=== PATIENT | male | born 1960 | race Caucasian/White ===

== ENCOUNTER 2020-06-30 07:48 | Outpatient (REF) | payer MEDICAID, SELFPAY | END 2020-06-30 07:49 | disposition home or self-care (01) | LOC: HO.HAP 07:48 | PROVIDERS: PCP Student in an Organized Health Care Education/Training Program; Referring Provider Student in an Organized Health Care Education/Training Program; Visit Provider Student in an Organized Health Care Education/Training Program | DX: Z13.89 Encounter for screening for other disorder (principal) | CPT/HCPCS: V5266 ==

== ENCOUNTER 2020-06-30 11:09 | Outpatient (REF) | payer MEDICAID, SELFPAY | END 2020-06-30 11:10 | disposition home or self-care (01) | LOC: HO.HAP 11:09 | PROVIDERS: Visit Provider Student in an Organized Health Care Education/Training Program | DX: Z46.1 Encounter for fitting and adjustment of hearing aid (principal) | CPT/HCPCS: V5266 ==

== ENCOUNTER 2020-10-07 10:01 | Outpatient (REF) | payer MEDICAID, SELFPAY | END 2020-10-07 10:02 | disposition home or self-care (01) | LOC: HO.HAP 10:01 | PROVIDERS: Visit Provider Student in an Organized Health Care Education/Training Program | DX: Z46.1 Encounter for fitting and adjustment of hearing aid (principal) | CPT/HCPCS: V5266 ==

== ENCOUNTER 2020-11-11 10:06 | Outpatient (REF) | payer MEDICAID, SELFPAY ==
--- NOTE | ~2020-11-11 | US_ITS ---
EXAMINATION: US RETROPERITONEAL LIMITED (RENAL ONLY) CLINICAL INFORMATION: Abnormal renal function. COMPARISON: None. TECHNIQUE: Real-time imaging of the kidneys. FINDINGS: RIGHT KIDNEY: 11.2 x 4.7 x 6.1 cm (SAG x AP x TRV). The kidney is normal in size, contour, and echogenicity. Renal cortical thickness is normal. No calculi or focal parenchymal lesions. No hydronephrosis. Tiny echogenic foci, likely representing vascular artifact. LEFT KIDNEY: 10.6 x 5.0 x 4.3 cm (SAG x AP x TRV). The kidney is normal in size, contour, and echogenicity. Renal cortical thickness is normal. No calculi or focal parenchymal lesions. No hydronephrosis. Tiny echogenic foci, likely representing vascular artifact. US/US renal BI IMPRESSION: No hydronephrosis or nephrolithiasis. No renal parenchymal lesion.
== END 2020-11-11 10:07 | disposition home or self-care (01) ==
LOC: HO.HMGCX 10:06
PROVIDERS: PCP Internal Medicine; Visit Provider Internal Medicine
DX: R94.4 Abnormal results of kidney function studies (principal)
CPT/HCPCS: 76775

== ENCOUNTER 2020-12-30 12:05 | Outpatient (REF) | payer MEDICAID, SELFPAY | END 2020-12-30 12:06 | disposition home or self-care (01) | LOC: HO.HAP 12:05 | PROVIDERS: Visit Provider Internal Medicine | DX: Z13.89 Encounter for screening for other disorder (principal) ==

== ENCOUNTER 2021-03-27 08:44 | Outpatient (REF) | payer MEDICAID, SELFPAY ==
--- NOTE | ~2021-03-27 | US_ITS ---
EXAMINATION: NONINVASIVE ASSESSMENT OF THE ARTERIES OF BOTH LOWER EXTREMITIES CLINICAL INFORMATION: Bilateral lower leg pain. COMPARISON: None. TECHNIQUE: Segmental ankle pulse volume recording, pressure measurement at the ankle and ankle brachial indices were obtained of the lower extremity arterial system bilaterally. This study was performed at rest only. FINDINGS: a) AT REST: 1. The ankle-brachial indices are: Right 0.43 and left 0.25. >0.97-1.25 = normal - no significant arterial disease. 0.75-0.96 = mild peripheral arterial disease. 0.5-0.74 = moderate peripheral arterial disease. <0.50 = severe peripheral arterial disease. 2. Segmental pressure at ankle: 69 mmHg on the right and 41 mmHg on the left. 3. PVR waveform at ankle: Significantly dampened and of low amplitude. US/US ROZINA complete IMPRESSION: By ROZINA the patient would have severe peripheral vascular disease bilaterally. I do not have any plain film studies or CT scans of the abdomen or lower extremities to assess for plaque. I recommend clinical correlation as with ABIs this low would expect possible ischemic changes.
== END 2021-03-27 08:45 | disposition home or self-care (01) ==
LOC: HO.US 08:44
PROVIDERS: Visit Provider Internal Medicine
DX: M79.661 Pain in right lower leg (principal); M79.662 Pain in left lower leg
CPT/HCPCS: 93923

== ENCOUNTER 2021-03-27 09:54 | Outpatient (REF) | payer MEDICAID, SELFPAY | END 2021-03-27 09:55 | disposition home or self-care (01) | LOC: HO.HAP 09:54 | PROVIDERS: Visit Provider Internal Medicine | DX: Z46.1 Encounter for fitting and adjustment of hearing aid (principal); H90.3 Sensorineural hearing loss, bilateral | CPT/HCPCS: V5266 ==

== ENCOUNTER → 2021-04-14 13:01 | Outpatient (BNVA) | payer MEDICAID, SELFPAY | PROVIDERS: PCP Internal Medicine; Referring Provider Internal Medicine; Visit Provider Surgery Vascular Surgery | DX: I73.9 Peripheral vascular disease, unspecified (principal) | CPT/HCPCS: 99202 ==

== ENCOUNTER 2021-04-15 07:25 | Day surgery (SDC) | payer MEDICAID, SELFPAY ==
[2021-04-15] VITALS (8 sets, daily range): BP systolic 102–140; BP diastolic 52–72; PULSE 52–62; RESP 16–18; TEMP 36.1–36.6; O2SAT 95–97; BMI 23.5
[2021-04-15 07:58] LABS: MANUAL DIFF FLAG NO
[2021-04-15 08:01] LABS: Basophils Absolute Auto 0.1 X10*3/uL (0.0-0.2); Basophils Percent Auto 0.8 % (0-2); Eosinophils Absolute Auto 0.3 X10*3/uL (0.0-0.4); Eosinophils Percent Auto 3.1 % (0-4); Hematocrit 43.3 % (42-52); Hemoglobin 14.1 g/dl (14.0-18.0); Imm Gran Abs Auto 0.02 X10*3/uL (0.00-0.03); Imm Gran Pct Auto 0.2 % (0.0-0.4); Lymphocytes Percent Auto 22.5 % (20-40); Mean Corpuscular HGB Conc 32.6 g/dl (31.0-36.0); Mean Corpuscular Hemoglobin 30.5 pg (27.0-33.0); Mean Corpuscular Volume 93.5 fL (80-98); Monocytes Absolute Auto 0.9 X10*3/uL (0.1-1.2); Monocytes Percent Auto 9.6 % (2-11); Neutrophils Absolute Auto 5.8 X10*3/uL (2.0-8.3); Neutrophils Percent Auto 63.8 % (45-73); Platelet Count 369 X10*3/uL (160-400); Red Blood Count 4.63 X10*6/uL (4.60-5.80); Red Cell Distribution Width 14.5 % (11.0-16.0); White Blood Count 9.1 X10*3/uL (4.8-10.8)
[2021-04-15 08:11] LABS: INTERNATIONAL NORM RATIO 1.2 (0.9-1.1); Prothrombin Time 13.1 SEC (9.9-13.0)
[2021-04-15 08:14] LABS: Partial Thromboplastin Time 43.3 SEC (24.1-38.0)
[2021-04-15 08:18] LABS: Anion Gap 18 (12-20); Blood Urea Nitrogen 14 mg/dL (9-16); Calcium 10.1 mg/dL (8.4-10.2); Carbon Dioxide 21 mmol/L (22-29); Chloride 105 mmol/L (96-108); Creatinine Clr Calc Pharmacy 85.4; Estimated Glomerular Filt Rate > 60; Glucose Random 80 mg/dL (60-115); Potassium 4.7 mmol/L (3.3-5.1); Sodium 139 mmol/L (135-145)
[2021-04-15] MEDS: 0.9 % Sodium Chloride 1,000 ML 100 ML IVCONT (08:33)
--- NOTE | 2021-04-15 11:11 | W.PM.OPN ---
Operative Note Operative Note Date of Service: 04/15/21 Narrative: Angiogram report from [facility] Preoperative diagnosis: Atherosclerosis of bilateral lower extremity with rest pain Postoperative diagnosis: Same Procedure: 1. Ultrasound-guided right common femoral access 2. Aortogram with bilateral lower extremity runoff Surgeon:Edmar Calderon M.D., FACS, RPVI [employer] Sales Representative:None Anesthesia: Local with moderate conscious sedation. Total intraservice moderate sedation time was 37 minutes. I monitored the patient's level of consciousness and physiologic status continuously throughout the procedure. Specimens:none Drains:none Estimated blood loss: Less than 10 ml Implant: None Indications: Pleasant 60-year-old gentleman with severe rest pain. He now presents for endovascular intervention. The patient has signed the informed consent after reviewing risks, complications, benefits, and alternatives previously discussed with the patient. The patient was given the opportunity to ask any additional questions or voice any concerns. All questions were answered to the patient's satisfaction. Procedure in detail: Patient was brought to the angiography suite prior to which a time-out was called for patient identification and site verification. Bilateral groins were prepped and draped in the standard surgical fashion. Under ultrasound guidance rightcommon femoral was punctured with micro puncture needle and wire. Subsequently a precision 4 Cambodian sheath was then placed. [employer] wire was advanced to the level of the aorta. 4 Cambodian Flush catheter was brought up and parked at the level of the renal arteries. Aortogram was then undertaken. Catheter was brought down to the level of the iliac bifurcation. Iliacs were subsequently imaged. We could not bring the catheter up and over due to the significant calcific disease. Runoff was undertaken from the aortic bifurcation position. No intervention was possible. Catheter wire sheath was removed. Direct pressure was held for 10 minutes. Interpretation of films: 1. Ultrasound demonstrates appropriate femoral puncture. Image of which was saved. 2. Aortogram demonstrates appropriate caliber aorta. Moderate aortic calcification. Appropriate take-off of the renals. 3. Iliac images demonstrate significant disease bilateral with minimal flow. Extremely calcified. 4. Left Leg Common femoral artery: Significant disease Profundus Femoris: Disease at the origin Superficial femoral artery: Occluded Popliteal artery (p1,p2,p3): Could not reflux contrast down Anterior tibial artery: Could not reflux contrast down Peroneal artery: Could not reflux contrast down Posterior tibial artery: Could not reflux contrast down Dorsalis pedis/plantar arch: Could not reflux contrast down 5. Right Leg Common femoral artery: Significant disease Profundus Femoris: Disease at the origin Superficial femoral artery: Occluded Popliteal artery (p1,p2,p3): Could not reflux contrast down Anterior tibial artery: Could not reflux contrast down Peroneal artery: Could not reflux contrast down Posterior tibial artery: Could not reflux contrast down Dorsalis pedis/plantar arch: Could not reflux contrast down Conclusion: 1. Successful diagnostic angiogram; patient will require open aortobifem This note is constructed using voice recognition software. While every effort has been made to ensure accuracy, therapy tech errors may have been included. Thank you for allowing me to participate in the care of your patient. Yours sincerely, Edmar Calderon MD, FACS, R.P.V.I.
== END 2021-04-15 15:18 | disposition home or self-care (01) ==
PROVIDERS: PCP Internal Medicine; Visit Provider Surgery Vascular Surgery
DX: I70.223 Atherosclerosis of native arteries of extremities with rest pain, bilateral legs (principal); I77.1 Stricture of artery; I10 Essential (primary) hypertension; F17.210 Nicotine dependence, cigarettes, uncomplicated
CPT/HCPCS: 36200; 36415; 75630; 76937; 80048; 85025; 85610; 85730; 99152; 99153; C1769; C1887; J2250; J3010; Q9967

== ENCOUNTER 2021-04-20 10:33 | Outpatient (REF) | payer MEDICAID, SELFPAY ==
--- NOTE | ~2021-04-20 | CT_ITS ---
EXAMINATION: CTA ABDOMEN, PELVIS AND LOWER EXTREMITY RUNOFF WITH CONTRAST CLINICAL INFORMATION: Claudication COMPARISON: Ultrasound 03/27/2021 TECHNIQUE: Routine abdominal aorta and lower extremity runoff CTA protocol with contrast was performed. 100 mL of Omnipaque 350 was administered. Images were evaluated on independent dedicated 3-D workstation and 3-D images were reconstructed with concurrent radiologist supervision and subsequently interpreted. This CT examination was performed using dose optimization techniques as appropriate, variously including the following: *Automated exposure control *Adjustment of mA and/or kV according to patient size (this includes techniques or standardized protocols for targeted exams where dose is matched to indication/reason for exam; i.e. extremities or head) *Use of iterative reconstruction technique TOTAL DLP: 629 mGy-cm FINDINGS: Vascular: 1. Distal Thoracic aorta:Normal in caliber. Mild eccentric calcified and noncalcified plaque. 2. Mesenteric Arteries:There is mild/moderate stenosis at the origin of the celiac trunk with normal opacification of its branches. The origin of the superior mesenteric artery is widely patent, though there is mild narrowing of the vessel approximately 1 cm from its origin over a length of 1 to 1.5 cm. Distal branches of the superior mesenteric artery are patent. The inferior mesenteric artery is somewhat diminutive, though patent. There is atherosclerotic disease along its course. 3. Renal Arteries:Single renal artery to each kidney. There is calcified and noncalcified plaque resulting in mild/moderate narrowing at the origin of the right kidney and dvtcytcb-nv-szstkn narrowing at the origin of the left. Distally the vessels are well opacified. 4. Infrarenal Abdominal Aorta:Patent without aneurysm or dissection. There is moderate eccentric wall calcification. The iliac bifurcation is patent. 5. Right Lower Extremity Arterial Perfusion: There is calcified and noncalcified, possible ulcerated plaque at the origin of the common iliac artery resulting in fzmwwqcv-xm-wlvvjr narrowing. There is either severe stenosis or focal occlusion at the origin of the internal iliac artery. The proximal internal iliac is opacified and there is severe disease further distally. There is multifocal lymlxozh-jm-oobmuk disease of the external iliac. There is irregular plaque of the common femoral artery resulting in moderate stenosis. The superficial femoral artery is occluded from its origin and there is baocgcwj-ta-pnqbgh irregular stenosis at the origin of the profunda femoris. There is reconstitution of the popliteal artery mdqkp-ufo-adiu in the very distal aspect of the superficial femoral artery at the adductor canal. There is focal severe stenosis secondary to irregular plaque at the level of the condyles. There is multifocal calcific disease of the runoff vessels and probable proximal segmental occlusion of the anterior tibial and posterior tibial arteries, though there remains a three-vessel runoff to the foot. 6. Left Lower Extremity Arterial Perfusion: Calcified and noncalcified plaque results in moderate narrowing of the common iliac and there is severe disease of the internal iliac. There is moderate narrowing of the external iliac at its proximal to midportion. There is irregular calcified and noncalcified plaque of the common femoral artery extending from the level of the femoral canal results in nfubxyra-ms-nxyqqk narrowing just proximal to the bifurcation. The superficial femoral artery is occluded from its origin. There is severe stenosis at the origin of the profunda femoris with post stenotic dilation. There is reconstitution of the very distal aspect of the superficial femoral artery at the level of the abductor canal and the ouejs-jfk-syoj popliteal artery with severe irregular disease of the hcnza-lqz-xusq popliteal as well as at the level of the condyles. There is mild disease below the level of the joint. There is multifocal calcification of the anterior tibial artery which is occluded proximally. There is reconstitution of the dorsalis pedis. There is segmental occlusion of the posterior tibial artery which is patent at the foot and the peroneal artery is patent. NONVASCULAR: Lung Bases: The visualized lung bases are unremarkable. Liver, Gallbladder and Biliary Tree: The liver is normal in size, shape, and attenuation. No focal hepatic lesion or biliary ductal dilatation is present. The gallbladder is unremarkable with no evidence of radiopaque gallstones, gallbladder wall thickening, or obvious pericholecystic inflammatory changes. Pancreas: Unremarkable. Spleen: Unremarkable. Adrenal Glands: Unremarkable. Kidneys and Ureters: The kidneys are normal in size, shape, and attenuation. At the upper pole of the left kidney there is a 1 cm cystic structure containing a thin linear internal septation. Septation is best appreciated on sagittal images. There are tiny foci of cortical thinning bilaterally which may represent areas of scarring. No hydronephrosis, hydroureter, or calculi seen. No perinephric stranding. Bladder: Unremarkable. Gastrointestinal Tract: The small and large bowel are normal in course and caliber. There is minimal colonic diverticulosis without diverticulitis. The appendix is unremarkable. Abdominal Wall: No significant hernia is appreciated. Lymph Nodes: Normal. Pelvic Viscera: Unremarkable. Osseous Structures: There are endplate degenerative changes of the imaged lumbar spine. There is prominent linear calcification of the posterior longitudinal ligament at T12-L1 which may result in some degree of canal narrowing. CT/CT angio abd aorta runoff IMPRESSION: Vascular: 1. There is multifocal atherosclerotic disease of the lower extremity vasculature as further detailed above. There is severe iliofemoral disease bilaterally with occlusion of the superficial femoral arteries, stenoses of the profunda femoral and multifocal disease of the runoff vessels. 2. Mild narrowing of the celiac and superior mesenteric arteries with patent vasculature beyond. 3. Bilateral renal arterial ostial disease with severe narrowing on the left and moderate narrowing on the right. Nonvascular: There is an indeterminate septated 1 cm cystic structure at the upper pole of the left kidney. Further characterization multiphasic CT or MR is recommended.
[2021-04-20] MEDS: iohexoL 350 MG/ML 100 ML INFUS..BTL IV (11:49)
== END 2021-04-20 10:34 | disposition home or self-care (01) ==
LOC: HO.CT 10:33
PROVIDERS: PCP Internal Medicine; Visit Provider Surgery Vascular Surgery
DX: I70.213 Atherosclerosis of native arteries of extremities with intermittent claudication, bilateral legs (principal)
CPT/HCPCS: 75635; Q9967

== ENCOUNTER → 2021-04-21 13:10 | Outpatient (BNVA) | payer MEDICAID, SELFPAY | PROVIDERS: PCP Internal Medicine; Visit Provider Surgery Vascular Surgery | DX: I74.09 Other arterial embolism and thrombosis of abdominal aorta (principal) | CPT/HCPCS: 99212 ==

== ENCOUNTER 2021-05-06 | Outpatient (REF) | payer MEDICAID, SELFPAY ==
[2021-05-06 12:55] VITALS: BP 123/56; PULSE 65; RESP 20; O2SAT 99; BMI 23.1
--- NOTE | 2021-05-06 13:09 | P.CONAN_ITS ---
HPI - Anesthesia Eval Consult details Narrative: Needs cardiac cath before optimized. To be rescheduled. 60yo M for Abdominal Aortobifemoral Repair, Open Cardiac clearance pending - Lexiscan stress done 05/14, Nuc imagings pending Bilateral hearing aides Educated RE: cessation/decreasing smoking, marijuana, ETOH preop PMFSH Active Problems Active Problems: All Active Problems (Updated 05/06/21 @ 12:52 by Bianka Cantu RN) PAD (peripheral artery disease) (Acute) Aortoiliac occlusive disease (Acute) Past Medical History Medical History COVID-19 vaccine series completed Decreased glomerular filtration rate (GFR) Hard of hearing HTN (hypertension) Hypercalcemia Hypercholesteremia Hypothyroidism IFG (impaired fasting glucose) PVD (peripheral vascular disease) S/P arteriogram of extremity Smoker Family History Family History (Updated 05/11/21 @ 10:16 by NADEGE Boland) Father No problems noted. Mother No problems noted. Surgical History Surgical History History of thumb surgery Social History Social History Are you a primary direct care specialist to a significant other at home: No Do you presently have visiting nurse or other home services: No Alcohol intake: current Alcohol intake frequency: a few times a week Alcohol type: beer Patient Tobacco Use Status: Current everyday Tobacco user Tobacco use type: Cigarette Cigarette Packs Per Day: 0.5 Cigarettes Per Day: 10.0 Years Smoked: > 20 Second Hand Smoke Exposure: No Narrative Narrative: No recent illness No CP/SOB with stairs. Limited only to leg pain associated with PAD Meds Allergies Allergy/AdvReac Type Severity Reaction Status Date / Time No Known Allergies Allergy Verified 05/11/21 10:15 [No Known Allergies*] Home Medications Medication Instructions Recorded Confirmed Last Taken Type acetaminophen 500 mg tablet 500 mg PO Q8H PRN 04/14/21 05/11/21 Unknown History amlodipine 10 mg tablet 10 mg PO DAILY 04/14/21 05/11/21 Unknown History aspirin 81 mg tablet,delayed 81 mg PO DAILY 04/14/21 05/11/21 Unknown History release atenolol 25 mg tablet 25 mg PO DAILY 04/14/21 05/11/21 Unknown History atorvastatin 40 mg tablet 40 mg PO BEDTIME 04/14/21 05/11/21 Unknown History cyclobenzaprine 5 mg tablet 5 mg PO TID 04/14/21 05/11/21 Unknown History hydralazine 25 mg tablet 25 mg PO TID 04/14/21 05/11/21 Unknown History ibuprofen 800 mg tablet 800 mg PO BID PRN 04/14/21 05/11/21 Unknown History levothyroxine 88 mcg tablet 88 mcg PO DAILY 04/14/21 05/11/21 Unknown History terbinafine HCl 250 mg tablet 250 mg PO DAILY 04/14/21 05/11/21 Unknown History Exam Exam Date and Time: May 06, 2021 1309 Height,Weight and Vital Signs: Height 5 ft 7 in Weight 67.132 kg Last Vital Signs Pulse 65 05/06/21 12:55 Resp 20 05/06/21 12:55 BP 123/56 L 05/06/21 12:55 Pulse Ox 99 05/06/21 12:55 Airway TM Dist: >3cm Neck ROM: Full Denture: Upper Loose/Missing/Broken Teeth: Yes Heart: RRR Lungs: CTAB Assessment and Plan Assessment Anesthesia Assessment: Anesthesia Plan Discussed (GA, Arterial Line, pain management postop discussed), Smoking Cess. Discussed and PAT Visit
== END 2021-05-06 00:01 | disposition home or self-care (01) ==
LOC: HO.LAB
PROVIDERS: PCP Internal Medicine; Visit Provider Surgery Vascular Surgery
DX: Z01.818 Encounter for other preprocedural examination (principal); I71.4 Abdominal aortic aneurysm, without rupture
CPT/HCPCS: 86850; 86900; 86901

== ENCOUNTER → 2021-05-11 10:13 | Outpatient (BNVA) | payer MEDICAID, SELFPAY | PROVIDERS: PCP Internal Medicine; Referring Provider Internal Medicine; Visit Provider Internal Medicine Cardiovascular Disease | DX: Z01.810 Encounter for preprocedural cardiovascular examination (principal); I74.09 Other arterial embolism and thrombosis of abdominal aorta; I73.9 Peripheral vascular disease, unspecified | CPT/HCPCS: 99202 ==

== ENCOUNTER → 2021-05-14 09:41 | Outpatient (REF) | payer MEDICAID, SELFPAY ==
--- NOTE | ~2021-05-14 | NM_ITS ---
Lexiscan Myocardial perfusion study Indication: Preoperative cardiovascular evaluation Technique: The patient was brought in for a Lexiscan perfusion study on 05/14/2021 and was injected 0.4 mg of Lexiscan intravenously. Within a minute of this injection 25 mCi of sestamibi was given intravenously. Images were obtained using the SPECT gamma camera interlaced with the gating device. Images were obtained in supine position. Resting perfusion study was performed on 05/15/2021. Patient was administered 25 mCi of sestamibi intravenously at rest. Images were then obtained in supine position. Total DLP 78mGy-cm. Images were processed with the software and compared side to side in short axis, horizontal long axis and vertical long axis views. Findings: Raw acquisition was reviewed. The stress perfusion study showed mildly diminished tracer uptake in the basal part of inferior septum. No significant change with CT attenuation correction. The gated study shows diminished LV systolic function with calculated LVEF of 43%. LV cavity is normal in size. The gated study shows reduced wall thickening and contractility in the basal inferior septum/inferior wall. Resting study shows mildly diminished tracer uptake in the basal inferior septum but slightly improved compared to stress acquisition. With CT attenuation correction, there is improvement in this area and hence could indicate some components of diaphragmatic attenuation. Gating at rest reveals ejection fraction at 57%. The findings are consistent with reversible basal inferior septal defect. NM/NM daija perf SPECT rest & str Impression: 1. Myocardial perfusion imaging study shows mild to moderate ischemia in the basal inferior septum. 2. Gated LVEF is 43% during stress and 57% during rest. 3. Transient ischemic dilatation ratio 1.1. EKG component of the test reported separately.
--- NOTE | 2021-05-14 09:50 | CA_ITS ---
Acquisition Time: 2021-05-14 10:01:31 Total Exercise Time: 00:02:00 Test Indications: preop Medications: Protocol: LEXISCAN Max HR: 098 BPM 60% of Pred: 161 BPM Max BP: 130/078 mmHG Max Work Load: 1.0 METS Pharmacological stress test with Lexiscan injection, while sitting and kicking his legs, with report of mild chest tightness and sob post injection, with isolated PACs, with normotensive response to injection, with nondiagnostic EKG for ischemia. In recovery his symptoms resolved after 3 min. Nuclear images pending. Test reviewed with Dr Arita. Referred By: Nathaniel Carter Overread By: HORACE BLUM
== END ==
LOC: HO.CARD 09:41
PROVIDERS: PCP Internal Medicine; Visit Provider Internal Medicine Cardiovascular Disease
DX: Z01.810 Encounter for preprocedural cardiovascular examination (principal)
CPT/HCPCS: 78452; 93017; A9500; J0280; J2785

== ENCOUNTER 2021-05-18 08:10 | Outpatient (REF) | payer MEDICAID, SELFPAY ==
[2021-05-18 08:24] LABS: MANUAL DIFF FLAG NO
[2021-05-18 08:38] LABS: Basophils Absolute Auto 0.1 X10*3/uL (0.0-0.2); Basophils Percent Auto 0.7 % (0-2); Eosinophils Absolute Auto 0.3 X10*3/uL (0.0-0.4); Eosinophils Percent Auto 2.8 % (0-4); Hemoglobin 13.2 g/dl (14.0-18.0); Imm Gran Abs Auto 0.04 X10*3/uL (0.00-0.03); Imm Gran Pct Auto 0.4 % (0.0-0.4); Lymphocytes Absolute Auto 2.4 X10*3/uL (1.2-4.9); Lymphocytes Percent Auto 23.7 % (20-40); Mean Corpuscular Hemoglobin 30.5 pg (27.0-33.0); Mean Corpuscular Volume 92.4 fL (80-98); Mean Platelet Volume 9.1 fL (9.4-12.4); Monocytes Percent Auto 9.8 % (2-11); Neutrophils Absolute Auto 6.3 X10*3/uL (2.0-8.3); Neutrophils Percent Auto 62.6 % (45-73); Platelet Count 345 X10*3/uL (160-400); Red Blood Count 4.33 X10*6/uL (4.60-5.80); Red Cell Distribution Width 14.4 % (11.0-16.0)
[2021-05-18 08:54] LABS: INTERNATIONAL NORM RATIO 1.1 (0.9-1.1); Prothrombin Time 12.4 SEC (9.9-13.0)
[2021-05-18 09:04] LABS: Anion Gap 15 (12-20); Blood Urea Nitrogen 17 mg/dL (9-16); Calcium 10.2 mg/dL (8.4-10.2); Carbon Dioxide 24 mmol/L (22-29); Chloride 103 mmol/L (96-108); Estimated Glomerular Filt Rate > 60; Glucose Random 84 mg/dL (60-115); Potassium 5.3 mmol/L (3.3-5.1); Sodium 137 mmol/L (135-145)
== END 2021-05-18 08:11 | disposition home or self-care (01) ==
LOC: HO.LAB 08:10
PROVIDERS: PCP Internal Medicine; Visit Provider Nurse Practitioner Family
DX: Z01.810 Encounter for preprocedural cardiovascular examination (principal); R94.39 Abnormal result of other cardiovascular function study
CPT/HCPCS: 36415; 80048; 85025; 85610

== ENCOUNTER 2021-05-18 10:57 | Outpatient (REF) | payer MEDICAID, SELFPAY ==
[2021-05-18 11:38] LABS: COVID-19 Test Negative (Negative)
== END 2021-05-18 10:58 | disposition home or self-care (01) ==
LOC: HO.LAB 10:57
PROVIDERS: Internal Medicine Cardiovascular Disease; PCP Internal Medicine; Visit Provider Internal Medicine
DX: Z20.822 Contact with and (suspected) exposure to COVID-19 (principal)
CPT/HCPCS: 36415; 87635

== ENCOUNTER 2021-07-06 14:18 | Outpatient (REF) | payer MEDICAID, SELFPAY ==
--- NOTE | 2021-07-06 14:34 | MHC.AU.P13 ---
Hearing Instrument Problem Date of Visit: 07/06/21 Right Ear: Electronic Design Engineer: Phonak Model: Audeo M 70-13T Serial Number: [id number] Repair Warranty: 06/14/2023 Battery Size: 13 Color: Beige Health Nurse: #1 Medium Type of Dome: Small Power Type of Wax Guard: CeruShield Dispensed By: [facility] Date of Fittin03/27/2020 Left Ear: Electronic Design Engineer: Phonak Model: Audeo M 70-13T Serial Number: [id number] Repair Warranty: 06/14/2023 Battery Size: 13 Color: Beige Health Nurse: #1 Medium Type of Dome: Small Power Type of Wax Guard: CeruShield Dispensed By: [facility] Date of Fittin03/27/2020 Follow-Up Summary: Hearing aids cleaned, wax guards, retention tails, and small power domes replaced - both amplifying clearly. Patient dispensed 42 batteries. Recommendations: Recommendations: Hearing instrument follow-up or maintenance as needed. Diagnosis Code(s): Primary Diagnosis: H90.3 Bilateral Sensorineural Hearing Loss Signature: Provider: URBAN Payne-HIS
== END 2021-07-06 14:19 | disposition home or self-care (01) ==
LOC: HO.HAP 14:18
PROVIDERS: Visit Provider Internal Medicine
DX: Z46.1 Encounter for fitting and adjustment of hearing aid (principal); H90.3 Sensorineural hearing loss, bilateral
CPT/HCPCS: V5266

== ENCOUNTER → 2021-08-06 13:03 | Outpatient (BNVA) | payer MEDICAID, SELFPAY | PROVIDERS: PCP Internal Medicine; Visit Provider Surgery Vascular Surgery | DX: I65.23 Occlusion and stenosis of bilateral carotid arteries (principal); I74.09 Other arterial embolism and thrombosis of abdominal aorta | CPT/HCPCS: 99212 ==

== ENCOUNTER → 2021-08-19 08:24 | Outpatient (BNVA) | payer MEDICAID, SELFPAY | PROVIDERS: PCP Internal Medicine; Referring Provider Internal Medicine; Visit Provider Internal Medicine Cardiovascular Disease | DX: Z01.810 Encounter for preprocedural cardiovascular examination (principal); I65.23 Occlusion and stenosis of bilateral carotid arteries; I74.09 Other arterial embolism and thrombosis of abdominal aorta; I25.10 Atherosclerotic heart disease of native coronary artery without angina pectoris | CPT/HCPCS: 93005; 99212 ==

== ENCOUNTER 2021-08-21 09:56 | Outpatient (REF) | payer MEDICAID, SELFPAY ==
[2021-08-21 11:39] LABS: Cholesterol 159 mg/dL; HDL Cholesterol 33 mg/dL; LDL Cholesterol Calculated 102 mg/dl; Triglycerides 121 mg/dL
== END 2021-08-21 09:57 | disposition home or self-care (01) ==
LOC: HO.HMGCLDS 09:56
PROVIDERS: Visit Provider Internal Medicine Cardiovascular Disease
DX: I65.23 Occlusion and stenosis of bilateral carotid arteries (principal)
CPT/HCPCS: 36415; 80061

== ENCOUNTER 2021-08-25 14:20 | Outpatient (REF) | payer MEDICAID, SELFPAY ==
--- NOTE | ~2021-08-25 | US_ITS ---
EXAMINATION: US EXTRACRANIAL CAROTID DUPLEX, BILATERAL CLINICAL INFORMATION: This is a 61-year-old male with carotid stenosis and hypertension. COMPARISON: None TECHNIQUE: Real-time ultrasound and Doppler techniques (integrating B-mode 2-D vascular images, Doppler spectral analysis and color-flow Doppler imaging) were utilized to interrogate the extracranial carotid arteries, the vertebral arteries and proximal subclavian arteries bilaterally. The degree of stenosis is determined by criteria similar to NASCET. FINDINGS: Right Side: 1. There is minimal atherosclerotic plaque seen in the bifurcation/proximal ICA region. 2. The common carotid artery PSV proximally is 54 cm/s and distally 43 cm/s. 3. The proximal internal carotid artery velocities are 30 cm/s systolic and 10 cm/s diastolic. 4. The proximal external carotid artery PSV is 105 cm/s. 5. The vertebral artery shows antegrade flow. 6. The subclavian artery waveforms are stenotic with elevated velocities of 232 cm/s. Left Side: 1. There is minimal atherosclerotic plaque seen in the bifurcation/proximal ICA region. 2. The common carotid artery PSV proximally is 68 cm/s and distally 40 cm/s. 3. The proximal internal carotid artery velocities are 62 cm/s systolic and 16 cm/s diastolic. 4. The proximal external carotid artery PSV is 560 cm/s. There is a hemodynamically significant stenosis in the external carotid artery. 5. The vertebral artery shows antegrade flow. 6. The subclavian artery waveforms are normal. US/US carotid duplex BI IMPRESSION: 1. RIGHT: Minimal, non-hemodynamically significant stenosis of the proximal right internal carotid artery corresponding to a 0-49% stenosis by velocity criteria. 2. LEFT: Minimal, non-hemodynamically significant stenosis of the proximal left internal carotid artery corresponding to a 0-49% stenosis by velocity criteria. 3. There is a hemodynamically significant stenosis in the right subclavian artery. However, the vertebral arteries remain antegrade. 4. There is a hemodynamically significant stenosis in the left external carotid artery.
== END 2021-08-25 14:21 | disposition home or self-care (01) ==
LOC: HO.US 14:20
PROVIDERS: PCP Internal Medicine; Visit Provider Surgery Vascular Surgery
DX: I65.23 Occlusion and stenosis of bilateral carotid arteries (principal)
CPT/HCPCS: 93880

== ENCOUNTER 2021-08-27 09:34 | Outpatient (REF) | payer MEDICAID, SELFPAY ==
[2021-08-27 11:43] LABS: Blood Urea Nitrogen 24 mg/dL (9-16); Estimated Glomerular Filt Rate > 60
== END 2021-08-27 09:35 | disposition home or self-care (01) ==
LOC: HO.LAB 09:34
PROVIDERS: PCP Internal Medicine; Visit Provider Surgery Vascular Surgery
DX: I65.23 Occlusion and stenosis of bilateral carotid arteries (principal); I74.09 Other arterial embolism and thrombosis of abdominal aorta; I25.10 Atherosclerotic heart disease of native coronary artery without angina pectoris
CPT/HCPCS: 36415; 82565; 84520; 99212

== ENCOUNTER 2021-08-28 09:00 | Outpatient (REF) | payer MEDICAID, SELFPAY ==
--- NOTE | ~2021-08-28 | CT_ITS ---
EXAMINATION: CT ANGIOGRAM NECK CLINICAL INFORMATION: Occlusion/stenosis of the bilateral carotid arteries. COMPARISON: Carotid ultrasound from 08/25/2021. TECHNIQUE: Initial noncontrast airframe technician imaging of the neck was performed. Test bolus sequences followed by intravenous administration 70 mL of Omnipaque 350. Helical imaging was performed in the axial plane from the aortic arch to the skull base. The data was processed at the tissue technologist's workstation for generation of MIP sequences. Angled MIPs and volume rendered reformatted images were also generated at an offline 3D workstation. Stenoses are assessed in accordance with NASCET criteria unless otherwise indicated. This CT examination was performed using dose optimization techniques as appropriate, variously including the following: *Automated exposure control. *Adjustment of mA and/or kV according to patient size (this includes techniques or standardized protocols for targeted exams where dose is matched to indication/reason for exam; i.e. extremities or head). *Use of iterative reconstruction technique. DLP: 543 mGy-cm FINDINGS: CT Neck: The thyroid gland is atrophic. The remaining cervical soft tissues are within normal limits. Reversal the normal cervical lordosis centered on C4-C5. Moderate degenerative anterolisthesis of C3 on C4. Mild degenerative anterolisthesis of C4 on C5. Associated moderate spinal canal stenoses from C3-C6. Facet and uncovertebral joint arthropathy leads to osseous encroachment on the neural foramina at C3-C4 and C4-C5. CT Upper Chest: Status post median sternotomy for CABG. Coronary artery calcifications are noted. Mild bilateral dependent and platelike atelectasis. Neck CTA: Aortic Arch: Normal contour and caliber with moderate calcific atherosclerotic disease. Classic 3 vessel branching pattern of the aortic arch. Great Vessel Origins: No significant stenosis of the branch origins. Subclavian Arteries: Mixed lipid rich and calcific atherosclerotic disease causes 45% stenosis of the origin of the right subclavian artery. Heavy irregular calcific atherosclerotic disease causes multifocal subtotal occlusions of the right greater than left subclavian arteries. Right Common Carotid Artery: Moderate mixed lipid rich and calcific atherosclerotic disease without flow-limiting stenosis or occlusion. Cervical Right Internal Carotid Artery: Calcific atherosclerotic disease of the carotid bulb and proximal internal carotid artery causes 75% stenosis of the proximal ICA 1 cm from its origin. Left Common Carotid Artery: Moderate mixed lipid rich and calcific atherosclerotic disease without flow-limiting stenosis or occlusion. Cervical Left Internal Carotid Artery: Mixed lipid rich and calcific atherosclerotic disease of the carotid bulb and proximal internal carotid artery without flow-limiting stenosis. Cervical Right Vertebral Artery: Dominant. Calcific atherosclerotic disease causes moderate to high-grade stenosis of the origin. No additional flow-limiting stenoses or occlusions of the remainder of the V1-V3 segments. Cervical Left Vertebral Artery: Calcific atherosclerotic disease causes high-grade stenosis of the origin additional moderate multifocal irregular stenoses of the V1 and V2 segments. There is moderate atherosclerotic stenosis of the V3-V4 junction. The left-sided V4 segment largely terminates as the posterior inferior cerebellar artery. CT/CT angio neck IMPRESSION: 1. Atherosclerotic disease causes 75% stenosis of the proximal right ICA. 2. Right dominant vertebral artery. Moderate to high-grade atherosclerotic stenosis of the origin of the right vertebral artery. 3. High-grade stenosis of the origin of the left vertebral artery. Moderate multifocal atherosclerotic stenoses of the V1 and V2 segments of the left vertebral artery. There is also moderate atherosclerotic stenosis of the V3-V4 junction of the left vertebral artery. 4. Multifocal high-grade atherosclerotic stenoses of the right greater than left subclavian arteries. 5. Moderate multilevel degenerative spondyloarthropathy of the cervical spine. Most notably on this limited exam without intrathecal contrast, there appears to be moderate spinal canal stenoses from C3-C6.
[2021-08-28] MEDS: iohexoL 350 MG/ML 100 ML INFUS..BTL IV (10:36)
== END 2021-08-28 09:01 | disposition home or self-care (01) ==
LOC: HO.CT 09:00
PROVIDERS: PCP Internal Medicine; Visit Provider Surgery Vascular Surgery
DX: I65.23 Occlusion and stenosis of bilateral carotid arteries (principal)
CPT/HCPCS: 70498; Q9967

== ENCOUNTER → 2021-09-01 14:33 | Outpatient (BNVA) | payer MEDICAID, SELFPAY | PROVIDERS: PCP Internal Medicine; Visit Provider Surgery Vascular Surgery | DX: I65.21 Occlusion and stenosis of right carotid artery (principal) | CPT/HCPCS: 99212 ==

== ENCOUNTER 2021-09-07 06:16 | Inpatient (IN) | payer MEDICAID, SELFPAY ==
[2021-09-04 11:06] VITALS: BP 110/60; PULSE 69; O2SAT 97; BMI 23.5
--- NOTE | 2021-09-04 11:27 | P.CONAN_ITS ---
Documented by User: Stephanie Urbina NP 09/04/21 13:38 HPI - Anesthesia Eval Consult details Narrative: 61yo M for Right Carotid Endarterectomy Cardiac cleared at [facility] s/p Left Carotid and CABG x 3, 06/2021 at [facility]. OK to continue with other vascular procedure per [facility]. Continues to smoke 2-3 cigarettes. Discussed smoking cessation. Pt trying to quit. Daily ETOH: 2-3 beers. Discussed slowly decreasing preop. (Bilat hearing aids) [facility] Active Problems Active Problems: All Active Problems (Updated 09/01/21 @ 14:56 by Edmar Calderon MD) PAD (peripheral artery disease) (Acute) Aortoiliac occlusive disease (Acute) Preop cardiovascular exam (Acute) Abnormal nuclear stress test (Acute) Bilateral carotid artery stenosis (Acute) Coronary artery disease (Acute) Preop cardiovascular exam (Acute) Carotid stenosis, right (Acute) Past Medical History Medical History COVID-19 vaccine series completed Decreased glomerular filtration rate (GFR) Hard of hearing HTN (hypertension) Hypercalcemia Hypercholesteremia Hypothyroidism IFG (impaired fasting glucose) PVD (peripheral vascular disease) S/P arteriogram of extremity Smoker Family History Family History Father No problems noted. Mother No problems noted. Surgical History Surgical History (Updated 09/04/21 @ 11:03 by Bianka Cantu RN) History of thumb surgery Hx of heart bypass surgery Status post carotid surgery Social History Social History Are you a primary senior resident care director to a significant other at home: No Do you presently have visiting nurse or other home services: No Alcohol intake: current Alcohol intake frequency: a few times a week Alcohol type: beer Patient Tobacco Use Status: Current everyday Tobacco user Tobacco use type: Cigarette Cigarette Packs Per Day: 0.5 Cigarettes Per Day: 10.0 Years Smoked: 30+ Smoked in Last 30 Days: Yes Patient Interested in Nicotine Replacement: No Patient Given Instructions on How to Stop Smoking: Yes Date Education Initiated: 09/04/21 Second Hand Smoke Exposure: Yes Use of substances other than those prescribed or required for medical reasons: Yes Substance Use Frequency: Daily Have you been hit, kicked, punched, or otherwise hurt by someone within the past year? If so, by whom?: No Are you DNR?: No Advance Directives: No Advance Directives Information Provided: Yes (Given to patient) Advance Directives on File: No Recently lost weight without trying: No Eating poorly because of decreased appetite: No Nutrition Risks: No Nutritional Risk Poor oral hygiene: Yes (Upper dentures) Meds Allergies Allergy/AdvReac Type Severity Reaction Status Date / Time No Known Allergies Allergy Verified 09/01/21 14:37 [No Known Allergies*] Home Medications Medication Instructions Recorded Confirmed Last Taken Type acetaminophen 500 mg tablet 500 mg PO Q8H PRN 04/14/21 09/02/21 Unknown History aspirin 81 mg tablet,delayed 81 mg PO DAILY 04/14/21 09/02/21 Unknown History release atenolol 25 mg tablet 25 mg PO DAILY 04/14/21 09/02/21 Unknown History cyclobenzaprine 5 mg tablet 5 mg PO TID 04/14/21 09/02/21 Unknown History levothyroxine 88 mcg tablet 88 mcg PO DAILY 04/14/21 09/02/21 Unknown History Exam Exam Date and Time: September 04, 2021 1127 Height,Weight and Vital Signs: Height 5 ft 7 in Weight 68.039 kg Last Vital Signs Pulse 69 09/04/21 11:06 BP 110/60 09/04/21 11:06 Pulse Ox 97 09/04/21 11:06 Pertinent Lab Results Pertinent Lab Results: Lab Results 09/04/21 09/04/21 09/04/21 Range/Units 12:11 12:11 12:11 WBC 8.5 (4.8-10.8) X10*3/uL RBC 4.58 L (4.60-5.80) X10*6/uL Hgb 12.9 L (14.0-18.0) g/dl Hct 40.8 L (42.0-52.0) % MCV 89.1 (80.0-98.0) fL MCH 28.2 (27.0-33.0) pg MCHC 31.6 (31.0-36.0) g/dl RDW 15.5 (11.0-16.0) % Plt Count 358 (160-400) X10*3/uL MPV 9.6 (9.4-12.4) fL Absolute Nucleated RBC 0.000 (0.0-0.012) X10*3/uL Nucleated RBC % (auto) 0.0 (0.0-0.2) /100WBC PT 12.5 (9.9-13.0) SEC INR 1.1 (0.9-1.1) APTT 38.6 H (24.1-38.0) SEC Sodium 137 (135-145) mmol/L Potassium 5.0 (3.3-5.1) mmol/L Chloride 102 (96-108) mmol/L Carbon Dioxide 29 (22-29) mmol/L Anion Gap 11 L (12-20) BUN 25 H (9-16) mg/dL Creatinine 1.22 (0.5-1.4) mg/dL Estim Creat Clear Calc 60.2 Estimated GFR > 60 Random Glucose 90 (60-115) mg/dL Calcium 10.2 (8.4-10.2) mg/dL Narrative Narrative: EKG 07/2021 Sinus rhythm 60 beats per minute, normal axis, poor R-wave progression, lateral ST-T changes with differentials of ischemia versus left ventricular hypert rophy.? QT interval 468 millisecond Airway Mallampati Class: II TM Dist: >3cm Neck ROM: Full Partial: Upper Heart: RRR Lungs: CTAB Assessment and Plan Assessment Anesthesia Assessment: Anesthesia Plan Discussed (GA with arterial line), Smoking Cess. Discussed and PAT Visit Documented by User: Oliver Lorenzo MD 09/07/21 07:07 [facility] Past Medical History Medical History COVID-19 vaccine series completed Decreased glomerular filtration rate (GFR) Hard of hearing HTN (hypertension) Hypercalcemia Hypercholesteremia Hypothyroidism IFG (impaired fasting glucose) PVD (peripheral vascular disease) S/P arteriogram of extremity Smoker Family History Family History Father No problems noted. Mother No problems noted. Family history of problems with anesthesia: No Surgical History Surgical History (Updated 09/04/21 @ 11:03 by Bianka Cantu RN) History of thumb surgery Hx of heart bypass surgery Status post carotid surgery History of Problems with Anesthesia: No Social History Social History Are you a primary senior resident care director to a significant other at home: No Do you presently have visiting nurse or other home services: No Alcohol intake: current Alcohol intake frequency: a few times a week Alcohol type: beer Patient Tobacco Use Status: Current everyday Tobacco user Tobacco use type: Cigarette Cigarette Packs Per Day: 0.5 Cigarettes Per Day: 10.0 Years Smoked: 30+ Smoked in Last 30 Days: Yes Patient Interested in Nicotine Replacement: No Patient Given Instructions on How to Stop Smoking: Yes Date Education Initiated: 09/04/21 Second Hand Smoke Exposure: Yes Use of substances other than those prescribed or required for medical reasons: Yes Substance Use Frequency: Daily Have you been hit, kicked, punched, or otherwise hurt by someone within the past year? If so, by whom?: No Are you DNR?: No Advance Directives: No Advance Directives Information Provided: Yes (Given to patient) Advance Directives on File: No Recently lost weight without trying: No Eating poorly because of decreased appetite: No Nutrition Risks: No Nutritional Risk Poor oral hygiene: Yes (Upper dentures) Meds Allergies Allergy/AdvReac Type Severity Reaction Status Date / Time No Known Allergies Allergy Verified 09/01/21 14:37 [No Known Allergies*] Home Medications Medication Instructions Recorded Confirmed Last Taken Type acetaminophen 500 mg tablet 500 mg PO Q8H PRN 04/14/21 09/02/21 Unknown History aspirin 81 mg tablet,delayed 81 mg PO DAILY 04/14/21 09/02/21 Unknown History release atenolol 25 mg tablet 25 mg PO DAILY 04/14/21 09/02/21 Unknown History cyclobenzaprine 5 mg tablet 5 mg PO TID 04/14/21 09/02/21 Unknown History levothyroxine 88 mcg tablet 88 mcg PO DAILY 04/14/21 09/02/21 Unknown History Exam Airway Loose/Missing/Broken Teeth: Yes (many missing teeth on bottom and poor dentition) Assessment and Plan Final Anesthetic Review Family History of Problems with Anesthesia: No History of Problems with Anesthesia: No NPO: Yes ASA Class: IV Final Preanesthetic Review: No Changes in Pt Med Stat, Meds/Allgs Chart Reviewed, Consent Obtained/Reviewed and Anes Risks/Benef Reviewed Patient Risk: High Procedure Risk: High Assessment/Block/Sedation in SS: Assess/Block/Sedation-SS Anesthetic Plan Anesthetic Plan: GA and Agree w/ Assess. and Plan Disposition: Standard PACU
[2021-09-04 12:51] LABS: Hematocrit 40.8 % (42.0-52.0); Hemoglobin 12.9 g/dl (14.0-18.0); Mean Corpuscular HGB Conc 31.6 g/dl (31.0-36.0); Mean Corpuscular Hemoglobin 28.2 pg (27.0-33.0); Mean Corpuscular Volume 89.1 fL (80.0-98.0); Mean Platelet Volume 9.6 fL (9.4-12.4); Platelet Count 358 X10*3/uL (160-400); Red Blood Count 4.58 X10*6/uL (4.60-5.80); Red Cell Distribution Width 15.5 % (11.0-16.0); White Blood Count 8.5 X10*3/uL (4.8-10.8)
[2021-09-04 12:57] LABS: INTERNATIONAL NORM RATIO 1.1 (0.9-1.1); Prothrombin Time 12.5 SEC (9.9-13.0)
[2021-09-04 12:59] LABS: Partial Thromboplastin Time 38.6 SEC (24.1-38.0)
[2021-09-04 13:17] LABS: Anion Gap 11 (12-20); Blood Urea Nitrogen 25 mg/dL (9-16); Calcium 10.2 mg/dL (8.4-10.2); Carbon Dioxide 29 mmol/L (22-29); Chloride 102 mmol/L (96-108); Creatinine Clr Calc Pharmacy 60.2; Estimated Glomerular Filt Rate > 60; Glucose Random 90 mg/dL (60-115); Sodium 137 mmol/L (135-145)
[2021-09-07] VITALS (25 sets, daily range): BP systolic 94–165; BP diastolic 61–105; PULSE 69–89; RESP 11–20; TEMP 36.1–36.2; O2SAT 94–100
[2021-09-07 06:41] LABS: COVID-19 Test Negative (Negative)
[2021-09-07] MEDS: Lactated Ringers 1,000 ML 100 ML IVCONT (06:50)
--- NOTE | 2021-09-07 08:04 | MHC.SHP ---
Pre-Procedural Eval Section A Date of Service: 09/07/21 The patient is an INPATIENT: No The History & Physical has been completed within 30 days and I have reviewed it.: Yes Section B Chief Complaint: Postop Allergies: Allergies Allergy/AdvReac Type Severity Reaction Status Date / Time No Known Allergies Allergy Verified 09/01/21 14:37 [No Known Allergies*] Plan I have reviewed the history and physical and performed a pertinent physical examination on my patient. No changes have occurred unless specified.
--- NOTE | 2021-09-07 12:16 | P.OP_ITS ---
Operative Note Operative Note Date of Service: 09/07/21 Narrative: Operative note by [facility] Preoperative diagnosis: Right carotid stenosis Postoperative diagnosis: Same Procedure: Right carotid endarterectomy Surgeon:Edmar Calderon M.D. Crossbar Switch Adjuster: Dr. Fuentes Anesthesia: General Specimens: 1 Drains: 1 Estimated blood loss: 100 mL Indications: 61-year-old gentleman who was previously worked up was noted to have high-grade right carotid stenosis. Of note he was worked up by CT angiogram which proved to be 75% stenosis to. He now presents for operative intervention The patient has signed the informed consent after reviewing risks, complications, benefits, and alternatives previously discussed with the patient. The patient was given the opportunity to ask any additional questions or voice any concerns. All questions were answered to the patient's satisfaction. Procedure in detail: Patient was brought to the operating room prior to which a time-out was called for patient identification and site verification. Right neck was prepped and draped in standard surgical fashion. Incision was carried out over the anterior border of the sternocleidomastoid. Went down through the platysma down through the fascia. We identified the external jugular which had to be ligated in addition we identified the facial branch the internal jugular which was ligated with 2-0 silk ties. Once this was accomplished we isolated out the carotid and dissected this clear. We also whether able to identify the hot full glass all and dissected this clear as well. With a slit it D internal and external carotid with silastic loops. Once this was accomplished we then placed a rim L tourniquet around the common carotid. 5000 units of systemic heparin was administered. After 5 minutes of circulation time internal common and external carotid were clamped in that order. Once this was all accomplished we made an arteriotomy him me from the common carotid to the internal carotid. We then placed a 8 Green[place]ic [place] shunt. We then removed all the loose debris an atherosclerotic plaque. We tacked down the distal flap using a 7 0 Prolene these were 3 separate interrupted 7 0 Prolene stitches that were placed. Once this was all accomplished we sutured on a xenosure patch circumferentially with 6 0 Prolene. Prior to closure shunt was removed. It was flushed clear. Patch was then closed. Isolated bleeding spots were closed over with 6 0 interrupted Prolene sutures. Once this was all accomplished adequate hemostasis was achieved. Deep layer was reapproximated using 2 0 Polysorb superficial layer with 3-0 poly Sorb finally skin with a 4-0 Monocryl prior to closure a 7 Greenlandic a Qasim-Hall drain was then put placed. Sterile dressing was applied. At the end the case sponge instrument counts were correct. Patient awoke neurologically intact. This note is constructed using voice recognition software. While every effort has been made to ensure accuracy, spare hand carding errors may have been included. Thank you for allowing me to participate in the care of your patient. Yours sincerely, Edmar Calderon MD, FACS, R.P.V.I.
[2021-09-07] MEDS: Albuterol Sulfate (0.083%) 2.5 MG/3 ML VIAL.NEB INHALE (14:55)
[2021-09-07] MEDS: ceFAZolin Sodium/Dextrose,Iso 2 GM/50 ML PIGGYBACK IV ×2 (14:55→16:33)
[2021-09-07] MEDS: 0.9 % Sodium Chloride 1,000 ML 80 ML IVCONT (15:04)
[2021-09-07] MEDS: Lactated Ringers 1,000 ML 75 ML IVCONT (15:11)
--- NOTE | 2021-09-07 15:46 | PM.CCHP ---
History of Present Illness Date of Service: 09/07/21 Attending physician on admission: Edmar Calderon Chief Complaint: Right carotid stenosis. Mr. Zaragoza is admitted to the ICU following elective right carotid endarterectomy this morning by Dr. Calderon. The patient is a 61-year-old male with past medical history of heavy smoking.? The patient has severe claudication, and was being worked up for aortobifemoral bypass surgery by Dr. Calderon.? A stress test showed high risk, which then led to cardiac catheterization, which showed multivessel disease.? The patient was therefore referred to [facility] where there workup showed bilateral carotid disease.? On 06/26/2021, the patient therefore underwent coronary artery bypass surgery with left carotid endarterectomy.? The patient was then referred back to Dr. Calderon for right carotid endarterectomy, ultimately to be followed by aortobifemoral bypass. Other past medical history includes CKD, hypertension, hyperlipidemia, hypothyroidism, impaired fasting glucose. The patient is on Plavix and aspirin at home. Patient underwent elective right carotid endarterectomy this morning in the operating room.? General endotracheal anesthesia and the surgical course were largely unremarkable.? The patient was extubated postoperatively and taken to the PACU, and then admitted to the ICU. On my exam in the ICU, the patient is well-appearing, fully awake and appropriate.? He talks easily.? He is breathing easy, with a sat of 100% on 2 L oxygen by nasal cannula.? Heart rate 71, sinus rhythm.? Blood pressure 125/79.? Temperature 97 degrees.? His right neck is mildly swollen.? The dressing is dry, except at the very edges.? There is a small amount of blood in the MARLYS grenade.? Tracheal sounds are clear.? Chest is clear to auscultation.? Heart rate and rhythm are regular, with normal-sounding S1 and S2.? I heard no murmur or gallops.? Neuro exam is completely intact. LABORATORY DATA FROM 09/04/2021:? Below.? Notably, BUN/creatinine were 25/1.2, which is 17/0.8 in April. IMPRESSION: 1. Tobacco abuse.? Has been counseled, doesn?t want to stop. 2. Severe coronary and peripheral vascular disease. 3. Status post elective right carotid endarterectomy this morning in the operating room. ? Doing well.? No perioperative complications noted. Admitted to ICU for overnite monitoring.? Follow-up per Dr. Calderon. [facility] Past Medical History Medical History COVID-19 vaccine series completed Decreased glomerular filtration rate (GFR) Hard of hearing HTN (hypertension) Hypercalcemia Hypercholesteremia Hypothyroidism IFG (impaired fasting glucose) PVD (peripheral vascular disease) S/P arteriogram of extremity Smoker Family History Family History Father No problems noted. Mother No problems noted. Surgical History Surgical History (Updated 09/04/21 @ 11:03 by Bianka Cantu RN) History of thumb surgery Hx of heart bypass surgery Status post carotid surgery Social History Social History Household Members: Spouse Housing: Apartment Are you a primary special needs caregiver to a significant other at home: No Do you presently have visiting nurse or other home services: No Alcohol intake: current Alcohol intake frequency: a few times a week Alcohol type: beer Patient Tobacco Use Status: Current everyday Tobacco user Tobacco use type: Cigarette Cigarette Packs Per Day: 1 Cigarettes Per Day: 20.0 Years Smoked: 30+ Smoked in Last 30 Days: Yes Patient Interested in Nicotine Replacement: No Patient Given Instructions on How to Stop Smoking: Yes Date Education Initiated: 09/04/21 Second Hand Smoke Exposure: Yes Use of substances other than those prescribed or required for medical reasons: No Substance Use Frequency: Daily Have you been hit, kicked, punched, or otherwise hurt by someone within the past year? If so, by whom?: No Do you feel safe in your current relationship?: Yes Is there a partner from a previous relationship who is making you feel unsafe now?: No Are you made to feel afraid or neglected: No Are you DNR?: No Advance Directives: No Advance Directives Information Provided: Yes (Given to patient) Advance Directives on File: No Do you have thoughts of harming others: None Do you have a plan to hurt others: No Plan Recently lost weight without trying: No Eating poorly because of decreased appetite: No Nutrition Risks: No Nutritional Risk Poor oral hygiene: No Meds Allergies Allergy/AdvReac Type Severity Reaction Status Date / Time No Known Allergies Allergy Verified 09/01/21 14:37 [No Known Allergies*] Active Medications: Current Medications Acetaminophen (Acetaminophen 325 Mg Tablet) 650 mg PO Q6H PRN PRN Reason: Pain, Mild (Pain Scale 1-3) Fentanyl (Fentanyl Citrate/Pf 100 Mcg/2 Ml Vial) 50 mcg IVPUSH Q5M PRN; Protocol PRN Reason: Pain, Moderate (Pain Scale 4-6 Hydromorphone HCl (Hydromorphone Hcl 0.5 Mg/0.5 Ml Syringe) 0.5 mg IVPUSH Q5M PRN; Protocol PRN Reason: Pain, Severe (Pain Scale 7-10) Lactated Ringer's (Lr) 1,000 mls @ 100 mls/hr IVCONT .Q10H [facility] Last Admin: 09/07/21 15:11 Dose: 75 mls/hr Documented by: Promethazine HCl 6.25 mg/ (Sodium Chloride) 50.25 mls @ 201 mls/hr IV ONCE PRN PRN Reason: Nausea and Vomiting Sodium Chloride (Ns) 1,000 mls @ 80 mls/hr IVCONT .[id number] [facility] Last Infusion: 09/07/21 15:09 Dose: Infused Documented by: Morphine Sulfate (Morphine Sulfate 2 Mg/Ml Cartridge) 2 mg IVPUSH Q4H PRN; Protocol PRN Reason: Pain, Severe (Pain Scale 7-10) Ondansetron HCl (Ondansetron Hcl 4 Mg/2 Ml Vial) 4 mg IVPUSH ONCE PRN PRN Reason: Nausea and Vomiting Ondansetron HCl (Ondansetron Hcl 4 Mg/2 Ml Vial) 4 mg IVPUSH Q8H PRN PRN Reason: Nausea and Vomiting Oxycodone HCl (Oxycodone Hcl Immed Release 5 Mg Tablet) 10 mg PO ONCE PRN PRN Reason: Pain, Severe (Pain Scale 7-10) Oxycodone HCl (Oxycodone Hcl Immed Release 5 Mg Tablet) 5 mg PO Q4H PRN PRN Reason: Pain, Moderate (Pain Scale 4-6 Sodium Chloride (0.9 % Sodium Chloride Flush 3 Ml Syringe) 3 ml IVFLUSH QSHIFT [facility] Last Admin: 09/07/21 15:11 Dose: Not Given Documented by: Home Medications Medication Instructions Recorded Confirmed Last Taken Type acetaminophen 500 mg tablet 500 mg PO Q8H PRN 04/14/21 09/02/21 Unknown History aspirin 81 mg tablet,delayed 81 mg PO DAILY 04/14/21 09/02/21 Unknown History release atenolol 25 mg tablet 25 mg PO DAILY 04/14/21 09/02/21 09/07/21 History cyclobenzaprine 5 mg tablet 5 mg PO TID 04/14/21 09/02/21 Unknown History levothyroxine 88 mcg tablet 88 mcg PO DAILY 04/14/21 09/02/21 09/07/21 History Physical Exam Vital Signs: Vital Signs: Last Vital Signs Temp 97.0 F 09/07/21 13:35 Pulse 71 09/07/21 15:00 Resp 16 09/07/21 15:00 BP 125/79 09/07/21 15:00 Pulse Ox 97 09/07/21 15:00 BMI result Body Mass Index 23.5 Results Labs CBC and Chem 7: 09/04/21 12:11 09/04/21 12:11 Labs: Laboratory Results - last 24 hr 09/07/21 06:15 COVID-19 ([facility]) Negative COVID-19 Clin Com See Note
[2021-09-08] VITALS (14 sets, daily range): BP systolic 103–162; BP diastolic 77–122; PULSE 75–96; RESP 11–25; TEMP 36.4–37.1; O2SAT 92–100; BMI 24.0
[2021-09-08] MEDS: Lactated Ringers 1,000 ML 75 ML IVCONT (02:20)
[2021-09-08 05:49] LABS: Basophils Percent Auto 0.1 % (0-2); Eosinophils Percent Auto 0.1 % (0-4); Hemoglobin 12.8 g/dl (14.0-18.0); Imm Gran Abs Auto 0.09 X10*3/uL (0.00-0.03); Imm Gran Pct Auto 0.5 % (0.0-0.4); Lymphocytes Absolute Auto 1.2 X10*3/uL (1.2-4.9); Lymphocytes Percent Auto 6.5 % (20-40); MANUAL DIFF FLAG SCAN; Mean Corpuscular HGB Conc 31.2 g/dl (31.0-36.0); Mean Corpuscular Volume 89.7 fL (80.0-98.0); Mean Platelet Volume 9.2 fL (9.4-12.4); Monocytes Absolute Auto 1.6 X10*3/uL (0.1-1.2); Monocytes Percent Auto 8.7 % (2-11); Neutrophils Absolute Auto 15.3 x10*3/uL (2.0-8.3); Neutrophils Percent Auto 84.1 % (45-73); Platelet Count 340 X10*3/uL (160-400); Red Blood Count 4.57 X10*6/uL (4.60-5.80); Red Cell Distribution Width 15.5 % (11.0-16.0); SCAN SMEAR FLAG 1; White Blood Count 18.2 X10*3/uL (4.8-10.8)
[2021-09-08 06:06] LABS: Anion Gap 16 (12-20); Blood Urea Nitrogen 18 mg/dL (9-16); Carbon Dioxide 27 mmol/L (22-29); Chloride 100 mmol/L (96-108); Creatinine Clr Calc Pharmacy 69.9; Estimated Glomerular Filt Rate > 60; Glucose Random 127 mg/dL (60-115); Potassium 5.9 mmol/L (3.3-5.1); Sodium 137 mmol/L (135-145)
[2021-09-08 06:27] LABS: SLIDE REVIEW VERIFIED
[2021-09-08] MEDS: 0.9 % Sodium Chloride 1,000 ML 80 ML IVCONT (06:45)
--- NOTE | 2021-09-08 06:58 | P.CDIC_ITS ---
CDI Concurrent Query Documentation Clarification: PHYSICIAN'S DOCUMENTATION REQUEST Date of Query: 09/08/21 0659 Patient Name: Khoi Zaragoza Admit Date: 09/07/21 Dear Doctor, A review of the medical record indicates additional documentation may be needed. Please review below and update the documentation accordingly. Clinical Indicators: The following clinical information was noted in the record: Risk Factors/Clinical Indicators/Treatments Per ICU note 09/07/21: history CKD On 09/08/21: BUN 18, Creatinine 1.05 Est. GFR > 60 Please clarify which of the following accurately represents the patient's renal status: * CKD, please provide stage - see criteria * Other (please specify) * Unable to determine Criteria for DENA* Stages of Chronic Kidney Disease* 1. Increase in serum creatinine by ? 0.3 mg/dL Level Description GFR (?26.5 micromol/L) within 48 hours, or G1 Normal or High > 90 2. Increase in serum creatinine to ?1.5 times baseline, G2 Mildly decreased 60 ? 89 which is known or presumed to have occurred within 7 days, or G3a Mildly to moderately decreased 45 ? 59 3. Urine volume <0.5 mL/kg/hour for six hours G3b Moderately to severely decreased 30 - 44 G4 Severely decreased 15 ? 29 G5 Kidney failure < 15 *Source: Kidney Disease: Improving Global Outcomes (KDIGO) 2012 Use of terms such as suspected, likely, concern for, or probable (associated with a specific diagnosis that is being evaluated, monitored, or treated as if it exists) are acceptable and can be coded in the inpatient setting, when documented at the time of discharge. Thank you, Shanda Arredondo RN Extension: [phone] Please use your independent medical judgment in providing your response. THIS QUERY IS PART OF THE PERMANENT MEDICAL RECORD Provider Response: Other (No evidence of kidney disease) Other Diagnosis: I disagree. There is no evidence of kidney disease per my review of record
--- NOTE | 2021-09-08 07:12 | PC.NURSE ---
Patient's BP elevated 159/125, provider notified, Atenolol ordered . Report given to oncoming RN. Atenolol to be administered.
[2021-09-08] MEDS: atenoloL 25 MG TABLET PO (07:24)
[2021-09-08] MEDS: 0.9 % Sodium Chloride Flush 3 ML SYRINGE IVFLUSH (07:25)
--- NOTE | 2021-09-08 08:46 | HO.POSTANES ---
Post Anesthesia Evaluation Post Anesthesia Evaluation Vital Signs: Vital Signs Temp Pulse Resp BP Pulse Ox 09/08/21 08:00 97.9 F 88 17 156/115 H 92 09/08/21 07:28 97.6 F 09/08/21 07:07 92 09/08/21 07:00 94 15 155/122 H 100 09/08/21 06:00 94 18 162/115 H 98 09/08/21 05:00 90 16 122/94 H 95 09/08/21 04:00 90 14 107/93 H 93 09/08/21 03:00 92 11 L 103/91 H 96 09/08/21 01:59 96 20 144/98 H 98 09/08/21 00:57 92 15 125/86 98 09/07/21 23:56 89 13 143/96 H 97 09/07/21 23:00 87 11 L 97/70 97 09/07/21 22:00 88 11 L 165/105 H 95 09/07/21 20:57 86 13 125/87 97 Anesthesia: General Endotracheal-GETA Mental Status: Awake Pain Control: Satisfactory Nausea/Vomiting: None Hydration: Adequate Anesthesia-Related Issues: No Anes. Related Issues
--- NOTE | 2021-09-08 11:14 | MHC.CM.PN ---
Met with pt to discuss d/c planning: pt resides with s.o. and is independent with all care needs. Pt has no services or other barriers to care. Discussed VNA options: pt declined all services and feels he'll manage without incident. HCP at home: Jerried x3 CM to follow for changes in d/c plan.
--- NOTE | 2021-09-08 13:24 | P.DS_ITS ---
DS: Providers Provider Date of Service: 09/08/21 Date of admission: 09/07/21 06:16 Primary care physician: Brianda Oswald MD DS: Summary Hospital Course Hospital Course: Patient was admitted on 09/07/2021 and underwent elective right carotid endarterectomy. Of note he has had a prior combined CABG carotid on the left side which was done few months prior. Upon workup he was noted to have high- grade right carotid stenosis as well. He underwent the procedure without incident. Postop he was recovered in the recovery area and observed overnight with his blood pressure. It was slightly elevated throughout the night. This morning it was under better control. Feldman and A-line was removed. He was voiding freely tolerating a regular diet and was subsequently discharged. Time Spent with Patient Time attestation: Total time spent providing and/or coordinating discharge services: Discharge coordination time: Greater than 30 minutes Quality: Stroke Does the patient have a stroke diagnosis?: No Physical Exam Vital Signs: Vital Signs: Last Vital Signs Temp 98.7 F 09/08/21 12:00 Pulse 80 09/08/21 12:00 Resp 23 H 09/08/21 12:00 BP 146/94 H 09/08/21 12:00 Pulse Ox 95 09/08/21 12:00 BMI result Body Mass Index 24.0 DS: Data Data Completed and Pending Completed studies during hospitalization [Text1]: Pending at discharge 09/07/21 09:46 Surgical [PTH] Routine Labs on day of discharge: Laboratory Results - last 24 hr 09/08/21 09/08/21 05:35 05:35 WBC 18.2 H RBC 4.57 L Hgb 12.8 L Hct 41.0 L MCV 89.7 MCH 28.0 MCHC 31.2 RDW 15.5 Plt Count 340 MPV 9.2 L Immature Gran % (Auto) 0.5 H Neut % (Auto) 84.1 H Lymph % (Auto) 6.5 L [place] % (Auto) 8.7 Eos % (Auto) 0.1 Baso % (Auto) 0.1 Lymph # (Auto) 1.2 [place] # (Auto) 1.6 H Eos # (Auto) 0.0 Baso # (Auto) 0.0 Abs Immat Gran (auto) 0.09 H Absolute Neuts (auto) 15.3 H Absolute Nucleated RBC 0.000 Nucleated RBC % (auto) 0.0 Smear Tech's Comments VERIFIED Sodium 137 Potassium 5.9 H Chloride 100 Carbon Dioxide 27 Anion Gap 16 BUN 18 H Creatinine 1.05 Estim Creat Clear Calc 69.9 Estimated GFR > 60 Random Glucose 127 H D Calcium 10.0 Discharge Plan Discharge Patient Disposition: Home, Self-Care Discharge Diagnosis: CEA Referrals: Brianda Oswald MD [Primary Care Provider] - 1 Week Discharge Medications: New oxycodone-acetaminophen [Percocet] 5-325 mg tablet 1 tab PO Q8H PRN (Reason: pain) Qty: 10 0RF Continued ezetimibe [Zetia] 10 mg tablet 10 mg PO DAILY Qty: 30 4RF levothyroxine 88 mcg tablet 88 mcg PO DAILY 0RF acetaminophen 500 mg tablet 500 mg PO Q8H PRN (Reason: pain) 0RF aspirin 81 mg tablet,delayed release (DR/EC) 81 mg PO DAILY 0RF cyclobenzaprine 5 mg tablet 5 mg PO TID 0RF atenolol 25 mg tablet 25 mg PO DAILY 0RF atorvastatin 80 mg tablet 80 mg PO BEDTIME Qty: 90 3RF Discharge Orders: Discharge Order (Routine); Ordered 09/08/21 Ordered By: Edmar Calderon Activity on Discharge: As tolerated Stand Alone Forms: Patient Portal Discharge page Care Plan Goals: prevent stroke Health Concerns: PVD and carotid stenosis Plan of Treatment: continue with surveilence ultrasound follow up Assessment: s/p CEA
== END 2021-09-08 14:19 | disposition home or self-care (01) | DRG 24 ==
LOC: HO.ICU 12:07 → HO.SSSA 09-08 13:43
PROVIDERS: Nurse Practitioner; Admitting Provider Surgery Vascular Surgery; PCP Internal Medicine; Visit Provider Surgery Vascular Surgery
PROC: 03CH0ZZ Extirpation of Matter from Right Common Carotid Artery, Open Approach (ICD-10-PCS; CPT 35301; principal; 2021-09-07 07:30)
DX: I65.21 Occlusion and stenosis of right carotid artery (principal); E03.9 Hypothyroidism, unspecified; E78.5 Hyperlipidemia, unspecified; I25.10 Atherosclerotic heart disease of native coronary artery without angina pectoris; I10 Essential (primary) hypertension; Z95.1 Presence of aortocoronary bypass graft; F17.210 Nicotine dependence, cigarettes, uncomplicated; Z71.6 Tobacco abuse counseling; Z20.822 Contact with and (suspected) exposure to COVID-19; Z79.02 Long term (current) use of antithrombotics/antiplatelets; Z79.82 Long term (current) use of aspirin; Z79.890 Hormone replacement therapy; Z79.899 Other long term (current) drug therapy
CPT/HCPCS: 36415; 80048; 85025; 85027; 85610; 85730; 86850; 86900; 86901; 87635; 88304; 88311; C1758; C1768; J0690; J1100; J1170; J2250; J2370; J2405; J3010

== ENCOUNTER → 2021-09-24 11:31 | Outpatient (BNVA) | payer MEDICAID, SELFPAY | PROVIDERS: PCP Internal Medicine; Visit Provider Surgery Vascular Surgery | DX: I74.09 Other arterial embolism and thrombosis of abdominal aorta (principal); I65.23 Occlusion and stenosis of bilateral carotid arteries | CPT/HCPCS: 99212 ==

== ENCOUNTER 2021-10-21 11:07 | Outpatient (REF) | payer MEDICAID, SELFPAY | END 2021-10-21 11:08 | disposition home or self-care (01) | LOC: HO.HAP 11:07 | PROVIDERS: Visit Provider Internal Medicine | DX: Z46.1 Encounter for fitting and adjustment of hearing aid (principal); H90.3 Sensorineural hearing loss, bilateral | CPT/HCPCS: 92593; V5266 ==

== ENCOUNTER → 2021-12-03 09:28 | Outpatient (BNVA) | payer MEDICAID, SELFPAY | PROVIDERS: PCP Internal Medicine; Referring Provider Internal Medicine; Visit Provider Internal Medicine Cardiovascular Disease | DX: Z01.810 Encounter for preprocedural cardiovascular examination (principal); I25.10 Atherosclerotic heart disease of native coronary artery without angina pectoris; I74.09 Other arterial embolism and thrombosis of abdominal aorta; I65.23 Occlusion and stenosis of bilateral carotid arteries | CPT/HCPCS: 93005; 99212 ==

== ENCOUNTER → 2021-12-11 08:47 | Outpatient (BNVA) | payer MEDICAID, SELFPAY | PROVIDERS: PCP Internal Medicine; Visit Provider Internal Medicine Pulmonary Disease | DX: Z01.811 Encounter for preprocedural respiratory examination (principal); J44.9 Chronic obstructive pulmonary disease, unspecified | CPT/HCPCS: 99202 ==

== ENCOUNTER 2021-12-16 10:39 | Outpatient (REF) | payer MEDICAID, SELFPAY ==
--- NOTE | 2021-12-16 11:48 | PFT_ITS ---
FLOWS: FEV1 of 56% of predicted at 1.82 L. FVC 54% of predicted at 2.33 L. FEV1 to FVC ratio of 0.78. No bronchodilator response except in small to medium airways. LUNG VOLUMES: Total lung capacity 65% of predicted at 4.17 L. Residual volume 80% of predicted at 1.69 L. Slow vital capacity 57% of predicted at 2.48 L. Expiratory reserve volume 37% of predicted at 0.45 L. Diffusion capacity is moderately decreased, diffusion capacity corrects to normal after adjustment for alveolar ventilation. IMPRESSION: Moderate restrictive ventilatory defect with no bronchodilator response except in small to medium airways. Decreased expiratory reserve volume suggests extrathoracic restriction likely secondary to abdominal obesity. MD ALLISON Sherman/MODL / [id number]
== END 2021-12-16 10:40 | disposition home or self-care (01) ==
LOC: HO.RESP 10:39
PROVIDERS: PCP Internal Medicine; Visit Provider Internal Medicine Pulmonary Disease
DX: Z01.811 Encounter for preprocedural respiratory examination (principal)
CPT/HCPCS: 94060; 94727; 94729

== ENCOUNTER 2021-12-28 13:14 | Inpatient (IN) | payer MEDICAID, SELFPAY ==
[2021-12-16 12:17] VITALS: BP 115/57; PULSE 82; RESP 20; O2SAT 99; BMI 25.8
--- NOTE | 2021-12-16 12:47 | HO.ANESPROP2 ---
Documented by User: Stephanie Urbina NP 12/24/21 13:44 HPI - Anesthesia Eval Consult details Narrative: 61yo M for Open Aortoiliac BiFemoral Bypass Workload to cardiol and vascular re: pt not taking plavix for unknown amount of time. Per Dr Carter Generally few months of Plavix post CABG has some data to prevent graft closure. I do not think he needs Plavix anymore. Aspirin can be held as per vascular surgery instructions. Cardiac cleared Pulmo cleared: Results of pulmonary function test reviewed, underlying moderate restrictive ventilatory defect with no significant bronchodilator response except in small to medium airways.? Diffusion capacity has moderately decreased, but adjust to normal after correction for alveolar ventilation. Based on clinical exam and results of pulmonary function test patient is at low risk for pulmonary perioperative complications for proposed open aortoilliac bypass under general anesthesia. s/p carotid 08/2021 with GA-ETT 7, A-line s/p Left Carotid and CABG x 3, 06/2021 at [facility] Active Problems Active Problems: All Active Problems (Updated 12/15/21 @ 09:16 by Bianka Cantu RN) PAD (peripheral artery disease) (Acute) Aortoiliac occlusive disease (Acute) Preop cardiovascular exam (Acute) Abnormal nuclear stress test (Acute) Bilateral carotid artery stenosis (Acute) Coronary artery disease (Acute) Preop cardiovascular exam (Acute) Carotid stenosis, right (Acute) Encounter for preoperative pulmonary examination (Acute) COPD (chronic obstructive pulmonary disease) (Acute) Past Medical History Medical History Cancer COVID-19 vaccine series completed Decreased glomerular filtration rate (GFR) Hard of hearing HTN (hypertension) Hypercalcemia Hypercholesteremia Hypothyroidism IFG (impaired fasting glucose) PAD (peripheral artery disease) PVD (peripheral vascular disease) S/P arteriogram of extremity Smoker Family History Family History Father No problems noted. Mother No problems noted. Family history of problems with anesthesia: No Surgical History Surgical History (Updated 12/15/21 @ 09:14 by Bianka Cantu RN) History of right-sided carotid endarterectomy History of thumb surgery Hx of heart bypass surgery Status post carotid surgery History of Problems with Anesthesia: No Social History Social History Household Members: Spouse Housing: Apartment Are you a primary family member caretaker to a significant other at home: No Do you presently have visiting nurse or other home services: No Alcohol intake: current Alcohol intake frequency: a few times a month Alcohol type: beer Patient Tobacco Use Status: Current someday Tobacco user Tobacco use type: Cigarette Cigarette Packs Per Day: 0.25 Cigarettes Per Day: 5.0 Years Smoked: +/- 30 yrs Second Hand Smoke Exposure: Yes service: No Current occupational status: disabled Meds Allergies Allergy/AdvReac Type Severity Reaction Status Date / Time No Known Allergies Allergy Verified 12/28/21 06:07 [No Known Allergies*] Home Medications Medication Instructions Recorded Confirmed Last Taken Type acetaminophen 500 mg tablet 500 mg PO Q8H PRN 04/14/21 12/15/21 Unknown History aspirin 81 mg tablet,delayed 81 mg PO DAILY 04/14/21 12/15/21 Unknown History release atenolol 25 mg tablet 25 mg PO DAILY 04/14/21 12/15/21 12/28/21 05:00 History cyclobenzaprine 5 mg tablet 5 mg PO TID 04/14/21 12/15/21 Unknown History levothyroxine 88 mcg tablet 88 mcg PO DAILY 04/14/21 12/15/21 12/28/21 05:00 History cholecalciferol (vitamin D3) 50 50 mcg PO DAILY 12/03/21 12/15/21 Unknown History mcg (2,000 unit) tablet Exam Exam Date and Time: December 16, 2021 1247 Height,Weight and Vital Signs: Height 5 ft 6 in Weight 72.575 kg Last Vital Signs Pulse 82 12/16/21 12:17 Resp 20 12/16/21 12:17 BP 115/57 L 12/16/21 12:17 Pulse Ox 99 12/16/21 12:17 Pertinent Lab Results Pertinent Lab Results: Lab Results 12/16/21 12/16/21 12/16/21 Range/Units 13:10 13:10 13:10 WBC 7.9 (4.8-10.8) X10*3/uL RBC 5.22 (4.60-5.80) X10*6/uL Hgb 14.0 (14.0-18.0) g/dl Hct 44.3 (42.0-52.0) % MCV 84.9 (80.0-98.0) fL MCH 26.8 L (27.0-33.0) pg MCHC 31.6 (31.0-36.0) g/dl RDW 17.2 H (11.0-16.0) % Plt Count 362 (160-400) X10*3/uL MPV 9.5 (9.4-12.4) fL Absolute Nucleated RBC 0.000 (0.0-0.012) X10*3/uL Nucleated RBC % (auto) 0.0 (0.0-0.2) /100WBC PT 13.7 H (9.9-13.0) SEC INR 1.2 H (0.9-1.1) APTT 38.2 H (24.1-38.0) SEC Sodium 134 L (135-145) mmol/L Potassium 5.1 (3.3-5.1) mmol/L Chloride 98 (96-108) mmol/L Carbon Dioxide 29 (22-29) mmol/L Anion Gap 12 (12-20) BUN 27 H (9-16) mg/dL Creatinine 1.24 (0.5-1.4) mg/dL Estim Creat Clear Calc 57.1 Estimated GFR 59 Random Glucose 93 (60-115) mg/dL Calcium 10.1 (8.4-10.2) mg/dL Blood Type Antibody Screen 12/16/21 Range/Units 13:10 WBC (4.8-10.8) X10*3/uL RBC (4.60-5.80) X10*6/uL Hgb (14.0-18.0) g/dl Hct (42.0-52.0) % MCV (80.0-98.0) fL MCH (27.0-33.0) pg MCHC (31.0-36.0) g/dl RDW (11.0-16.0) % Plt Count (160-400) X10*3/uL MPV (9.4-12.4) fL Absolute Nucleated RBC (0.0-0.012) X10*3/uL Nucleated RBC % (auto) (0.0-0.2) /100WBC PT (9.9-13.0) SEC INR (0.9-1.1) APTT (24.1-38.0) SEC Sodium (135-145) mmol/L Potassium (3.3-5.1) mmol/L Chloride (96-108) mmol/L Carbon Dioxide (22-29) mmol/L Anion Gap (12-20) BUN (9-16) mg/dL Creatinine (0.5-1.4) mg/dL Estim Creat Clear Calc Estimated GFR Random Glucose (60-115) mg/dL Calcium (8.4-10.2) mg/dL Blood Type B Positive Antibody Screen NEGATIVE Narrative Narrative: EKG 11/2021 sinus rhythm 87 beats per minute, rightward axis, biatrial enlargement, left ventricular hypertrophy with QRS widening and repolarization changes, QT interval mildly prolonged at 486 milliseconds. NM daija perf SPECT rest & str 04/2021 Impression: ? 1.? Myocardial perfusion imaging study shows mild to moderate ischemia in the basal inferior septum. 2.? Gated LVEF is 43% during stress and 57% during rest. 3. Transient ischemic dilatation ratio 1.1. ? EKG component of the test reported separately. Airway Mallampati Class: II TM Dist: >3cm Neck ROM: Full Loose/Missing/Broken Teeth: Yes (many missing teeth on bottom and poor dentition) Heart: RRR Lungs: CTAB Assessment and Plan Assessment Anesthesia Assessment: Anesthesia Plan Discussed, Smoking Cess. Discussed (actively quitting with s.o.) and PAT Visit Final Anesthetic Review Family History of Problems with Anesthesia: No History of Problems with Anesthesia: No Documented by User: Chris Felder MD 12/28/21 12:42 HPI - Anesthesia Eval Consult details Narrative: 61yo M for Open Aortoiliac BiFemoral Bypass Workload to cardiol and vascular re: pt not taking plavix for unknown amount of time. Per Dr Carter Generally few months of Plavix post CABG has some data to prevent graft closure. I do not think he needs Plavix anymore. Aspirin can be held as per vascular surgery instructions. Cardiac cleared Pulmo cleared: Results of pulmonary function test reviewed, underlying moderate restrictive ventilatory defect with no significant bronchodilator response except in small to medium airways.? Diffusion capacity has moderately decreased, but adjust to normal after correction for alveolar ventilation. Based on clinical exam and results of pulmonary function test patient is at low risk for pulmonary perioperative complications for proposed open aortoilliac bypass under general anesthesia. s/p carotid 08/2021 with GA-ETT 7, A-line s/p Left Carotid and CABG x 3, 06/2021 at [facility] patient has hyperkalemia , K= 5.6 . Case discussed with the surgeon . As per surgeon this is not an elective procedure and patient has critical limb ischemia. WE will proceed with the procedure , patient will be given IV calcium and IV hydration with NS . [facility] Past Medical History Medical History Cancer COVID-19 vaccine series completed Decreased glomerular filtration rate (GFR) Hard of hearing HTN (hypertension) Hypercalcemia Hypercholesteremia Hypothyroidism IFG (impaired fasting glucose) PAD (peripheral artery disease) PVD (peripheral vascular disease) S/P arteriogram of extremity Smoker Family History Family History Father No problems noted. Mother No problems noted. Surgical History Surgical History (Updated 12/15/21 @ 09:14 by Bianka Cantu RN) History of right-sided carotid endarterectomy History of thumb surgery Hx of heart bypass surgery Status post carotid surgery Social History Social History Household Members: Spouse Housing: Apartment Are you a primary family member caretaker to a significant other at home: No Do you presently have visiting nurse or other home services: No Alcohol intake: current Alcohol intake frequency: a few times a month Alcohol type: beer Patient Tobacco Use Status: Current someday Tobacco user Tobacco use type: Cigarette Cigarette Packs Per Day: 0.25 Cigarettes Per Day: 5.0 Years Smoked: +/- 30 yrs Second Hand Smoke Exposure: Yes service: No Current occupational status: disabled Meds Allergies Allergy/AdvReac Type Severity Reaction Status Date / Time No Known Allergies Allergy Verified 12/28/21 06:07 [No Known Allergies*] Home Medications Medication Instructions Recorded Confirmed Last Taken Type acetaminophen 500 mg tablet 500 mg PO Q8H PRN 04/14/21 12/15/21 Unknown History aspirin 81 mg tablet,delayed 81 mg PO DAILY 04/14/21 12/15/21 Unknown History release atenolol 25 mg tablet 25 mg PO DAILY 04/14/21 12/15/21 12/28/21 05:00 History cyclobenzaprine 5 mg tablet 5 mg PO TID 04/14/21 12/15/21 Unknown History levothyroxine 88 mcg tablet 88 mcg PO DAILY 04/14/21 12/15/21 12/28/21 05:00 History cholecalciferol (vitamin D3) 50 50 mcg PO DAILY 12/03/21 12/15/21 Unknown History mcg (2,000 unit) tablet Assessment and Plan Final Anesthetic Review NPO: Yes ASA Class: IV Final Preanesthetic Review: Meds/Allgs Chart Reviewed, Consent Obtained/Reviewed and Anes Risks/Benef Reviewed Patient Risk: High Procedure Risk: High Anesthetic Plan Anesthetic Plan: GA Disposition: Inp. Admit - ICU
[2021-12-16 14:19] LABS: Hematocrit 44.3 % (42.0-52.0); Mean Corpuscular HGB Conc 31.6 g/dl (31.0-36.0); Mean Corpuscular Hemoglobin 26.8 pg (27.0-33.0); Mean Corpuscular Volume 84.9 fL (80.0-98.0); Mean Platelet Volume 9.5 fL (9.4-12.4); Platelet Count 362 X10*3/uL (160-400); Red Blood Count 5.22 X10*6/uL (4.60-5.80); Red Cell Distribution Width 17.2 % (11.0-16.0); White Blood Count 7.9 X10*3/uL (4.8-10.8)
[2021-12-16 14:28] LABS: INTERNATIONAL NORM RATIO 1.2 (0.9-1.1); Prothrombin Time 13.7 SEC (9.9-13.0)
[2021-12-16 14:31] LABS: Partial Thromboplastin Time 38.2 SEC (24.1-38.0)
[2021-12-16 14:47] LABS: Anion Gap 12 (12-20); Blood Urea Nitrogen 27 mg/dL (9-16); Calcium 10.1 mg/dL (8.4-10.2); Carbon Dioxide 29 mmol/L (22-29); Chloride 98 mmol/L (96-108); Creatinine Clr Calc Pharmacy 57.1; Estimated Glomerular Filt Rate 59; Glucose Random 93 mg/dL (60-115); Potassium 5.1 mmol/L (3.3-5.1); Sodium 134 mmol/L (135-145)
[2021-12-28] VITALS (20 sets, daily range): BP systolic 125–159; BP diastolic 84–109; PULSE 74–94; RESP 13–23; TEMP 36.5–36.9; O2SAT 4–100
--- NOTE | 2021-12-28 | ECG_ITS ---
Test Reason : postop Blood Pressure : / mmHG Vent. Rate : 081 BPM Atrial Rate : 081 BPM P-R Int : 178 ms QRS Dur : 138 ms QT Int : 432 ms P-R-T Axes : 075 061 128 degrees QTc Int : 501 ms Normal sinus rhythm Possible Left atrial enlargement Left ventricular hypertrophy with QRS widening and repolarization abnormality ( Rosendo product ) Abnormal ECG When compared with ECG of 14-FEB-2019 13:36, Vent. rate has increased BY 28 BPM Left anterior fascicular block is no longer Present ST more elevated in Anterior leads T wave inversion now evident in Lateral leads QT has lengthened Referred By: Shae Avitia Electronically Signed By:CHYNA HOLGUIN
--- NOTE | ~2021-12-28 | XR_ITS ---
EXAMINATION: XR CHEST CLINICAL INFORMATION: Triple-lumen catheter placement COMPARISON: 02/14/2019 chest radiograph TECHNIQUE: Frontal view of the chest was obtained. FINDINGS: Since the prior exam, the patient has undergone median sternotomy. A right IJ central venous line is present with its tip at the SVC/RA junction. No pneumothorax. Patchy opacities are seen throughout the lung with blurring of the interstitium suggesting CHF. No pleural effusions are seen. Platelike atelectasis present in the left lung. Surgical clips present at the GE junction. Marked vascular calcifications are present in the axillary arteries. XR/XR chest 1V IMPRESSION: Triple-lumen catheter placed uneventfully with tip in good position without pneumothorax. Cardiomegaly and mild CHF.
[2021-12-28 06:46] LABS: Hematocrit 42.4 % (42.0-52.0); Hemoglobin 13.5 g/dl (14.0-18.0); Mean Corpuscular HGB Conc 31.8 g/dl (31.0-36.0); Mean Corpuscular Hemoglobin 27.3 pg (27.0-33.0); Mean Corpuscular Volume 85.8 fL (80.0-98.0); Mean Platelet Volume 8.9 fL (9.4-12.4); Platelet Count 344 X10*3/uL (160-400); Red Blood Count 4.94 X10*6/uL (4.60-5.80); Red Cell Distribution Width 17.6 % (11.0-16.0); White Blood Count 10.5 X10*3/uL (4.8-10.8)
[2021-12-28 06:57] LABS: INTERNATIONAL NORM RATIO 1.1 (0.9-1.1); Prothrombin Time 12.8 SEC (9.9-13.0)
[2021-12-28 06:59] LABS: Anion Gap 14 (12-20); Blood Urea Nitrogen 16 mg/dL (9-16); Calcium 9.6 mg/dL (8.4-10.2); Carbon Dioxide 27 mmol/L (22-29); Chloride 100 mmol/L (96-108); Creatinine Clr Calc Pharmacy 69.4; Estimated Glomerular Filt Rate > 60; Glucose Random 98 mg/dL (60-115); Potassium 5.6 mmol/L (3.3-5.1); Sodium 135 mmol/L (135-145)
[2021-12-28] MEDS: Lactated Ringers 1,000 ML 100 ML IVCONT (07:07)
--- NOTE | 2021-12-28 07:41 | MHC.SHP ---
Pre-Procedural Eval Section A Date of Service: 12/28/21 The patient is an INPATIENT: No Changes since office visit: Yes Patient answered all questions The History & Physical has been completed within 30 days and I have reviewed it.: Yes Section B Chief Complaint: Atrial embolism Allergies: Allergies Allergy/AdvReac Type Severity Reaction Status Date / Time No Known Allergies Allergy Verified 12/28/21 06:07 [No Known Allergies*] Plan I have reviewed the history and physical and performed a pertinent physical examination on my patient. No changes have occurred unless specified.
[2021-12-28 07:42] LABS: COVID-19 Test Negative (Negative); IDNOW Serial# 55D5AD1C
[2021-12-28 11:50] LABS: Anion Gap 14 (12-20); Blood Urea Nitrogen 15 mg/dL (9-16); Calcium 8.4 mg/dL (8.4-10.2); Carbon Dioxide 19 mmol/L (22-29); Chloride 106 mmol/L (96-108); Creatinine Clr Calc Pharmacy 79.6; Estimated Glomerular Filt Rate > 60; Glucose Random 173 mg/dL (60-115); Potassium 5.4 mmol/L (3.3-5.1); Sodium 134 mmol/L (135-145)
--- NOTE | 2021-12-28 13:12 | W.PM.OPN ---
Operative Note Operative Note Date of Service: 12/28/21 Narrative: Operative note by [facility] Preoperative diagnosis:1 aortoiliac occlusive disease 2. Atherosclerosis with critical limb ischemia Postoperative diagnosis: Same Procedure:1. Open aortobifemoral bypass 2. Remote endarterectomy of right profundus femorals 3. Remote endarterectomy of left profundus femorals 4. Thrombectomy right profundus 5. Thrombectomy left profundus Surgeon:Edmar Calderon M.D. Furniture Assembler: Dr. Latham Anesthesia: General Specimens: 3 Drains: None Estimated blood loss: 300 mL with 125 given back as Cell Saver Indications: 61-year-old gentleman with a history of aortoiliac occlusive disease which was discovered nearly 6 months ago. He has undergone CABG and subsequent bilateral carotid endarterectomy ease. His leg has now progressed to critical limb ischemia where he has developed ulcers and it is quite painful for him. He now presents for operative intervention. The patient has signed the informed consent after reviewing risks, complications, benefits, and alternatives previously discussed with the patient. The patient was given the opportunity to ask any additional questions or voice any concerns. All questions were answered to the patient's satisfaction. Procedure in detail: Patient was brought to the operating room prior to which a time-out was called for patient identification site verification after induction of general anesthesia A-line and central line was placed by Anesthesia. Once this was accomplished abdomen was prepped and draped in the standard surgical fashion from nipples to knees. Once this was done we 1st created a longitudinal incision over the right common femoral down to the common femoral profundus and SFA all of these were individually isolated with silastic loops. A similar fashion we created a cutdown on the left side. Once this was all accomplished we then created open abdominal incision from the xiphoid to symphysis pubis. We entered the peritoneum. Once in the peritoneum generalize sweep was undertaken of the abdomen no other pathology was noted. Once this was done we placed a Bookwalter retractor and placed the appropriate blades and expose the retroperitoneum. The retroperitoneum was incised. We were then able to identify the aorta. An area just below the renals we were able to open a area on to the aorta. This was dissected clear. Created tunnels. At this time 5000 units of systemic heparin was administered. After 5 minutes of circulation time we created a clear area on the aorta. Proximal and distal clamps was then placed. We then created an aortotomy. We cleared this area and plaque was removed. Local aortic from bow endarterectomy had to be undertaken. Once this was done we anastomosed a-[place] 14 x [address] This was trimmed to appropriate size. We placed this in a end to side fashion. Once the graft was trimmed appropriately we circumferentially anastomosed with a 3-0 Prolene suture. We flushed through the graft. Once this was accomplished we then placed snow as a hemostatic agent. We then through the tunnels we brought the graft through. We did this bilaterally. Once this was accomplished we trimmed the graft to the appropriate size each limb. We 1st opened the right common femoral with an 11 blade and Rainey scissors. It was significantly atherosclerotic. We had to perform endarterectomy the common femoral remote endarterectomy of the profundus femorals. We did not achieve good flow a 3. Virgilio was passed down. Once this was done we were able to established reasonable flow. We then trimmed the graft. The graft was circumferentially anastomosed using a 5 0 Prolene suture. Prior to closure it was flushed clear. We dopplered this and a recognized good profundus femorals signal. We did this in a similar fashion on the left side as well. Once this was all done an adequate flow was achieved. We then placed Tisseel sealant at all anastomotic sites. Once this was all accomplished we 1st closed over the retroperitoneum of the abdomen on this was done with a 2 0 poly Sorb suture. Once this was accomplished we closed the abdomen with a looped PDS on the fascia. Superficial layer with a 2 0 poly Sorb and finally skin clips. We then turned our attention to the groins. On this was irrigated clear. We then closed each groin with a 2 0 poly Sorb superficial layer with 3-0 poly Sorb and finally skin with skin clips. Sterile dressings were applied at both groins and the abdominal incision. At the end the case the patient had a right posterior tibial signal and on the left side a popliteal signal. Patient was Amanda then returned to recovery with stable vitals. This note is constructed using voice recognition software. While every effort has been made to ensure accuracy, customer care specialist errors may have been included. Thank you for allowing me to participate in the care of your patient. Yours sincerely, Edmar Calderon MD, FACS, R.P.V.I.
--- NOTE | 2021-12-28 13:19 | PHA.MEDREC ---
Pharmacy Consult ? Medication Reconciliation Pharmacy has reviewed the medication reconciliation completed by nursing. Patient has been filling atorvastatin 40 mg instead of 80 mg most recently. Luisa Urbina, PharmD
[2021-12-28 14:01] LABS: Basophils Percent Auto 0.2 % (0-2); Eosinophils Percent Auto 0.1 % (0-4); Hematocrit 40.7 % (42.0-52.0); Hemoglobin 12.6 g/dl (14.0-18.0); Imm Gran Abs Auto 0.08 X10*3/uL (0.00-0.03); Imm Gran Pct Auto 0.5 % (0.0-0.4); Lymphocytes Percent Auto 5.6 % (20-40); MANUAL DIFF FLAG SCAN; Mean Corpuscular Hemoglobin 27.2 pg (27.0-33.0); Mean Corpuscular Volume 87.9 fL (80.0-98.0); Monocytes Absolute Auto 0.5 X10*3/uL (0.1-1.2); Neutrophils Absolute Auto 15.3 x10*3/uL (2.0-8.3); Neutrophils Percent Auto 90.6 % (45-73); Platelet Count 303 X10*3/uL (160-400); Red Blood Count 4.63 X10*6/uL (4.60-5.80); Red Cell Distribution Width 17.8 % (11.0-16.0); SCAN SMEAR FLAG 1; White Blood Count 16.9 X10*3/uL (4.8-10.8)
[2021-12-28 14:20] LABS: Anion Gap 14 (12-20); Blood Urea Nitrogen 15 mg/dL (9-16); Calcium 9.1 mg/dL (8.4-10.2); Carbon Dioxide 20 mmol/L (22-29); Chloride 107 mmol/L (96-108); Creatinine Clr Calc Pharmacy 69.4; Estimated Glomerular Filt Rate > 60; Glucose Random 144 mg/dL (60-115); Potassium 5.1 mmol/L (3.3-5.1); Sodium 136 mmol/L (135-145)
[2021-12-28 14:24] LABS: INTERNATIONAL NORM RATIO 1.1 (0.9-1.1)
[2021-12-28 14:26] LABS: SLIDE REVIEW VERIFIED
--- NOTE | 2021-12-28 15:18 | P.CONCC_ITS ---
History of Present Illness Data of Consult Service Date: 12/28/21 Requesting physician: Edmar Calderon Primary Care Provider: MD YANG Perez Reason for consult: Ischemic heart disease status post bypass 61-year-old male known hyperlipidemic with severe diffuse vasculopathy who was several months now status post coronary bypass grafting as well as bilateral carotid endarterectomies comes in finally 4 severe resting claudication to have his aorto bi femoral bypass done and is now in recovery that worked out successfully he received Cell Saver as well as IV fluid has good urine output and warm and well perfused and he actually has by Doppler posterior tibial and dorsalis pedis pulses He has normal sinus rhythm and unchanged EKG with wide QRS as a left intraventricular conduction defect and left ventricular enlargement with nonspecific ST-T changes and again that is unchanged Review of Systems Review of Systems: Only complaint is severe is severe bilateral claudication and dependent rubor which is already beginning to resolve Yes all other systems are reviewed and are negative [facility] Past Medical History Medical History Cancer COVID-19 vaccine series completed Decreased glomerular filtration rate (GFR) Hard of hearing HTN (hypertension) Hypercalcemia Hypercholesteremia Hypothyroidism IFG (impaired fasting glucose) PAD (peripheral artery disease) PVD (peripheral vascular disease) S/P arteriogram of extremity Smoker Family History Family History Father No problems noted. Mother No problems noted. Surgical History Surgical History (Updated 12/28/21 @ 15:24 by Shae Avitia MD) History of right-sided carotid endarterectomy History of thumb surgery Hx of heart bypass surgery Status post bilateral carotid endarterectomy Status post carotid surgery Status post coronary artery bypass graft Social History Social History Household Members: Spouse Housing: Apartment Are you a primary healthcare consulting manager to a significant other at home: No Do you presently have visiting nurse or other home services: No Alcohol intake: current Alcohol intake frequency: a few times a month Alcohol type: beer Patient Tobacco Use Status: Current someday Tobacco user Tobacco use type: Cigarette Cigarette Packs Per Day: 0.25 Cigarettes Per Day: 5.0 Years Smoked: +/- 30 yrs Smoked in Last 30 Days: Yes Patient Interested in Nicotine Replacement: No Patient Given Instructions on How to Stop Smoking: Yes Date Education Initiated: 12/16/21 Second Hand Smoke Exposure: Yes Use of substances other than those prescribed or required for medical reasons: Yes Substance Use Frequency: Daily Have you been hit, kicked, punched, or otherwise hurt by someone within the past year? If so, by whom?: No Are you DNR?: No Advance Directives: No Advance Directives Information Provided: Yes (info Given to patient) Advance Directives on File: No Recently lost weight without trying: No Eating poorly because of decreased appetite: No Nutrition Risks: No Nutritional Risk Poor oral hygiene: Yes (Upper dentures) service: No Current occupational status: disabled Meds Allergies Allergy/AdvReac Type Severity Reaction Status Date / Time No Known Allergies Allergy Verified 12/28/21 06:07 [No Known Allergies*] Active Medications: Current Medications Acetaminophen (Acetaminophen 325 Mg Tablet) 650 mg PO Q6H PRN PRN Reason: Pain, Mild (Pain Scale 1-3) Albuterol Sulfate (Albuterol Sulfate (0.083%) 2.5 Mg/3 Ml Vial.Neb) 2.5 mg INHALE ONCE PRN PRN Reason: Shortness of Breath/Wheezing Fentanyl (Fentanyl Citrate/Pf 100 Mcg/2 Ml Vial) 25 mcg IVPUSH Q5M PRN; Protocol PRN Reason: Pain, Moderate (Pain Scale 4-6 Heparin Sodium (Porcine) (Heparin Sodium,Porcine 5,000 Unit/Ml Vial) 5,000 unit SUBCUT Q12H ECHO Hydromorphone HCl (Hydromorphone Hcl 0.5 Mg/0.5 Ml Syringe) 0.25 mg IVPUSH Q5M PRN; Protocol PRN Reason: Pain, Severe (Pain Scale 7-10) Lactated Ringer's (Lr) 1,000 mls @ 100 mls/hr IVCONT .Q10H ECHO Last Admin: 12/28/21 07:07 Dose: 100 mls/hr Documented by: Sodium Chloride (Ns) 1,000 mls @ 80 mls/hr IVCONT .[id number] ECHO Dextrose/Sodium Chloride (D5ns) 1,000 mls @ 100 mls/hr IVCONT .Q10H ECHO Sodium Chloride (Ns) 1,000 mls @ 100 mls/hr IVCONT .Q10H ECHO Morphine Sulfate (Morphine Sulfate 2 Mg/Ml Cartridge) 2 mg IVPUSH Q4H PRN; Protocol PRN Reason: Pain, Severe (Pain Scale 7-10) Ondansetron HCl (Ondansetron Hcl 4 Mg/2 Ml Vial) 4 mg IVPUSH ONCE PRN PRN Reason: Nausea and Vomiting Oxycodone HCl (Oxycodone Hcl Immed Release 5 Mg Tablet) 5 mg PO Q4H PRN PRN Reason: Pain, Moderate (Pain Scale 4-6 Pantoprazole Sodium (Pantoprazole Sodium 40 Mg/10 Ml Vial) 40 mg IVPUSH DAILY@0630 [facility] Sodium Chloride (0.9 % Sodium Chloride Flush 3 Ml Syringe) [address] [facility] Home Medications Medication Instructions Recorded Confirmed Last Taken Type acetaminophen 500 mg tablet 500 mg PO Q8H PRN 04/14/21 12/15/21 Unknown History aspirin 81 mg tablet,delayed 81 mg PO DAILY 04/14/21 12/15/21 Unknown History release atenolol 25 mg tablet 25 mg PO DAILY 04/14/21 12/15/21 12/28/21 05:00 History cyclobenzaprine 5 mg tablet 5 mg PO TID 04/14/21 12/15/21 Unknown History levothyroxine 88 mcg tablet 88 mcg PO DAILY 04/14/21 12/15/21 12/28/21 05:00 History cholecalciferol (vitamin D3) 50 50 mcg PO DAILY 12/03/21 12/15/21 Unknown History mcg (2,000 unit) tablet atorvastatin 40 mg tablet 1 tab PO BEDTIME 12/28/21 12/28/21 Unknown History Physical Exam Vital Signs: Vital Signs: Last Vital Signs Temp 97.9 F 12/28/21 13:22 Pulse 85 12/28/21 14:37 Resp 18 12/28/21 14:37 BP 135/88 12/28/21 14:37 Pulse Ox 97 12/28/21 14:37 BMI result Body Mass Index 25.8 Systolic pressure is 100 normal sinus rhythm extubated respiratory rate is 16 No neck vein distension and good bilateral carotid upstrokes and both feet seem to be warm and well perfused and not as sensitive to touch Cardiac exam without gallop Lungs are clear bilaterally with no adventitious sounds Abdomen with midline scar but silent no again a megaly Results Labs CBC & Chem 7: 12/28/21 13:55 12/28/21 13:55 Labs: Short CBC 12/28/21 12/28/21 Range/Units 06:38 13:55 WBC 10.5 16.9 H (4.8-10.8) X10*3/uL Hgb 13.5 L 12.6 L (14.0-18.0) g/dl Hct 42.4 40.7 L (42.0-52.0) % Plt Count 344 303 (160-400) X10*3/uL BMP 12/28/21 12/28/21 12/28/21 06:38 11:11 13:55 Sodium 135 134 L 136 Potassium 5.6 H 5.4 H 5.1 Chloride 100 106 107 Carbon Dioxide 27 19 L 20 L BUN 16 15 15 Creatinine 1.02 0.89 1.02 Calcium 9.6 8.4 D 9.1 D Assessment and Plan (1) PAD (peripheral artery disease): Status: Acute (2) Aortoiliac occlusive disease: Status: Acute (3) Preop cardiovascular exam: Status: Acute (4) Abnormal nuclear stress test: Status: Acute (5) Bilateral carotid artery stenosis: Status: Acute (6) Coronary artery disease: Status: Acute (7) Preop cardiovascular exam: Status: Acute (8) Carotid stenosis, right: Status: Acute (9) Encounter for preoperative pulmonary examination: Status: Acute (10) COPD (chronic obstructive pulmonary disease): Status: Acute (11) Status post bilateral carotid endarterectomy: Status: Acute (12) Status post coronary artery bypass graft: Status: Acute Plan Plan is to set up for CVP measurement as we continue with IV fluid blood pressure support as necessary
[2021-12-28] MEDS: 0.9 % Sodium Chloride Flush 3 ML SYRINGE IVFLUSH ×2 (16:23→20:19)
[2021-12-28] MEDS: Lactated Ringers 1,000 ML 125 ML IVCONT (16:46)
[2021-12-28] MEDS: 0.9 % Sodium Chloride 1,000 ML 80 ML IVCONT (18:01)
[2021-12-28] MEDS: Morphine Sulfate 2 MG/ML CARTRIDGE IVPUSH (20:14)
[2021-12-28] MEDS: Heparin Sodium,Porcine 5,000 UNIT/ML VIAL 5000 UNIT SUBCUT (20:23)
[2021-12-29] VITALS (23 sets, daily range): BP systolic 126–163; BP diastolic 80–100; PULSE 64–108; RESP 11–24; TEMP 36–37.2; O2SAT 91–99
[2021-12-29] MEDS: Morphine Sulfate 2 MG/ML CARTRIDGE IVPUSH ×5 (00:14→21:49)
[2021-12-29] MEDS: Heparin Sodium,Porcine 5,000 UNIT/ML VIAL 5000 UNIT SUBCUT ×3 (03:40→17:08)
[2021-12-29] MEDS: Pantoprazole Sodium 40 MG/10 ML VIAL IVPUSH (05:07)
[2021-12-29] MEDS: 0.9 % Sodium Chloride 1,000 ML 80 ML IVCONT ×2 (05:21→17:07)
[2021-12-29 05:32] LABS: MANUAL DIFF FLAG NO
[2021-12-29 05:36] LABS: Basophils Percent Auto 0.1 % (0-2); Hematocrit 39.7 % (42.0-52.0); Hemoglobin 12.5 g/dl (14.0-18.0); Imm Gran Abs Auto 0.06 X10*3/uL (0.00-0.03); Imm Gran Pct Auto 0.4 % (0.0-0.4); Lymphocytes Absolute Auto 1.1 X10*3/uL (1.2-4.9); Lymphocytes Percent Auto 6.9 % (20-40); Mean Corpuscular HGB Conc 31.5 g/dl (31.0-36.0); Mean Corpuscular Volume 85.7 fL (80.0-98.0); Mean Platelet Volume 9.5 fL (9.4-12.4); Monocytes Absolute Auto 1.5 X10*3/uL (0.1-1.2); Monocytes Percent Auto 9.7 % (2-11); Neutrophils Absolute Auto 12.8 x10*3/uL (2.0-8.3); Neutrophils Percent Auto 82.9 % (45-73); Platelet Count 316 X10*3/uL (160-400); Red Blood Count 4.63 X10*6/uL (4.60-5.80); White Blood Count 15.4 X10*3/uL (4.8-10.8)
[2021-12-29 05:53] LABS: Anion Gap 15 (12-20); Blood Urea Nitrogen 16 mg/dL (9-16); Calcium 9.2 mg/dL (8.4-10.2); Carbon Dioxide 24 mmol/L (22-29); Chloride 102 mmol/L (96-108); Creatinine Clr Calc Pharmacy 77.8; Estimated Glomerular Filt Rate > 60; Glucose Random 100 mg/dL (60-115); Potassium 5.5 mmol/L (3.3-5.1); Sodium 135 mmol/L (135-145)
[2021-12-29 09:32] LABS: Base Excess Bedside Calculated -3 mmol/L (-3-3); Glucose, i-STAT 170 mg/dL (60-115); HCO3 Bedside Calculated 24 mmol/L (22-26); Hematocrit Bedside 36 %PCV (42-52); Hemoglobin Bedside 12.2 g/dL (14.0-18.0); Potassium Bedside 5.1 mmol/L (3.3-5.1); SO2 Bedside Calculated 100 %; Sodium Bedside 134 mmol/L (135-145); TCO2 Bedside 26 mmol/L (24-29); pCO2 Bedside 54 mmhg (35-48); pH Bedside 7.26 (7.35-7.45); pO2 Bedside 209 mmhg (83-108)
[2021-12-29 09:43] LABS: Base Excess Bedside Calculated -4 mmol/L (-3-3); Glucose, i-STAT 150 mg/dL (60-115); HCO3 Bedside Calculated 23 mmol/L (22-26); Hematocrit Bedside 34 %PCV (42-52); Hemoglobin Bedside 11.6 g/dL (14.0-18.0); Potassium Bedside 4.9 mmol/L (3.3-5.1); SO2 Bedside Calculated 100 %; Sodium Bedside 137 mmol/L (135-145); TCO2 Bedside 24 mmol/L (24-29); pCO2 Bedside 48 mmhg (35-48); pH Bedside 7.29 (7.35-7.45); pO2 Bedside 193 mmhg (83-108)
[2021-12-29] MEDS: 0.9 % Sodium Chloride Flush 3 ML SYRINGE IVFLUSH (09:57)
--- NOTE | 2021-12-29 11:58 | HO.POSTANES ---
Post Anesthesia Evaluation Post Anesthesia Evaluation Vital Signs: Vital Signs Temp Pulse Resp BP Pulse Ox 12/29/21 11:00 95 14 131/87 92 12/29/21 10:14 18 12/29/21 10:00 99 22 H 128/82 92 12/29/21 09:00 95 11 L 126/82 94 12/29/21 08:00 98.6 F 93 21 H 140/80 H 93 12/29/21 07:00 87 13 134/91 H 95 12/29/21 05:59 100 12 152/89 H 94 12/29/21 05:19 21 H 12/29/21 05:00 93 19 152/89 H 92 12/29/21 04:00 93 12 152/97 H 91 L 12/29/21 03:00 95 13 145/99 H 92 12/29/21 01:59 96 12 143/90 H 95 12/29/21 01:00 97 12 152/100 H 93 12/29/21 00:00 95 18 140/92 H 95 Anesthesia: General Endotracheal-GETA Mental Status: Awake Pain Control: Satisfactory Nausea/Vomiting: None Hydration: Adequate Anesthesia-Related Issues: No Anes. Related Issues
--- NOTE | 2021-12-29 13:46 | PM.CCPN ---
Subjective Subjective Date of Service: 12/29/21 Interval History: 61-year-old diffuse vasculopath several months status post bilateral carotid endarterectomy and coronary bypass grafting currently with no symptoms no exertional or recumbent dyspnea nor chest discomfort underwent very successful uncomplicated open aorto bi femoral bypass with rastafarian of improved color of removal of pain and dependent rubor so clinically better perfused with Doppler obtainable pulses in his feet no evidence of bleeding no chest discomfort Critical Care Time (minutes): 45 Physical Exam Vital Signs: Vital Signs: Last Vital Signs Temp 98.6 F 12/29/21 08:00 Pulse 94 12/29/21 13:00 Resp 18 12/29/21 13:00 BP 128/83 12/29/21 13:00 Pulse Ox 93 12/29/21 13:00 BMI result Body Mass Index 25.8 Excellent vital signs and neurologically intact Bedside echo with preserved left ventricular systolic function Lungs clear without adventitious sounds Abdomen still silent no bowel sounds but nontender no organomegaly Good warmth and color to his feet Objective Data Labs CBC & Chem 7: 12/29/21 05:00 12/29/21 05:00 Labs: Laboratory Results - last 24 hr 12/28/21 12/28/21 12/28/21 11:22 12:32 13:55 WBC RBC Hgb POC Hgb (Calc) 12.2 L 11.6 L Hct POC Hct 36 L 34 L MCV MCH MCHC RDW Plt Count MPV Immature Gran % (Auto) Neut % (Auto) Lymph % (Auto) Kaufman % (Auto) Eos % (Auto) Baso % (Auto) Lymph # (Auto) Kaufman # (Auto) Eos # (Auto) Baso # (Auto) Abs Immat Gran (auto) Absolute Neuts (auto) Absolute Nucleated RBC Nucleated RBC % (auto) Smear Tech's Comments PT INR POC Std Base Excess -3 -4 L POC O2 Sat (Calc) 100 100 POC ABG pO2 209 H 193 H POC ABG Total CO2 26 24 POC Capillary pH 7.26 L 7.29 L POC Capillary pCO2 54 H 48 POC Cap HCO3 (Calc) 24 23 POC Sodium 134 L 137 Sodium 136 POC Potassium 5.1 4.9 Potassium 5.1 Chloride 107 Carbon Dioxide 20 L Anion Gap 14 BUN 15 Creatinine 1.02 Estim Creat Clear Calc 69.4 Estimated GFR > 60 POC Glucose 170 H 150 H Random Glucose 144 H Calcium 9.1 D 12/28/21 12/28/21 12/29/21 13:55 13:55 05:00 WBC 16.9 H 15.4 H RBC 4.63 4.63 Hgb 12.6 L 12.5 L POC Hgb (Calc) Hct 40.7 L 39.7 L POC Hct MCV 87.9 85.7 MCH 27.2 27.0 MCHC 31.0 31.5 RDW 17.8 H 18.0 H Plt Count 303 316 MPV 9.0 L 9.5 Immature Gran % (Auto) 0.5 H 0.4 Neut % (Auto) 90.6 H 82.9 H Lymph % (Auto) 5.6 L 6.9 L Kaufman % (Auto) 3.0 9.7 Eos % (Auto) 0.1 0.0 Baso % (Auto) 0.2 0.1 Lymph # (Auto) 1.0 L 1.1 L Kaufman # (Auto) 0.5 1.5 H Eos # (Auto) 0.0 0.0 Baso # (Auto) 0.0 0.0 Abs Immat Gran (auto) 0.08 H 0.06 H Absolute Neuts (auto) 15.3 H 12.8 H Absolute Nucleated RBC 0.000 0.000 Nucleated RBC % (auto) 0.0 0.0 Smear Tech's Comments VERIFIED PT 13.0 INR 1.1 POC Std Base Excess POC O2 Sat (Calc) POC ABG pO2 POC ABG Total CO2 POC Capillary pH POC Capillary pCO2 POC Cap HCO3 (Calc) POC Sodium Sodium POC Potassium Potassium Chloride Carbon Dioxide Anion Gap BUN Creatinine Estim Creat Clear Calc Estimated GFR POC Glucose Random Glucose Calcium 12/29/21 05:00 WBC RBC Hgb POC Hgb (Calc) Hct POC Hct MCV MCH MCHC RDW Plt Count MPV Immature Gran % (Auto) Neut % (Auto) Lymph % (Auto) Kaufman % (Auto) Eos % (Auto) Baso % (Auto) Lymph # (Auto) Kaufman # (Auto) Eos # (Auto) Baso # (Auto) Abs Immat Gran (auto) Absolute Neuts (auto) Absolute Nucleated RBC Nucleated RBC % (auto) Smear Tech's Comments PT INR POC Std Base Excess POC O2 Sat (Calc) POC ABG pO2 POC ABG Total CO2 POC Capillary pH POC Capillary pCO2 POC Cap HCO3 (Calc) POC Sodium Sodium 135 POC Potassium Potassium 5.5 H Chloride 102 Carbon Dioxide 24 Anion Gap 15 BUN 16 Creatinine 0.91 Estim Creat Clear Calc 77.8 Estimated GFR > 60 POC Glucose Random Glucose 100 Calcium 9.2 Progress Note: A&P Assessment and plan (1) Status post coronary artery bypass graft: Status: Acute (2) Status post bilateral carotid endarterectomy: Status: Acute (3) PAD (peripheral artery disease): Status: Acute (4) Aortoiliac occlusive disease: Status: Acute (5) Preop cardiovascular exam: Status: Acute (6) Abnormal nuclear stress test: Status: Acute (7) Bilateral carotid artery stenosis: Status: Acute (8) Coronary artery disease: Status: Acute (9) Preop cardiovascular exam: Status: Acute (10) Carotid stenosis, right: Status: Acute (11) Encounter for preoperative pulmonary examination: Status: Acute (12) COPD (chronic obstructive pulmonary disease): Status: Acute Plan Plan is to send up stairs to a telemetry heard floor No anti coagulation just yet and continue to keep NPO because of persistent ileus Quality Stroke Does the patient have a stroke diagnosis?: No VTE Prior VTE?: No VTE Risk Level:: Medical - moderate - high VTE Device Contraindication: N/A - Device Ordered VTE Drug Contraindication: N/A - Med Ordered
--- NOTE | 2021-12-29 14:17 | P.PNVS_ITS ---
Subjective Subjective Date of Service: 12/29/21 Patient reports: no new complaints and feels better Interval history: Patient is postop day 1 status post aortobifem. He appears to be doing relatively well. No interval issues overnight. Pain reasonably well contr olled. Denies any nausea or vomiting this morning. He is not hungry at the current time Physical Exam Vital Signs: Vital Signs: Last Vital Signs Temp 98.6 F 12/29/21 08:00 Pulse 94 12/29/21 13:00 Resp 18 12/29/21 13:00 BP 128/83 12/29/21 13:00 Pulse Ox 93 12/29/21 13:00 BMI result Body Mass Index 25.8 Const: General: cooperative, healthy appearing and no acute distress Orientation/consciousness: oriented to person, oriented to place and oriented to time HEENT: Head: Yes normal to inspection Neck: Carotids: no bruits Chest: Chest palpation & inspection: normal inspection of the chest Resp: Effort & Inspection: normal respiratory effort and able to speak in complete sentences Auscultation: clear to auscultation bilaterally Cardio: Rate: regular rate Heart sounds: S1 normal heart sound present and S2 normal heart sound present GI: Inspection: Yes normal to inspection Skin: Other: Abdomen groin dressing clean dry intact Wounds: no wounds Neuro: General: oriented to person, oriented to place, oriented to time and CN's II-XI intact bilaterally Extrem: General: Yes normal to inspection, Yes full ROM and Yes no clubbing, cyanosis or edema Psych: Appearance: grossly normal and well kempt Speech and movement: Normal speech and movement present Affect: normal affect Progress Note: A&P Assessment and plan (1) PAD (peripheral artery disease): Status: Acute Assessment and Plan: Patient is status post aortobifemoral bypass. He reports his leg is feeling better and warmer. Pain has improved in that leg. At the current time he does have a postop ileus will maintain NPO status. Continued bed rest. Strict blood pressure control. Continue ICU level care. Repeat labs in the a.m. Time Spent With Patient Time: Total time spent is greater than 50% in coordination of care (as documented) at patient's floor/unit and/or counseling patient: Procedures Date of Service Date of Service: 12/29/21 Quality Stroke Does the patient have a stroke diagnosis?: No VTE Prior VTE?: No VTE Risk Level:: Medical - moderate - high VTE Device Contraindication: N/A - Device Ordered VTE Drug Contraindication: N/A - Med Ordered
--- NOTE | 2021-12-29 14:22 | PM.EVENT ---
Documented by User: Sherin Anguiano NP 12/29/21 14:25 Event Note Date of Service: 12/29/21 Event Note: ICU downgrade, vascular surgery consultation. Patient seen and examined. Status post right and left endarterectomy and right and left thrombectomy as well as open aorta bi femoral bypass. hemodynamically stable. Full medical consultation note by cnc maintenance technician today. Documented by User: Destin Sorensen MD 01/31/22 14:42 Event Note Date of Service: 01/31/22
--- NOTE | 2021-12-29 16:31 | PC.NURSE ---
Patient transferred to [facility]. Glasses, bilat hearing aids and two bags of belongings sent with patient.
[2021-12-30] VITALS (8 sets, daily range): BP systolic 112–141; BP diastolic 73–93; PULSE 106–116; RESP 18–20; TEMP 36.4–37.1; O2SAT 92–95; BMI 27.2
[2021-12-30] MEDS: Heparin Sodium,Porcine 5,000 UNIT/ML VIAL 5000 UNIT SUBCUT ×3 (02:02→17:29)
[2021-12-30] MEDS: Morphine Sulfate 2 MG/ML CARTRIDGE IVPUSH ×4 (02:03→18:40)
[2021-12-30] MEDS: 0.9 % Sodium Chloride 1,000 ML 80 ML IVCONT ×2 (06:29→16:00)
[2021-12-30] MEDS: Pantoprazole Sodium 40 MG/10 ML VIAL IVPUSH (06:29)
[2021-12-30 09:09] LABS: Hemoglobin 12.6 g/dl (14.0-18.0); Mean Corpuscular HGB Conc 31.5 g/dl (31.0-36.0); Mean Corpuscular Hemoglobin 27.2 pg (27.0-33.0); Mean Corpuscular Volume 86.4 fL (80.0-98.0); Platelet Count 274 X10*3/uL (160-400); Red Blood Count 4.63 X10*6/uL (4.60-5.80); Red Cell Distribution Width 18.2 % (11.0-16.0); White Blood Count 15.5 X10*3/uL (4.8-10.8)
[2021-12-30 09:21] LABS: Anion Gap 15 (12-20); Blood Urea Nitrogen 17 mg/dL (9-16); Calcium 9.4 mg/dL (8.4-10.2); Carbon Dioxide 26 mmol/L (22-29); Chloride 100 mmol/L (96-108); Estimated Glomerular Filt Rate > 60; Glucose Random 100 mg/dL (60-115); Potassium 5.6 mmol/L (3.3-5.1); Sodium 135 mmol/L (135-145)
[2021-12-30] MEDS: 0.9 % Sodium Chloride Flush 3 ML SYRINGE IVFLUSH ×3 (10:58→20:51)
--- NOTE | 2021-12-30 11:08 | P.PNVS_ITS ---
Subjective Subjective Date of Service: 12/30/21 Patient reports: no new complaints and feels better Interval history: Patient is postop day 2 status post open aortobifem. No interval issues overnight. He has been transferred out to the floor. At the current time he is hungry. He reports some abdominal discomfort which is expected. He has not had a bowel movement and is not passing per flatus as of yet. Physical Exam Vital Signs: Vital Signs: Last Vital Signs Temp 97.8 F 12/30/21 07:44 Pulse 106 H 12/30/21 07:44 Resp 18 12/30/21 07:44 BP 118/74 12/30/21 07:44 Pulse Ox 95 12/30/21 07:44 O2 Del Method 12/30/21 07:44 O2 Flow Rate 3 12/30/21 07:44 Oxygen Flow Rate 2 12/29/21 14:40 BMI result Body Mass Index 27.2 Const: General: cooperative, healthy appearing and no acute distress O rientation/consciousness: oriented to person, oriented to place and oriented to time HEENT: Head: Yes normal to inspection Neck: Carotids: no bruits Chest: Chest palpation & inspection: normal inspection of the chest Resp: Effort & Inspection: normal respiratory effort and able to speak in complete sentences Auscultation: clear to auscultation bilaterally Cardio: Rate: regular rate Heart sounds: S1 normal heart sound present and S2 normal heart sound present GI: Inspection: Yes normal to inspection Skin: Other: Incisions dressing clean dry intact General skin exam: no rashes or lesions noted Wounds: no wounds Neuro: General: oriented to person, oriented to place, oriented to time and CN's II-XI intact bilaterally Extrem: General: Yes normal to inspection, Yes full ROM and Yes no clubbing, cyanosis or edema Psych: Appearance: grossly normal and well kempt Speech and movement: No rmal speech and movement present Affect: normal affect Progress Note: A&P Assessment and plan (1) Aortoiliac occlusive disease: Status: Acute Assessment and Plan: In short patient is status post aortobifem. He appears to be progressing clinically. We will get him out of bed to chair today. Start him on some clear liquids. Will be hopeful that he does progress over the next day or 2. Thank you to the hospitalist for their assistance with him. Time Spent With Patient Time: Total time spent is greater than 50% in coordination of care (as documented) at patient's floor/unit and/or counseling patient: Procedures Date of Service Date of Service: 12/30/21 Quality Stroke Does the patient have a stroke diagnosis?: No VTE Prior VTE?: No VTE Risk Level:: Medical - moderate - high VTE Device Contraindication: N/A - Device Ordered VTE Drug Contraindication: N/A - Med Ordered
[2021-12-30] MEDS: Docusate Sodium 100 MG CAPSULE PO ×2 (12:12→20:51)
--- NOTE | 2021-12-30 12:19 | HO.PM.IMPN ---
Subjective Subjective Date of Service: 12/30/21 Interval History: abd pain Cardiovascular Cardiovascular: Reports no additional cardiovascular complaints Respiratory Respiratory: Reports no additional respiratory complaints Physical Exam Vital Signs: Vital Signs: Last Vital Signs Temp 98.4 F 12/30/21 11:12 Pulse 111 H 12/30/21 11:34 Resp 18 12/30/21 11:12 BP 119/73 12/30/21 11:34 Pulse Ox 94 12/30/21 11:34 O2 Del Method 12/30/21 11:12 O2 Flow Rate 3 12/30/21 11:12 Oxygen Flow Rate 2 12/29/21 14:40 BMI result Body Mass Index 27.2 General: AO X 3, in pain Resp: CTA bilateral, no accessory muscles used CVS: S1,S2,RRR GI: soft, tender, distended Neuro: motor grossly intact, alert Psych: appropriate affect, appropriate insight Objective Data Active Medications Acetaminophen (Acetaminophen 325 Mg Tablet) 650 mg PO Q6H PRN PRN Reason: Pain, Mild (Pain Scale 1-3) Albuterol Sulfate (Albuterol Sulfate (0.083%) 2.5 Mg/3 Ml Vial.Neb) 2.5 mg INHALE ONCE PRN PRN Reason: Shortness of Breath/Wheezing Atenolol (Atenolol 25 Mg Tablet) 25 mg PO DAILY [facility] [place]; Protocol Atorvastatin Calcium (Atorvastatin Calcium 40 Mg Tablet) 40 mg PO BEDTIME [facility] Cyclobenzaprine HCl (Cyclobenzaprine Hcl 5 Mg Tablet) 5 mg PO TID [facility] [place] Docusate Sodium (Docusate Sodium 100 Mg Capsule) 100 mg PO BID [facility] [place] Last Admin: 12/30/21 12:12 Dose: 100 mg Documented By: NOÉ Ezetimibe (Ezetimibe 10 Mg Tablet) 10 mg PO DAILY [facility] [place] Heparin Sodium (Porcine) (Heparin Sodium,Porcine 5,000 Unit/Ml Vial) 5,000 unit SUBCUT Q8H [facility] [place] Last Admin: 12/30/21 10:55 Dose: 5,000 unit Documented By: NOÉ Sodium Chloride (Ns) 1,000 mls @ 80 mls/hr IVCONT .[id number] [facility] [place] Last Admin: 12/30/21 06:29 Dose: 80 mls/hr Documented By: TOYA Levothyroxine Sodium (Levothyroxine Sodium 88 Mcg Tablet) 88 mcg PO DAILY@0600 [facility] [place] Morphine Sulfate (Morphine Sulfate 2 Mg/Ml Cartridge) 2 mg IVPUSH Q4H PRN; Protocol PRN Reason: Pain, Severe (Pain Scale 7-10) Last Admin: 12/30/21 10:55 Dose: 2 mg Documented By: NOÉ Oxycodone HCl (Oxycodone Hcl Immed Release 5 Mg Tablet) 5 mg PO Q4H PRN PRN Reason: Pain, Moderate (Pain Scale 4-6 Pantoprazole Sodium (Pantoprazole Sodium 40 Mg/10 Ml Vial) 40 mg IVPUSH DAILY@0630 [facility] [place] Last Admin: 12/30/21 06:29 Dose: 40 mg Documented By: TOYA Senna (Sennosides 8.6 Mg Tablet) 8.6 mg PO BEDTIME [facility] [place] Sodium Chloride (0.9 % Sodium Chloride Flush 3 Ml Syringe) 3 ml IVFLUSH QSHIFT [facility] [place] Last Admin: 12/30/21 10:58 Dose: 3 ml Documented By: NOÉ Labs CBC & Chem 7: 12/30/21 08:50 12/30/21 08:50 Labs: Laboratory Results - last 24 hr 12/16/21 12/30/21 12/30/21 13:10 08:50 08:50 MCV 86.4 MCH 27.2 MCHC 31.5 RDW 18.2 H Plt Count 274 MPV 9.0 L Absolute Nucleated RBC 0.000 Nucleated RBC % (auto) 0.0 Anion Gap 15 Estim Creat Clear Calc 87.0 Estimated GFR > 60 Random Glucose 100 Calcium 9.4 Crossmatch See Detail Assessment and Plan (1) Status post coronary artery bypass graft: Status: Acute Plan 61M presented for aortofemoral bypass s/p aortofemoral bypass complicated by post op ileus management per vascular surgery statin hyperkalemia 5.6, ivf, monitor hypothyroid synthroid Quality Stroke Does the patient have a stroke diagnosis?: No VTE Prior VTE?: No VTE Risk Level:: Medical - moderate - high VTE Device Contraindication: N/A - Device Ordered VTE Drug Contraindication: N/A - Med Ordered
[2021-12-30] MEDS: Cyclobenzaprine HCl 5 MG TABLET PO ×2 (15:59→20:51)
[2021-12-30] MEDS: oxyCODONE HCl Immed Release 5 MG TABLET PO ×2 (15:59→20:50)
--- NOTE | 2021-12-30 16:14 | MHC.CM.PN ---
MALE 61 S/P AORTOBIFEMORAL BYPASS. No dc today. Patient has a post op illeus. DP home no services family transport.
--- NOTE | 2021-12-30 18:12 | PC.NURSE ---
Pt OOB with PT today, sat in chair for a couple of hours. Medicated for pain once with MS and once with po Oxycodone with good effect. Tolerating clears
[2021-12-30] MEDS: Atorvastatin Calcium 40 MG TABLET PO (20:51)
[2021-12-30] MEDS: Sennosides 8.6 MG TABLET PO (20:51)
[2021-12-31] VITALS (8 sets, daily range): BP systolic 110–136; BP diastolic 63–84; PULSE 85–106; RESP 18–20; TEMP 36.3–36.9; O2SAT 91–98; BMI 27.2
[2021-12-31] MEDS: Heparin Sodium,Porcine 5,000 UNIT/ML VIAL 5000 UNIT SUBCUT ×4 (00:41→22:28)
[2021-12-31] MEDS: Morphine Sulfate 2 MG/ML CARTRIDGE IVPUSH ×4 (00:41→22:27)
[2021-12-31] MEDS: Pantoprazole Sodium 40 MG/10 ML VIAL IVPUSH (07:51)
[2021-12-31] MEDS: Docusate Sodium 100 MG CAPSULE PO ×2 (07:51→22:27)
[2021-12-31] MEDS: Cyclobenzaprine HCl 5 MG TABLET PO ×3 (07:51→22:27)
[2021-12-31] MEDS: 0.9 % Sodium Chloride 1,000 ML 80 ML IVCONT ×2 (07:51→22:28)
[2021-12-31] MEDS: Levothyroxine Sodium 88 MCG TABLET PO (07:51)
[2021-12-31] MEDS: atenoloL 25 MG TABLET PO (07:52)
[2021-12-31] MEDS: Ezetimibe 10 MG TABLET PO (07:52)
[2021-12-31 07:58] LABS: MANUAL DIFF FLAG NO
[2021-12-31 08:05] LABS: Basophils Percent Auto 0.2 % (0-2); Eosinophils Absolute Auto 0.1 X10*3/uL (0.0-0.4); Eosinophils Percent Auto 1.1 % (0-4); Hematocrit 34.5 % (42.0-52.0); Hemoglobin 10.9 g/dl (14.0-18.0); Imm Gran Abs Auto 0.05 X10*3/uL (0.00-0.03); Imm Gran Pct Auto 0.4 % (0.0-0.4); Lymphocytes Absolute Auto 1.1 X10*3/uL (1.2-4.9); Mean Corpuscular HGB Conc 31.6 g/dl (31.0-36.0); Mean Corpuscular Hemoglobin 26.8 pg (27.0-33.0); Mean Corpuscular Volume 84.8 fL (80.0-98.0); Mean Platelet Volume 9.3 fL (9.4-12.4); Monocytes Absolute Auto 1.3 X10*3/uL (0.1-1.2); Monocytes Percent Auto 10.3 % (2-11); Neutrophils Absolute Auto 9.7 x10*3/uL (2.0-8.3); Platelet Count 243 X10*3/uL (160-400); Red Blood Count 4.07 X10*6/uL (4.60-5.80); Red Cell Distribution Width 17.8 % (11.0-16.0); White Blood Count 12.3 X10*3/uL (4.8-10.8)
[2021-12-31 08:25] LABS: Blood Urea Nitrogen 12 mg/dL (9-16); Creatinine Clr Calc Pharmacy 102.7; Estimated Glomerular Filt Rate > 60; Glucose Fasting 93 mg/dL (60-99)
[2021-12-31 08:32] LABS: Anion Gap 11 (12-20); Calcium 8.4 mg/dL (8.4-10.2); Carbon Dioxide 26 mmol/L (22-29); Chloride 99 mmol/L (96-108); Potassium 4.1 mmol/L (3.3-5.1); Sodium 132 mmol/L (135-145)
[2021-12-31] MEDS: polyethylene glycoL 3350 17 GM POWD.PACK PO ×2 (09:40→22:27)
--- NOTE | 2021-12-31 09:55 | HO.VASCPN ---
Subjective Subjective Date of Service: 12/31/21 Patient reports: no new complaints, feels better and still having pain Interval history: 61-year-old gentleman postop day 3 status post aortobifem reports no issues overnight. Pain reasonably well controlled. He does continue to have some mild abdominal discomfort. He reports no flatus or bowel movement as of yet. Although he does feel that his belly is starting to rumble and he is hungry. He is now for routine postop follow-up. Physical Exam Vital Signs: Vital Signs: Last Vital Signs Temp 98.0 F 12/31/21 07:00 Pulse 103 H 12/31/21 07:00 Resp 18 12/31/21 07:00 BP 113/63 12/31/21 07:00 Pulse Ox 95 12/31/21 07:00 O2 Del Method 12/31/21 07:00 O2 Flow Rate 3 12/31/21 07:00 Oxygen Flow Rate 3 12/30/21 15:00 BMI result Body Mass Index 27.2 Const: General: cooperative, healthy appearing and no acute distress Orientation/consciousness: oriented to person, oriented to place and oriented to time HEENT: Head: Yes normal to inspection Neck: Carotids: no bruits Chest: Chest palpation & inspection: normal inspection of the chest Resp: Effort & Inspection: normal respiratory effort and able to speak in complete sentences Auscultation: clear to auscultation bilaterally Cardio: Rate: regular rate Heart sounds: S1 normal heart sound present and S2 normal heart sound present GI: Inspection: Yes normal to inspection Skin: Other: Dressings clean dry intact General skin exam: no rashes or lesions noted Wounds: no wounds Neuro: General: oriented to person, oriented to place, oriented to time and CN's II-XI intact bilaterally Extrem: General: Yes normal to inspection, Yes full ROM and Yes no clubbing, cyanosis or edema Psych: Appearance: grossly normal and well kempt Speech and movement: Normal speech and movement present Affect: normal affect Progress Note: A&P Assessment and plan (1) Aortoiliac occlusive disease: Status: Acute Assessment and Plan: Patient is doing well status post aortobifem. He is tolerating clears. For now we will leave it at that diet until he has flatus or bowel movement. We will start ambulation today. See how he does with that. Should things continue to progress would anticipate discharge within the next day or 2. Time Spent With Patient Time: Total time spent is greater than 50% in coordination of care (as documented) at patient's floor/unit and/or counseling patient: Procedures Date of Service Date of Service: 12/31/21 Quality Stroke Does the patient have a stroke diagnosis?: No VTE Prior VTE?: No VTE Risk Level:: Medical - moderate - high VTE Device Contraindication: N/A - Device Ordered VTE Drug Contraindication: N/A - Med Ordered
--- NOTE | 2021-12-31 10:49 | PC.NURSE ---
PT assessed pt this AM, ambulated in hallway with walker. Feldman and central line removed per MD verbal order around 1040 today w/ no complications. Urinal given to pt. Safety and fall precautions in place. pt repo'ed Q2. call woodard within reach. Fluids maintained.
--- NOTE | 2021-12-31 12:17 | P.PNIM_ITS ---
Subjective Subjective Date of Service: 12/31/21 Interval History: abd pain improved Cardiovascular Cardiovascular: Reports no additional cardiovascular complaints Respiratory Respiratory: Reports no additional respiratory complaints Physical Exam Vital Signs: Vital Signs: Last Vital Signs Temp 98.1 F 12/31/21 11:00 Pulse 85 12/31/21 11:00 Resp 18 12/31/21 11:00 BP 130/81 12/31/21 11:00 Pulse Ox 96 12/31/21 11:00 O2 Del Method 12/31/21 11:00 O2 Flow Rate 3 12/31/21 07:00 Oxygen Flow Rate 3 12/30/21 15:00 BMI result Body Mass Index 27.2 General: AO X 3, in pain Resp: CTA bilateral, no accessory muscles used CVS: S1,S2,RRR GI: soft, tender Neuro: motor grossly intact, alert Psych: appropriate affect, appropriate insight Objective Data Active Medications Acetaminophen (Acetaminophen 325 Mg Tablet) 650 mg PO Q6H PRN PRN Reason: Pain, Mild (Pain Scale 1-3) Albuterol Sulfate (Albuterol Sulfate (0.083%) 2.5 Mg/3 Ml Vial.Neb) 2.5 mg INHALE ONCE PRN PRN Reason: Shortness of Breath/Wheezing Atenolol (Atenolol 25 Mg Tablet) 25 mg PO DAILY [facility]; Protocol Last Admin: 12/31/21 07:52 Dose: 25 mg Documented By: TRUNG-JED Atorvastatin Calcium (Atorvastatin Calcium 40 Mg Tablet) 40 mg PO BEDTIME [facility] Last Admin: 12/30/21 20:51 Dose: 40 mg Documented By: WESLEY Cyclobenzaprine HCl (Cyclobenzaprine Hcl 5 Mg Tablet) 5 mg PO TID [facility] Last Admin: 12/31/21 07:51 Dose: 5 mg Documented By: TRUNG-SOFFA Docusate Sodium (Docusate Sodium 100 Mg Capsule) 100 mg PO BID [facility] Last Admin: 12/31/21 07:51 Dose: 100 mg Documented By: TRUNG-SOFFA Ezetimibe (Ezetimibe 10 Mg Tablet) 10 mg PO DAILY [facility] Last Admin: 12/31/21 07:52 Dose: 10 mg Documented By: TRUNG-SOFFA Heparin Sodium (Porcine) (Heparin Sodium,Porcine 5,000 Unit/Ml Vial) 5,000 unit SUBCUT Q8H [facility] Last Admin: 12/31/21 09:40 Dose: 5,000 unit Documented By: CHARLIE Sodium Chloride (Ns) 1,000 mls @ 80 mls/hr IVCONT .[id number] [facility] Last Admin: 12/31/21 07:51 Dose: 80 mls/hr Documented By: CHARLIE Levothyroxine Sodium (Levothyroxine Sodium 88 Mcg Tablet) 88 mcg PO DAILY@0600 [facility] Last Admin: 12/31/21 07:51 Dose: 88 mcg Documented By: CHARLIE Morphine Sulfate (Morphine Sulfate 2 Mg/Ml Cartridge) 2 mg IVPUSH Q4H PRN; Protocol PRN Reason: Pain, Severe (Pain Scale 7-10) Last Admin: 12/31/21 07:52 Dose: 2 mg Documented By: CHARLIE Oxycodone HCl (Oxycodone Hcl Immed Release 5 Mg Tablet) 5 mg PO Q4H PRN PRN Reason: Pain, Moderate (Pain Scale 4-6 Last Admin: 12/30/21 20:50 Dose: 5 mg Documented By: WESLEY Pantoprazole Sodium (Pantoprazole Sodium 40 Mg/10 Ml Vial) 40 mg IVPUSH DAILY@0630 [facility] Last Admin: 12/31/21 07:51 Dose: 40 mg Documented By: CHARLIE Polyethylene Glycol (Polyethylene Glycol 3350 17 Gm Powd.Pack) 17 gm PO BID [facility] Last Admin: 12/31/21 09:40 Dose: 17 gm Documented By: CHARLIE Senna (Sennosides 8.6 Mg Tablet) 8.6 mg PO BEDTIME [facility] Last Admin: 12/30/21 20:51 Dose: 8.6 mg Documented By: WESLEY Sodium Chloride (0.9 % Sodium Chloride Flush 3 Ml Syringe) 3 ml IVFLUSH QSHIFT [facility] Last Admin: 12/31/21 07:56 Dose: Not Given Documented By: CHARLIE Non-Admin Reason: assessed Labs CBC & Chem 7: 12/31/21 07:32 12/31/21 07:32 Labs: Laboratory Results - last 24 hr 12/31/21 12/31/21 12/31/21 07:32 07:32 07:32 MCV 84.8 MCH 26.8 L MCHC 31.6 RDW 17.8 H Plt Count 243 MPV 9.3 L Immature Gran % (Auto) 0.4 Neut % (Auto) 79.0 H Lymph % (Auto) 9.0 L [place] % (Auto) 10.3 Eos % (Auto) 1.1 Baso % (Auto) 0.2 Lymph # (Auto) 1.1 L [place] # (Auto) 1.3 H Eos # (Auto) 0.1 Baso # (Auto) 0.0 Abs Immat Gran (auto) 0.05 H Absolute Neuts (auto) 9.7 H Absolute Nucleated RBC 0.000 Nucleated RBC % (auto) 0.0 Anion Gap Cancelled 11 L Estim Creat Clear Calc Cancelled 102.7 Estimated GFR Cancelled > 60 Random Glucose Cancelled Fasting Glucose 93 Calcium Cancelled 8.4 D Assessment and Plan (1) Status post coronary artery bypass graft: Status: Acute Plan 61M presented for aortofemoral bypass s/p aortofemoral bypass complicated by post op ileus management per vascular surgery statin hyperkalemia resolved hypothyroid synthroid Quality Stroke Does the patient have a stroke diagnosis?: No VTE Prior VTE?: No VTE Risk Level:: Medical - moderate - high VTE Device Contraindication: N/A - Device Ordered VTE Drug Contraindication: N/A - Med Ordered
[2021-12-31] MEDS: Sennosides 8.6 MG TABLET PO (22:26)
[2021-12-31] MEDS: Atorvastatin Calcium 40 MG TABLET PO (22:27)
[2021-12-31] MEDS: 0.9 % Sodium Chloride Flush 3 ML SYRINGE IVFLUSH (22:28)
[2022-01-01] VITALS (8 sets, daily range): BP systolic 107–147; BP diastolic 61–105; PULSE 78–106; RESP 14–20; TEMP 36.3–37.2; O2SAT 94–98; BMI 28.3
[2022-01-01] MEDS: Pantoprazole Sodium 40 MG/10 ML VIAL IVPUSH (05:39)
[2022-01-01] MEDS: Levothyroxine Sodium 88 MCG TABLET PO (05:39)
[2022-01-01 07:15] LABS: Hematocrit 35.3 % (42.0-52.0); Hemoglobin 11.3 g/dl (14.0-18.0); Mean Corpuscular Hemoglobin 27.4 pg (27.0-33.0); Mean Corpuscular Volume 85.7 fL (80.0-98.0); Mean Platelet Volume 9.4 fL (9.4-12.4); Platelet Count 259 X10*3/uL (160-400); Red Blood Count 4.12 X10*6/uL (4.60-5.80); Red Cell Distribution Width 17.8 % (11.0-16.0); White Blood Count 11.2 X10*3/uL (4.8-10.8)
[2022-01-01 07:20] LABS: Anion Gap 13 (12-20); Blood Urea Nitrogen 14 mg/dL (9-16); Calcium 8.7 mg/dL (8.4-10.2); Carbon Dioxide 25 mmol/L (22-29); Chloride 100 mmol/L (96-108); Creatinine Clr Calc Pharmacy 101.2; Estimated Glomerular Filt Rate > 60; Glucose Fasting 96 mg/dL (60-99); Potassium 4.3 mmol/L (3.3-5.1); Sodium 134 mmol/L (135-145)
[2022-01-01] MEDS: Docusate Sodium 100 MG CAPSULE PO ×2 (09:09→20:48)
[2022-01-01] MEDS: atenoloL 25 MG TABLET PO (09:09)
[2022-01-01] MEDS: polyethylene glycoL 3350 17 GM POWD.PACK PO ×2 (09:09→20:57)
[2022-01-01] MEDS: Cyclobenzaprine HCl 5 MG TABLET PO ×3 (09:10→20:48)
[2022-01-01] MEDS: Heparin Sodium,Porcine 5,000 UNIT/ML VIAL 5000 UNIT SUBCUT ×2 (09:10→18:12)
[2022-01-01] MEDS: Ezetimibe 10 MG TABLET PO (09:10)
--- NOTE | 2022-01-01 09:48 | HO.VASCPN ---
Subjective Subjective Date of Service: 01/01/22 Patient reports: no new complaints and feels better Interval history: Patient seen and examined. No significant events. He is postop day 4 status post open aorta bifem. Pain well controlled. He reports he is passing flatus no bowel movement as of yet. Physical Exam Vital Signs: Vital Signs: Last Vital Signs Temp 98.0 F 01/01/22 08:00 Pulse 106 H 01/01/22 08:00 Resp 20 01/01/22 08:00 BP 147/105 H 01/01/22 08:00 Pulse Ox 94 01/01/22 08:00 O2 Del Method 01/01/22 08:00 O2 Flow Rate 2.5 01/01/22 08:00 Oxygen Flow Rate 3 12/30/21 15:00 BMI result Body Mass Index 28.3 Const: General: cooperative, healthy appearing and no acute distress Orientation/consciousness: oriented to person, oriented to place and oriented to time HEENT: Head: Yes normal to inspection Neck: Carotids: no bruits Chest: Chest palpation & inspection: normal inspection of the chest Resp: Effort & Inspection: normal respiratory effort and able to speak in complete sentences Auscultation: clear to auscultation bilaterally Cardio: Rate: regular rate Heart sounds: S1 normal heart sound present and S2 normal heart sound present GI: Inspection: Yes normal to inspection Skin: Other: Incision dressings changed an incision lines appear to be healing well both in abdomen and bilateral groins. General skin exam: no rashes or lesions noted Wounds: no wounds Neuro: General: oriented to person, oriented to place, oriented to time and CN's II-XI intact bilaterally Extrem: General: Yes normal to inspection, Yes full ROM and Yes no clubbing, cyanosis or edema Psych: Appearance: grossly normal and well kempt Speech and movement: Normal speech and movement present Affect: normal affect Progress Note: A&P Assessment and plan (1) Aortoiliac occlusive disease: Status: Acute Assessment and Plan: In short patient is doing well status post open aortobifem. His been advanced to regular diet and will encourage ambulation. We are waiting bowel movement to ensure that his GI function has returned. He can be subsequently discharged. This was all discussed with the patient. He will follow up with us as an outpatient. Thank you for allowing us to assist in his care. Time Spent With Patient Time: Total time spent is greater than 50% in coordination of care (as documented) at patient's floor/unit and/or counseling patient: Procedures Date of Service Date of Service: 01/01/22 Quality Stroke Does the patient have a stroke diagnosis?: No VTE Prior VTE?: No VTE Risk Level:: Medical - moderate - high VTE Device Contraindication: N/A - Device Ordered VTE Drug Contraindication: N/A - Med Ordered
--- NOTE | 2022-01-01 10:09 | P.PNIM_ITS ---
Subjective Subjective Date of Service: 01/01/22 Interval History: abd pain improved, passing gas, no bm Cardiovascular Cardiovascular: Reports no additional cardiovascular complaints Respiratory Respiratory: Reports no additional respiratory complaints Physical Exam Vital Signs: Vital Signs: Last Vital Signs Temp 98.0 F 01/01/22 08:00 Pulse 106 H 01/01/22 10:00 Resp 20 01/01/22 08:00 BP 147/105 H 01/01/22 08:00 Pulse Ox 94 01/01/22 10:00 O2 Del Method 01/01/22 08:00 O2 Flow Rate 2.5 01/01/22 08:00 Oxygen Flow Rate 3 12/30/21 15:00 BMI result Body Mass Index 28.3 General: AO X 3, in pain Resp: CTA bilateral, no accessory muscles used CVS: S1,S2,RRR GI: soft, tender Neuro: motor grossly intact, alert Psych: appropriate affect, appropriate insight Objective Data Active Medications Acetaminophen (Acetaminophen 325 Mg Tablet) 650 mg PO Q6H PRN PRN Reason: Pain, Mild (Pain Scale 1-3) Albuterol Sulfate (Albuterol Sulfate (0.083%) 2.5 Mg/3 Ml Vial.Neb) 2.5 mg INHALE ONCE PRN PRN Reason: Shortness of Breath/Wheezing Atenolol (Atenolol 25 Mg Tablet) 25 mg PO DAILY [facility]; Protocol Last Admin: 01/01/22 09:09 Dose: 25 mg Documented By: NOE Atorvastatin Calcium (Atorvastatin Calcium 40 Mg Tablet) 40 mg PO BEDTIME [facility] Last Admin: 12/31/21 22:27 Dose: 40 mg Documented By: ANTROBERTO Cyclobenzaprine HCl (Cyclobenzaprine Hcl 5 Mg Tablet) 5 mg PO TID [facility] Last Admin: 01/01/22 09:10 Dose: 5 mg Documented By: NOE Docusate Sodium (Docusate Sodium 100 Mg Capsule) 100 mg PO BID [facility] Last Admin: 01/01/22 09:09 Dose: 100 mg Documented By: NOE Ezetimibe (Ezetimibe 10 Mg Tablet) 10 mg PO DAILY [facility] Last Admin: 01/01/22 09:10 Dose: 10 mg Documented By: NOE Heparin Sodium (Porcine) (Heparin Sodium,Porcine 5,000 Unit/Ml Vial) 5,000 unit SUBCUT Q8H [facility] Last Admin: 01/01/22 09:10 Dose: 5,000 unit Documented By: NOE Levothyroxine Sodium (Levothyroxine Sodium 88 Mcg Tablet) 88 mcg PO DAILY@0600 [facility] Last Admin: 01/01/22 05:39 Dose: 88 mcg Documented By: SHASHA Morphine Sulfate (Morphine Sulfate 2 Mg/Ml Cartridge) 2 mg IVPUSH Q4H PRN; Protocol PRN Reason: Pain, Severe (Pain Scale 7-10) Last Admin: 12/31/21 22:27 Dose: 2 mg Documented By: SHASHA Oxycodone HCl (Oxycodone Hcl Immed Release 5 Mg Tablet) 5 mg PO Q4H PRN PRN Reason: Pain, Moderate (Pain Scale 4-6 Last Admin: 12/30/21 20:50 Dose: 5 mg Documented By: WESLEY Polyethylene Glycol (Polyethylene Glycol 3350 17 Gm Powd.Pack) 17 gm PO BID [facility] Last Admin: 01/01/22 09:09 Dose: 17 gm Documented By: NOE Senna (Sennosides 8.6 Mg Tablet) 8.6 mg PO BEDTIME [facility] Last Admin: 12/31/21 22:26 Dose: 8.6 mg Documented By: SHASHA Sodium Chloride (0.9 % Sodium Chloride Flush 3 Ml Syringe) 3 ml IVFLUSH QSHIFT [facility] Last Admin: 01/01/22 09:11 Dose: Not Given Documented By: NOE Non-Admin Reason: IV Running Labs CBC & Chem 7: 01/01/22 06:34 01/01/22 06:34 Labs: Laboratory Results - last 24 hr 01/01/22 01/01/22 06:34 06:34 MCV 85.7 MCH 27.4 MCHC 32.0 RDW 17.8 H Plt Count 259 MPV 9.4 Absolute Nucleated RBC 0.000 Nucleated RBC % (auto) 0.0 Anion Gap 13 Estim Creat Clear Calc 101.2 Estimated GFR > 60 Fasting Glucose 96 Calcium 8.7 Assessment and Plan (1) Status post coronary artery bypass graft: Status: Acute Plan 61M presented for aortofemoral bypass s/p aortofemoral bypass complicated by post op ileus management per vascular surgery statin advancing diet, monitor for bm hyperkalemia resolved hypothyroid synthroid Quality Stroke Does the patient have a stroke diagnosis?: No VTE Prior VTE?: No VTE Risk Level:: Medical - moderate - high VTE Device Contraindication: N/A - Device Ordered VTE Drug Contraindication: N/A - Med Ordered
--- NOTE | 2022-01-01 16:02 | MHC.CM.PN ---
Male 61 S/P cassidy Fem bipass No discharge today. DP Home no services GF will provide ride home.
[2022-01-01] MEDS: Sennosides 8.6 MG TABLET PO (20:48)
[2022-01-01] MEDS: Morphine Sulfate 2 MG/ML CARTRIDGE IVPUSH (20:48)
[2022-01-01] MEDS: Atorvastatin Calcium 40 MG TABLET PO (20:48)
[2022-01-01] MEDS: 0.9 % Sodium Chloride Flush 3 ML SYRINGE IVFLUSH (20:57)
[2022-01-02] MEDS: Heparin Sodium,Porcine 5,000 UNIT/ML VIAL 5000 UNIT SUBCUT ×2 (01:29→09:48)
[2022-01-02 04:00] VITALS: BP 138/84; PULSE 72; RESP 20; TEMP 36.8; O2SAT 96
[2022-01-02 05:38] VITALS: BMI 28.4
[2022-01-02] MEDS: Levothyroxine Sodium 88 MCG TABLET PO (06:10)
[2022-01-02 08:00] VITALS: BP 130/65; PULSE 78; RESP 20; TEMP 37.1; O2SAT 98
[2022-01-02] MEDS: Cyclobenzaprine HCl 5 MG TABLET PO (09:47)
[2022-01-02] MEDS: Docusate Sodium 100 MG CAPSULE PO (09:47)
[2022-01-02] MEDS: polyethylene glycoL 3350 17 GM POWD.PACK PO (09:48)
[2022-01-02] MEDS: 0.9 % Sodium Chloride Flush 3 ML SYRINGE IVFLUSH (09:48)
[2022-01-02] MEDS: Ezetimibe 10 MG TABLET PO (09:48)
[2022-01-02] MEDS: atenoloL 25 MG TABLET PO (09:48)
--- NOTE | 2022-01-02 11:14 | P.PNIM_ITS ---
Subjective Subjective Date of Service: 01/02/22 Interval History: abd pain improved, passing gas, no bm Cardiovascular Cardiovascular: Reports no additional cardiovascular complaints Respiratory Respiratory: Reports no additional respiratory complaints Physical Exam Vital Signs: Vital Signs: Last Vital Signs Temp 98.7 F 01/02/22 08:00 Pulse 78 01/02/22 08:00 Resp 20 01/02/22 08:00 BP 130/65 01/02/22 08:00 Pulse Ox 98 01/02/22 08:00 O2 Del Method 01/02/22 08:00 O2 Flow Rate 2 01/02/22 08:00 Oxygen Flow Rate 3 12/30/21 15:00 BMI result Body Mass Index 28.4 General: AO X 3, in pain Resp: CTA bilateral, no accessory muscles used CVS: S1,S2,RRR GI: soft, tender Neuro: motor grossly intact, alert Psych: appropriate affect, appropriate insight Objective Data Active Medications Acetaminophen (Acetaminophen 325 Mg Tablet) 650 mg PO Q6H PRN PRN Reason: Pain, Mild (Pain Scale 1-3) Albuterol Sulfate (Albuterol Sulfate (0.083%) 2.5 Mg/3 Ml Vial.Neb) 2.5 mg INHALE ONCE PRN PRN Reason: Shortness of Breath/Wheezing Atenolol (Atenolol 25 Mg Tablet) 25 mg PO DAILY [facility]; Protocol Last Admin: 01/02/22 09:48 Dose: 25 mg Documented By: JOSE Atorvastatin Calcium (Atorvastatin Calcium 40 Mg Tablet) 40 mg PO BEDTIME [facility] Last Admin: 01/01/22 20:48 Dose: 40 mg Documented By: LILIANA Cyclobenzaprine HCl (Cyclobenzaprine Hcl 5 Mg Tablet) 5 mg PO TID [facility] Last Admin: 01/02/22 09:47 Dose: 5 mg Documented By: JOSE Docusate Sodium (Docusate Sodium 100 Mg Capsule) 100 mg PO BID [facility] Last Admin: 01/02/22 09:47 Dose: 100 mg Documented By: JOSE Ezetimibe (Ezetimibe 10 Mg Tablet) 10 mg PO DAILY [facility] Last Admin: 01/02/22 09:48 Dose: 10 mg Documented By: JOSE Heparin Sodium (Porcine) (Heparin Sodium,Porcine 5,000 Unit/Ml Vial) 5,000 unit SUBCUT Q8H [facility] Last Admin: 01/02/22 09:48 Dose: 5,000 unit Documented By: JOSE Levothyroxine Sodium (Levothyroxine Sodium 88 Mcg Tablet) 88 mcg PO DAILY@0600 [facility] Last Admin: 01/02/22 06:10 Dose: 88 mcg Documented By: LILIANA Morphine Sulfate (Morphine Sulfate 2 Mg/Ml Cartridge) 2 mg IVPUSH Q4H PRN; P rotocol PRN Reason: Pain, Severe (Pain Scale 7-10) Last Admin: 01/01/22 20:48 Dose: 2 mg Documented By: LILIANA Oxycodone HCl (Oxycodone Hcl Immed Release 5 Mg Tablet) 5 mg PO Q4H PRN PRN Reason: Pain, Moderate (Pain Scale 4-6 Last Admin: 12/30/21 20:50 Dose: 5 mg Documented By: WESLEY Polyethylene Glycol (Polyethylene Glycol 3350 17 Gm Powd.Pack) 17 gm PO BID [facility] Last Admin: 01/02/22 09:48 Dose: 17 gm Documented By: JOSE Senna (Sennosides 8.6 Mg Tablet) 8.6 mg PO BEDTIME [facility] Last Admin: 01/01/22 20:48 Dose: 8.6 mg Documented By: LILIANA Sodium Chloride (0.9 % Sodium Chloride Flush 3 Ml Syringe) 3 ml IVFLUSH QSHIFT [facility] Last Admin: 01/02/22 09:48 Dose: 3 ml Documented By: JOSE Labs CBC & Chem 7: 01/01/22 06:34 01/01/22 06:34 Assessment and Plan (1) Status post coronary artery bypass graft: Status: Acute Plan 61M presented for aortofemoral bypass s/p aortofemoral bypass complicated by post op ileus management per vascular surgery statin advanced diet, monitor for bm hyperkalemia resolved hypothyroid synthroid Quality Stroke Does the patient have a stroke diagnosis?: No VTE Prior VTE?: No VTE Risk Level:: Medical - moderate - high VTE Device Contraindication: N/A - Device Ordered VTE Drug Contraindication: N/A - Med Ordered
[2022-01-02 11:25] VITALS: BP 135/65; PULSE 79; RESP 20; TEMP 37.1; O2SAT 99
--- NOTE | 2022-01-02 11:33 | MHC.CM.PN ---
PT TO DC HOME TODAY WITH NO SERVICES S/O TO TRANSPORT
--- NOTE | 2022-01-02 11:37 | PM.DS ---
DS: Providers Provider Date of Service: 01/02/22 Date of admission: 12/28/21 13:14 Primary care physician: Brianda Oswald MD Consults: 12/29/21 14:34 Consult to Hospitalist Routine Consulting Provider: Hospitalist Reason For Exam: med management DS: Diagnosis Discharge Diagnosis (1) Status post coronary artery bypass graft: Status: Acute DS: Summary Hospital Course Hospital Course: Patient underwent open aortobifemoral bypass for aortic occlusive disease. He did extremely well postoperatively. The 1st day night he was observed in our ICU. Postop day 1 it A-line was removed and he was transferred up to the floor. He was slow to recover. He had a significant postoperative ileus. By postop day 3 he was passing flatus. At that point he was advanced to a regular diet. He also was working with physical therapy to advance up to ambulatory status. By postop day 5 he was passing flatus and had a full bowel movement. He was stable for discharge. Discharge instructions were given to the patient. Time Spent with Patient Time attestation: Total time spent providing and/or coordinating discharge services: Discharge coordination time: Greater than 30 minutes Quality: Safe Use of Opioids Does Pt have an Active Cancer Diagnosis on the Problem List?: No Quality: Stroke Does the patient have a stroke diagnosis?: No Physical Exam Vital Signs: Vital Signs: Last Vital Signs Temp 98.7 F 01/02/22 11:25 Pulse 79 01/02/22 11:25 Resp 20 01/02/22 11:25 BP 135/65 01/02/22 11:25 Pulse Ox 99 01/02/22 11:25 O2 Del Method 01/02/22 11:25 O2 Flow Rate 2 01/02/22 11:25 Oxygen Flow Rate 3 12/30/21 15:00 BMI result Body Mass Index 28.4 Const: General: cooperative, healthy appearing and no acute distress Orientation/consciousness: oriented to person, oriented to place and oriented to time HEENT: Head: Yes normal to inspection Neck: Carotids: no bruits Chest: Chest palpation & inspection: normal inspection of the chest Resp: Effort & Inspection: normal respiratory effort and able to speak in complete sentences Auscultation: clear to auscultation bilaterally Cardio: Rate: regular rate Heart sounds: S1 normal heart sound present and S2 normal heart sound present GI: Inspection: Yes normal to inspection Skin: Other: Midline abdomen rony were intact bilateral groin rony were intact as well. General skin exam: no rashes or lesions noted Wounds: no wounds Neuro: General: oriented to person, oriented to place, oriented to time and CN's II-XI intact bilaterally Extrem: General: Yes normal to inspection, Yes full ROM and Yes no clubbing, cyanosis or edema Psych: Appearance: grossly normal and well kempt Speech and movement: Normal speech and movement present Affect: normal affect DS: Data Data Completed and Pending Completed studies during hospitalization [Text1]: Pending at discharge 12/28/21 11:55 Surgical [PTH] Routine Procedures Extirpation of Matter from Right Common Carotid Artery, Open Approach (09/07/21) Extirpation of Matter from Right External Carotid Artery, Open Approach (09/07/21) Extirpation of Matter from Right Internal Carotid Artery, Open Approach (09/07/21) Supplement Right Common Carotid Artery with Synthetic Substitute, Open Approach (09/07/21) Supplement Right Internal Carotid Artery with Synthetic Substitute, Open Approach (09/07/21) Discharge Plan Discharge Patient Disposition: Home, Self-Care Discharge Diagnosis: atherosceloris Referrals: Brianda Oswald MD [Primary Care Provider] - 1 Week Discharge Medications: New oxycodone-acetaminophen [Percocet] 5-325 mg tablet 1 tab PO Q8H PRN (Reason: pain) Qty: 20 0RF Rx Instructions: Partial Fill upon patient request. Continued ezetimibe [Zetia] 10 mg tablet 10 mg PO DAILY Qty: 30 4RF atorvastatin 40 mg tablet 1 tab PO BEDTIME levothyroxine 88 mcg tablet 88 mcg PO DAILY acetaminophen 500 mg tablet 500 mg PO Q8H PRN (Reason: pain) aspirin 81 mg tablet,delayed release (DR/EC) 81 mg PO DAILY cyclobenzaprine 5 mg tablet 5 mg PO TID atenolol 25 mg tablet 25 mg PO DAILY cholecalciferol (vitamin D3) 50 mcg (2,000 unit) tablet 50 mcg PO DAILY Discharge Orders: Discharge Order (Routine); Ordered 01/02/22 Ordered By: Wilfrid Murcia Diet: advance to usual diet Activity on Discharge: As tolerated Stand Alone Forms: Patient Portal Discharge page Activity Restrictions/Additional Instructions: Skin rony was used and you may shower tomorrow. Take it easy today and you may ambulate around the house. You may climb a flight of stairs as tolerated Do not lift anything heavier than a gallon of milk. See Dr. Calderon in follow-up in approximately 2 weeks time for staple removal. You should already have an appointment if not please call my office at [phone] Please see above for any change in medications If you notice excessive bleeding from the groin or belly please immediately call my office or return to the emergency room. Care Plan Goals: recovery Health Concerns: see above Plan of Treatment: see above Assessment: see above
== END 2022-01-02 12:51 | disposition home or self-care (01) | DRG 181 ==
LOC: HO.EDOVER 13:17 → HO.ICU 13:32 → HO.IMC 12-29 14:10
PROVIDERS: Internal Medicine; Nurse Practitioner; Admitting Provider Surgery Vascular Surgery; PCP Internal Medicine; Visit Provider Surgery Vascular Surgery
PROC: 04CL0ZZ Extirpation of Matter from Left Femoral Artery, Open Approach (ICD-10-PCS; principal; 2021-12-28 07:30)
DX: I70.223 Atherosclerosis of native arteries of extremities with rest pain, bilateral legs (principal); K56.7 Ileus, unspecified; E03.9 Hypothyroidism, unspecified; J44.9 Chronic obstructive pulmonary disease, unspecified; E78.5 Hyperlipidemia, unspecified; Z20.822 Contact with and (suspected) exposure to COVID-19; E87.5 Hyperkalemia; F17.210 Nicotine dependence, cigarettes, uncomplicated; Z71.6 Tobacco abuse counseling; Z79.82 Long term (current) use of aspirin; Z79.890 Hormone replacement therapy; Z79.899 Other long term (current) drug therapy; K91.89 Other postprocedural complications and disorders of digestive system
CPT/HCPCS: 36415; 71045; 80048; 85025; 85027; 85610; 85730; 86850; 86900; 86901; 86923; 87635; 88304; 88311; 93005; 97110; 97116; 97162; C1757; C1758; C1768; J0131; J0690; J1100; J1170; J2250; J2270; J2370; J2405; J2795; J3010

== ENCOUNTER → 2022-01-12 13:20 | Outpatient (BNVA) | payer MEDICAID, SELFPAY | PROVIDERS: PCP Internal Medicine; Visit Provider Surgery Vascular Surgery | DX: I74.09 Other arterial embolism and thrombosis of abdominal aorta (principal); Z98.890 Other specified postprocedural states | CPT/HCPCS: 99212 ==

== ENCOUNTER → 2022-01-19 13:03 | Outpatient (BNVA) | payer MEDICAID, SELFPAY | PROVIDERS: PCP Internal Medicine; Visit Provider Surgery Vascular Surgery | DX: I74.09 Other arterial embolism and thrombosis of abdominal aorta (principal) | CPT/HCPCS: 99212 ==

== ENCOUNTER 2022-01-26 | Outpatient (REF) | payer MEDICAID, SELFPAY | END 2022-04-16 14:20 | disposition home or self-care (01) | LOC: CF | PROVIDERS: Visit Provider Surgery Vascular Surgery | DX: I74.09 Other arterial embolism and thrombosis of abdominal aorta (principal); I65.23 Occlusion and stenosis of bilateral carotid arteries; I25.10 Atherosclerotic heart disease of native coronary artery without angina pectoris | CPT/HCPCS: 99212 ==

== ENCOUNTER 2022-01-26 11:08 | Outpatient (REF) | payer MEDICAID, SELFPAY | END 2022-01-26 11:09 | disposition home or self-care (01) | LOC: HO.HAP 11:08 | PROVIDERS: Visit Provider Internal Medicine | DX: T81.30XA Disruption of wound, unspecified, initial encounter (principal); Y83.2 Surgical operation with anastomosis, bypass or graft as the cause of abnormal reaction of the patient, or of later complication, without mention of misadventure at the time of the procedure; Y92.9 Unspecified place or not applicable; Z46.1 Encounter for fitting and adjustment of hearing aid; H90.3 Sensorineural hearing loss, bilateral; I73.9 Peripheral vascular disease, unspecified | CPT/HCPCS: 92593; 99212; V5266 ==

== ENCOUNTER 2022-01-26 14:41 | Inpatient (IN) | payer MEDICAID, SELFPAY ==
--- NOTE | 2022-01-26 15:58 | ED_ITS ---
HPI - Skin/Abscess/Foreign Bdy General Chief complaint: Wound/Laceration Stated complaint: open wound right leg Time Seen by Provider: 01/26/22 15:55 Source: patient and old records reviewed Mode of arrival: ambulatory Limitations: no limitations History of Present Illness HPI narrative: 61 yo male with hx of PAD, CAD, COPD, HLD 1 week post op aortobifem bypass - came from vascular clinic for R groin wound opening. Vascular surgery requesting admission and IV antibiotics - vancomycin and zosyn to monitor wound and prevent graft from getting infected. Was prescribed cephalexin post surgery MD complaint: lesion Onset (ago): day(s) (Tuesday ) Tetanus up to date: yes Location: generalized (R groin) Severity: moderate Quality: aching Pain Consistency: constant Relieving factors: none Exacerbating factors: none Context: other (recent surgery ) Associated symptoms: other (drainage and odor) Treatments prior to arrival: bandages (states he had a staple removed and wound packed/dressed by Dr. Calderon in office today) Related Data Home Medications Medication Instructions Recorded Confirmed acetaminophen 500 mg tablet 500 mg PO Q8H PRN pain 04/14/21 12/15/21 aspirin 81 mg tablet,delayed 81 mg PO DAILY 04/14/21 12/15/21 release atenolol 25 mg tablet 25 mg PO DAILY 04/14/21 12/15/21 cyclobenzaprine 5 mg tablet 5 mg PO TID 04/14/21 12/15/21 levothyroxine 88 mcg tablet 88 mcg PO DAILY 04/14/21 12/15/21 cholecalciferol (vitamin D3) 50 50 mcg PO DAILY 12/03/21 12/15/21 mcg (2,000 unit) tablet atorvastatin 40 mg tablet 1 tab PO BEDTIME 12/28/21 12/28/21 Previous Rx's Medication Instructions Recorded oxycodone-acetaminophen 5 mg-325 1 tab PO Q8H PRN pain #20 tabs 01/02/22 mg tablet (Percocet) cephalexin 500 mg capsule 500 mg PO BID #20 caps 01/05/22 ezetimibe 10 mg tablet (Zetia) 10 mg PO DAILY #90 tabs 01/15/22 cephalexin 500 mg capsule 500 mg PO Q12H #14 caps 01/19/22 Allergies Allergy/AdvReac Type Severity Reaction Status Date / Time No Known Allergies Allergy Verified 01/26/22 14:07 [No Known Allergies*] Review of Systems Review of Systems: Constitutional : No Fever, No Chills ENT/Mouth : No sore throat, No Rhinorrhea Eyes: No Eye Pain, No Swelling, No Redness Cardiovascular : No Chest Pain, No SOB Respiratory : No Cough, No Sputum Gastrointestinal : No Nausea, No Vomiting, No Diarrhea, No abdominal Pain Genitourinary : No Dysuria, No Hematuria Musculoskeletal : No joint pain, No Myalgias, No Joint Swelling Skin : No Skin Lesions, positive skin rash Neuro : No Weakness, No Numbness, No Headache Psych : No Anxiety, No Depression Heme/Lymph: No Bruising, No Bleeding,No Lymphadenopathy Endocrine : No Polyuria, No Polydipsia All other systems reviewed and are negative [facility] Past Medical History Attestation statement: The following information was validated with the patient. Source: old records reviewed Medical History Cancer COVID-19 vaccine series completed Decreased glomerular filtration rate (GFR) Hard of hearing HTN (hypertension) Hypercalcemia Hypercholesteremia Hypothyroidism IFG (impaired fasting glucose) PAD (peripheral artery disease) PVD (peripheral vascular disease) S/P arteriogram of extremity Smoker Surgical History History of right-sided carotid endarterectomy History of thumb surgery Hx of heart bypass surgery S/P aortobifemoral bypass surgery (12/28/21) Status post bilateral carotid endarterectomy Status post carotid surgery Status post coronary artery bypass graft Family History Family History Father No problems noted. Mother No problems noted. Social History Social History Household Members: Significant Other Housing: Apartment Are you a primary animal care supervisor to a significant other at home: No Do you presently have visiting nurse or other home services: No Alcohol intake: current Alcohol intake frequency: a few times a month Alcohol type: beer Patient Tobacco Use Status: Current everyday Tobacco user Tobacco use type: Cigarette Cigarette Packs Per Day: 0.5 Cigarettes Per Day: 10.0 Years Smoked: 20 e-Cigarette/Vaping Use: Never Used Second Hand Smoke Exposure: Yes Substance Use Type: Marijuana Advance Directives: Yes Advance Directives on File: Yes Advance Directives Date on File: 01/04/22 service: No Current occupational status: unemployed and disabled Physical Exam Vital Signs: Vital Signs: Last Vital Signs Temp 97.8 F 01/26/22 16:24 Pulse 71 01/26/22 16:24 Resp 16 01/26/22 16:24 BP 127/84 01/26/22 16:24 Pulse Ox 99 01/26/22 16:24 O2 Del Method 01/26/22 16:24 BMI result Body Mass Index 26.9 Appearance: Alert. Oriented X3. No acute distress. Eyes: Pupils equal, round and reactive to light. ENT: Pharynx normal. Neck: Normal inspection. Neck supple. CVS: Normal heart rate and rhythm. Pulses normal. Respiratory: No respiratory distress. Breath sounds normal. Abdomen: Soft and non-tender. R groin wound is dehisced at this time - saturated dressing noted, odor is noted Skin: Skin warm and dry. Normal skin color. Normal skin turgor. Extremities: No lower extremity edema. No calf ttp R foot is warm to the touch with BCR in all digits Neuro: Oriented X 3. No motor deficit. No sensory deficit. MDM - Skin/Abscess/Foreign Bdy MDM Narrative Medical decision making narrative: 61 yo male with hx of PAD, CAD, COPD, HLD 1 week post op aortobifem bypass comes in with dehiscence of R groin wound at this time vascular surgery requesting IV vancomycin and zosyn as well as admission. Labs and IV antibiotics ordered at this time. Lab Data Result diagrams: 01/26/22 16:21 01/26/22 16:20 Labs: Lab Results 01/26/22 01/26/22 01/26/22 Range/Units 16:20 16:20 16:21 WBC 8.0 (4.8-10.8) X10*3/uL RBC 4.70 (4.60-5.80) X10*6/uL Hgb 12.9 L (14.0-18.0) g/dl Hct 39.9 L (42.0-52.0) % MCV 84.9 (80.0-98.0) fL MCH 27.4 (27.0-33.0) pg MCHC 32.3 (31.0-36.0) g/dl RDW 16.6 H (11.0-16.0) % Plt Count 371 D (160-400) X10*3/uL MPV 9.0 L (9.4-12.4) fL Immature Gran % (Auto) 0.4 (0.0-0.4) % Neut % (Auto) 66.1 (45-73) % Lymph % (Auto) 20.0 (20-40) % [place] % (Auto) 8.7 (2-11) % Eos % (Auto) 4.1 H (0-4) % Baso % (Auto) 0.7 (0-2) % Lymph # (Auto) 1.6 (1.2-4.9) X10*3/uL [place] # (Auto) 0.7 (0.1-1.2) X10*3/uL Eos # (Auto) 0.3 (0.0-0.4) X10*3/uL Baso # (Auto) 0.1 (0.0-0.2) X10*3/uL Abs Immat Gran (auto) 0.03 (0.00-0.03) X10*3/uL Absolute Neuts (auto) 5.3 (2.0-8.3) x10*3/uL Absolute Nucleated RBC 0.000 (0.0-0.012) X10*3/uL Nucleated RBC % (auto) 0.0 (0.0-0.2) /100WBC PT (10.0-13.1) SEC INR (0.9-1.1) Sodium 133 L (135-145) mmol/L Potassium 5.1 (3.3-5.1) mmol/L Chloride 97 (96-108) mmol/L Carbon Dioxide 27 (22-29) mmol/L Anion Gap 14 (12-20) BUN 19 H (9-16) mg/dL Creatinine 1.18 (0.5-1.4) mg/dL Estim Creat Clear Calc 62.2 Estimated GFR > 60 Random Glucose 96 (60-115) mg/dL Lactic Acid 1.4 (0.5-2.0) mmol/L Calcium 9.3 D (8.4-10.2) mg/dL Magnesium 1.9 (1.6-2.6) mg/dL Total Bilirubin 0.4 (0.0-1.0) mg/dL Direct Bilirubin 0.2 (0.0-0.5) mg/dL AST 12 (5-37) U/L ALT 8 (0-40) U/L Alkaline Phosphatase 141 H (39-117) U/L Total Protein 7.2 (6.5-8.0) g/dL Albumin 4.0 (3.5-5.0) g/dL COVID-19 (MADI) (Negative) COVID-19 Clin Com 01/26/22 01/26/22 Range/Units 16:21 16:21 WBC (4.8-10.8) X10*3/uL RBC (4.60-5.80) X10*6/uL Hgb (14.0-18.0) g/dl Hct (42.0-52.0) % MCV (80.0-98.0) fL MCH (27.0-33.0) pg MCHC (31.0-36.0) g/dl RDW (11.0-16.0) % Plt Count (160-400) X10*3/uL MPV (9.4-12.4) fL Immature Gran % (Auto) (0.0-0.4) % Neut % (Auto) (45-73) % Lymph % (Auto) (20-40) % [place] % (Auto) (2-11) % Eos % (Auto) (0-4) % Baso % (Auto) (0-2) % Lymph # (Auto) (1.2-4.9) X10*3/uL [place] # (Auto) (0.1-1.2) X10*3/uL Eos # (Auto) (0.0-0.4) X10*3/uL Baso # (Auto) (0.0-0.2) X10*3/uL Abs Immat Gran (auto) (0.00-0.03) X10*3/uL Absolute Neuts (auto) (2.0-8.3) x10*3/uL Absolute Nucleated RBC (0.0-0.012) X10*3/uL Nucleated RBC % (auto) (0.0-0.2) /100WBC PT 13.7 H (10.0-13.1) SEC INR 1.2 H (0.9-1.1) Sodium (135-145) mmol/L Potassium (3.3-5.1) mmol/L Chloride (96-108) mmol/L Carbon Dioxide (22-29) mmol/L Anion Gap (12-20) BUN (9-16) mg/dL Creatinine (0.5-1.4) mg/dL Estim Creat Clear Calc Estimated GFR Random Glucose (60-115) mg/dL Lactic Acid (0.5-2.0) mmol/L Calcium (8.4-10.2) mg/dL Magnesium (1.6-2.6) mg/dL Total Bilirubin (0.0-1.0) mg/dL Direct Bilirubin (0.0-0.5) mg/dL AST (5-37) U/L ALT (0-40) U/L Alkaline Phosphatase (39-117) U/L Total Protein (6.5-8.0) g/dL Albumin (3.5-5.0) g/dL COVID-19 (MADI) Negative (Negative) COVID-19 Clin Com See Note Discharge Plan Discharge Clinical Impression: Postoperative wound dehiscence Qualifiers: Encounter type: initial encounter Qualified Code(s): T81.31XA - Disruption of external operation (surgical) wound, not elsewhere classified, initial encounter Patient Disposition: Admitted As Inpatient
[2022-01-26 16:24] VITALS: BP 127/84; PULSE 71; RESP 16; TEMP 36.6; O2SAT 99; BMI 26.9
[2022-01-26 16:25] LABS: MANUAL DIFF FLAG NO
[2022-01-26 16:27] LABS: Basophils Absolute Auto 0.1 X10*3/uL (0.0-0.2); Basophils Percent Auto 0.7 % (0-2); Eosinophils Absolute Auto 0.3 X10*3/uL (0.0-0.4); Eosinophils Percent Auto 4.1 % (0-4); Hematocrit 39.9 % (42.0-52.0); Hemoglobin 12.9 g/dl (14.0-18.0); Imm Gran Abs Auto 0.03 X10*3/uL (0.00-0.03); Imm Gran Pct Auto 0.4 % (0.0-0.4); Lymphocytes Absolute Auto 1.6 X10*3/uL (1.2-4.9); Mean Corpuscular HGB Conc 32.3 g/dl (31.0-36.0); Mean Corpuscular Hemoglobin 27.4 pg (27.0-33.0); Mean Corpuscular Volume 84.9 fL (80.0-98.0); Monocytes Absolute Auto 0.7 X10*3/uL (0.1-1.2); Monocytes Percent Auto 8.7 % (2-11); Neutrophils Absolute Auto 5.3 x10*3/uL (2.0-8.3); Neutrophils Percent Auto 66.1 % (45-73); Platelet Count 371 X10*3/uL (160-400); Red Cell Distribution Width 16.6 % (11.0-16.0)
[2022-01-26 16:35] LABS: INTERNATIONAL NORM RATIO 1.2 (0.9-1.1); Prothrombin Time 13.7 SEC (10.0-13.1)
[2022-01-26] MEDS: Piperacillin Sodium/Tazobactam 3.375 GM in 0.9 % Sodium Chloride 50 ML IV ×2 (16:36→23:25)
[2022-01-26 16:41] LABS: Lactic Acid 1.4 mmol/L (0.5-2.0)
[2022-01-26 16:43] LABS: COVID-19 Test Negative (Negative); IDNOW Serial# 16C4AD1C
[2022-01-26 16:44] LABS: Alanine Aminotransferase 8 U/L (0-40); Alkaline Phosphatase 141 U/L (39-117); Anion Gap 14 (12-20); Aspartate Amino Transferase 12 U/L (5-37); Bilirubin Direct 0.2 mg/dL (0.0-0.5); Bilirubin Total 0.4 mg/dL (0.0-1.0); Blood Urea Nitrogen 19 mg/dL (9-16); Calcium 9.3 mg/dL (8.4-10.2); Carbon Dioxide 27 mmol/L (22-29); Chloride 97 mmol/L (96-108); Creatinine Clr Calc Pharmacy 62.2; Estimated Glomerular Filt Rate > 60; Glucose Random 96 mg/dL (60-115); Magnesium 1.9 mg/dL (1.6-2.6); Potassium 5.1 mmol/L (3.3-5.1); Sodium 133 mmol/L (135-145); Total Protein 7.2 g/dL (6.5-8.0)
--- NOTE | 2022-01-26 16:47 | P.HPHOSP_ITS ---
History of Present Illness Date of Service: 01/26/22 Chief Complaint: Graft site opening 7-year-old man presenting with right groin wound. Patient is status post aortobifem on 12/28/2021. Over the last several weeks he has developed some drainage and subsequently went to see the vascular surgeon today and was found to have an open draining wound to the aortobifem site. He was placed on oral antibiotics for at least 10 days but appears to have failed treatment. Today, Patient was promptly sent to the ER with concern for development of graft infection. In the ER he has no elevated white blood cell count, fever, chills, nausea, vomiting, diarrhea, chest pain, shortness of breath. He does report some mild lower abdominal pain from incision site on the abdomen. He is hemodynamically stable, started on Zosyn. In the ER, he will be admitted for further management and treatment of cellulitis to aortobifem groin site. Review of Systems Review of Systems: Denies any recent fever chills or decrease in appetite respiratory denies any shortness of breath coverage production cardiovascular denies chest pain gastrointestinal denies any dysphagia abdominal pain nausea vomiting or diarrhea, mild Lower abd pain genitourinary denies any dysuria frequency or hematuria musculoskeletal denies any joint pain or swelling neuropsych denies any weakness or seizures all other systems reviewed are negative [facility] Medical History Cancer COVID-19 vaccine series completed Decreased glomerular filtration rate (GFR) Hard of hearing HTN (hypertension) Hypercalcemia Hypercholesteremia Hypothyroidism IFG (impaired fasting glucose) PAD (peripheral artery disease) PVD (peripheral vascular disease) S/P arteriogram of extremity Smoker Family History Father No problems noted. Mother No problems noted. Surgical History History of right-sided carotid endarterectomy History of thumb surgery Hx of heart bypass surgery S/P aortobifemoral bypass surgery (12/28/21) Status post bilateral carotid endarterectomy Status post carotid surgery Status post coronary artery bypass graft Social History Household Members: Significant Other Housing: Apartment Are you a primary patient care representative to a significant other at home: No Do you presently have visiting nurse or other home services: No Alcohol intake: current Alcohol intake frequency: a few times a month Alcohol type: beer Patient Tobacco Use Status: Current everyday Tobacco user Tobacco use type: Cigarette Cigarette Packs Per Day: 0.5 Cigarettes Per Day: 10.0 Years Smoked: 20 e-Cigarette/Vaping Use: Never Used Second Hand Smoke Exposure: Yes Substance Use Type: Marijuana Advance Directives: Yes Advance Directives on File: Yes Advance Directives Date on File: 01/04/22 service: No Current occupational status: unemployed and disabled Meds Allergies Allergy/AdvReac Type Severity Reaction Status Date / Time No Known Allergies Allergy Verified 01/26/22 14:07 [No Known Allergies*] Active Medications: Current Medications Vancomycin HCl () 520 mls @ 260 mls/hr IV ONCE ONE Stop: 01/26/22 17:54 Pharmacy Consult (Consult Rx Perform Med Rec) 1 each MISCELLANE ONCE PRN PRN Reason: Consult order Home Medications Medication Instructions Recorded Confirmed Last Taken Type acetaminophen 500 mg tablet 500 mg PO Q8H PRN pain 04/14/21 12/15/21 Unknown History aspirin 81 mg tablet,delayed 81 mg PO DAILY 04/14/21 12/15/21 Unknown History release atenolol 25 mg tablet 25 mg PO DAILY 04/14/21 12/15/21 12/28/21 05:00 History cyclobenzaprine 5 mg tablet 5 mg PO TID 04/14/21 12/15/21 Unknown History levothyroxine 88 mcg tablet 88 mcg PO DAILY 04/14/21 12/15/21 12/28/21 05:00 History cholecalciferol (vitamin D3) 50 50 mcg PO DAILY 12/03/21 12/15/21 Unknown History mcg (2,000 unit) tablet atorvastatin 40 mg tablet 1 tab PO BEDTIME 12/28/21 12/28/21 Unknown History Physical Exam Vital Signs and Narrative: Vital Signs: Last Vital Signs Temp 97.8 F 01/26/22 16:24 Pulse 71 01/26/22 16:24 Resp 16 01/26/22 16:24 BP 127/84 01/26/22 16:24 Pulse Ox 99 01/26/22 16:24 O2 Del Method 01/26/22 16:24 BMI result Body Mass Index 26.9 Appearing in no acute distress head is normocephalic atraumatic eyes pupils are PERRLA sclera is anicteric mouth throat mucous membranes are intact and moist neck is supple no lymphadenopathy, no JVD noted lung sounds are clear to auscultation heart regular rate rhythm, clear S1, S2 positive bowel sounds, abdomen is soft, nontender neuro patient is alert x3, no focal deficits Right groin with deep open wound, surrounding skin with redness and creamy drainage Results Labs CBC and Chem 7: 01/26/22 16:21 01/26/22 16:20 Labs: Laboratory Results - last 24 hr 01/26/22 01/26/22 01/26/22 16:20 16:20 16:21 MCV 84.9 MCH 27.4 MCHC 32.3 RDW 16.6 H Plt Count 371 D MPV 9.0 L Immature Gran % (Auto) 0.4 Neut % (Auto) 66.1 Lymph % (Auto) 20.0 [place] % (Auto) 8.7 Eos % (Auto) 4.1 H Baso % (Auto) 0.7 Lymph # (Auto) 1.6 [place] # (Auto) 0.7 Eos # (Auto) 0.3 Baso # (Auto) 0.1 Abs Immat Gran (auto) 0.03 Absolute Neuts (auto) 5.3 Absolute Nucleated RBC 0.000 Nucleated RBC % (auto) 0.0 PT INR Anion Gap 14 Estim Creat Clear Calc 62.2 Estimated GFR > 60 Random Glucose 96 Lactic Acid 1.4 Calcium 9.3 D Magnesium 1.9 Total Bilirubin 0.4 Direct Bilirubin 0.2 AST 12 ALT 8 Alkaline Phosphatase 141 H Total Protein 7.2 Albumin 4.0 COVID-19 (MADI) COVID-19 Clin Com 01/26/22 01/26/22 16:21 16:21 MCV MCH MCHC RDW Plt Count MPV Immature Gran % (Auto) Neut % (Auto) Lymph % (Auto) [place] % (Auto) Eos % (Auto) Baso % (Auto) Lymph # (Auto) [place] # (Auto) Eos # (Auto) Baso # (Auto) Abs Immat Gran (auto) Absolute Neuts (auto) Absolute Nucleated RBC Nucleated RBC % (auto) PT 13.7 H INR 1.2 H Anion Gap Estim Creat Clear Calc Estimated GFR Random Glucose Lactic Acid Calcium Magnesium Total Bilirubin Direct Bilirubin AST ALT Alkaline Phosphatase Total Protein Albumin COVID-19 (MADI) Negative COVID-19 Clin Com See Note Assessment and Plan (1) Postoperative wound dehiscence: Qualifiers: Encounter type: initial encounter Qualified Code(s): T81.31XA - Disruption of external operation (surgical) wound, not elsewhere classified, initial encounter Status: Acute Plan 61 year old man admitted with open aotobifem graft site opening Groin incision infection/cellulitis s/p aortobifem 12/28/21 developed drainage shortly after secondary to superficial seroma , started on Keflex 10 days now with open wound [facility]Dr. Calderon Patient) Daily wound care, may need a wound vac follow cx Mild hyponatremia appears to be chronic follow BMP Hypothyroidism Continue levothyroxine Peripheral arterial disease/coronary artery disease Continue aspirin, beta-winnie and statin DVT prophylaxis with Lovenox Attending Dr. Sorensen Full code Patient likely requires 2 midnights in the hospital for treatment of aortobifem groin incision infection/cellulitis/open wound requiring IV antibiotics and close monitoring by vascular surgeon Quality Stroke Does the patient have a stroke diagnosis?: No VTE Prior VTE?: No VTE Risk Level:: Medical - moderate - high VTE Device Contraindication: Treatment Not Indicated VTE Drug Contraindication: N/A - Med Ordered
--- NOTE | 2022-01-26 18:09 | PHA.MEDREC ---
Pharmacy Consult ? Medication Reconciliation Pharmacy has completed the medication reconciliation. Spoke to patient directly.
[2022-01-26] MEDS: Enoxaparin Sodium 40 MG/0.4 ML SYRINGE SUBCUT (18:12)
[2022-01-26 19:50] VITALS: BP 135/88; PULSE 86; O2SAT 94
--- NOTE | 2022-01-26 20:16 | PC.NURSE ---
Patient Req. [place] and Kamila jade. Spoke w/Nurse. And brought him Meal
[2022-01-26 23:33] VITALS: BP 144/81; PULSE 80; RESP 18; TEMP 36.7; O2SAT 97
--- NOTE | 2022-01-27 | ECG_ITS ---
Test Reason : high potasium Blood Pressure : / mmHG Vent. Rate : 082 BPM Atrial Rate : 082 BPM P-R Int : 170 ms QRS Dur : 136 ms QT Int : 416 ms P-R-T Axes : 072 021 116 degrees QTc Int : 486 ms Normal sinus rhythm Possible Left atrial enlargement Left ventricular hypertrophy with QRS widening and repolarization abnormality ( Rosendo product ) Inferior infarct , age undetermined Abnormal ECG When compared with ECG of 28-DEC-2021 14:17, No significant change was found Referred By: Moreno Marie Electronically Signed By:Nathaniel Carter
[2022-01-27] MEDS: 0.9 % Sodium Chloride Flush 3 ML SYRINGE IVFLUSH ×4 (02:29→22:40)
[2022-01-27 04:00] VITALS: BP 126/85; PULSE 83; RESP 18; TEMP 36.5; O2SAT 98
[2022-01-27 05:45] LABS: MANUAL DIFF FLAG NO
[2022-01-27] MEDS: Piperacillin Sodium/Tazobactam 3.375 GM in 0.9 % Sodium Chloride 50 ML IV ×4 (05:47→22:40)
[2022-01-27 05:57] LABS: Basophils Absolute Auto 0.1 X10*3/uL (0.0-0.2); Basophils Percent Auto 0.6 % (0-2); Eosinophils Absolute Auto 0.6 X10*3/uL (0.0-0.4); Eosinophils Percent Auto 5.9 % (0-4); Hematocrit 43.6 % (42.0-52.0); Hemoglobin 13.9 g/dl (14.0-18.0); Imm Gran Abs Auto 0.02 X10*3/uL (0.00-0.03); Imm Gran Pct Auto 0.2 % (0.0-0.4); Lymphocytes Absolute Auto 1.2 X10*3/uL (1.2-4.9); Lymphocytes Percent Auto 13.1 % (20-40); Mean Corpuscular HGB Conc 31.9 g/dl (31.0-36.0); Mean Corpuscular Hemoglobin 26.9 pg (27.0-33.0); Mean Corpuscular Volume 84.3 fL (80.0-98.0); Mean Platelet Volume 9.1 fL (9.4-12.4); Monocytes Percent Auto 10.1 % (2-11); Neutrophils Absolute Auto 6.6 x10*3/uL (2.0-8.3); Neutrophils Percent Auto 70.1 % (45-73); Platelet Count 349 X10*3/uL (160-400); Red Blood Count 5.17 X10*6/uL (4.60-5.80); Red Cell Distribution Width 16.8 % (11.0-16.0); White Blood Count 9.5 X10*3/uL (4.8-10.8)
[2022-01-27 06:20] LABS: Anion Gap 14 (12-20); Blood Urea Nitrogen 15 mg/dL (9-16); Calcium 9.2 mg/dL (8.4-10.2); Carbon Dioxide 27 mmol/L (22-29); Chloride 99 mmol/L (96-108); Creatinine Clr Calc Pharmacy 66.7; Estimated Glomerular Filt Rate > 60; Glucose Random 91 mg/dL (60-115); Sodium 134 mmol/L (135-145)
[2022-01-27 06:36] LABS: Potassium 6.4 mmol/L (3.3-5.1)
--- NOTE | 2022-01-27 06:40 | PM.EVENT ---
Event Note Date of Service: 01/27/22 Event Note: Hyperkalemia: Potassium noted to be 6.4. Will obtain stat EKG. Given insulin+ dextrose+ Lokelma.
[2022-01-27] MEDS: Dextrose 50 % 25 GM/50 ML SYRINGE IVPUSH (06:54)
[2022-01-27] MEDS: Sodium Zirconium Cyclosilicate 5 GM POWD.PACK PO (06:54)
[2022-01-27] MEDS: Insulin Regular, Human 100 UNIT/ML 3 ML VIAL IVPUSH (06:54)
[2022-01-27 07:59] VITALS: BP 98/67; PULSE 82; RESP 20; TEMP 36.1; O2SAT 93
--- NOTE | 2022-01-27 08:34 | PHA.PROG ---
Admission Date/Time: January 26, 2022 16:55 Indication: SKIN/SKIN STRUCTURE Weight in k kg Adjusted body weight in Kg: [place] body weight in Kg: Obesity Dosing Indication % IBW: Serum Creatinine - Last 168 Hours 01/26/22 01/27/22 16:20 05:32 Creatinine 1.18 1.10 Estimated CrCl and GFR - Last 168 Hours 01/26/22 01/27/22 16:20 05:32 Estim Creat Clear Calc 62.2 66.7 Estimated GFR > 60 > 60 Vancomycin Loading Dose: 2000MG Current Vancomycin Dosing Regimen: 1000 MG Q12H Vancomycin Monitoring using AUC goal of 400 - 600 range with trough as surrogate marker: AUC 610, TROUGH 20.1 Date and Time for next Vancomycin Level to be drawn: 01/28 @0700 Pharmacist Comments on Vancomycin Plan: DUE TO NATURE OF PATIENT;S INFECTION DECIDED TO ME MORE AGRESSIVE PATIENT LAST DOSE WAS GIVEN AT 1700 ON 01/26, SO DECIDED TO START NOW SO PATIENT COULD BE THERAPUETIC. AFTER TROUGH, WE CAN READJUST BECAUSE ITS SUSPECTED AUC COULD BE SUPRATHERAPUETIC Vancomycin dosing will take advantage of [employer] as a clinical decision support tool that uses Bayesian modeling to calculate individual patient's pharmacokinetic parameters and forecast the patient's drug concentration time course with the target goal AUC 24 range of 400 - 600 mg/L/hr.
[2022-01-27] MEDS: vancomycin HCL 1,000 MG in 0.9 % Sodium Chloride 250 ML 270 MG IV ×2 (08:51→20:49)
[2022-01-27] MEDS: Aspirin Enteric Coated 81 MG TABLET.DR PO (08:52)
[2022-01-27] MEDS: Ezetimibe 10 MG TABLET PO (08:52)
[2022-01-27] MEDS: Levothyroxine Sodium 88 MCG TABLET PO (08:52)
[2022-01-27] MEDS: Cyclobenzaprine HCl 5 MG TABLET PO ×3 (08:52→20:50)
[2022-01-27] MEDS: atenoloL 25 MG TABLET PO (08:52)
--- NOTE | 2022-01-27 09:03 | MHC.CM.PN ---
CM met with Patient at bedside. Patient lives in an apartment with his Girlfriend/HCP/Hayley @ [phone] and her 25 year old Daughter and he required no DME PODOPEDIATRICIAN. Patient apparently has an open/draining groin wound but he has refused VNA at this time. Home no services is Patient's goal and CM has initiated and will follow for dc planning. Patient is Covid vax'd X3 with a combination of both Pfizer and Moderna. PCP is Dr. Brianda Oswald
--- NOTE | 2022-01-27 10:16 | PM.CNGS ---
History of Present Illness Consult details Consult date: 01/27/22 Reason for consult: wound care Narrative: Complex 61-year-old gentleman who is a true vasculopath has a history coronary artery disease status post CABG bilateral carotid endarterectomy and most recently an open aortobifem. We have been conservatively managing him as an outpatient for right groin seroma. This past week his incision broke down. There is superficial skin opening. There continues to be serous drainage associated with it. He now presents to us for for vascular follow-up. Review of Systems Review of Systems: Yes all other systems are reviewed and are negative Constitutional: Constitutional: Reports no additional constitutional complaints ENT: Reports Normal hearing present Cardiovascular: Cardiovascular: Denies chest pain, Denies chest pain at rest, Denies chest pain with activity and Denies pedal edema Respiratory: Respiratory: Denies cough Gastrointestinal: Gastrointestinal: Denies abdominal pain Musculoskeletal: Musculoskeletal: Denies abnormal gait, Denies muscle cramps and Denies radiating pain into limb Integumentary/Breasts: Skin/Breast: Denies skin ulcer and Denies wounds Neurologic: Reports Normal hearing present and Denies abnormal gait Psychiatric: Psychiatric: Reports no additional psychiatric complaints [facility] Past Medical History Medical History Cancer COVID-19 vaccine series completed Decreased glomerular filtration rate (GFR) Hard of hearing HTN (hypertension) Hypercalcemia Hypercholesteremia Hypothyroidism IFG (impaired fasting glucose) PAD (peripheral artery disease) PVD (peripheral vascular disease) S/P arteriogram of extremity Smoker Family History Family History Father No problems noted. Mother No problems noted. Surgical History Surgical History History of right-sided carotid endarterectomy History of thumb surgery Hx of heart bypass surgery S/P aortobifemoral bypass surgery (12/28/21) Status post bilateral carotid endarterectomy Status post carotid surgery Status post coronary artery bypass graft Social History Social History Household Members: Significant Other Housing: Apartment Are you a primary child care attendant school to a significant other at home: No Do you presently have visiting nurse or other home services: No Alcohol intake: current Alcohol intake frequency: a few times a month Alcohol type: beer Patient Tobacco Use Status: Current everyday Tobacco user Tobacco use type: Cigarette Cigarette Packs Per Day: 0.5 Cigarettes Per Day: 10.0 Years Smoked: 20 Smoked in Last 30 Days: Yes e-Cigarette/Vaping Use: Never Used Patient Interested in Nicotine Replacement: No Second Hand Smoke Exposure: Yes Use of substances other than those prescribed or required for medical reasons: Yes Substance Use Type: Marijuana Substance Use Frequency: Daily Last Used Substance: Days (ago) Currently Displaying Signs/Symptoms of Drug Intoxication Withdrawal: No Any prior treatment program specific to substance use: No Have you been hit, kicked, punched, or otherwise hurt by someone within the past year? If so, by whom?: No Do you feel safe in your current relationship?: Yes Is there a partner from a previous relationship who is making you feel unsafe now?: No Are you made to feel afraid or neglected: No Advance Directives: Yes Advance Directives on File: Yes Advance Directives Date on File: 01/04/22 Do you have thoughts of harming others: None Do you have a plan to hurt others: No Plan Recently lost weight without trying: No Nutrition Risks: No Nutritional Risk service: No Current occupational status: disabled Meds Allergies Allergy/AdvReac Type Severity Reaction Status Date / Time No Known Allergies Allergy Verified 01/26/22 14:07 [No Known Allergies*] Active Medications: Current Medications Acetaminophen (Acetaminophen 325 Mg Tablet) 650 mg PO Q6H PRN PRN Reason: Pain, Mild (Pain Scale 1-3) Aspirin (Aspirin Enteric Coated 81 Mg Tablet.) 81 mg PO DAILY [facility] Last Admin: 01/27/22 08:52 Dose: 81 mg Atenolol (Atenolol 25 Mg Tablet) 25 mg PO DAILY [facility]; Protocol Last Admin: 01/27/22 08:52 Dose: 25 mg Atorvastatin Calcium (Atorvastatin Calcium 40 Mg Tablet) 40 mg PO BEDTIME [facility] Cyclobenzaprine HCl (Cyclobenzaprine Hcl 5 Mg Tablet) 5 mg PO TID [facility] Last Admin: 01/27/22 08:52 Dose: 5 mg Ezetimibe (Ezetimibe 10 Mg Tablet) 10 mg PO DAILY [facility] Last Admin: 01/27/22 08:52 Dose: 10 mg Enoxaparin Sodium (Enoxaparin Sodium 40 Mg/0.4 Ml Syringe) 40 mg SUBCUT Q24H [facility] Last Admin: 01/26/22 18:12 Dose: 40 mg Piperacillin Sod/Tazobactam (Sod 3.375 gm/ Sodium Chloride) 50 mls @ 100 mls/hr IV Q6H [facility] Last Infusion: 01/27/22 06:31 Dose: Infused Vancomycin HCl 1,000 mg/ (Sodium Chloride) 270 mls @ 270 mls/hr IV Q12H [facility] Last Admin: 01/27/22 08:51 Dose: 270 mls/hr Levothyroxine Sodium (Levothyroxine Sodium 88 Mcg Tablet) 88 mcg PO DAILY@0600 [facility] Last Admin: 01/27/22 08:52 Dose: 88 mcg Ondansetron HCl (Ondansetron Hcl 4 Mg/2 Ml Vial) 4 mg IVPUSH Q8H PRN PRN Reason: Nausea and Vomiting Oxycodone HCl (Oxycodone Hcl Immed Release 5 Mg Tablet) 5 mg PO Q4H PRN PRN Reason: pain Pharmacy Consult (Consult Rx Perform Med Rec) 1 each MISCELLANE ONCE PRN PRN Reason: Consult order Pharmacy Consult (Consult Rx Vancomycin Dosing) 1 each MISCELLANE DAILY PRN PRN Reason: Consult order Sodium Chloride (0.9 % Sodium Chloride Flush 3 Ml Syringe) 3 ml IVFLUSH QSHIFT [facility] Last Admin: 01/27/22 06:56 Dose: 3 ml Home Medications Medication Instructions Recorded Confirmed Last Taken Type aspirin 81 mg tablet,delayed 81 mg PO DAILY 04/14/21 01/26/22 Unknown History release atenolol 25 mg tablet 25 mg PO DAILY 04/14/21 01/26/22 12/28/21 05:00 History cyclobenzaprine 5 mg tablet 5 mg PO TID 04/14/21 01/26/22 Unknown History levothyroxine 88 mcg tablet 88 mcg PO DAILY 04/14/21 01/26/22 12/28/21 05:00 History atorvastatin 40 mg tablet 1 tab PO BEDTIME 01/26/22 01/26/22 Unknown History Physical Exam Vital Signs: Vital Signs: Last Vital Signs Temp 97.0 F 01/27/22 07:59 Pulse 82 01/27/22 07:59 Resp 20 01/27/22 07:59 BP 98/67 01/27/22 07:59 Pulse Ox 93 01/27/22 07:59 O2 Del Method 01/27/22 07:59 BMI result Body Mass Index 26.9 Const: General: cooperative, healthy appearing and comfortable Orientation/consciousness: oriented to person, oriented to place and oriented to time HEENT: Head: Yes normal to inspection Neck: Neck: Yes normal visual inspection Carotids: no bruits Chest: Chest palpation & inspection: normal inspection of the chest Resp: Effort & Inspection: normal respiratory effort and able to speak in complete sentences Auscultation: clear to auscultation bilaterally, no crackles, no rales, no rhonchi and no wheezes Cardio: Rate: regular rate Rhythm: regular rhythm Heart sounds: S1 normal heart sound present and S2 normal heart sound present Bruits: no carotid bruits Peripheral pulses: dorsalis pedis present (Bilateral DP signals) GI: Inspection: Yes normal to inspection Skin: Other: Right groin - approximately 4 cm opening with fibrin is material Wounds: wounds noted (Right groin) Hair: normal Neuro: General: oriented to person, oriented to place and oriented to time Cranial nerves: Yes CN's II-XII intact bilaterally and Yes Normal hearing present Cognition (Neuro): normal cognition Motor exam (neuro): 5/5 motor strength present throughout Extrem: Other: venous exam: No significant superficial varicosities or spider telangiectasias, minimal edema General: No clubbing, No cyanosis and No edema Psych: Appearance: grossly normal Mental Status: mental status grossly normal Speech and movement: Normal speech and movement present Results Labs Result diagrams: 01/27/22 05:32 01/27/22 05:32 Labs: Abnormal lab results 01/26/22 01/26/22 01/26/22 Range/Units 16:20 16:21 16:21 Hgb 12.9 L (14.0-18.0) g/dl Hct 39.9 L (42.0-52.0) % MCH (27.0-33.0) pg RDW 16.6 H (11.0-16.0) % MPV 9.0 L (9.4-12.4) fL Lymph % (Auto) (20-40) % Eos % (Auto) 4.1 H (0-4) % Eos # (Auto) (0.0-0.4) X10*3/uL PT 13.7 H (10.0-13.1) SEC INR 1.2 H (0.9-1.1) Sodium 133 L (135-145) mmol/L Potassium (3.3-5.1) mmol/L BUN 19 H (9-16) mg/dL Alkaline Phosphatase 141 H (39-117) U/L 01/27/22 01/27/22 Range/Units 05:32 05:32 Hgb 13.9 L (14.0-18.0) g/dl Hct (42.0-52.0) % MCH 26.9 L (27.0-33.0) pg RDW 16.8 H (11.0-16.0) % MPV 9.1 L (9.4-12.4) fL Lymph % (Auto) 13.1 L (20-40) % Eos % (Auto) 5.9 H (0-4) % Eos # (Auto) 0.6 H (0.0-0.4) X10*3/uL PT (10.0-13.1) SEC INR (0.9-1.1) Sodium 134 L (135-145) mmol/L Potassium 6.4 H* D (3.3-5.1) mmol/L BUN (9-16) mg/dL Alkaline Phosphatase (39-117) U/L Short CBC 01/26/22 01/27/22 Range/Units 16:21 05:32 WBC 8.0 9.5 (4.8-10.8) X10*3/uL Hgb 12.9 L 13.9 L (14.0-18.0) g/dl Hct 39.9 L 43.6 (42.0-52.0) % Plt Count 371 D 349 (160-400) X10*3/uL BMP 01/26/22 01/27/22 16:20 05:32 Sodium 133 L 134 L Potassium 5.1 6.4 H* D Chloride 97 99 Carbon Dioxide 27 27 BUN 19 H 15 Creatinine 1.18 1.10 Calcium 9.3 D 9.2 Liver Function 01/26/22 Range/Units 16:20 Total Bilirubin 0.4 (0.0-1.0) mg/dL Direct Bilirubin 0.2 (0.0-0.5) mg/dL AST 12 (5-37) U/L ALT 8 (0-40) U/L Alkaline Phosphatase 141 H (39-117) U/L Albumin 4.0 (3.5-5.0) g/dL All other labs normal. Assessment and Plan (1) Aortoiliac occlusive disease: Status: Acute In short patient has nonhealing right groin incision. He has been started on antibiotics. I have discussed these findings with the patient. He will require right groin debridement and placement of wound VAC. He is in agreement. We will schedule for tomorrow. (2) Bilateral carotid artery stenosis: Status: Acute (3) Coronary artery disease: Status: Acute Procedures Date of Service Date of Service: 01/27/22
[2022-01-27 10:37] LABS: Anion Gap 12 (12-20); Blood Urea Nitrogen 14 mg/dL (9-16); Calcium 9.4 mg/dL (8.4-10.2); Carbon Dioxide 29 mmol/L (22-29); Chloride 99 mmol/L (96-108); Creatinine Clr Calc Pharmacy 69.2; Estimated Glomerular Filt Rate > 60; Glucose Random 63 mg/dL (60-115); Potassium 5.1 mmol/L (3.3-5.1); Sodium 135 mmol/L (135-145)
[2022-01-27 11:35] VITALS: BP 124/76; PULSE 74; RESP 20; TEMP 37; O2SAT 97
--- NOTE | 2022-01-27 12:01 | HO.PM.IMPN ---
Subjective Subjective Date of Service: 01/27/22 Interval History: cc: groin wound interval history: pain manageable Cardiovascular Cardiovascular: Reports no additional cardiovascular complaints Respiratory Respiratory: Reports no additional respiratory complaints Physical Exam Vital Signs: Vital Signs: Last Vital Signs Temp 98.6 F 01/27/22 11:35 Pulse 74 01/27/22 11:35 Resp 20 01/27/22 11:35 BP 124/76 01/27/22 11:35 Pulse Ox 97 01/27/22 11:35 O2 Del Method 01/27/22 11:35 BMI result Body Mass Index 26.9 General: AO X 3, no acute distress Resp: CTA bilateral, no accessory muscles used CVS: S1,S2,RRR GI: soft, non tender, non distended Neuro: motor grossly intact, alert Psych: appropriate affect, appropriate insight right groin wound Objective Data Active Medications Acetaminophen (Acetaminophen 325 Mg Tablet) 650 mg PO Q6H PRN PRN Reason: Pain, Mild (Pain Scale 1-3) Aspirin (Aspirin Enteric Coated 81 Mg Tablet.) 81 mg PO DAILY [facility] Last Admin: 01/27/22 08:52 Dose: 81 mg Documented By: SARITA Atenolol (Atenolol 25 Mg Tablet) 25 mg PO DAILY [facility]; Protocol Last Admin: 01/27/22 08:52 Dose: 25 mg Documented By: SARITA Atorvastatin Calcium (Atorvastatin Calcium 40 Mg Tablet) 40 mg PO BEDTIME [facility] Cyclobenzaprine HCl (Cyclobenzaprine Hcl 5 Mg Tablet) 5 mg PO TID [facility] Last Admin: 01/27/22 08:52 Dose: 5 mg Documented By: SARITA Ezetimibe (Ezetimibe 10 Mg Tablet) 10 mg PO DAILY [facility] Last Admin: 01/27/22 08:52 Dose: 10 mg Documented By: SARITA Enoxaparin Sodium (Enoxaparin Sodium 40 Mg/0.4 Ml Syringe) 40 mg SUBCUT Q24H [facility] Last Admin: 01/26/22 18:12 Dose: 40 mg Documented By: JULIETTE Piperacillin Sod/Tazobactam (Sod 3.375 gm/ Sodium Chloride) 50 mls @ 100 mls/hr IV Q6H [facility] Last Infusion: 01/27/22 06:31 Dose: 0 mls/hr Documented By: JESUS Vancomycin HCl 1,000 mg/ (Sodium Chloride) 270 mls @ 270 mls/hr IV Q12H [facility] Last Infusion: 01/27/22 10:39 Dose: 0 mls/hr Documented By: SARITA Levothyroxine Sodium (Levothyroxine Sodium 88 Mcg Tablet) 88 mcg PO DAILY@0600 [facility] Last Admin: 01/27/22 08:52 Dose: 88 mcg Documented By: SARITA Ondansetron HCl (Ondansetron Hcl 4 Mg/2 Ml Vial) 4 mg IVPUSH Q8H PRN PRN Reason: Nausea and Vomiting Oxycodone HCl (Oxycodone Hcl Immed Release 5 Mg Tablet) 5 mg PO Q4H PRN PRN Reason: pain Pharmacy Consult (Consult Rx Perform Med Rec) 1 each MISCELLANE ONCE PRN PRN Reason: Consult order Pharmacy Consult (Consult Rx Vancomycin Dosing) 1 each MISCELLANE DAILY PRN PRN Reason: Consult order Sodium Chloride (0.9 % Sodium Chloride Flush 3 Ml Syringe) 3 ml IVFLUSH QSHIFT [facility] Last Admin: 01/27/22 06:56 Dose: 3 ml Documented By: JESUS Labs CBC & Chem 7: 01/27/22 05:32 01/27/22 09:39 Labs: Laboratory Results - last 24 hr 01/26/22 01/26/22 01/26/22 16:20 16:20 16:21 MCV 84.9 MCH 27.4 MCHC 32.3 RDW 16.6 H Plt Count 371 D MPV 9.0 L Immature Gran % (Auto) 0.4 Neut % (Auto) 66.1 Lymph % (Auto) 20.0 Bates % (Auto) 8.7 Eos % (Auto) 4.1 H Baso % (Auto) 0.7 Lymph # (Auto) 1.6 Bates # (Auto) 0.7 Eos # (Auto) 0.3 Baso # (Auto) 0.1 Abs Immat Gran (auto) 0.03 Absolute Neuts (auto) 5.3 Absolute Nucleated RBC 0.000 Nucleated RBC % (auto) 0.0 PT INR Anion Gap 14 Estim Creat Clear Calc 62.2 Estimated GFR > 60 Random Glucose 96 Lactic Acid 1.4 Calcium 9.3 D Magnesium 1.9 Total Bilirubin 0.4 Direct Bilirubin 0.2 AST 12 ALT 8 Alkaline Phosphatase 141 H Total Protein 7.2 Albumin 4.0 COVID-19 ([facility]) COVID-19 Clin Com 01/26/22 01/26/22 01/27/22 16:21 16:21 05:32 MCV 84.3 MCH 26.9 L MCHC 31.9 RDW 16.8 H Plt Count 349 MPV 9.1 L Immature Gran % (Auto) 0.2 Neut % (Auto) 70.1 Lymph % (Auto) 13.1 L Bates % (Auto) 10.1 Eos % (Auto) 5.9 H Baso % (Auto) 0.6 Lymph # (Auto) 1.2 Bates # (Auto) 1.0 Eos # (Auto) 0.6 H Baso # (Auto) 0.1 Abs Immat Gran (auto) 0.02 Absolute Neuts (auto) 6.6 Absolute Nucleated RBC 0.000 Nucleated RBC % (auto) 0.0 PT 13.7 H INR 1.2 H Anion Gap Estim Creat Clear Calc Estimated GFR Random Glucose Lactic Acid Calcium Magnesium Total Bilirubin Direct Bilirubin AST ALT Alkaline Phosphatase Total Protein Albumin COVID-19 ([facility]) Negative COVID-19 Clin Com See Note 01/27/22 01/27/22 05:32 09:39 MCV MCH MCHC RDW Plt Count MPV Immature Gran % (Auto) Neut % (Auto) Lymph % (Auto) Bates % (Auto) Eos % (Auto) Baso % (Auto) Lymph # (Auto) Bates # (Auto) Eos # (Auto) Baso # (Auto) Abs Immat Gran (auto) Absolute Neuts (auto) Absolute Nucleated RBC Nucleated RBC % (auto) PT INR Anion Gap 14 12 Estim Creat Clear Calc 66.7 69.2 Estimated GFR > 60 > 60 Random Glucose 91 63 Lactic Acid Calcium 9.2 9.4 Magnesium Total Bilirubin Direct Bilirubin AST ALT Alkaline Phosphatase Total Protein Albumin COVID-19 ([facility]) COVID-19 Clin Com Assessment and Plan (1) Postoperative wound dehiscence: Status: Acute Plan 61 year old man admitted with open aotobifem graft site opening Groin incision infection/cellulitis s/p aortobifem 12/28/21 now with open wound vanc/Zosyn vascular surgery to follow (Dr. Calderon Patient) Daily wound care, plan for or 7/7 and wound vac follow cx hyperkalemia improved with lokelma, insulin, monitor Mild hyponatremia appears to be chronic follow BMP Hypothyroidism Continue levothyroxine Peripheral arterial disease/coronary artery disease Continue aspirin, beta-winnie and statin DVT prophylaxis with Lovenox Full code reason for continued hospitalization:plan for surgical intervention, need iv abx for significant infection Quality Stroke Does the patient have a stroke diagnosis?: No VTE Prior VTE?: No VTE Risk Level:: Medical - moderate - high VTE Device Contraindication: Treatment Not Indicated VTE Drug Contraindication: N/A - Med Ordered
[2022-01-27 16:00] VITALS: BP 127/89; PULSE 79; RESP 18; TEMP 37.2; O2SAT 94
[2022-01-27] MEDS: Enoxaparin Sodium 40 MG/0.4 ML SYRINGE SUBCUT (17:27)
[2022-01-27 20:00] VITALS: BP 101/73; PULSE 89; RESP 18; TEMP 37.1; O2SAT 98
[2022-01-27] MEDS: Atorvastatin Calcium 40 MG TABLET PO (20:49)
[2022-01-27 23:05] VITALS: BP 117/67; PULSE 86; RESP 19; TEMP 36.1; O2SAT 98
[2022-01-28] VITALS (7 sets, daily range): BP systolic 102–141; BP diastolic 59–89; PULSE 68–86; RESP 12–18; TEMP 36.2–37.2; O2SAT 94–99
[2022-01-28] MEDS: Piperacillin Sodium/Tazobactam 3.375 GM in 0.9 % Sodium Chloride 50 ML IV ×4 (05:36→22:02)
[2022-01-28] MEDS: Levothyroxine Sodium 88 MCG TABLET PO (05:42)
[2022-01-28] MEDS: Lactated Ringers 1,000 ML 50 ML IVCONT (06:55)
--- NOTE | 2022-01-28 07:42 | HO.ANESPROP2 ---
[facility] Active Problems Active Problems: All Active Problems (Updated 01/26/22 @ 16:23 by Treva Dalton DO) Postoperative wound dehiscence (Acute) Status post coronary artery bypass graft (Acute) Status post bilateral carotid endarterectomy (Acute) PAD (peripheral artery disease) (Acute) Aortoiliac occlusive disease (Acute) Preop cardiovascular exam (Acute) Abnormal nuclear stress test (Acute) Bilateral carotid artery stenosis (Acute) Coronary artery disease (Acute) Preop cardiovascular exam (Acute) Carotid stenosis, right (Acute) Encounter for preoperative pulmonary examination (Acute) COPD (chronic obstructive pulmonary disease) (Acute) Past Medical History Medical History Cancer COVID-19 vaccine series completed Decreased glomerular filtration rate (GFR) Hard of hearing HTN (hypertension) Hypercalcemia Hypercholesteremia Hypothyroidism IFG (impaired fasting glucose) PAD (peripheral artery disease) PVD (peripheral vascular disease) S/P arteriogram of extremity Smoker Family History Family History Father No problems noted. Mother No problems noted. Family history of problems with anesthesia: No Surgical History Surgical History History of right-sided carotid endarterectomy History of thumb surgery Hx of heart bypass surgery S/P aortobifemoral bypass surgery (12/28/21) Status post bilateral carotid endarterectomy Status post carotid surgery Status post coronary artery bypass graft History of Problems with Anesthesia: No Social History Social History Household Members: Significant Other Housing: Apartment Are you a primary urgent care physician assistant to a significant other at home: No Do you presently have visiting nurse or other home services: No Alcohol intake: current Alcohol intake frequency: a few times a month Alcohol type: beer Patient Tobacco Use Status: Current someday Tobacco user Tobacco use type: Cigarette Cigarette Packs Per Day: 0.5 Cigarettes Per Day: 10.0 Years Smoked: 20 Smoked in Last 30 Days: Yes e-Cigarette/Vaping Use: Never Used Patient Interested in Nicotine Replacement: No Second Hand Smoke Exposure: Yes Use of substances other than those prescribed or required for medical reasons: No Substance Use Type: Marijuana Substance Use Frequency: Daily Last Used Substance: Days (ago) Currently Displaying Signs/Symptoms of Drug Intoxication Withdrawal: No Any prior treatment program specific to substance use: No Have you been hit, kicked, punched, or otherwise hurt by someone within the past year? If so, by whom?: No Do you feel safe in your current relationship?: Yes Is there a partner from a previous relationship who is making you feel unsafe now?: No Are you made to feel afraid or neglected: No Advance Directives: Yes Advance Directives on File: Yes Advance Directives Date on File: 01/04/22 Do you have thoughts of harming others: None Do you have a plan to hurt others: No Plan Recently lost weight without trying: No Nutrition Risks: No Nutritional Risk service: No Current occupational status: disabled Meds Allergies Allergy/AdvReac Type Severity Reaction Status Date / Time No Known Allergies Allergy Verified 01/26/22 14:07 [No Known Allergies*] Active Medications: Current Medications Acetaminophen (Acetaminophen 325 Mg Tablet) 650 mg PO Q6H PRN PRN Reason: Pain, Mild (Pain Scale 1-3) Aspirin (Aspirin Enteric Coated 81 Mg Tablet.) 81 mg PO DAILY [facility] Last Admin: 01/27/22 08:52 Dose: 81 mg Atenolol (Atenolol 25 Mg Tablet) 25 mg PO DAILY [facility]; Protocol Last Admin: 01/27/22 08:52 Dose: 25 mg Atorvastatin Calcium (Atorvastatin Calcium 40 Mg Tablet) 40 mg PO BEDTIME ECHO Last Admin: 01/27/22 20:49 Dose: 40 mg Cyclobenzaprine HCl (Cyclobenzaprine Hcl 5 Mg Tablet) 5 mg PO TID [facility] Last Admin: 01/27/22 20:50 Dose: 5 mg Ezetimibe (Ezetimibe 10 Mg Tablet) 10 mg PO DAILY ECHO Last Admin: 01/27/22 08:52 Dose: 10 mg Enoxaparin Sodium (Enoxaparin Sodium 40 Mg/0.4 Ml Syringe) 40 mg SUBCUT Q24H [facility] Last Admin: 01/27/22 17:27 Dose: 40 mg Piperacillin Sod/Tazobactam (Sod 3.375 gm/ Sodium Chloride) 50 mls @ 100 mls/hr IV Q6H [facility] Last Infusion: 01/28/22 06:32 Dose: Infused Vancomycin HCl 1,000 mg/ (Sodium Chloride) 270 mls @ 270 mls/hr IV Q12H [facility] Last Infusion: 01/27/22 22:44 Dose: Infused Levothyroxine Sodium (Levothyroxine Sodium 88 Mcg Tablet) 88 mcg PO DAILY@0600 [facility] Last Admin: 01/28/22 05:42 Dose: 88 mcg Ondansetron HCl (Ondansetron Hcl 4 Mg/2 Ml Vial) 4 mg IVPUSH Q8H PRN PRN Reason: Nausea and Vomiting Oxycodone HCl (Oxycodone Hcl Immed Release 5 Mg Tablet) 5 mg PO Q4H PRN PRN Reason: pain Pharmacy Consult (Consult Rx Perform Med Rec) 1 each MISCELLANE ONCE PRN PRN Reason: Consult order Pharmacy Consult (Consult Rx Vancomycin Dosing) 1 each MISCELLANE DAILY PRN PRN Reason: Consult order Sodium Chloride (0.9 % Sodium Chloride Flush 3 Ml Syringe) 3 ml IVFLUSH QSHIFT [facility] Last Admin: 01/27/22 22:40 Dose: 3 ml Home Medications Medication Instructions Recorded Confirmed Last Taken Type aspirin 81 mg tablet,delayed 81 mg PO DAILY 04/14/21 01/26/22 Unknown History release atenolol 25 mg tablet 25 mg PO DAILY 04/14/21 01/26/22 12/28/21 05:00 History cyclobenzaprine 5 mg tablet 5 mg PO TID 04/14/21 01/26/22 Unknown History levothyroxine 88 mcg tablet 88 mcg PO DAILY 04/14/21 01/26/22 12/28/21 05:00 History atorvastatin 40 mg tablet 1 tab PO BEDTIME 01/26/22 01/26/22 Unknown History Exam Exam Date and Time: January 28, 2022 0742 Height,Weight and Vital Signs: Height 5 ft 7 in Weight 78 kg Last Vital Signs Temp 97.2 F 01/28/22 06:40 Pulse 81 01/28/22 06:40 Resp 16 01/28/22 06:40 BP 119/64 01/28/22 06:40 Pulse Ox 98 01/28/22 06:40 O2 Del Method 01/28/22 06:40 Pertinent Lab Results Pertinent Lab Results: Laboratory Tests 01/26/22 01/26/22 01/26/22 16:20 16:20 16:21 WBC 8.0 RBC 4.70 Hgb 12.9 L Hct 39.9 L MCV 84.9 MCH 27.4 MCHC 32.3 RDW 16.6 H Plt Count 371 D MPV 9.0 L Immature Gran % (Auto) 0.4 Neut % (Auto) 66.1 Lymph % (Auto) 20.0 [place] % (Auto) 8.7 Eos % (Auto) 4.1 H Baso % (Auto) 0.7 Lymph # (Auto) 1.6 [place] # (Auto) 0.7 Eos # (Auto) 0.3 Baso # (Auto) 0.1 Abs Immat Gran (auto) 0.03 Absolute Neuts (auto) 5.3 Absolute Nucleated RBC 0.000 Nucleated RBC % (auto) 0.0 PT INR Sodium 133 L Potassium 5.1 Chloride 97 Carbon Dioxide 27 Anion Gap 14 BUN 19 H Creatinine 1.18 Estim Creat Clear Calc 62.2 Estimated GFR > 60 Random Glucose 96 Lactic Acid 1.4 Calcium 9.3 D Magnesium 1.9 Total Bilirubin 0.4 Direct Bilirubin 0.2 AST 12 ALT 8 Alkaline Phosphatase 141 H Total Protein 7.2 Albumin 4.0 COVID-19 ([facility]) COVID-19 Clin Com 01/26/22 01/26/22 01/27/22 16:21 16:21 05:32 WBC 9.5 RBC 5.17 Hgb 13.9 L Hct 43.6 MCV 84.3 MCH 26.9 L MCHC 31.9 RDW 16.8 H Plt Count 349 MPV 9.1 L Immature Gran % (Auto) 0.2 Neut % (Auto) 70.1 Lymph % (Auto) 13.1 L [place] % (Auto) 10.1 Eos % (Auto) 5.9 H Baso % (Auto) 0.6 Lymph # (Auto) 1.2 [place] # (Auto) 1.0 Eos # (Auto) 0.6 H Baso # (Auto) 0.1 Abs Immat Gran (auto) 0.02 Absolute Neuts (auto) 6.6 Absolute Nucleated RBC 0.000 Nucleated RBC % (auto) 0.0 PT 13.7 H INR 1.2 H Sodium Potassium Chloride Carbon Dioxide Anion Gap BUN Creatinine Estim Creat Clear Calc Estimated GFR Random Glucose Lactic Acid Calcium Magnesium Total Bilirubin Direct Bilirubin AST ALT Alkaline Phosphatase Total Protein Albumin COVID-19 ([facility]) Negative COVID-19 Clin Com See Note 01/27/22 01/27/22 05:32 09:39 WBC RBC Hgb Hct MCV MCH MCHC RDW Plt Count MPV Immature Gran % (Auto) Neut % (Auto) Lymph % (Auto) [place] % (Auto) Eos % (Auto) Baso % (Auto) Lymph # (Auto) [place] # (Auto) Eos # (Auto) Baso # (Auto) Abs Immat Gran (auto) Absolute Neuts (auto) Absolute Nucleated RBC Nucleated RBC % (auto) PT INR Sodium 134 L 135 Potassium 6.4 H* D 5.1 D Chloride 99 99 Carbon Dioxide 27 29 Anion Gap 14 12 BUN 15 14 Creatinine 1.10 1.06 Estim Creat Clear Calc 66.7 69.2 Estimated GFR > 60 > 60 Random Glucose 91 63 Lactic Acid Calcium 9.2 9.4 Magnesium Total Bilirubin Direct Bilirubin AST ALT Alkaline Phosphatase Total Protein Albumin COVID-19 ([facility]) COVID-19 Clin Com Airway Mallampati Class: II TM Dist: >3cm Neck ROM: Full Denture: Upper Loose/Missing/Broken Teeth: Yes and Upper Heart: RRR Lungs: CTA Assessment and Plan Assessment Anesthesia Assessment: Anesthesia Plan Discussed and Chart Reviewed Final Anesthetic Review Family History of Problems with Anesthesia: No History of Problems with Anesthesia: No NPO: Yes ASA Class: III Final Preanesthetic Review: Meds/Allgs Chart Reviewed, Consent Obtained/Reviewed and Anes Risks/Benef Reviewed Patient Risk: Intermediate Procedure Risk: Low Anesthetic Plan Anesthetic Plan: MAC: Disposition: Standard PACU
--- NOTE | 2022-01-28 08:24 | MHC.SHP ---
Pre-Procedural Eval Section A Date of Service: 01/28/22 The patient is an INPATIENT: Yes Changes since office visit: Yes Patient answered all questions The History & Physical has been completed within 30 days and I have reviewed it.: Yes Section B Chief Complaint: Aortobifem Site Wound Allergies: Allergies Allergy/AdvReac Type Severity Reaction Status Date / Time No Known Allergies Allergy Verified 01/26/22 14:07 [No Known Allergies*] Plan I have reviewed the history and physical and performed a pertinent physical examination on my patient. No changes have occurred unless specified.
--- NOTE | 2022-01-28 08:24 | W.PM.OPN ---
Operative Note Operative Note Date of Service: 01/28/22 Narrative: Operative note by [facility] Preoperative diagnosis:Right groin incision dehisence Postoperative diagnosis: Same Procedure:1. Right groin excisional debridement into muscle 2. Placement of wound VAC Surgeon:Edmar Calderon M.D. Internal Grinder Tender: None Anesthesia: Local with sedation performed by Dr. Fortune Specimens: 1 Drains: None Estimated blood loss: Minimal Indications: 61-year-old gentleman with a prior history of an aortobifem about a month ago has developed a right groin incision dehiscence. He now presents for debridement and closure. The patient has signed the informed consent after reviewing risks, complications, benefits, and alternatives previously discussed with the patient. The patient was given the opportunity to ask any additional questions or voice any concerns. All questions were answered to the patient's satisfaction. Procedure in detail: Patient was brought to the operating room prior to which a time-out was called for patient identification site verification. Right groin was prepped and draped in standard surgical fashion. Using pickups and Metzenbaum scissors, and #15 scalpel - fibrinous necrotic material was debrided down into muscle. Pre debridement measurement was 6.5 x 2.5 x 0.4 cm. Post debridement measurements were 6.7 x 2.5 x 0.6 cm. The wound subsequently was irrigated out with vancomycin irrigation. Once this was accomplished we placed a piece of Adaptic and then subsequently trimmed a small wound VAC dressing to appropriate size once this was accomplished we placed the VAC to 125 mmHg continuous suction. Patient tolerated the procedure well and was returned to recovery with stable vitals. This note is constructed using voice recognition software. While every effort has been made to ensure accuracy, burner hand errors may have been included. Thank you for allowing me to participate in the care of your patient. Yours sincerely, Edmar Calderon MD, FACS, R.P.V.I.
[2022-01-28] MEDS: Ezetimibe 10 MG TABLET PO (09:34)
[2022-01-28] MEDS: vancomycin HCL 1,000 MG in 0.9 % Sodium Chloride 250 ML 270 MG IV ×2 (09:34→20:14)
[2022-01-28] MEDS: atenoloL 25 MG TABLET PO (09:34)
[2022-01-28] MEDS: Aspirin Enteric Coated 81 MG TABLET.DR PO (09:34)
[2022-01-28] MEDS: Cyclobenzaprine HCl 5 MG TABLET PO ×3 (09:34→20:14)
[2022-01-28] MEDS: 0.9 % Sodium Chloride Flush 3 ML SYRINGE IVFLUSH ×3 (09:36→22:03)
[2022-01-28 10:33] LABS: Hematocrit 40.9 % (42.0-52.0); Hemoglobin 12.6 g/dl (14.0-18.0); Mean Corpuscular HGB Conc 30.8 g/dl (31.0-36.0); Mean Corpuscular Hemoglobin 26.4 pg (27.0-33.0); Mean Corpuscular Volume 85.6 fL (80.0-98.0); Mean Platelet Volume 8.6 fL (9.4-12.4); Platelet Count 317 X10*3/uL (160-400); Red Blood Count 4.78 X10*6/uL (4.60-5.80); White Blood Count 9.1 X10*3/uL (4.8-10.8)
--- NOTE | 2022-01-28 10:33 | HO.PM.IMPN ---
Subjective Subjective Date of Service: 01/28/22 Interval History: cc: groin wound interval history: pain manageable Cardiovascular Cardiovascular: Reports no additional cardiovascular complaints Respiratory Respiratory: Reports no additional respiratory complaints Physical Exam Vital Signs: Vital Signs: Last Vital Signs Temp 98.7 F 01/28/22 08:40 Pulse 83 01/28/22 08:40 Resp 16 01/28/22 08:40 BP 102/78 01/28/22 08:40 Pulse Ox 97 01/28/22 08:40 O2 Del Method 01/28/22 08:40 O2 Flow Rate 6 01/28/22 08:25 BMI result Body Mass Index 26.9 General: AO X 3, no acute distress Resp: CTA bilateral, no accessory muscles used CVS: S1,S2,RRR GI: soft, non tender, non distended Neuro: motor grossly intact, alert Psych: appropriate affect, appropriate insight right groin wound vac in place Objective Data Active Medications Acetaminophen (Acetaminophen 325 Mg Tablet) 650 mg PO Q6H PRN PRN Reason: Pain, Mild (Pain Scale 1-3) Acetaminophen (Acetaminophen 325 Mg Tablet) 650 mg PO ONCE PRN PRN Reason: Pain, Mild (Pain Scale 1-3) Albuterol Sulfate (Albuterol Sulfate (0.083%) 2.5 Mg/3 Ml Vial.Neb) 2.5 mg INHALE ONCE PRN PRN Reason: Wheezing Aspirin (Aspirin Enteric Coated 81 Mg Tablet.) 81 mg PO DAILY [facility] Last Admin: 01/28/22 09:34 Dose: 81 mg Documented By: SARITA Atenolol (Atenolol 25 Mg Tablet) 25 mg PO DAILY [facility]; Protocol Last Admin: 01/28/22 09:34 Dose: 25 mg Documented By: SARITA Atorvastatin Calcium (Atorvastatin Calcium 40 Mg Tablet) 40 mg PO BEDTIME [facility] Last Admin: 01/27/22 20:49 Dose: 40 mg Documented By: SANDRO Cyclobenzaprine HCl (Cyclobenzaprine Hcl 5 Mg Tablet) 5 mg PO TID [facility] Last Admin: 01/28/22 09:34 Dose: 5 mg Documented By: SARITA Ezetimibe (Ezetimibe 10 Mg Tablet) 10 mg PO DAILY [facility] Last Admin: 01/28/22 09:34 Dose: 10 mg Documented By: SARITA Enoxaparin Sodium (Enoxaparin Sodium 40 Mg/0.4 Ml Syringe) 40 mg SUBCUT Q24H [facility] Last Admin: 01/27/22 17:27 Dose: 40 mg Documented By: SARITA Fentanyl (Fentanyl Citrate/Pf 100 Mcg/2 Ml Vial) 50 mcg IVPUSH Q5M PRN; Protocol PRN Reason: Pain, Severe (Pain Scale 7-10) Fentanyl (Fentanyl Citrate/Pf 100 Mcg/2 Ml Vial) 25 mcg IVPUSH Q5M PRN; Protocol PRN Reason: Pain, Moderate (Pain Scale 4-6 Piperacillin Sod/Tazobactam (Sod 3.375 gm/ Sodium Chloride) 50 mls @ 100 mls/hr IV Q6H [facility] Last Infusion: 01/28/22 06:32 Dose: 0 mls/hr Documented By: SANDRO Vancomycin HCl 1,000 mg/ (Sodium Chloride) 270 mls @ 270 mls/hr IV Q12H [facility] Last Admin: 01/28/22 09:34 Dose: 270 mls/hr Documented By: SARITA Lactated Ringer's (Lr) 1,000 mls @ 50 mls/hr IVCONT .Q20H [facility] Last Admin: 01/28/22 06:55 Dose: 50 mls/hr Documented By: SCOTT Promethazine HCl 6.25 mg/ (Sodium Chloride) 50.25 mls @ 201 mls/hr IV ONCE PRN PRN Reason: Nausea and Vomiting Levothyroxine Sodium (Levothyroxine Sodium 88 Mcg Tablet) 88 mcg PO DAILY@0600 [facility] Last Admin: 01/28/22 05:42 Dose: 88 mcg Documented By: SANDRO Morphine Sulfate (Morphine Sulfate 2 Mg/Ml Cartridge) 2 mg IVPUSH Q4H PRN; Protocol PRN Reason: Pain, Severe (Pain Scale 7-10) Ondansetron HCl (Ondansetron Hcl 4 Mg/2 Ml Vial) 4 mg IVPUSH Q8H PRN PRN Reason: Nausea and Vomiting Ondansetron HCl (Ondansetron Hcl 4 Mg/2 Ml Vial) 4 mg IVPUSH ONCE PRN PRN Reason: Nausea and Vomiting Oxycodone HCl (Oxycodone Hcl Immed Release 5 Mg Tablet) 5 mg PO Q4H PRN PRN Reason: pain Oxycodone HCl (Oxycodone Hcl Immed Release 5 Mg Tablet) 5 mg PO ONCE PRN PRN Reason: Pain, Severe (Pain Scale 7-10) Oxycodone HCl (Oxycodone Hcl Immed Release 5 Mg Tablet) 5 mg PO Q4H PRN PRN Reason: Pain, Moderate (Pain Scale 4-6 Pharmacy Consult (Consult Rx Perform Med Rec) 1 each MISCELLANE ONCE PRN PRN Reason: Consult order Pharmacy Consult (Consult Rx Vancomycin Dosing) 1 each MISCELLANE DAILY PRN PRN Reason: Consult order Sodium Chloride (0.9 % Sodium Chloride Flush 3 Ml Syringe) 3 ml IVFLUSH QSHIFT [facility] Last Admin: 01/28/22 09:36 Dose: 3 ml Documented By: SARITA Labs CBC & Chem 7: 01/27/22 05:32 01/27/22 09:39 Labs: Laboratory Results - last 24 hr 01/27/22 09:39 Anion Gap 12 Estim Creat Clear Calc 69.2 Estimated GFR > 60 Random Glucose 63 Calcium 9.4 Microbiology Microbiology Results: Microbiology 01/26/22 16:29 Blood Culture - Preliminary Blood - Venous No growth after 24 hours. 01/26/22 16:20 Blood Culture - Preliminary Blood - Venous No growth after 24 hours. Assessment and Plan (1) Postoperative wound dehiscence: Status: Acute Plan 61 year old man admitted with open aotobifem graft site opening Groin incision infection/cellulitis s/p aortobifem 12/28/21 now with open wound vanc/Zosyn s/p wound vac today follow cx hyperkalemia improved with lokelma, insulin, monitor Mild hyponatremia resolved Hypothyroidism Continue levothyroxine Peripheral arterial disease/coronary artery disease Continue aspirin, beta-winnie and statin DVT prophylaxis with Lovenox Full code reason for continued hospitalization: need iv abx for significant infection Quality Stroke Does the patient have a stroke diagnosis?: No VTE Prior VTE?: No VTE Risk Level:: Medical - moderate - high VTE Device Contraindication: Treatment Not Indicated VTE Drug Contraindication: N/A - Med Ordered
[2022-01-28 10:47] LABS: Anion Gap 13 (12-20); Blood Urea Nitrogen 10 mg/dL (9-16); Calcium 9.5 mg/dL (8.4-10.2); Carbon Dioxide 28 mmol/L (22-29); Chloride 99 mmol/L (96-108); Creatinine Clr Calc Pharmacy 65.5; Estimated Glomerular Filt Rate > 60; Glucose Fasting 128 mg/dL (60-99); Potassium 5.1 mmol/L (3.3-5.1); Sodium 135 mmol/L (135-145)
[2022-01-28 10:59] LABS: Vancomycin Random 20.6 mcg/mL (15-20)
--- NOTE | 2022-01-28 11:17 | HE.PHANOTE ---
RE VANCO Patient in surgery when scheduled trough was to be drawn (0700). Trough was drawn while vancomycin was infusing (drug infusing from 934-1052; trough drawn 1019). Put in for another true level @1900 today. will adjust as needed. Thanks Ruben
--- NOTE | 2022-01-28 12:36 | P.CNID_ITS ---
History of Present Illness Data of Consult Service Date: 01/28/22 Requesting physician: Edmar Calderon Primary Care Provider: MD YANG Perez Reason for consult: purulence right groin He presents with open purulent drainage for 14 days. He had open aortobifem surgery on 12/28/2021. He had open area right groin about 14 days ago and was given Keflex which he took for 10 days with no improvement. He has had CABG,carotid endarterectomy as well. He went back to OR and area cultured today. There are gram positive and gram negative organisms and polys. He has been started on Vancomycin and piperacillin/tazobactam. He has wound vac in place. Review of Systems Review of Systems: Yes all other systems are reviewed and are negative [facility] Past Medical History Medical History Cancer COVID-19 vaccine series completed Decreased glomerular filtration rate (GFR) Hard of hearing HTN (hypertension) Hypercalcemia Hypercholesteremia Hypothyroidism IFG (impaired fasting glucose) PAD (peripheral artery disease) PVD (peripheral vascular disease) S/P arteriogram of extremity Smoker Family History Family History Father No problems noted. Mother No problems noted. Family history: reviewed and not pertinent Surgical History Surgical History History of right-sided carotid endarterectomy History of thumb surgery Hx of heart bypass surgery S/P aortobifemoral bypass surgery (12/28/21) Status post bilateral carotid endarterectomy Status post carotid surgery Status post coronary artery bypass graft Social History Social History Household Members: Significant Other Housing: Apartment Are you a primary hourly caregiver to a significant other at home: No Do you presently have visiting nurse or other home services: No Alcohol intake: current Alcohol intake frequency: a few times a month Alcohol type: beer Patient Tobacco Use Status: Current someday Tobacco user Tobacco use type: Cigarette Cigarette Packs Per Day: 0.5 Cigarettes Per Day: 10.0 Years Smoked: 20 Smoked in Last 30 Days: Yes e-Cigarette/Vaping Use: Never Used Patient Interested in Nicotine Replacement: No Second Hand Smoke Exposure: Yes Use of substances other than those prescribed or required for medical reasons: No Substance Use Type: Marijuana Substance Use Frequency: Daily Last Used Substance: Days (ago) Currently Displaying Signs/Symptoms of Drug Intoxication Withdrawal: No Any prior treatment program specific to substance use: No Have you been hit, kicked, punched, or otherwise hurt by someone within the past year? If so, by whom?: No Do you feel safe in your current relationship?: Yes Is there a partner from a previous relationship who is making you feel unsafe now?: No Are you made to feel afraid or neglected: No Advance Directives: Yes Advance Directives on File: Yes Advance Directives Date on File: 01/04/22 Do you have thoughts of harming others: None Do you have a plan to hurt others: No Plan Recently lost weight without trying: No Nutrition Risks: No Nutritional Risk service: No Current occupational status: disabled [employer] Allergies Allergy/AdvReac Type Severity Reaction Status Date / Time No Known Allergies Allergy Verified 01/26/22 14:07 [No Known Allergies*] Active Medications: Current Medications Acetaminophen (Acetaminophen 325 Mg Tablet) 650 mg PO Q6H PRN PRN Reason: Pain, Mild (Pain Scale 1-3) Acetaminophen (Acetaminophen 325 Mg Tablet) 650 mg PO ONCE PRN PRN Reason: Pain, Mild (Pain Scale 1-3) Albuterol Sulfate (Albuterol Sulfate (0.083%) 2.5 Mg/3 Ml Vial.Neb) 2.5 mg INHALE ONCE PRN PRN Reason: Wheezing Aspirin (Aspirin Enteric Coated 81 Mg Tablet.) 81 mg PO DAILY [facility] Last Admin: 01/28/22 09:34 Dose: 81 mg Atenolol (Atenolol 25 Mg Tablet) 25 mg PO DAILY [facility]; Protocol Last Admin: 01/28/22 09:34 Dose: 25 mg Atorvastatin Calcium (Atorvastatin Calcium 40 Mg Tablet) 40 mg PO BEDTIME [facility] Last Admin: 01/27/22 20:49 Dose: 40 mg Cyclobenzaprine HCl (Cyclobenzaprine Hcl 5 Mg Tablet) 5 mg PO TID [facility] Last Admin: 01/28/22 09:34 Dose: 5 mg Ezetimibe (Ezetimibe 10 Mg Tablet) 10 mg PO DAILY [facility] Last Admin: 01/28/22 09:34 Dose: 10 mg Enoxaparin Sodium (Enoxaparin Sodium 40 Mg/0.4 Ml Syringe) 40 mg SUBCUT Q24H [facility] Last Admin: 01/27/22 17:27 Dose: 40 mg Fentanyl (Fentanyl Citrate/Pf 100 Mcg/2 Ml Vial) 50 mcg IVPUSH Q5M PRN; Protoc ol PRN Reason: Pain, Severe (Pain Scale 7-10) Fentanyl (Fentanyl Citrate/Pf 100 Mcg/2 Ml Vial) 25 mcg IVPUSH Q5M PRN; Protocol PRN Reason: Pain, Moderate (Pain Scale 4-6 Piperacillin Sod/Tazobactam (Sod 3.375 gm/ Sodium Chloride) 50 mls @ 100 mls/hr IV Q6H [facility] Last Infusion: 01/28/22 12:20 Dose: Infused Vancomycin HCl 1,000 mg/ (Sodium Chloride) 270 mls @ 270 mls/hr IV Q12H [facility] Last Infusion: 01/28/22 10:52 Dose: Infused Lactated Ringer's (Lr) 1,000 mls @ 50 mls/hr IVCONT .Q20H [facility] Last Admin: 01/28/22 06:55 Dose: 50 mls/hr Promethazine HCl 6.25 mg/ (Sodium Chloride) 50.25 mls @ 201 mls/hr IV ONCE PRN PRN Reason: Nausea and Vomiting Levothyroxine Sodium (Levothyroxine Sodium 88 Mcg Tablet) 88 mcg PO DAILY@0600 [facility] Last Admin: 01/28/22 05:42 Dose: 88 mcg Morphine Sulfate (Morphine Sulfate 2 Mg/Ml Cartridge) 2 mg IVPUSH Q4H PRN; Protocol PRN Reason: Pain, Severe (Pain Scale 7-10) Ondansetron HCl (Ondansetron Hcl 4 Mg/2 Ml Vial) 4 mg IVPUSH Q8H PRN PRN Reason: Nausea and Vomiting Ondansetron HCl (Ondansetron Hcl 4 Mg/2 Ml Vial) 4 mg IVPUSH ONCE PRN PRN Reason: Nausea and Vomiting Oxycodone HCl (Oxycodone Hcl Immed Release 5 Mg Tablet) 5 mg PO Q4H PRN PRN Reason: pain Oxycodone HCl (Oxycodone Hcl Immed Release 5 Mg Tablet) 5 mg PO ONCE PRN PRN Reason: Pain, Severe (Pain Scale 7-10) Oxycodone HCl (Oxycodone Hcl Immed Release 5 Mg Tablet) 5 mg PO Q4H PRN PRN Reason: Pain, Moderate (Pain Scale 4-6 Pharmacy Consult (Consult Rx Perform Med Rec) 1 each MISCELLANE ONCE PRN PRN Reason: Consult order Pharmacy Consult (Consult Rx Vancomycin Dosing) 1 each MISCELLANE DAILY PRN PRN Reason: Consult order Sodium Chloride (0.9 % Sodium Chloride Flush 3 Ml Syringe) [facility] Last Admin: 01/28/22 09:36 Dose: 3 ml Home Medications Medication Instructions Recorded Confirmed Last Taken Type aspirin 81 mg tablet,delayed 81 mg PO DAILY 04/14/21 01/26/22 Unknown History release atenolol 25 mg tablet 25 mg PO DAILY 04/14/21 01/26/22 12/28/21 05:00 History cyclobenzaprine 5 mg tablet 5 mg PO TID 04/14/21 01/26/22 Unknown History levothyroxine 88 mcg tablet 88 mcg PO DAILY 04/14/21 01/26/22 12/28/21 05:00 History atorvastatin 40 mg tablet 1 tab PO BEDTIME 01/26/22 01/26/22 Unknown History Physical Exam Vital Signs: Vital Signs: Last Vital Signs Temp 97.8 F 01/28/22 10:59 Pulse 76 01/28/22 10:59 Resp 16 01/28/22 10:59 BP 104/77 01/28/22 10:59 Pulse Ox 99 01/28/22 10:59 O2 Del Method 01/28/22 10:59 O2 Flow Rate 6 01/28/22 08:25 BMI result Body Mass Index 26.9 Const: General: cooperative HEENT: Head: Yes normal to inspection Face and sinus: Yes normal facial exam Mouth: Normal oral and palatal mucosa present Teeth and gingiva: dentition normal Eyes: General: appearance normal, both eyes and all related structures Pupils: Equal, round and reactive pupils present Resp: Effort & Inspection: normal respiratory effort Cardio: Rate: regular rate Rhythm: regular rhythm GI: Palpation (GI): Soft to palpation and nontender : General: Yes no CVA tenderness Back/Spine/Pelvis: Back: no CVA tenderness Skin: General skin exam: no rashes or lesions noted Neuro: General: moves all extremities Cranial nerves: Yes Equal, round and reactive pupils present Extrem: Other: bilateral well healed groin incisions wound Vac right groin General: Yes normal to inspection Psych: Appearance: grossly normal Results Labs CBC & Chem 7: 01/28/22 10:19 01/28/22 10:19 Labs: Short CBC 01/28/22 Range/Units 10:19 WBC 9.1 (4.8-10.8) X10*3/uL Hgb 12.6 L (14.0-18.0) g/dl Hct 40.9 L (42.0-52.0) % Plt Count 317 (160-400) X10*3/uL BMP 01/28/22 10:19 Sodium 135 Potassium 5.1 Chloride 99 Carbon Dioxide 28 BUN 10 Creatinine 1.12 Calcium 9.5 Microbiology Microbiology Results: Microbiology 01/28/22 Unknown Groin, Right Gram Stain - Final 01/26/22 16:29 Blood - Venous Blood Culture - Preliminary No growth after 24 hours. 01/26/22 16:20 Blood - Venous Blood Culture - Preliminary No growth after 24 hours. Assessment and Plan (1) Postoperative wound dehiscence: Qualifiers: Encounter type: initial encounter Qualified Code(s): T81.31XA - Disrup tion of external operation (surgical) wound, not elsewhere classified, initial encounter Status: Acute Seroma with wound breakdown There is possible gram negative/gram positive organisms in wound NKDA (2) PAD (peripheral artery disease): Status: Acute Plan 6 weeks IV antibiotics based on culture and then possible 2-3 month or more or even lifetime prophylactic with PCN and/or Doxycycline Await blood and deep tissue cultures.
[2022-01-28] MEDS: Enoxaparin Sodium 40 MG/0.4 ML SYRINGE SUBCUT (16:24)
[2022-01-28 19:42] LABS: Vancomycin Random 16.2 mcg/mL (15-20)
[2022-01-28] MEDS: Atorvastatin Calcium 40 MG TABLET PO (20:15)
[2022-01-28] MEDS: oxyCODONE HCl Immed Release 5 MG TABLET PO (20:32)
[2022-01-29] MEDS: Piperacillin Sodium/Tazobactam 3.375 GM in 0.9 % Sodium Chloride 50 ML IV ×4 (05:50→23:24)
[2022-01-29] MEDS: Lactated Ringers 1,000 ML 50 ML IVCONT (05:51)
[2022-01-29] MEDS: oxyCODONE HCl Immed Release 5 MG TABLET PO (05:57)
[2022-01-29] MEDS: Levothyroxine Sodium 88 MCG TABLET PO (05:58)
[2022-01-29 07:14] LABS: Hematocrit 42.4 % (42.0-52.0); Hemoglobin 13.2 g/dl (14.0-18.0); Mean Corpuscular HGB Conc 31.1 g/dl (31.0-36.0); Mean Corpuscular Hemoglobin 26.5 pg (27.0-33.0); Platelet Count 338 X10*3/uL (160-400); Red Blood Count 4.99 X10*6/uL (4.60-5.80); Red Cell Distribution Width 17.1 % (11.0-16.0); White Blood Count 7.8 X10*3/uL (4.8-10.8)
[2022-01-29 07:38] LABS: Anion Gap 12 (12-20); Blood Urea Nitrogen 8 mg/dL (9-16); Calcium 9.3 mg/dL (8.4-10.2); Carbon Dioxide 29 mmol/L (22-29); Chloride 99 mmol/L (96-108); Creatinine Clr Calc Pharmacy 68.6; Estimated Glomerular Filt Rate > 60; Glucose Fasting 107 mg/dL (60-99); Potassium 5.4 mmol/L (3.3-5.1); Sodium 135 mmol/L (135-145)
--- NOTE | 2022-01-29 08:19 | HE.PHANOTE ---
NARINDER PENA CONTINUE CURRENT DOSE, NEXT TROUGH 01/30 @0700
--- NOTE | 2022-01-29 08:40 | HO.POSTANES ---
Post Anesthesia Evaluation Post Anesthesia Evaluation Anesthesia: Monitored Mental Status: Awake Pain Control: Satisfactory Nausea/Vomiting: None Hydration: Adequate Anesthesia-Related Issues: No Anes. Related Issues
[2022-01-29] MEDS: Cyclobenzaprine HCl 5 MG TABLET PO ×3 (10:25→21:22)
[2022-01-29] MEDS: 0.9 % Sodium Chloride Flush 3 ML SYRINGE IVFLUSH ×2 (10:26→21:22)
[2022-01-29] MEDS: atenoloL 25 MG TABLET PO (10:26)
[2022-01-29] MEDS: Aspirin Enteric Coated 81 MG TABLET.DR PO (10:26)
[2022-01-29] MEDS: vancomycin HCL 1,000 MG in 0.9 % Sodium Chloride 250 ML 270 MG IV ×2 (10:26→21:22)
[2022-01-29] MEDS: Ezetimibe 10 MG TABLET PO (10:26)
--- NOTE | 2022-01-29 10:54 | HO.VASCPN ---
Subjective Subjective Date of Service: 01/29/22 Patient reports: no new complaints and feels better Interval history: Patient seen and examined. No significant events overnight. Appears to be doing relatively well and bed with this wound VAC. It has been draining and he reports no other discomfort. He has been seen by Infectious Disease. Physical Exam Vital Signs: Vital Signs: Last Vital Signs Temp 98.9 F 01/28/22 19:44 Pulse 82 01/28/22 19:44 Resp 18 01/28/22 19:44 BP 137/89 01/28/22 19:44 Pulse Ox 94 01/28/22 19:44 O2 Del Method 01/28/22 19:44 O2 Flow Rate 6 01/28/22 08:25 BMI result Body Mass Index 26.9 Const: General: cooperative, healthy appearing and comfortable Orientation/consciousness: oriented to person, oriented to place and oriented to time HEENT: Head: Yes normal to inspection Neck: Neck: Yes normal visual inspection Carotids: no bruits Chest: Chest palpation & inspection: normal inspection of the chest Resp: Effort & Inspection: normal respiratory effort and able to speak in complete sentences Auscultation: clear to auscultation bilaterally, no crackles, no rales, no rhonchi and no wheezes Cardio: Rate: regular rate Rhythm: regular rhythm Heart sounds: S1 normal heart sound present and S2 normal heart sound present Bruits: no carotid bruits Peripheral pulses: dorsalis pedis present ( Bilateral DP signals) GI: Inspection: Yes normal to inspection Skin: Other: right groin wound VAC intact- sealed at 125 mm of continuous mercury. canister with 20 cc of drainage Wounds: wounds noted ( left foot) Hair: normal Neuro: General: oriented to person, oriented to place and oriented to time Cranial nerves: Yes CN's II-XII intact bilaterally and Yes Normal hearing present Cognition (Neuro): normal cognition Motor exam (neuro): 5/5 motor strength present throughout Extrem: Other: venous exam: No significant superficial varicosities or spider telangiectasias, minimal edema General: No clubbing, No cyanosis and No edema Psych: Appearance: grossly normal Mental Status: mental status grossly normal Speech and movement: Normal speech and movement present Progress Note: A&P Assessment and plan (1) Aortoiliac occlusive disease: Status: Acute Assessment and Plan: in short patient has right groin dehiscence. Wound VAC appears to be working well. The concern here is the underlying exposed graft. I discussed this case with Infectious Disease and agree with long-term IV antibiotics of 6 weeks and then may need long-term p.o. antibiotics several months to years to ensure that this graft does not get infected. This was related to the patient who was unhappy about the overall situation. He is eager to go back home. He will be in the hospital at least through the weekend for wound VAC change on Tuesday. Thank you for letting us participate in his care. If there are questions or concerns please do not hesitate to contact us. Time Spent With Patient Time: Total time spent is greater than 50% in coordination of care (as documented) at patient's floor/unit and/or counseling patient: Procedures Date of Service Date of Service: 01/29/22 Quality Stroke Does the patient have a stroke diagnosis?: No VTE Prior VTE?: No VTE Risk Level:: Medical - moderate - high VTE Device Contraindication: Treatment Not Indicated VTE Drug Contraindication: N/A - Med Ordered
--- NOTE | 2022-01-29 11:08 | MHC.CM.PN ---
Per ROUNDS discussion, Patient is not yet medically cleared for dc (IV Levothyroxine, IV Zosyn & IV Vanco, Wound VAC). ID is recommending LT IVABT and referrals have been made to [facility]; CM will continue to follow.
--- NOTE | 2022-01-29 11:32 | P.PNIM_ITS ---
Subjective Subjective Date of Service: 01/29/22 Interval History: cc: groin wound interval history:no copmlaints Cardiovascular Cardiovascular: Reports no additional cardiovascular complaints Respiratory Respiratory: Reports no additional respiratory complaints Physical Exam Vital Signs: Vital Signs: Last Vital Signs Temp 98.9 F 01/28/22 19:44 Pulse 82 01/28/22 19:44 Resp 18 01/28/22 19:44 BP 137/89 01/28/22 19:44 Pulse Ox 94 01/28/22 19:44 O2 Del Method 01/28/22 19:44 O2 Flow Rate 6 01/28/22 08:25 BMI result Body Mass Index 26.9 General: AO X 3, no acute distress Resp: CTA bilateral, no accessory muscles used CVS: S1,S2,RRR GI: soft, non tender, non distended Neuro: motor grossly intact, alert Psych: appropriate affect, appropriate insight right groin wound vac in place Objective Data Active Medications Acetaminophen (Acetaminophen 325 Mg Tablet) 650 mg PO Q6H PRN PRN Reason: Pain, Mild (Pain Scale 1-3) Acetaminophen (Acetaminophen 325 Mg Tablet) 650 mg PO ONCE PRN PRN Reason: Pain, Mild (Pain Scale 1-3) Albuterol Sulfate (Albuterol Sulfate (0.083%) 2.5 Mg/3 Ml Vial.Neb) 2.5 mg INHALE ONCE PRN PRN Reason: Wheezing Aspirin (Aspirin Enteric Coated 81 Mg Tablet.Dr) 81 mg PO DAILY REPLACED BY [facility] Last Admin: 01/29/22 10:26 Dose: 81 mg Documented By: YASMINE Atenolol (Atenolol 25 Mg Tablet) 25 mg PO DAILY [facility]PLACED BY [facility]; Protocol Last Admin: 01/29/22 10:26 Dose: 25 mg Documented By: AYSMINE Atorvastatin Calcium (Atorvastatin Calcium 40 Mg Tablet) 40 mg PO BEDTIME REPLACED BY [facility] Last Admin: 01/28/22 20:15 Dose: 40 mg Documented By: SANDRO Cyclobenzaprine HCl (Cyclobenzaprine Hcl 5 Mg Tablet) 5 mg PO TID REPLACED BY [facility] Last Admin: 01/29/22 10:25 Dose: 5 mg Documented By: YASMINE Ezetimibe (Ezetimibe 10 Mg Tablet) 10 mg PO DAILY REPLACED BY [facility] Last Admin: 01/29/22 10:26 Dose: 10 mg Documented By: YASMINE Enoxaparin Sodium (Enoxaparin Sodium 40 Mg/0.4 Ml Syringe) 40 mg SUBCUT Q24H REPLACED BY [facility] Last Admin: 01/28/22 16:24 Dose: 40 mg Documented By: SARITA Fentanyl (Fentanyl Citrate/Pf 100 Mcg/2 Ml Vial) 50 mcg IVPUSH Q5M PRN; Protocol PRN Reason: Pain, Severe (Pain Scale 7-10) Fentanyl (Fentanyl Citrate/Pf 100 Mcg/2 Ml Vial) 25 mcg IVPUSH Q5M PRN; Protocol PRN Reason: Pain, Moderate (Pain Scale 4-6 Piperacillin Sod/Tazobactam (Sod 3.375 gm/ Sodium Chloride) 50 mls @ 100 mls/hr IV Q6H REPLACED BY [facility] Last Infusion: 01/29/22 08:37 Dose: 0 mls/hr Documented By: YASMINE Vancomycin HCl 1,000 mg/ (Sodium Chloride) 270 mls @ 270 mls/hr IV Q12H REPLACED BY [facility] Last Admin: 01/29/22 10:26 Dose: 270 mls/hr Documented By: YASMINE Lactated Ringer's (Lr) 1,000 mls @ 50 mls/hr IVCONT .Q20H REPLACED BY [facility] Last Admin: 01/29/22 05:51 Dose: 50 mls/hr Documented By: SANDRO Promethazine HCl 6.25 mg/ (Sodium Chloride) 50.25 mls @ 201 mls/hr IV ONCE PRN PRN Reason: Nausea and Vomiting Levothyroxine Sodium (Levothyroxine Sodium 88 Mcg Tablet) 88 mcg PO DAILY@0600 REPLACED BY [facility] Last Admin: 01/29/22 05:58 Dose: 88 mcg Documented By: SANDRO Morphine Sulfate (Morphine Sulfate 2 Mg/Ml Cartridge) 2 mg IVPUSH Q4H PRN; Protocol PRN Reason: Pain, Severe (Pain Scale 7-10) Ondansetron HCl (Ondansetron Hcl 4 Mg/2 Ml Vial) 4 mg IVPUSH Q8H PRN PRN Reason: Nausea and Vomiting Ondansetron HCl (Ondansetron Hcl 4 Mg/2 Ml Vial) 4 mg IVPUSH ONCE PRN PRN Reason: Nausea and Vomiting Oxycodone HCl (Oxycodone Hcl Immed Release 5 Mg Tablet) 5 mg PO Q4H PRN PRN Reason: pain Oxycodone HCl (Oxycodone Hcl Immed Release 5 Mg Tablet) 5 mg PO ONCE PRN PRN Reason: Pain, Severe (Pain Scale 7-10) Oxycodone HCl (Oxycodone Hcl Immed Release 5 Mg Tablet) 5 mg PO Q4H PRN PRN Reason: Pain, Moderate (Pain Scale 4-6 Last Admin: 01/29/22 05:57 Dose: 5 mg Documented By: SANDRO Pharmacy Consult (Consult Rx Perform Med Rec) 1 each MISCELLANE ONCE PRN PRN Reason: Consult order Pharmacy Consult (Consult Rx Vancomycin Dosing) 1 each MISCELLANE DAILY PRN PRN Reason: Consult order Sodium Chloride (0.9 % Sodium Chloride Flush 3 Ml Syringe) 3 ml IVFLUSH QSHIFT [facility] Last Admin: 01/29/22 10:26 Dose: 3 ml Documented By: YASMINE Labs CBC & Chem 7: 01/29/22 06:25 01/29/22 06:25 Labs: Laboratory Results - last 24 hr 01/28/22 01/29/22 01/29/22 18:49 06:25 06:25 MCV 85.0 MCH 26.5 L MCHC 31.1 RDW 17.1 H Plt Count 338 MPV 9.0 L Absolute Nucleated RBC 0.000 Nucleated RBC % (auto) 0.0 Anion Gap 12 Estim Creat Clear Calc 68.6 Estimated GFR > 60 Fasting Glucose 107 H Calcium 9.3 Random Vancomycin 16.2 Microbiology Microbiology Results: Microbiology 01/28/22 Unknown Gram Stain - Final Groin, Right Routine Culture - Preliminary Gram negative malia 01/26/22 16:29 Blood Culture - Preliminary Blood - Venous No growth after 48 hours. 01/26/22 16:20 Blood Culture - Preliminary Blood - Venous No growth after 48 hours. Assessment and Plan (1) Postoperative wound dehiscence: Status: Acute Plan 61 year old man admitted with open aotobifem graft site opening Groin incision infection/cellulitis s/p aortobifem 12/28/21 now with open wound vanc/Zosyn s/p wound vac 01/28/22 follow cx ID following will need atleast 6 weeks iv abx hyperkalemia improved initially with lokelma, insulin now 5.4 again, will repeat loklema, monitor Mild hyponatremia resolved Hypothyroidism Continue levothyroxine Peripheral arterial disease/coronary artery disease Continue aspirin, beta-winnie and statin DVT prophylaxis with Lovenox Full code reason for continued hospitalization: need iv abx for significant infection Quality Stroke Does the patient have a stroke diagnosis?: No VTE Prior VTE?: No VTE Risk Level:: Medical - moderate - high VTE Device Contraindication: Treatment Not Indicated VTE Drug Contraindication: N/A - Med Ordered
[2022-01-29 11:43] VITALS: BP 136/83; PULSE 73; RESP 16; TEMP 36.1; O2SAT 99
[2022-01-29] MEDS: Sodium Zirconium Cyclosilicate 10 GM POWD.PACK PO (13:31)
[2022-01-29 15:33] VITALS: BP 144/105; PULSE 67; RESP 18; TEMP 37.2; O2SAT 96
--- NOTE | 2022-01-29 15:49 | PM.IDPN ---
Subjective Subjective Date of Service: 01/29/22 Critical Care Time (minutes): 15 Comment: he has improving area he has no complaints,tolerating antibiotics Objective Data Labs CBC & Chem 7: 01/29/22 06:25 01/29/22 06:25 Labs: Laboratory Results - last 24 hr 01/28/22 01/29/22 01/29/22 18:49 06:25 06:25 WBC 7.8 RBC 4.99 Hgb 13.2 L Hct 42.4 MCV 85.0 MCH 26.5 L MCHC 31.1 RDW 17.1 H Plt Count 338 MPV 9.0 L Absolute Nucleated RBC 0.000 Nucleated RBC % (auto) 0.0 Sodium 135 Potassium 5.4 H Chloride 99 Carbon Dioxide 29 Anion Gap 12 BUN 8 L Creatinine 1.07 Estim Creat Clear Calc 68.6 Estimated GFR > 60 Fasting Glucose 107 H Calcium 9.3 Random Vancomycin 16.2 Microbiology Microbiology Results: Microbiology 01/28/22 Unknown Groin, Right Gram Stain - Final 01/28/22 Unknown Groin, Right Routine Culture - Preliminary Gram negative malia 01/26/22 16:29 Blood - Venous Blood Culture - Preliminary No growth after 48 hours. 01/26/22 16:20 Blood - Venous Blood Culture - Preliminary No growth after 48 hours. Physical Exam Vital Signs: Vital Signs: Last Vital Signs Temp 98.9 F 01/29/22 15:33 Pulse 67 01/29/22 15:33 Resp 18 01/29/22 15:33 BP 144/105 H 01/29/22 15:33 Pulse Ox 96 01/29/22 15:33 O2 Del Method 01/29/22 15:33 O2 Flow Rate 6 01/28/22 08:25 BMI result Body Mass Index 26.9 Const: General: cooperative HEENT: Head: Yes normal to inspection Mouth: Normal oral and palatal mucosa present Resp: Effort & Inspection: normal respiratory effort Cardio: Rate: regular rate Rhythm: regular rhythm GI: Palpation (GI): Soft to palpation and nontender Extrem: Other: wound vac right groin,no cellulitis Assessment and Plan Assessment and plan (1) Postoperative wound dehiscence: Problem details: He has gram negative organisms groin Status: Acute Assessment and Plan: Continue Zosyn and Vancomycin and stop Vancomycin if only gram negatives Finish treatment antibiotics March 08 and suppression,possible PCN or Doxycycline after (2) Aortoiliac occlusive disease: Status: Acute Time Spent With Patient Time: Total time spent is greater than 50% in coordination of care (as documented) at patient's floor/unit and/or counseling patient:
[2022-01-29] MEDS: Enoxaparin Sodium 40 MG/0.4 ML SYRINGE SUBCUT (18:36)
[2022-01-29 19:43] VITALS: BP 147/82; PULSE 81; RESP 19; TEMP 37.2; O2SAT 98
[2022-01-29] MEDS: Atorvastatin Calcium 40 MG TABLET PO (21:21)
[2022-01-29 23:25] VITALS: BP 154/84; PULSE 89; RESP 18; TEMP 37.1
[2022-01-30 03:51] VITALS: BP 144/82; PULSE 84; RESP 15; TEMP 36.4; O2SAT 97
[2022-01-30] MEDS: Levothyroxine Sodium 88 MCG TABLET PO (06:32)
[2022-01-30] MEDS: Lactated Ringers 1,000 ML 50 ML IVCONT (06:33)
[2022-01-30] MEDS: Piperacillin Sodium/Tazobactam 3.375 GM in 0.9 % Sodium Chloride 50 ML IV ×2 (06:33→09:34)
[2022-01-30 07:37] LABS: Hematocrit 42.3 % (42.0-52.0); Hemoglobin 13.4 g/dl (14.0-18.0); Mean Corpuscular HGB Conc 31.7 g/dl (31.0-36.0); Mean Corpuscular Volume 85.1 fL (80.0-98.0); Mean Platelet Volume 9.1 fL (9.4-12.4); Platelet Count 319 X10*3/uL (160-400); Red Blood Count 4.97 X10*6/uL (4.60-5.80); White Blood Count 8.7 X10*3/uL (4.8-10.8)
[2022-01-30 07:49] LABS: Anion Gap 15 (12-20); Blood Urea Nitrogen 7 mg/dL (9-16); Calcium 9.6 mg/dL (8.4-10.2); Carbon Dioxide 28 mmol/L (22-29); Chloride 101 mmol/L (96-108); Estimated Glomerular Filt Rate > 60; Glucose Fasting 96 mg/dL (60-99); Potassium 5.1 mmol/L (3.3-5.1); Sodium 139 mmol/L (135-145)
[2022-01-30 07:52] LABS: Vancomycin Trough 23.8 mcg/mL (10.0-20.0)
[2022-01-30 07:57] VITALS: BP 130/88; PULSE 86; RESP 20; TEMP 36.1; O2SAT 97
--- NOTE | 2022-01-30 08:11 | HE.PHANOTE ---
RE VANCO TROUGH RETURNED AT 23.8. SCR STABLE AND STILL DROPPING. DISCUSSED WITH DR MATA. PT GROIN SAMPLE GROWING SERRATIA SUCEPTIBLE TO CEFTRIAXONE. WILL KEEP VANCO FOR NOW. LOWERING DOSE TO 750MG Q12H, STARTING TONIGHT. WILL GIVE PATIENT TIME TO CLEAR DRUG. NEXT RANDOM SCHEDULED 01/31 @1900
[2022-01-30] MEDS: atenoloL 25 MG TABLET PO (09:34)
[2022-01-30] MEDS: Ezetimibe 10 MG TABLET PO (09:34)
[2022-01-30] MEDS: Aspirin Enteric Coated 81 MG TABLET.DR PO (09:34)
[2022-01-30] MEDS: 0.9 % Sodium Chloride Flush 3 ML SYRINGE IVFLUSH ×3 (09:34→20:15)
[2022-01-30] MEDS: Cyclobenzaprine HCl 5 MG TABLET PO ×3 (09:35→20:14)
--- NOTE | 2022-01-30 11:01 | P.PNIM_ITS ---
Subjective Subjective Date of Service: 01/30/22 Interval History: cc: groin wound interval history:no copmlaints Cardiovascular Cardiovascular: Reports no additional cardiovascular complaints Respiratory Respiratory: Reports no additional respiratory complaints Physical Exam Vital Signs: Vital Signs: Last Vital Signs Temp 97.0 F 01/30/22 07:57 Pulse 86 01/30/22 07:57 Resp 20 01/30/22 07:57 BP 130/88 01/30/22 07:57 Pulse Ox 97 01/30/22 07:57 O2 Del Method 01/30/22 07:57 O2 Flow Rate 6 01/28/22 08:25 BMI result Body Mass Index 26.9 Const: General: cooperative HEENT: Head: Yes normal to inspection Mouth: Normal oral and palatal mucosa present Resp: Effort & Inspection: normal respiratory effort Cardio: Rate: regular rate Rhythm: regular rhythm GI: Palpation (GI): Soft to palpation and nontender Extrem: Other: wound vac right groin,no cellulitis Objective Data Active Medications Acetaminophen (Acetaminophen 325 Mg Tablet) 650 mg PO Q6H PRN PRN Reason: Pain, Mild (Pain Scale 1-3) Acetaminophen (Acetaminophen 325 Mg Tablet) 650 mg PO ONCE PRN PRN Reason: Pain, Mild (Pain Scale 1-3) Albuterol Sulfate (Albuterol Sulfate (0.083%) 2.5 Mg/3 Ml Vial.Neb) 2.5 mg INHALE ONCE PRN PRN Reason: Wheezing Aspirin (Aspirin Enteric Coated 81 Mg Tablet.) 81 mg PO DAILY [facility] Last Admin: 01/30/22 09:34 Dose: 81 mg Documented By: CANDIE Atenolol (Atenolol 25 Mg Tablet) 25 mg PO DAILY [facility]; Protocol Last Admin: 01/30/22 09:34 Dose: 25 mg Documented By: CANDIE Atorvastatin Calcium (Atorvastatin Calcium 40 Mg Tablet) 40 mg PO BEDTIME [facility] Last Admin: 01/29/22 21:21 Dose: 40 mg Documented By: DONNY Cyclobenzaprine HCl (Cyclobenzaprine Hcl 5 Mg Tablet) 5 mg PO TID [facility] Last Admin: 01/30/22 09:35 Dose: 5 mg Documented By: CANDIE Ezetimibe (Ezetimibe 10 Mg Tablet) 10 mg PO DAILY [facility] Last Admin: 01/30/22 09:34 Dose: 10 mg Documented By: CANDIE Enoxaparin Sodium (Enoxaparin Sodium 40 Mg/0.4 Ml Syringe) 40 mg SUBCUT Q24H [facility] Last Admin: 01/29/22 18:36 Dose: 40 mg Documented By: YASMINE Fentanyl (Fentanyl Citrate/Pf 100 Mcg/2 Ml Vial) 50 mcg IVPUSH Q5M PRN; Protocol PRN Reason: Pain, Severe (Pain Scale 7-10) Fentanyl (Fentanyl Citrate/Pf 100 Mcg/2 Ml Vial) 25 mcg IVPUSH Q5M PRN; Protocol PRN Reason: Pain, Moderate (Pain Scale 4-6 Piperacillin Sod/Tazobactam (Sod 3.375 gm/ Sodium Chloride) 50 mls @ 100 mls/hr IV Q6H [facility] Last Admin: 01/30/22 09:34 Dose: 100 mls/hr Documented By: CANDIE Promethazine HCl 6.25 mg/ (Sodium Chloride) 50.25 mls @ 201 mls/hr IV ONCE PRN PRN Reason: Nausea and Vomiting Vancomycin HCl 750 mg/ Sodium (Chloride) 265 mls @ 265 mls/hr IV Q12H [facility] Levothyroxine Sodium (Levothyroxine Sodium 88 Mcg Tablet) 88 mcg PO DAILY@0600 [facility] Last Admin: 01/30/22 06:32 Dose: 88 mcg Documented By: DONNY Morphine Sulfate (Morphine Sulfate 2 Mg/Ml Cartridge) 2 mg IVPUSH Q4H PRN; Protocol PRN Reason: Pain, Severe (Pain Scale 7-10) Ondansetron HCl (Ondansetron Hcl 4 Mg/2 Ml Vial) 4 mg IVPUSH Q8H PRN PRN Reason: Nausea and Vomiting Ondansetron HCl (Ondansetron Hcl 4 Mg/2 Ml Vial) 4 mg IVPUSH ONCE PRN PRN Reason: Nausea and Vomiting Oxycodone HCl (Oxycodone Hcl Immed Release 5 Mg Tablet) 5 mg PO Q4H PRN PRN Reason: pain Oxycodone HCl (Oxycodone Hcl Immed Release 5 Mg Tablet) 5 mg PO ONCE PRN PRN Reason: Pain, Severe (Pain Scale 7-10) Oxycodone HCl (Oxycodone Hcl Immed Release 5 Mg Tablet) 5 mg PO Q4H PRN PRN Reason: Pain, Moderate (Pain Scale 4-6 Last Admin: 01/29/22 05:57 Dose: 5 mg Documented By: SANDRO Pharmacy Consult (Consult Rx Perform Med Rec) 1 each MISCELLANE ONCE PRN PRN Reason: Consult order Pharmacy Consult (Consult Rx Vancomycin Dosing) 1 each MISCELLANE DAILY PRN PRN Reason: Consult order Sodium Chloride (0.9 % Sodium Chloride Flush 3 Ml Syringe) 3 ml IVFLUSH QSHIFT [facility] Last Admin: 01/30/22 09:34 Dose: 3 ml Documented By: CANDIE Labs CBC & Chem 7: 01/30/22 07:02 01/30/22 07:02 Labs: Laboratory Results - last 24 hr 01/30/22 01/30/22 01/30/22 07:02 07:02 07:02 MCV 85.1 MCH 27.0 MCHC 31.7 RDW 17.0 H Plt Count 319 MPV 9.1 L Absolute Nucleated RBC 0.000 Nucleated RBC % (auto) 0.0 Anion Gap 15 Estim Creat Clear Calc 72.0 Estimated GFR > 60 Fasting Glucose 96 Calcium 9.6 Vancomycin Trough 23.8 H Microbiology Microbiology Results: Microbiology 01/28/22 Unknown Gram Stain - Final Groin, Right Routine Culture - Final Serratia marcescens Assessment and Plan (1) Postoperative wound dehiscence: Status: Acute Plan 61 year old man admitted with open aotobifem graft site opening Groin incision infection/cellulitis s/p aortobifem 12/28/21 now with open wound vanc/Zosyn s/p wound vac 01/28/22 culture growing serratia, ID following will need atleast 6 weeks iv abx hyperkalemia improved to 5.1, monitor Mild hyponatremia resolved Hypothyroidism Continue levothyroxine Peripheral arterial disease/coronary artery disease Continue aspirin, beta-winnie and statin DVT prophylaxis with Lovenox Full code reason for continued hospitalization: need iv abx for significant infection Quality Stroke Does the patient have a stroke diagnosis?: No VTE Prior VTE?: No VTE Risk Level:: Medical - moderate - high VTE Device Contraindication: Treatment Not Indicated VTE Drug Contraindication: N/A - Med Ordered
[2022-01-30 15:49] VITALS: BP 130/72; PULSE 68; RESP 16; TEMP 36.3; O2SAT 95
[2022-01-30] MEDS: Enoxaparin Sodium 40 MG/0.4 ML SYRINGE SUBCUT (17:33)
[2022-01-30 19:59] VITALS: BP 143/108; PULSE 83; RESP 18; TEMP 36.2; O2SAT 96
[2022-01-30] MEDS: Atorvastatin Calcium 40 MG TABLET PO (20:14)
[2022-01-30 23:47] VITALS: BP 129/87; PULSE 87; RESP 18; TEMP 36.4; O2SAT 94
[2022-01-31] VITALS (7 sets, daily range): BP systolic 109–155; BP diastolic 73–85; PULSE 67–90; RESP 14–20; TEMP 36.2–36.9; O2SAT 93–97
[2022-01-31] MEDS: Levothyroxine Sodium 88 MCG TABLET PO (05:36)
[2022-01-31 07:05] LABS: Hematocrit 41.8 % (42.0-52.0); Hemoglobin 13.4 g/dl (14.0-18.0); Mean Corpuscular HGB Conc 32.1 g/dl (31.0-36.0); Mean Corpuscular Hemoglobin 26.9 pg (27.0-33.0); Mean Corpuscular Volume 83.9 fL (80.0-98.0); Mean Platelet Volume 9.1 fL (9.4-12.4); Platelet Count 351 X10*3/uL (160-400); Red Blood Count 4.98 X10*6/uL (4.60-5.80); Red Cell Distribution Width 16.9 % (11.0-16.0); White Blood Count 9.7 X10*3/uL (4.8-10.8)
[2022-01-31 07:25] LABS: Anion Gap 14 (12-20); Blood Urea Nitrogen 7 mg/dL (9-16); Calcium 9.6 mg/dL (8.4-10.2); Carbon Dioxide 27 mmol/L (22-29); Chloride 100 mmol/L (96-108); Creatinine Clr Calc Pharmacy 70.6; Estimated Glomerular Filt Rate > 60; Glucose Fasting 90 mg/dL (60-99); Potassium 4.9 mmol/L (3.3-5.1); Sodium 136 mmol/L (135-145)
--- NOTE | 2022-01-31 09:07 | P.PNIM_ITS ---
Subjective Subjective Date of Service: 01/31/22 Interval History: cc: groin wound interval history:no copmlaints Cardiovascular Cardiovascular: Reports no additional cardiovascular complaints Respiratory Respiratory: Reports no additional respiratory complaints Physical Exam Vital Signs: Vital Signs: Last Vital Signs Temp 98.5 F 01/31/22 07:38 Pulse 90 01/31/22 07:38 Resp 20 01/31/22 07:38 BP 125/75 01/31/22 07:38 Pulse Ox 96 01/31/22 07:38 O2 Del Method 01/31/22 07:38 O2 Flow Rate 6 01/28/22 08:25 BMI result Body Mass Index 26.9 Const: General: cooperative HEENT: Head: Yes normal to inspection Mouth: Normal oral and palatal mucosa present Resp: Effort & Inspection: normal respiratory effort Cardio: Rate: regular rate Rhythm: regular rhythm GI: Palpation (GI): Soft to palpation and nontender Extrem: Other: wound vac right groin,no cellulitis Objective Data Active Medications Acetaminophen (Acetaminophen 325 Mg Tablet) 650 mg PO Q6H PRN PRN Reason: Pain, Mild (Pain Scale 1-3) Acetaminophen (Acetaminophen 325 Mg Tablet) 650 mg PO ONCE PRN PRN Reason: Pain, Mild (Pain Scale 1-3) Albuterol Sulfate (Albuterol Sulfate (0.083%) 2.5 Mg/3 Ml Vial.Neb) 2.5 mg INHALE ONCE PRN PRN Reason: Wheezing Aspirin (Aspirin Enteric Coated 81 Mg Tablet.) 81 mg PO DAILY [facility] Last Admin: 01/30/22 09:34 Dose: 81 mg Documented By: CANDIE Atenolol (Atenolol 25 Mg Tablet) 25 mg PO DAILY [facility]; Protocol Last Admin: 01/30/22 09:34 Dose: 25 mg Documented By: CANDIE Atorvastatin Calcium (Atorvastatin Calcium 40 Mg Tablet) 40 mg PO BEDTIME [facility] Last Admin: 01/30/22 20:14 Dose: 40 mg Documented By: DONNY Cyclobenzaprine HCl (Cyclobenzaprine Hcl 5 Mg Tablet) 5 mg PO TID [facility] Last Admin: 01/30/22 20:14 Dose: 5 mg Documented By: DONNY Ezetimibe (Ezetimibe 10 Mg Tablet) 10 mg PO DAILY [facility] Last Admin: 01/30/22 09:34 Dose: 10 mg Documented By: CANDIE Enoxaparin Sodium (Enoxaparin Sodium 40 Mg/0.4 Ml Syringe) 40 mg SUBCUT Q24H [facility] Last Admin: 01/30/22 17:33 Dose: 40 mg Documented By: CANDIE Fentanyl (Fentanyl Citrate/Pf 100 Mcg/2 Ml Vial) 50 mcg IVPUSH Q5M PRN; Protocol PRN Reason: Pain, Severe (Pain Scale 7-10) Fentanyl (Fentanyl Citrate/Pf 100 Mcg/2 Ml Vial) 25 mcg IVPUSH Q5M PRN; Protocol PRN Reason: Pain, Moderate (Pain Scale 4-6 Promethazine HCl 6.25 mg/ (Sodium Chloride) 50.25 mls @ 201 mls/hr IV ONCE PRN PRN Reason: Nausea and Vomiting Meropenem 1 gm/ Sodium (Chloride) 100 mls @ 200 mls/hr IV Q8H [facility] Last Infusion: 01/31/22 04:12 Dose: 0 mls/hr Documented By: DONNY Levothyroxine Sodium (Levothyroxine Sodium 88 Mcg Tablet) 88 mcg PO DAILY@0600 [facility] Last Admin: 01/31/22 05:36 Dose: 88 mcg Documented By: DONNY Morphine Sulfate (Morphine Sulfate 2 Mg/Ml Cartridge) 2 mg IVPUSH Q4H PRN; Protocol PRN Reason: Pain, Severe (Pain Scale 7-10) Ondansetron HCl (Ondansetron Hcl 4 Mg/2 Ml Vial) 4 mg IVPUSH Q8H PRN PRN Reason: Nausea and Vomiting Ondansetron HCl (Ondansetron Hcl 4 Mg/2 Ml Vial) 4 mg IVPUSH ONCE PRN PRN Reason: Nausea and Vomiting Oxycodone HCl (Oxycodone Hcl Immed Release 5 Mg Tablet) 5 mg PO Q4H PRN PRN Reason: pain Oxycodone HCl (Oxycodone Hcl Immed Release 5 Mg Tablet) 5 mg PO ONCE PRN PRN Reason: Pain, Severe (Pain Scale 7-10) Oxycodone HCl (Oxycodone Hcl Immed Release 5 Mg Tablet) 5 mg PO Q4H PRN PRN Reason: Pain, Moderate (Pain Scale 4-6 Last Admin: 01/29/22 05:57 Dose: 5 mg Documented By: SANDRO Pharmacy Consult (Consult Rx Perform Med Rec) 1 each MISCELLANE ONCE PRN PRN Reason: Consult order Pharmacy Consult (Consult Rx Vancomycin Dosing) 1 each MISCELLANE DAILY PRN PRN Reason: Consult order Sodium Chloride (0.9 % Sodium Chloride Flush 3 Ml Syringe) 3 ml IVFLUSH QSHIFT [facility] Last Admin: 01/30/22 20:15 Dose: 3 ml Documented By: DONNY Labs CBC & Chem 7: 01/31/22 05:55 01/31/22 05:55 Labs: Laboratory Results - last 24 hr 01/31/22 01/31/22 05:55 05:55 MCV 83.9 MCH 26.9 L MCHC 32.1 RDW 16.9 H Plt Count 351 MPV 9.1 L Absolute Nucleated RBC 0.000 Nucleated RBC % (auto) 0.0 Anion Gap 14 Estim Creat Clear Calc 70.6 Estimated GFR > 60 Fasting Glucose 90 Calcium 9.6 Microbiology Microbiology Results: Microbiology 01/28/22 Unknown Gram Stain - Final Groin, Right Routine Culture - Final Serratia marcescens Assessment and Plan (1) Postoperative wound dehiscence: Status: Acute Plan 61 year old man admitted with open aotobifem graft site opening Groin incision infection/cellulitis s/p aortobifem 12/28/21 now with open wound vanc/Zosyn s/p wound vac 01/28/22 culture growing serratia, ID appreciated, plan for 6 weeks iv merem (end 03/09/22) day , then suppressive therapy with levaquin patient would prefer to do at home hyperkalemia improved to 4.9, monitor Mild hyponatremia resolved Hypothyroidism Continue levothyroxine Peripheral arterial disease/coronary artery disease Continue aspirin, beta-winnie and statin DVT prophylaxis with Lovenox Full code reason for continued hospitalization: need iv abx for significant infection, tom iting picc Quality Stroke Does the patient have a stroke diagnosis?: No VTE Prior VTE?: No VTE Risk Level:: Medical - moderate - high VTE Device Contraindication: Treatment Not Indicated VTE Drug Contraindication: N/A - Med Ordered
[2022-01-31] MEDS: Cyclobenzaprine HCl 5 MG TABLET PO ×3 (10:37→23:37)
[2022-01-31] MEDS: Aspirin Enteric Coated 81 MG TABLET.DR PO (10:38)
[2022-01-31] MEDS: 0.9 % Sodium Chloride Flush 3 ML SYRINGE IVFLUSH ×2 (10:38→23:38)
[2022-01-31] MEDS: Ezetimibe 10 MG TABLET PO (10:38)
[2022-01-31] MEDS: atenoloL 25 MG TABLET PO (10:38)
[2022-01-31] MEDS: Enoxaparin Sodium 40 MG/0.4 ML SYRINGE SUBCUT (17:56)
[2022-01-31] MEDS: Atorvastatin Calcium 40 MG TABLET PO (23:38)
[2022-02-01] MEDS: Levothyroxine Sodium 88 MCG TABLET PO (05:53)
[2022-02-01 06:31] LABS: Creatinine Clr Calc Pharmacy 72.7; Estimated Glomerular Filt Rate > 60
[2022-02-01 07:00] VITALS: O2SAT 95
[2022-02-01 07:37] VITALS: BP 126/74; PULSE 85; RESP 18; TEMP 36.2; O2SAT 95
[2022-02-01] MEDS: Aspirin Enteric Coated 81 MG TABLET.DR PO (08:18)
[2022-02-01] MEDS: Cyclobenzaprine HCl 5 MG TABLET PO ×3 (08:18→20:39)
[2022-02-01] MEDS: Ezetimibe 10 MG TABLET PO (08:18)
[2022-02-01] MEDS: atenoloL 25 MG TABLET PO (08:18)
[2022-02-01] MEDS: 0.9 % Sodium Chloride Flush 3 ML SYRINGE IVFLUSH ×2 (08:18→20:41)
[2022-02-01 11:24] VITALS: BP 94/62; PULSE 63; RESP 18; TEMP 36; O2SAT 98
--- NOTE | 2022-02-01 12:40 | HO.PICC ---
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 Following completion of [place] Protocol the skin and soft tissues were anesthetized with 1% Lidocaine plain. Using ultrasound guidance, BRACHIAL vein access was obtained IN SINGLE ATTEMPT BY THIS RN. Over an 0.018 wire through peel-away sheath, a SINGLE LUMEN, PASV, 4-CAMEROONIAN PICC line was positioned. Catheter length is 39 CM internal length, 0 CM external length, for a total trimmed length of 39 CM. The procedure was performed in [facility]. Tip verification was performed by Leobardo Flores with Mili 3CG. Tip located in SVC. Ultrasound was used to document vein patency and for needle entry. A formal ultrasound picture and cardiac rhythm strip was recorded. Vascular White Sugar Syrup Operator has released the line for use and it is currently dressed with a StatLock, Tegaderm, and CHG disc. Verification has been performed for blood return and line patency. Arm Circumference: 27 CM Equipment: [employer]iu POWERPICC SOLO Catheter Type: SINGLE LUMEN, PASV, 4-CAMEROONIAN Lot #: [id number]
--- NOTE | 2022-02-01 13:56 | P.PNIM_ITS ---
Subjective Subjective Date of Service: 02/01/22 Interval History: seen and examined this morning follow up for groin wound wants to go home, declines rehab no specific complaints Review of Systems Review of Systems: Yes all other systems are reviewed and are negative Constitutional Constitutional: Denies chills and Denies fever(s) Cardiovascular Cardiovascular: Denies chest pain, Denies palpitations and Denies dyspnea Respiratory Respiratory: Denies dyspnea Gastrointestinal Gastrointestinal: Denies diarrhea, Denies nausea and Denies vomiting Endocrine Endocrine: Denies palpitations Physical Exam Vital Signs: Vital Signs: Last Vital Signs Temp 96.8 F 02/01/22 11:24 Pulse 63 02/01/22 11:24 Resp 18 02/01/22 11:24 BP 94/62 02/01/22 11:24 Pulse Ox 98 02/01/22 11:24 O2 Del Method 02/01/22 11:24 O2 Flow Rate 6 01/28/22 08:25 BMI result Body Mass Index 26.9 Const: General: comfortable and no acute distress Nutritional Appearance: average body habitus Orientation/consciousness: patient oriented x3 Resp: Effort & Inspection: normal respiratory effort and able to speak in com plete sentences Cardio: Rate: regular rate Heart sounds: S1 normal heart sound present and S2 normal heart sound present GI: Palpation (GI): Soft to palpation and nontender Skin: Other: wound vac right groin, no surrounding cellulitis Neuro: General: patient oriented x3 Objective Data Active Medications Acetaminophen (Acetaminophen 325 Mg Tablet) 650 mg PO Q6H PRN PRN Reason: Pain, Mild (Pain Scale 1-3) Acetaminophen (Acetaminophen 325 Mg Tablet) 650 mg PO ONCE PRN PRN Reason: Pain, Mild (Pain Scale 1-3) Albuterol Sulfate (Albuterol Sulfate (0.083%) 2.5 Mg/3 Ml Vial.Neb) 2.5 mg INHALE ONCE PRN PRN Reason: Wheezing Aspirin (Aspirin Enteric Coated 81 Mg Tablet.) 81 mg PO DAILY [facility] Last Admin: 02/01/22 08:18 Dose: 81 mg Documented By: KWAKU Atenolol (Atenolol 25 Mg Tablet) 25 mg PO DAILY [facility]; Protocol Last Admin: 02/01/22 08:18 Dose: 25 mg Documented By: KWAKU Atorvastatin Calcium (Atorvastatin Calcium 40 Mg Tablet) 40 mg PO BEDTIME [facility] Last Admin: 01/31/22 23:38 Dose: 40 mg Documented By: WESLEY Cyclobenzaprine HCl (Cyclobenzaprine Hcl 5 Mg Tablet) 5 mg PO TID [facility] Last Admin: 02/01/22 08:18 Dose: 5 mg Documented By: KWAKU Ezetimibe (Ezetimibe 10 Mg Tablet) 10 mg PO DAILY [facility] Last Admin: 02/01/22 08:18 Dose: 10 mg Documented By: KWAKU Enoxaparin Sodium (Enoxaparin Sodium 40 Mg/0.4 Ml Syringe) 40 mg SUBCUT Q24H [facility] Last Admin: 01/31/22 17:56 Dose: 40 mg Documented By: DOROTA Fentanyl (Fentanyl Citrate/Pf 100 Mcg/2 Ml Vial) 50 mcg IVPUSH Q5M PRN; Protocol PRN Reason: Pain, Severe (Pain Scale 7-10) Fentanyl (Fentanyl Citrate/Pf 100 Mcg/2 Ml Vial) 25 mcg IVPUSH Q5M PRN; Protocol PRN Reason: Pain, Moderate (Pain Scale 4-6 Promethazine HCl 6.25 mg/ (Sodium Chloride) 50.25 mls @ 201 mls/hr IV ONCE PRN PRN Reason: Nausea and Vomiting Meropenem 1 gm/ Sodium (Chloride) 100 mls @ 200 mls/hr IV Q8H [facility] Last Admin: 02/01/22 13:13 Dose: 200 mls/hr Documented By: KWAKU Levothyroxine Sodium (Levothyroxine Sodium 88 Mcg Tablet) 88 mcg PO DAILY@0600 [facility] Last Admin: 02/01/22 05:53 Dose: 88 mcg Documented By: WESLEY Morphine Sulfate (Morphine Sulfate 2 Mg/Ml Cartridge) 2 mg IVPUSH Q4H PRN; Protocol PRN Reason: Pain, Severe (Pain Scale 7-10) Ondansetron HCl (Ondansetron Hcl 4 Mg/2 Ml Vial) 4 mg IVPUSH Q8H PRN PRN Reason: Nausea and Vomiting Ondansetron HCl (Ondansetron Hcl 4 Mg/2 Ml Vial) 4 mg IVPUSH ONCE PRN PRN Reason: Nausea and Vomiting Oxycodone HCl (Oxycodone Hcl Immed Release 5 Mg Tablet) 5 mg PO ONCE PRN PRN Reason: Pain, Severe (Pain Scale 7-10) Oxycodone HCl (Oxycodone Hcl Immed Release 5 Mg Tablet) 5 mg PO Q4H PRN PRN Reason: Pain, Moderate (Pain Scale 4-6 Last Admin: 01/29/22 05:57 Dose: 5 mg Documented By: SANDRO Pharmacy Consult (Consult Rx Perform Med Rec) 1 each MISCELLANE ONCE PRN PRN Reason: Consult order Pharmacy Consult (Consult Rx Vancomycin Dosing) 1 each MISCELLANE DAILY PRN PRN Reason: Consult order Sodium Chloride (0.9 % Sodium Chloride Flush 3 Ml Syringe) 3 ml IVFLUSH QSHIFT [facility] Last Admin: 02/01/22 08:18 Dose: 3 ml Documented By: KWAKU Sodium Chloride (0.9 % Sodium Chloride Flush 10 Ml Syringe) 5 ml IVFLUSH TID [facility] Labs CBC & Chem 7: 01/31/22 05:55 02/01/22 05:40 Labs: Laboratory Results - last 24 hr 01/31/22 02/01/22 19:02 05:40 Estim Creat Clear Calc 72.7 Estimated GFR > 60 Random Vancomycin 7.0 L Microbiology Microbiology Results: Microbiology 01/26/22 16:29 Blood Culture - Final Blood - Venous No growth after 5 days. 01/26/22 16:20 Blood Culture - Final Blood - Venous No growth after 5 days. Assessment and Plan (1) Postoperative wound dehiscence: Status: Acute Plan 61 year old man admitted with open aotobifem graft site opening Groin incision infection/cellulitis s/p aortobifem 12/28/21 now with open wound Initially treated with vanc/Zosyn, changed to meropenem 01/30 s/p wound vac 01/28/22 wound culture growing serratia marcescens; blood cultures negative to date ID appreciated, plan for 6 weeks iv merem (end 03/09/22) day , then probably lifelong suppressive therapy with levaquin PICC line placed 02/01 patient would prefer to do at home, declines to go to SNF hyperkalemia improved to 4.9, monitor Mild hyponatremia resolved Hypothyroidism Continue levothyroxine Peripheral arterial disease/coronary artery disease Continue aspirin, beta-winnie and statin DVT prophylaxis with Lovenox Full code attending - dr. alfaro dispo - declining rehab, prefers to go home reason for continued hospitalization: need iv abx for significant infection, awaiting picc Quality Stroke Does the patient have a stroke diagnosis?: No VTE Prior VTE?: No VTE Risk Level:: Medical - moderate - high VTE Device Contraindication: Treatment Not Indicated VTE Drug Contraindication: N/A - Med Ordered
[2022-02-01] MEDS: 0.9 % Sodium Chloride Flush 10 ML SYRINGE 5 ML IVFLUSH ×2 (15:21→20:40)
--- NOTE | 2022-02-01 15:42 | HO.VASCPN ---
Subjective Subjective Date of Service: 02/01/22 Patient reports: no new complaints and feels better Interval history: 61-year-old gentleman with nonhealing right groin incision from aortobifem. He had PICC line placed today. In addition wound VAC dressing was changed as well. He appears to be doing relatively well. He is anxious to go home. Physical Exam Vital Signs: Vital Signs: Last Vital Signs Temp 96.8 F 02/01/22 11:24 Pulse 63 02/01/22 11:24 Resp 18 02/01/22 11:24 BP 94/62 02/01/22 11:24 Pulse Ox 98 02/01/22 11:24 O2 Del Method 02/01/22 11:24 O2 Flow Rate 6 01/28/22 08:25 BMI result Body Mass Index 26.9 Const: General: cooperative, healthy appearing and no acute distress Orientation/consciousness: oriented to person, oriented to place and oriented to time HEENT: Head: Yes normal to inspection Neck: Carotids: no bruits Chest: Chest palpation & inspection: normal inspection of the chest Resp: Effort & Inspection: normal respiratory effort and able to speak in complete sentences Auscultation: clear to auscultation bilaterally Cardio: Rate: regular rate Heart sounds: S1 normal heart sound present and S2 normal heart sound present GI: Inspection: Yes normal to inspection Skin: General skin exam: no rashes or lesions noted Wounds: wounds noted (Right groin healing well excellent granulation tissue) Neuro: General: oriented to person, oriented to place, oriented to time and CN's II-XI intact bilaterally Extrem: General: Yes normal to inspection, Yes full ROM and Yes no clubbing, cyanosis or edema Psych: Appearance: grossly normal and well kempt Speech and movement: Normal speech and movement present Affect: normal affect Progress Note: A&P Assessment and plan (1) Aortoiliac occlusive disease: Status: Acute Assessment and Plan: In short patient is doing well with a wound VAC. He will need to be discharged with a wound VAC and PICC line. This was discussed in detail with the patient. It would be ideal if he went to a usp but patient is absolutely refusing. It is unclear why the patient is quite anxious to be discharged. I did reiterate that this is a very concerning situation and should be taken seriously. He will be stable for discharge for tomorrow. We will help coordinate wound VAC care. Thank you for allowing us to assist in his care. Time Spent With Patient Time: Total time spent is greater than 50% in coordination of care (as documented) at patient's floor/unit and/or counseling patient: Procedures Date of Service Date of Service: 02/01/22 Quality Stroke Does the patient have a stroke diagnosis?: No VTE Prior VTE?: No VTE Risk Level:: Medical - moderate - high VTE Device Contraindication: Treatment Not Indicated VTE Drug Contraindication: N/A - Med Ordered
[2022-02-01 15:56] VITALS: BP 128/81; PULSE 71; RESP 18; TEMP 36.4; O2SAT 97
--- NOTE | 2022-02-01 18:45 | PC.NURSE ---
per Dr. Calderon, wound vac bandage replaced at 15:00. dressing CDI. pt tolerated well. suction working properly. wound was 5.4 x 2 x 1.4cm. with help from nurse Jing.
[2022-02-01] MEDS: Enoxaparin Sodium 40 MG/0.4 ML SYRINGE SUBCUT (19:21)
[2022-02-01 20:00] VITALS: BP 125/78; PULSE 75; RESP 18; TEMP 36.4; O2SAT 94
[2022-02-01] MEDS: Atorvastatin Calcium 40 MG TABLET PO (20:39)
[2022-02-01 23:33] VITALS: BP 166/102; PULSE 91; RESP 18; TEMP 37.1; O2SAT 98
[2022-02-02 03:15] VITALS: BP 133/83; PULSE 93; RESP 16; TEMP 36.8; O2SAT 95
[2022-02-02] MEDS: Levothyroxine Sodium 88 MCG TABLET PO (05:44)
[2022-02-02 06:59] LABS: Creatinine Clr Calc Pharmacy 89.5; Estimated Glomerular Filt Rate > 60
[2022-02-02 07:00] VITALS: O2SAT 95
[2022-02-02 07:36] VITALS: BP 126/78; PULSE 85; RESP 16; TEMP 36.1; O2SAT 95
[2022-02-02] MEDS: Ezetimibe 10 MG TABLET PO (08:39)
[2022-02-02] MEDS: atenoloL 25 MG TABLET PO (08:39)
[2022-02-02] MEDS: Cyclobenzaprine HCl 5 MG TABLET PO (08:39)
[2022-02-02] MEDS: Aspirin Enteric Coated 81 MG TABLET.DR PO (08:39)
--- NOTE | 2022-02-02 10:30 | HO.VASCPN ---
Subjective Subjective Date of Service: 02/02/22 Patient reports: no new complaints and feels better Interval history: 61-year-old gentleman status post aortobifem presents with right groin dehiscence. Last he was debrided and wound VAC has been placed. He received a PICC line yesterday. Appears to be doing relatively well. No complaints overnight. Physical Exam Vital Signs: Vital Signs: Last Vital Signs Temp 96.9 F 02/02/22 07:36 Pulse 85 02/02/22 07:36 Resp 16 02/02/22 07:36 BP 126/78 02/02/22 07:36 Pulse Ox 95 02/02/22 07:36 O2 Del Method 02/02/22 07:36 O2 Flow Rate 6 01/28/22 08:25 BMI result Body Mass Index 26.9 Const: General: cooperative, healthy appearing and no acute distress Orientation/consciousness: oriented to person, oriented to place and oriented to time HEENT: Head: Yes normal to inspection Neck: Carotids: no bruits Chest: Chest palpation & inspection: normal inspection of the chest Resp: Effort & Inspection: normal respiratory effort and able to speak in complete sentences Auscultation: clear to auscultation bilaterally Cardio: Rate: regular rate Heart sounds: S1 normal heart sound present and S2 normal heart sound present Peripheral pulses: dorsalis pedis present (Bilateral DP signals) GI: Inspection: Yes normal to inspection Skin: Other: Right groin wound VAC intact General skin exam: no rashes or lesions noted Wounds: no wounds Neuro: General: oriented to person, oriented to place, oriented to time and CN's II-XI intact bilaterally Extrem: General: Yes normal to inspection, Yes full ROM and Yes no clubbing, cyanosis or edema Psych: Appearance: grossly normal and well kempt Speech and movement: Normal speech and movement present Affect: normal affect Progress Note: A&P Assessment and plan (1) Postoperative wound dehiscence: Status: Acute Assessment and Plan: In short patient has right groin dehiscence of incision. He appears to be doing relatively well. He is stable from my perspective for discharge. He will require long-term IV antibiotics and wound VAC of that right groin. I would like to see him back in approximately 1 weeks time. We will be keeping a close eye on that groin. Thank you for the hospitalist team assistance in his care. Time Spent With Patient Time: Total time spent is greater than 50% in coordination of care (as documented) at patient's floor/unit and/or counseling patient: Procedures Date of Service Date of Service: 02/02/22 Quality Stroke Does the patient have a stroke diagnosis?: No VTE Prior VTE?: No VTE Risk Level:: Medical - moderate - high VTE Device Contraindication: Treatment Not Indicated VTE Drug Contraindication: N/A - Med Ordered
--- NOTE | 2022-02-02 10:59 | P.DS_ITS ---
DS: Providers Provider Date of Service: 02/02/22 Date of admission: 01/26/22 16:55 Primary care physician: Brianda Oswald MD Consults: 01/26/22 16:54 Consult to Vascular Surgery Routine Consulting Provider: Edmar Calderon Reason for consultation: aortobifem site wound Has provider been notified: No 01/28/22 08:31 Consult to Infectious Diseases Routine Consulting Provider: Lydia Kimball Reason for consultation: exposed right groin graft - aortobifem DS: Diagnosis Discharge Diagnosis (1) Postoperative wound dehiscence: Status: Acute (2) Infected wound: Status: Acute DS: Summary Hospital Course Hospital Course: Admission note HPI 7-year-old man presenting with right groin wound.? Patient is status post aortobifem on 12/28/2021.? Over the last several weeks he has developed some drainage and subsequently went to see the vascular surgeon today and was found to have an open draining wound to the aortobifem site.? He was placed on oral a ntibiotics for at least 10 days but appears to have failed treatment.? Today,? Patient was promptly sent to the ER with concern for development of graft infection.? In the ER he has no elevated white blood cell count, fever, chills, nausea, vomiting, diarrhea, chest pain, shortness of breath.? He does report some mild lower abdominal pain from incision site on the abdomen.? He is hemodynamically stable, started on Zosyn.? In the ER, he will be admitted for further management and treatment of cellulitis to aortobifem groin site. Hospital course The patient was admitted to the hospital for evaluation of groin incision wound infection after open aortobifemoral graft site 1 month prior to admission. Cultures from the wound grew Serratia marcescens; blood cultures negative. Evaluated by infectious disease specialist who recommended antibiotics of IV meropenem for total of 6 weeks. The patient finished 6 days during the hospital stay and will continue the antibiotic as outpatient at home. PICC line placed on February 01. The patient was seen by surgical team who recommended wound VAC that was placed on January 28 to go home on the wound VAC as well and follow-up as outpatient with surgery. He will have visiting nurses at home. To finish total of 6 weeks of IV meropenem. Continue wound VAC at home To follow-up with surgery as outpatient Time Spent with Patient Time attestation: Total time spent providing and/or coordinating discharge services: Discharge coordination time: Greater than 30 minutes Quality: Safe Use of Opioids Does Pt have an Active Cancer Diagnosis on the Problem List?: No Quality: Stroke Does the patient have a stroke diagnosis?: No Physical Exam Vital Signs: Vital Signs: Last Vital Signs Temp 96.9 F 02/02/22 07:36 Pulse 85 02/02/22 07:36 Resp 16 02/02/22 07:36 BP 126/78 02/02/22 07:36 Pulse Ox 95 02/02/22 07:36 O2 Del Method 02/02/22 07:36 O2 Flow Rate 6 01/28/22 08:25 BMI result Body Mass Index 26.9 Const: Other: Constitutional : Alert, oriented, not in distress Neck : Normal inspection, Supple Cardiovascular : RRR, no JVP, no lower extremity edema Respiratory : fair bilateral air entry, no crackles, wheezes or rhonchi Gastrointestinal: soft, lax, Normal bowel sounds, Non tender Skin : Warm, Dry, wound VAC in the right groin with no surrounding erythema Neurological : Alert & oriented x3, No focal deficit , CN 2-12 within normal DS: Data Data Completed and Pending Completed studies during hospitalization [Text1]: Procedures Extirpation of Matter from Left Femoral Artery, Open Approach (12/28/21) Extirpation of Matter from Right Common Carotid Artery, Open Approach (09/07/21) Extirpation of Matter from Right External Carotid Artery, Open Approach (09/07/21) Extirpation of Matter from Right Femoral Artery, Open Approach (12/28/21) Extirpation of Matter from Right Internal Carotid Artery, Open Approach (09/07/21) Supplement Left Femoral Artery with Synthetic Substitute, Open Approach (12/28/21) Supplement Right Common Carotid Artery with Synthetic Substitute, Open Approach (09/07/21) Supplement Right Femoral Artery with Synthetic Substitute, Open Approach (12/28/21) Supplement Right Internal Carotid Artery with Synthetic Substitute, Open Approach (09/07/21) Labs on day of discharge: Laboratory Results - last 24 hr 02/02/22 05:48 Creatinine 0.82 Estim Creat Clear Calc 89.5 Estimated GFR > 60 Discharge Plan Discharge Patient Disposition: Home Health Service Discharge Diagnosis: Groin incision with cellulitis Referrals: Brianda Oswald MD [Primary Care Provider] - 1 Week Discharge Medications: New meropenem 1 gram Recon Soln 1 g IV Q8H 36 Days Qty: 108 0RF Continued ezetimibe [Zetia] 10 mg tablet 10 mg PO DAILY Qty: 90 3RF atorvastatin 40 mg tablet 1 tab PO BEDTIME levothyroxine 88 mcg tablet 88 mcg PO DAILY aspirin 81 mg tablet,delayed release (DR/EC) 81 mg PO DAILY cyclobenzaprine 5 mg tablet 5 mg PO TID atenolol 25 mg tablet 25 mg PO DAILY Discharge Orders: Discharge Order (Routine); Ordered 02/02/22 Ordered By: Vandana To Diet: Advance to usual diet Activity on Discharge: As tolerated Stand Alone Forms: Patient Portal Discharge page Care Plan Goals: Read below Health Concerns: Read below Plan of Treatment: Read below Assessment: You were admitted to the hospital for evaluation of groin wound. Evaluated by infectious disease specialist who recommended IV antibiotics as the wound grew bacteria. Seen by surgical team who placed you on a wound VAC. To finish total of 6 weeks of IV meropenem. Continue wound VAC at home To follow-up with surgery as outpatient
--- NOTE | 2022-02-02 11:05 | W.MHC.F2F ---
Service Date Service Date: 02/02/22 Encounter Date of encounter: 02/02/22 Reasons for Services Signs and symptoms assessed: Wound VAC Reason for custodial: wound care Homebound: Leaving the home is medically contraindicated at this time without the asist of a device and/or another person due th the listed conditions above and below. Reason homebound: other Certification: Based on the above findings, I certify that this patient is confined to the home and needs intermittent custodial care, physical therapy and/or speech therapy, or continues to need occupational therapy. The patient is under my care, and I have initiated the establishment of the plan of care. The patient will be followed by a physician who will periodically review the plan of care.
[2022-02-02 11:21] VITALS: BP 125/78; PULSE 66; RESP 16; TEMP 36; O2SAT 97
--- NOTE | 2022-02-02 11:38 | PC.NURSE ---
pt discharged. wound vac arrived for home use. pt connected to wound vac. dischrge paperwork given to pt and pt educated on instructions. Iv removed and tele removed. pt GF picking up pt from hospital. safety and fall precautions in place. picc line in place. call woodard within reach
--- NOTE | 2022-02-02 11:59 | MHC.CM.PN ---
MALE 61 DX WOUND INFECTION IS DISCHARGED TODAY TO HOME WITH IV ABX + WOUND VAC. [facility] WILL PROVIDE HOME CARE SERVICES. [facility] WILL PROVIDE HOME INFUSION SERVICES. [facility] IS PROVIDING THE WOUND VAC. [place] [facility] [place]. THE PATIENT HAS ARRANGED FOR TRANSPORTATION HOME. [facility] DELIVERY SCHEDULED FOR EARLY AFTERNOON. [facility] IS SCHEDULED FOR START OF CARE FOR 2PM TODAY.
== END 2022-02-02 11:38 | disposition home health service (06) | DRG 793 ==
LOC: HO.ED 16:40 → HO.EDOVER 17:01 → HO.IMC 21:17
PROVIDERS: Internal Medicine; Surgery Vascular Surgery; Admitting Provider Nurse Practitioner Acute Care; Emergency Provider Emergency Medicine; PCP Internal Medicine; Visit Provider Student in an Organized Health Care Education/Training Program
PROC: 0KBM0ZZ Excision of Perineum Muscle, Open Approach (ICD-10-PCS; principal; 2022-01-28 07:30)
DX: T81.31XA Disruption of external operation (surgical) wound, not elsewhere classified, initial encounter (principal); E87.1 Hypo-osmolality and hyponatremia; E78.5 Hyperlipidemia, unspecified; I25.10 Atherosclerotic heart disease of native coronary artery without angina pectoris; F17.210 Nicotine dependence, cigarettes, uncomplicated; I10 Essential (primary) hypertension; I65.23 Occlusion and stenosis of bilateral carotid arteries; J44.9 Chronic obstructive pulmonary disease, unspecified; L03.314 Cellulitis of groin; L76.34 Postprocedural seroma of skin and subcutaneous tissue following other procedure; I73.9 Peripheral vascular disease, unspecified; E87.5 Hyperkalemia; E03.9 Hypothyroidism, unspecified; Z20.822 Contact with and (suspected) exposure to COVID-19; Z95.1 Presence of aortocoronary bypass graft; Z95.5 Presence of coronary angioplasty implant and graft; Z71.6 Tobacco abuse counseling; Z79.82 Long term (current) use of aspirin; Z79.890 Hormone replacement therapy; Z79.899 Other long term (current) drug therapy
CPT/HCPCS: 36415; 36573; 80048; 80076; 80202; 82565; 83605; 83735; 85025; 85027; 85610; 87040; 87071; 87077; 87186; 87205; 87635; 93005; 96365; 96367; 99285; C1751; J1650; J2185; J2250; J2543; J2795; J3010; J3370

== ENCOUNTER 2022-02-08 15:03 | Outpatient (REF) | payer MEDICAID, SELFPAY ==
[2022-02-08 16:32] LABS: MANUAL DIFF FLAG NO
[2022-02-08 16:37] LABS: Basophils Absolute Auto 0.1 X10*3/uL (0.0-0.2); Basophils Percent Auto 1.3 % (0-2); Eosinophils Absolute Auto 0.4 X10*3/uL (0.0-0.4); Eosinophils Percent Auto 4.4 % (0-4); Hematocrit 38.8 % (42.0-52.0); Hemoglobin 12.6 g/dl (14.0-18.0); Imm Gran Abs Auto 0.02 X10*3/uL (0.00-0.03); Imm Gran Pct Auto 0.3 % (0.0-0.4); Lymphocytes Absolute Auto 1.9 X10*3/uL (1.2-4.9); Mean Corpuscular HGB Conc 32.5 g/dl (31.0-36.0); Mean Corpuscular Hemoglobin 27.2 pg (27.0-33.0); Mean Corpuscular Volume 83.8 fL (80.0-98.0); Mean Platelet Volume 9.6 fL (9.4-12.4); Monocytes Absolute Auto 1.1 X10*3/uL (0.1-1.2); Monocytes Percent Auto 13.7 % (2-11); Neutrophils Absolute Auto 4.4 x10*3/uL (2.0-8.3); Neutrophils Percent Auto 56.3 % (45-73); Platelet Count 470 X10*3/uL (160-400); Red Blood Count 4.63 X10*6/uL (4.60-5.80); Red Cell Distribution Width 16.4 % (11.0-16.0); White Blood Count 7.9 X10*3/uL (4.8-10.8)
[2022-02-08 18:27] LABS: Anion Gap 12 (12-20); Blood Urea Nitrogen 16 mg/dL (9-16); Calcium 9.5 mg/dL (8.4-10.2); Carbon Dioxide 27 mmol/L (22-29); Chloride 98 mmol/L (96-108); Estimated Glomerular Filt Rate > 60; Glucose Random 53 mg/dL (60-115); Potassium 4.9 mmol/L (3.3-5.1); Sodium 132 mmol/L (135-145)
== END 2022-02-08 15:04 | disposition home or self-care (01) ==
LOC: HO.HVNA 15:03
PROVIDERS: Visit Provider Internal Medicine
DX: L08.9 Local infection of the skin and subcutaneous tissue, unspecified (principal); L03.314 Cellulitis of groin
CPT/HCPCS: 36415; 80048; 85025

== ENCOUNTER → 2022-02-09 10:59 | Outpatient (BNVA) | payer MEDICAID, SELFPAY | PROVIDERS: PCP Internal Medicine; Visit Provider Surgery Vascular Surgery | DX: T81.31XA Disruption of external operation (surgical) wound, not elsewhere classified, initial encounter (principal) | CPT/HCPCS: 97605; 99212 ==

== ENCOUNTER → 2022-02-12 11:36 | Outpatient (BNVA) | payer MEDICAID, SELFPAY | PROVIDERS: PCP Internal Medicine; Visit Provider Internal Medicine | DX: T81.31XA Disruption of external operation (surgical) wound, not elsewhere classified, initial encounter (principal) | CPT/HCPCS: 99212 ==

== ENCOUNTER 2022-02-15 10:33 | Outpatient (REF) | payer MEDICAID, SELFPAY ==
[2022-02-15 16:37] LABS: MANUAL DIFF FLAG NO
[2022-02-15 16:45] LABS: Basophils Absolute Auto 0.1 X10*3/uL (0.0-0.2); Basophils Percent Auto 1.1 % (0-2); Eosinophils Absolute Auto 0.4 X10*3/uL (0.0-0.4); Eosinophils Percent Auto 5.3 % (0-4); Hematocrit 39.9 % (42.0-52.0); Hemoglobin 12.5 g/dl (14.0-18.0); Imm Gran Abs Auto 0.03 X10*3/uL (0.00-0.03); Imm Gran Pct Auto 0.4 % (0.0-0.4); Lymphocytes Absolute Auto 1.3 X10*3/uL (1.2-4.9); Lymphocytes Percent Auto 15.5 % (20-40); Mean Corpuscular HGB Conc 31.3 g/dl (31.0-36.0); Mean Corpuscular Hemoglobin 26.7 pg (27.0-33.0); Mean Corpuscular Volume 85.3 fL (80.0-98.0); Monocytes Absolute Auto 0.8 X10*3/uL (0.1-1.2); Neutrophils Absolute Auto 5.5 x10*3/uL (2.0-8.3); Neutrophils Percent Auto 67.7 % (45-73); Platelet Count 387 X10*3/uL (160-400); Red Blood Count 4.68 X10*6/uL (4.60-5.80); Red Cell Distribution Width 16.6 % (11.0-16.0); White Blood Count 8.1 X10*3/uL (4.8-10.8)
[2022-02-15 16:58] LABS: Anion Gap 13 (12-20); Blood Urea Nitrogen 13 mg/dL (9-16); Calcium 9.5 mg/dL (8.4-10.2); Carbon Dioxide 29 mmol/L (22-29); Chloride 100 mmol/L (96-108); Estimated Glomerular Filt Rate > 60; Glucose Random 77 mg/dL (60-115); Potassium 4.9 mmol/L (3.3-5.1); Sodium 137 mmol/L (135-145)
== END 2022-02-15 10:34 | disposition home or self-care (01) ==
LOC: HO.HMGCLNP 10:33
PROVIDERS: Visit Provider Internal Medicine
DX: A41.9 Sepsis, unspecified organism (principal); Z79.899 Other long term (current) drug therapy
CPT/HCPCS: 80048; 85025

== ENCOUNTER → 2022-02-18 13:24 | Outpatient (BNVA) | payer MEDICAID, SELFPAY | PROVIDERS: PCP Internal Medicine; Visit Provider Surgery Vascular Surgery | DX: T81.31XA Disruption of external operation (surgical) wound, not elsewhere classified, initial encounter (principal) | CPT/HCPCS: 99212 ==

== ENCOUNTER 2022-02-22 11:36 | Outpatient (REF) | payer MEDICAID, SELFPAY ==
[2022-02-22 15:04] LABS: MANUAL DIFF FLAG NO
[2022-02-22 15:09] LABS: Basophils Absolute Auto 0.1 X10*3/uL (0.0-0.2); Basophils Percent Auto 0.8 % (0-2); Eosinophils Absolute Auto 0.5 X10*3/uL (0.0-0.4); Eosinophils Percent Auto 6.6 % (0-4); Hematocrit 40.8 % (42.0-52.0); Hemoglobin 13.1 g/dl (14.0-18.0); Imm Gran Abs Auto 0.02 X10*3/uL (0.00-0.03); Imm Gran Pct Auto 0.2 % (0.0-0.4); Lymphocytes Absolute Auto 1.9 X10*3/uL (1.2-4.9); Lymphocytes Percent Auto 22.7 % (20-40); Mean Corpuscular HGB Conc 32.1 g/dl (31.0-36.0); Mean Corpuscular Hemoglobin 27.1 pg (27.0-33.0); Mean Corpuscular Volume 84.5 fL (80.0-98.0); Mean Platelet Volume 9.9 fL (9.4-12.4); Monocytes Absolute Auto 0.9 X10*3/uL (0.1-1.2); Monocytes Percent Auto 10.3 % (2-11); Neutrophils Absolute Auto 4.9 x10*3/uL (2.0-8.3); Neutrophils Percent Auto 59.4 % (45-73); Platelet Count 344 X10*3/uL (160-400); Red Blood Count 4.83 X10*6/uL (4.60-5.80); Red Cell Distribution Width 16.4 % (11.0-16.0); White Blood Count 8.2 X10*3/uL (4.8-10.8)
[2022-02-22 15:19] LABS: Anion Gap 15 (12-20); Blood Urea Nitrogen 18 mg/dL (9-16); Calcium 9.6 mg/dL (8.4-10.2); Carbon Dioxide 26 mmol/L (22-29); Chloride 99 mmol/L (96-108); Estimated Glomerular Filt Rate > 60; Glucose Random 70 mg/dL (60-115); Potassium 4.8 mmol/L (3.3-5.1); Sodium 135 mmol/L (135-145)
== END 2022-02-22 11:37 | disposition home or self-care (01) ==
LOC: HO.HVNA 11:36
PROVIDERS: Visit Provider Internal Medicine
DX: B99.9 Unspecified infectious disease (principal); Z79.899 Other long term (current) drug therapy
CPT/HCPCS: 36415; 80048; 85025

== ENCOUNTER → 2022-02-25 12:46 | Outpatient (BNVA) | payer MEDICAID, SELFPAY | PROVIDERS: PCP Internal Medicine; Visit Provider Surgery Vascular Surgery | DX: Z95.828 Presence of other vascular implants and grafts (principal) | CPT/HCPCS: 99212 ==

== ENCOUNTER 2022-03-01 10:54 | Outpatient (REF) | payer MEDICAID, SELFPAY ==
[2022-03-01 13:42] LABS: MANUAL DIFF FLAG NO
[2022-03-01 13:45] LABS: Basophils Absolute Auto 0.1 X10*3/uL (0.0-0.2); Basophils Percent Auto 0.8 % (0-2); Eosinophils Absolute Auto 0.6 X10*3/uL (0.0-0.4); Eosinophils Percent Auto 6.7 % (0-4); Hematocrit 39.8 % (42.0-52.0); Hemoglobin 12.7 g/dl (14.0-18.0); Imm Gran Abs Auto 0.02 X10*3/uL (0.00-0.03); Imm Gran Pct Auto 0.2 % (0.0-0.4); Lymphocytes Absolute Auto 1.8 X10*3/uL (1.2-4.9); Mean Corpuscular HGB Conc 31.9 g/dl (31.0-36.0); Mean Corpuscular Volume 84.5 fL (80.0-98.0); Monocytes Absolute Auto 0.9 X10*3/uL (0.1-1.2); Monocytes Percent Auto 10.1 % (2-11); Neutrophils Absolute Auto 5.5 x10*3/uL (2.0-8.3); Neutrophils Percent Auto 62.2 % (45-73); Platelet Count 295 X10*3/uL (160-400); Red Blood Count 4.71 X10*6/uL (4.60-5.80); Red Cell Distribution Width 16.9 % (11.0-16.0); White Blood Count 8.8 X10*3/uL (4.8-10.8)
[2022-03-01 14:20] LABS: Anion Gap 18 (12-20); Blood Urea Nitrogen 12 mg/dL (9-16); Calcium 9.5 mg/dL (8.4-10.2); Carbon Dioxide 26 mmol/L (22-29); Chloride 97 mmol/L (96-108); Estimated Glomerular Filt Rate > 60; Glucose Random 74 mg/dL (60-115); Potassium 5.1 mmol/L (3.3-5.1); Sodium 136 mmol/L (135-145)
== END 2022-03-01 10:55 | disposition home or self-care (01) ==
LOC: HO.HVNA 10:54
PROVIDERS: Visit Provider Internal Medicine
DX: B99.9 Unspecified infectious disease (principal); Z79.2 Long term (current) use of antibiotics
CPT/HCPCS: 36415; 80048; 85025

== ENCOUNTER → 2022-03-05 11:13 | Outpatient (BNVA) | payer MEDICAID, SELFPAY | PROVIDERS: Visit Provider Internal Medicine | DX: T81.31XA Disruption of external operation (surgical) wound, not elsewhere classified, initial encounter (principal); T14.8XXA Other injury of unspecified body region, initial encounter; L08.9 Local infection of the skin and subcutaneous tissue, unspecified; Z95.828 Presence of other vascular implants and grafts | CPT/HCPCS: 99212 ==

== ENCOUNTER 2022-03-08 11:08 | Outpatient (REF) | payer MEDICAID, SELFPAY ==
[2022-03-08 13:45] LABS: MANUAL DIFF FLAG NO
[2022-03-08 13:54] LABS: Basophils Absolute Auto 0.1 X10*3/uL (0.0-0.2); Eosinophils Absolute Auto 0.5 X10*3/uL (0.0-0.4); Eosinophils Percent Auto 5.4 % (0-4); Hematocrit 42.8 % (42.0-52.0); Hemoglobin 13.8 g/dl (14.0-18.0); Imm Gran Abs Auto 0.02 X10*3/uL (0.00-0.03); Imm Gran Pct Auto 0.2 % (0.0-0.4); Lymphocytes Absolute Auto 2.1 X10*3/uL (1.2-4.9); Lymphocytes Percent Auto 23.8 % (20-40); Mean Corpuscular HGB Conc 32.2 g/dl (31.0-36.0); Mean Corpuscular Hemoglobin 27.1 pg (27.0-33.0); Mean Corpuscular Volume 84.1 fL (80.0-98.0); Mean Platelet Volume 9.5 fL (9.4-12.4); Monocytes Absolute Auto 0.7 X10*3/uL (0.1-1.2); Neutrophils Absolute Auto 5.6 x10*3/uL (2.0-8.3); Neutrophils Percent Auto 61.6 % (45-73); Platelet Count 355 X10*3/uL (160-400); Red Blood Count 5.09 X10*6/uL (4.60-5.80); Red Cell Distribution Width 17.5 % (11.0-16.0)
[2022-03-08 14:04] LABS: Anion Gap 16 (12-20); Blood Urea Nitrogen 20 mg/dL (9-16); Calcium 9.7 mg/dL (8.4-10.2); Carbon Dioxide 26 mmol/L (22-29); Chloride 99 mmol/L (96-108); Estimated Glomerular Filt Rate > 60; Glucose Random 74 mg/dL (60-115); Potassium 5.3 mmol/L (3.3-5.1); Sodium 136 mmol/L (135-145)
== END 2022-03-08 11:09 | disposition home or self-care (01) ==
LOC: HO.HMGCLNP 11:08
PROVIDERS: Visit Provider Internal Medicine
DX: B99.8 Other infectious disease (principal); Z79.2 Long term (current) use of antibiotics
CPT/HCPCS: 80048; 85025

== ENCOUNTER 2022-03-11 09:48 | Outpatient (REF) | payer MEDICAID, SELFPAY | END 2022-03-11 09:49 | disposition home or self-care (01) | LOC: HO.HAP 09:48 | PROVIDERS: Visit Provider Internal Medicine | DX: Z01.118 Encounter for examination of ears and hearing with other abnormal findings (principal); H90.3 Sensorineural hearing loss, bilateral | CPT/HCPCS: 99212 ==

== ENCOUNTER → 2022-04-02 10:23 | Outpatient (BNVA) | payer MEDICAID, SELFPAY | PROVIDERS: Visit Provider Internal Medicine | DX: Z95.828 Presence of other vascular implants and grafts (principal); Z79.2 Long term (current) use of antibiotics | CPT/HCPCS: 99212 ==

== ENCOUNTER 2022-04-23 10:20 | Outpatient (REF) | payer MEDICAID, SELFPAY ==
--- NOTE | 2022-04-23 15:37 | MHC.AU.HFU ---
Hearing Instrument Follow-Up- Binaural Date of Visit: 04/23/22 Right Ear: Organizational Effectiveness Consultant: Phonak Model: Audeo M 70-13T Serial Number: [id number] Repair Warranty: 06/14/2023 Battery Size: 13 Color: Beige Carbon Sequestration Plant Engineer: #1 Medium Type of Dome: Small Power Type of Wax Guard: CeruShield Dispensed By: [facility] Date of Fittin03/27/2020 Left Ear: Organizational Effectiveness Consultant: Phonak Model: Audeo M 70-13T Serial Number: [id number] Repair Warranty: 06/14/2023 Loss and Damage Warranty: Battery Size: 13 Color: Beige Carbon Sequestration Plant Engineer: #1 Medium Type of Dome: Small Power Type of Wax Guard: CeruShield Dispensed By: [facility] Date of Fittin03/27/2020 Follow-Up Summary: Khoi dropped of his hearing aids for routine maintenance and cleaning. Domes and wax guards were plugged with wax. His hearing aids were thoroughly cleaned and the wax guards, domes, and retention tails were replaced. The hearing aid microphones were vacuumed and a listening check demonstrated the hearing aids were in good working order. Recommendations: Hearing instrument maintenance in 6 months, or sooner if needed. Please contact our clinic with any questions or concerns. Diagnosis Code(s): Primary Diagnosis: H90.3 Bilateral Sensorineural Hearing Loss Services Performed: DICK Non-Quantity Charges: HACHECKB (MH>1 yr or new to us) Face to face appointment Signature: Provider: BRADY Mosqueda
== END 2022-04-23 10:21 | disposition home or self-care (01) ==
LOC: HO.HAP 10:20
PROVIDERS: Visit Provider Internal Medicine
DX: Z46.1 Encounter for fitting and adjustment of hearing aid (principal); H90.3 Sensorineural hearing loss, bilateral
CPT/HCPCS: 92593

== ENCOUNTER 2022-04-29 12:57 | Outpatient (REF) | payer MEDICAID, SELFPAY ==
--- NOTE | ~2022-04-29 | US_ITS ---
EXAMINATION: US RETROPERITONEAL LIMITED (AORTA) CLINICAL INFORMATION: Peripheral vascular disease with the aortofemoral bypass graft. COMPARISON: CTA from 04/20/2021 TECHNIQUE: Fitzpatrick-scale, color Doppler and spectral Doppler evaluation of the abdominal aorta. FINDINGS: Calcified atherosclerotic plaque is seen throughout the [place] abdominal aorta. Distal aorta is occluded. There is an mid abdominal aortic to bilateral common femoral artery bypass graft. Bypass graft is widely patent on color flow and duplex Doppler. The measurements of the aorta in maximum AP and transverse dimensions respectively are as follows: Proximal: 2.4 cm. 51.5 cm/s, biphasic Mid: 1.9 cm. 47.1 cm/s, biphasic Distal: 1.9 cm. Occluded Bypass graft, right iliac limb: 72.1 cm/s. Bypass graft, left iliac limb: 66.0 cm/s. US/US aorta IMPRESSION: [place] distal abdominal aorta is occluded with aorto-bifemoral bypass graft which is widely patent. EXAMINATION: Noninvasive assessment of the bilateral lower extremities with ARTERIAL DUPLEX CLINICAL INFORMATION: Peripheral vascular disease TECHNIQUE: Duplex Doppler techniques with waveform analysis and measurement of velocities in the bilateral common femoral, profunda femoris, superficial femoral, popliteal and tibial arteries were performed. COMPARISON: CTA from 04/20/2021 FINDINGS: DIRECT DUPLEX DOPPLER FINDINGS: RIGHT LEG: Common femoral artery: 97 cm/s, phasicity: Monophasic Profunda femoris artery: 193 cm/s, phasicity: Biphasic Superficial femoral artery (proximal): Occluded Superficial femoral artery (mid): 68 cm/s, phasicity: Monophasic Superficial femoral artery (distal): 56 cm/s, phasicity: Monophasic Popliteal artery: 34 cm/s, phasicity: Monophasic Posterior tibial artery: Occluded Peroneal artery: Occluded LEFT LEG: Common femoral artery: 97 cm/s, phasicity: Monophasic Profunda femoris artery: 91 cm/s, phasicity: Monophasic Superficial femoral artery (proximal): Occluded Superficial femoral artery (mid): 31 cm/s, phasicity: Monophasic Superficial femoral artery (distal): 26 cm/s, phasicity: Monophasic Popliteal artery: 59 cm/s, phasicity: Monophasic Posterior tibial artery: 44 cm/s, phasicity: Monophasic Peroneal artery: Occluded IMPRESSION: Right leg: Occlusion of the proximal superficial femoral artery. Reconstituted flow in the mid superficial femoral artery with dampened waveforms seen throughout the lower extremity. Occlusion of the below-knee posterior tibial and peroneal arteries Left leg: Occlusion of the proximal superficial femoral artery. Reconstituted flow in the mid superficial femoral artery with dampened waveforms throughout the lower extremity. Severely dampened waveform in the posterior tibial artery. Peroneal artery appears occluded
--- NOTE | ~2022-04-29 | US_ITS ---
EXAMINATION: US RETROPERITONEAL LIMITED (AORTA) CLINICAL INFORMATION: Peripheral vascular disease with the aortofemoral bypass graft. COMPARISON: CTA from 04/20/2021 TECHNIQUE: Fitzpatrick-scale, color Doppler and spectral Doppler evaluation of the abdominal aorta. FINDINGS: Calcified atherosclerotic plaque is seen throughout the [place] abdominal aorta. Distal aorta is occluded. There is an mid abdominal aortic to bilateral common femoral artery bypass graft. Bypass graft is widely patent on color flow and duplex Doppler. The measurements of the aorta in maximum AP and transverse dimensions respectively are as follows: Proximal: 2.4 cm. 51.5 cm/s, biphasic Mid: 1.9 cm. 47.1 cm/s, biphasic Distal: 1.9 cm. Occluded Bypass graft, right iliac limb: 72.1 cm/s. Bypass graft, left iliac limb: 66.0 cm/s. US/US arterial duplex LE BI IMPRESSION: [place] distal abdominal aorta is occluded with aorto-bifemoral bypass graft which is widely patent. EXAMINATION: Noninvasive assessment of the bilateral lower extremities with ARTERIAL DUPLEX CLINICAL INFORMATION: Peripheral vascular disease TECHNIQUE: Duplex Doppler techniques with waveform analysis and measurement of velocities in the bilateral common femoral, profunda femoris, superficial femoral, popliteal and tibial arteries were performed. COMPARISON: CTA from 04/20/2021 FINDINGS: DIRECT DUPLEX DOPPLER FINDINGS: RIGHT LEG: Common femoral artery: 97 cm/s, phasicity: Monophasic Profunda femoris artery: 193 cm/s, phasicity: Biphasic Superficial femoral artery (proximal): Occluded Superficial femoral artery (mid): 68 cm/s, phasicity: Monophasic Superficial femoral artery (distal): 56 cm/s, phasicity: Monophasic Popliteal artery: 34 cm/s, phasicity: Monophasic Posterior tibial artery: Occluded Peroneal artery: Occluded LEFT LEG: Common femoral artery: 97 cm/s, phasicity: Monophasic Profunda femoris artery: 91 cm/s, phasicity: Monophasic Superficial femoral artery (proximal): Occluded Superficial femoral artery (mid): 31 cm/s, phasicity: Monophasic Superficial femoral artery (distal): 26 cm/s, phasicity: Monophasic Popliteal artery: 59 cm/s, phasicity: Monophasic Posterior tibial artery: 44 cm/s, phasicity: Monophasic Peroneal artery: Occluded IMPRESSION: Right leg: Occlusion of the proximal superficial femoral artery. Reconstituted flow in the mid superficial femoral artery with dampened waveforms seen throughout the lower extremity. Occlusion of the below-knee posterior tibial and peroneal arteries Left leg: Occlusion of the proximal superficial femoral artery. Reconstituted flow in the mid superficial femoral artery with dampened waveforms throughout the lower extremity. Severely dampened waveform in the posterior tibial artery. Peroneal artery appears occluded
== END 2022-04-29 12:58 | disposition home or self-care (01) ==
LOC: HO.US 12:57
PROVIDERS: Visit Provider Surgery Vascular Surgery
DX: I73.9 Peripheral vascular disease, unspecified (principal)
CPT/HCPCS: 76775; 93925

== ENCOUNTER → 2022-05-11 10:32 | Outpatient (BNVA) | payer MEDICAID, SELFPAY | PROVIDERS: PCP Internal Medicine; Visit Provider Surgery Vascular Surgery | DX: I73.9 Peripheral vascular disease, unspecified (principal); I65.23 Occlusion and stenosis of bilateral carotid arteries | CPT/HCPCS: 99212 ==

== ENCOUNTER → 2022-06-10 09:05 | Outpatient (BNVA) | payer MEDICAID, SELFPAY | PROVIDERS: PCP Internal Medicine; Visit Provider Internal Medicine Cardiovascular Disease | DX: I65.23 Occlusion and stenosis of bilateral carotid arteries (principal); I73.9 Peripheral vascular disease, unspecified; Z95.828 Presence of other vascular implants and grafts; Z95.1 Presence of aortocoronary bypass graft | CPT/HCPCS: 99212 ==

== ENCOUNTER → 2022-06-30 09:53 | Outpatient (BNVA) | payer MEDICAID, SELFPAY | PROVIDERS: PCP Internal Medicine; Visit Provider Internal Medicine | DX: T14.8XXA Other injury of unspecified body region, initial encounter (principal); L08.9 Local infection of the skin and subcutaneous tissue, unspecified; T81.31XA Disruption of external operation (surgical) wound, not elsewhere classified, initial encounter | CPT/HCPCS: 99212 ==

== ENCOUNTER 2022-07-07 10:31 | Outpatient (REF) | payer MEDICAID, SELFPAY | END 2022-07-07 10:32 | disposition home or self-care (01) | LOC: HO.HAP 10:31 | PROVIDERS: Visit Provider Internal Medicine | DX: Z46.1 Encounter for fitting and adjustment of hearing aid (principal); H90.3 Sensorineural hearing loss, bilateral | CPT/HCPCS: V5266 ==

== ENCOUNTER 2022-09-09 14:11 | Outpatient (REF) | payer MEDICAID, SELFPAY ==
--- NOTE | ~2022-09-09 | US_ITS ---
EXAMINATION: US EXTRACRANIAL CAROTID DUPLEX, BILATERAL CLINICAL INFORMATION: Carotid stenosis. History of bilateral endarterectomy. COMPARISON: Carotid ultrasound 08/25/2021. TECHNIQUE: Real-time ultrasound and Doppler techniques (integrating B-mode 2-D vascular images, Doppler spectral analysis and color-flow Doppler imaging) were utilized to interrogate the extracranial carotid arteries, the vertebral arteries and proximal subclavian arteries bilaterally. The degree of stenosis is determined by criteria similar to NASCET. FINDINGS: Right Side: 1. There is minimal atherosclerotic plaque seen in the bifurcation/proximal ICA region. 2. The common carotid artery PSV proximally is 33 cm/s and distally 23 cm/s. 3. The proximal internal carotid artery velocities are 108 cm/s systolic and 44 cm/s diastolic. 4. The proximal external carotid artery is not well visualized and may be occluded proximally. There may be some distal reconstitution. 5. The vertebral artery shows antegrade flow. 6. The subclavian artery waveforms are normal. Left Side: 1. There is mild atherosclerotic plaque seen in the bifurcation/proximal ICA region. 2. The common carotid artery PSV proximally is 72 cm/s and distally 51 cm/s. 3. The proximal internal carotid artery velocities are 39 cm/s systolic and 15 cm/s diastolic. 4. The proximal external carotid artery PSV is 518 cm/s. 5. The vertebral artery shows antegrade flow. 6. The subclavian artery waveforms are normal. US/US carotid duplex BI IMPRESSION: 1. RIGHT: Minimal, non-hemodynamically significant stenosis of the proximal right internal carotid artery corresponding to a 0-49% stenosis by velocity criteria. 2. LEFT: Minimal, non-hemodynamically significant stenosis of the proximal left internal carotid artery corresponding to a 0-49% stenosis by velocity criteria. 3. Disease category is stable in the left proximal internal carotid artery and improved in the right proximal internal carotid artery when compared to the prior study of 08/25/2021. 4. Limited visualization of the proximal right external carotid artery cannot exclude short segment occlusion. 5. Hemodynamically significant stenosis of the proximal left external carotid artery unchanged from prior.
== END 2022-09-09 14:12 | disposition home or self-care (01) ==
LOC: HO.HMGCX 14:11
PROVIDERS: PCP Internal Medicine; Visit Provider Surgery Vascular Surgery
DX: I65.23 Occlusion and stenosis of bilateral carotid arteries (principal)
CPT/HCPCS: 93880

== ENCOUNTER 2022-09-14 13:35 | Outpatient (REF) | payer MEDICAID, SELFPAY ==
--- NOTE | ~2022-09-14 | US_ITS ---
EXAMINATION: US RETROPERITONEAL LIMITED (AORTA) CLINICAL INFORMATION: Peripheral vascular disease, unspecified. COMPARISON: US retroperitoneal limited (aorta) 04/29/2022. TECHNIQUE: Fitzpatrick-scale, color Doppler and spectral Doppler evaluation of the abdominal aorta. FINDINGS: There is atherosclerotic disease. The measurements of the aorta in maximum AP and transverse dimensions respectively are as follows: Proximal: 2.3 x 2.3 cm. Mid: 2.5 x 2.1 cm. Distal: Patent aortobifem graft extending into the bilateral iliac arteries PSV: 67.8 US/US abdominal aortic aneurysm IMPRESSION: Patent aortobifem graft.
== END 2022-09-14 13:36 | disposition home or self-care (01) ==
LOC: HO.HMGCX 13:35
PROVIDERS: PCP Internal Medicine; Visit Provider Surgery Vascular Surgery
DX: I71.40 Abdominal aortic aneurysm, without rupture, unspecified (principal)
CPT/HCPCS: 76706

== ENCOUNTER → 2022-10-21 10:41 | Outpatient (BNVA) | payer MEDICARE, MEDICAID, SELFPAY | PROVIDERS: Visit Provider Surgery Vascular Surgery | DX: I73.9 Peripheral vascular disease, unspecified (principal); I65.23 Occlusion and stenosis of bilateral carotid arteries; Z95.1 Presence of aortocoronary bypass graft; Z98.890 Other specified postprocedural states | CPT/HCPCS: 99212 ==

== ENCOUNTER 2022-10-29 10:20 | Outpatient (REF) | payer MEDICARE, MEDICAID, SELFPAY | END 2022-10-29 10:21 | disposition home or self-care (01) | LOC: HO.HAP 10:20 | PROVIDERS: PCP Student in an Organized Health Care Education/Training Program; Visit Provider Student in an Organized Health Care Education/Training Program | DX: Z13.89 Encounter for screening for other disorder (principal) ==

== ENCOUNTER 2022-11-01 12:23 | Outpatient (REF) | payer MEDICARE, MEDICAID, SELFPAY | END 2022-11-01 12:24 | disposition home or self-care (01) | LOC: HO.HAP 12:23 | PROVIDERS: Visit Provider Student in an Organized Health Care Education/Training Program | DX: Z13.89 Encounter for screening for other disorder (principal) ==

== ENCOUNTER → 2022-12-22 09:42 | Outpatient (BNVA) | payer MEDICARE, MEDICAID, SELFPAY | PROVIDERS: PCP Student in an Organized Health Care Education/Training Program; Referring Provider Student in an Organized Health Care Education/Training Program; Visit Provider Internal Medicine Cardiovascular Disease | DX: I48.92 Unspecified atrial flutter (principal) | CPT/HCPCS: 93005; 99212 ==

== ENCOUNTER → 2022-12-27 09:46 | Outpatient (BNVA) | payer MEDICARE, MEDICAID, SELFPAY | PROVIDERS: PCP Student in an Organized Health Care Education/Training Program; Visit Provider Internal Medicine | DX: T81.49XD Infection following a procedure, other surgical site, subsequent encounter (principal); Z79.2 Long term (current) use of antibiotics | CPT/HCPCS: 99212 ==

== ENCOUNTER 2023-01-07 10:17 | Outpatient (REF) | payer MEDICARE, MEDICAID, SELFPAY | END 2023-01-07 10:18 | disposition home or self-care (01) | LOC: HO.HAP 10:17 | PROVIDERS: Visit Provider Internal Medicine | DX: Z46.1 Encounter for fitting and adjustment of hearing aid (principal); H90.3 Sensorineural hearing loss, bilateral | CPT/HCPCS: V5266 ==

== ENCOUNTER 2023-01-20 10:40 | Outpatient (REF) | payer MEDICARE, MEDICAID, SELFPAY | END 2023-01-20 10:41 | disposition home or self-care (01) | LOC: HO.HAP 10:40 | PROVIDERS: Visit Provider Internal Medicine | DX: Z13.89 Encounter for screening for other disorder (principal) ==

== ENCOUNTER → 2023-01-21 12:51 | Outpatient (REF) | payer MEDICARE, MEDICAID, SELFPAY | LOC: HO.CARD 12:51 | PROVIDERS: PCP Internal Medicine; Visit Provider Internal Medicine Cardiovascular Disease | DX: I48.92 Unspecified atrial flutter (principal) | CPT/HCPCS: 93306 ==

== ENCOUNTER → 2023-02-08 11:40 | Day surgery (SDC) | payer MEDICARE, MEDICAID, SELFPAY ==
--- NOTE | 2023-02-07 09:11 | HO.ANESPROP2 ---
HPI - Anesthesia Eval Consult details Narrative: 62yo M for Cardioversion Eliquis for aflutter coronary artery disease status post bypass, peripheral vascular disease status post aortobifem bypass as well as bilateral carotid endarterectomies. [facility] Active Problems Active Problems: All Active Problems (Updated 12/22/22 @ 10:27 by Nathaniel Carter MD) Atrial flutter (Acute) Bilateral carotid artery stenosis (Acute) PAD (peripheral artery disease) (Acute) S/P aortobifemoral bypass surgery (Acute 12/28/21) Infected wound (Acute) Postoperative wound dehiscence (Acute) Status post coronary artery bypass graft (Acute) Status post bilateral carotid endarterectomy (Acute) Preop cardiovascular exam (Acute) Abnormal nuclear stress test (Acute) Preop cardiovascular exam (Acute) Carotid stenosis, right (Acute) Encounter for preoperative pulmonary examination (Acute) COPD (chronic obstructive pulmonary disease) (Acute) Past Medical History Medical History Aortoiliac occlusive disease Bilateral carotid artery stenosis Cancer Coronary artery disease COVID-19 vaccine series completed Decreased glomerular filtration rate (GFR) Hard of hearing HTN (hypertension) Hypercalcemia Hypercholesteremia Hypothyroidism IFG (impaired fasting glucose) PAD (peripheral artery disease) PAD (peripheral artery disease) PVD (peripheral vascular disease) S/P arteriogram of extremity Smoker Family History Family History Father No problems noted. Mother No problems noted. Family history of problems with anesthesia: No Surgical History Surgical History History of right-sided carotid endarterectomy History of thumb surgery Hx of heart bypass surgery S/P aortobifemoral bypass surgery (12/28/21) Status post bilateral carotid endarterectomy Status post carotid surgery Status post coronary artery bypass graft History of Problems with Anesthesia: No Social History Social History Household Members: Significant Other Housing: Apartment Are you a primary career technical education teacher to a significant other at home: No Do you presently have visiting nurse or other home services: No Alcohol intake: current Alcohol intake frequency: a few times a month Alcohol type: beer Patient Tobacco Use Status: Current someday Tobacco user Tobacco use type: Cigarette Cigarette Packs Per Day: 0.5 Cigarettes Per Day: 10.0 Years Smoked: 20 +/- e-Cigarette/Vaping Use: Never Used Second Hand Smoke Exposure: Yes Substance Use Type: Marijuana Advance Directives Date on File: 01/04/22 service: No Current occupational status: disabled Meds Allergies Allergy/AdvReac Type Severity Reaction Status Date / Time No Known Allergies Allergy Verified 12/27/22 10:14 [No Known Allergies*] Home Medications Medication Instructions Recorded Confirmed Last Taken Type aspirin 81 mg tablet,delayed 81 mg PO DAILY 04/14/21 12/22/22 Unknown History release cyclobenzaprine 5 mg tablet 5 mg PO TID 04/14/21 12/22/22 Unknown History levothyroxine 88 mcg tablet 88 mcg PO DAILY 04/14/21 12/22/22 12/28/21 05:00 History cholecalciferol (vitamin D3) 50 50 mcg PO DAILY 06/10/22 12/22/22 Unknown History mcg (2,000 unit) tablet cholecalciferol (vitamin D3) 50 50 mcg PO QAM 12/22/22 12/22/22 Unknown History mcg (2,000 unit) capsule Exam Exam Date and Time: February 07, 2023 0911 Narrative Narrative: EKG 12/2022 Atrial flutter with variable block 109 beats per minute, left bundle-branch block, QTC 533 milliseconds. ECHO 12/2022 Conclusions: - Mildly increased left ventricular cavity size.? There is ? ? ? moderately increased left ventricular wall thickness.? The left? ventricular systolic function is severely decreased.? The? visually estimated ejection fraction is between 20-25%.? - The apical inferior, mid inferior, and apical lateral segments are hypokinetic. ? - The entire septum, the apex, and basal inferior segments are ? akinetic.? - Normal right ventricular cavity size.? There is severely ? ? ? decreased right ventricular systolic function. ? - The left atrium is moderately dilated.? The right atrium is? ? moderately dilated.? - There is a normal trileaflet aortic valve.? There is mild? ? ? calcification of the aortic valve.? There is no aortic valve ? ? stenosis.? There is no aortic valve regurgitation. ? - Mild apical tethering of the mitral valve leaflets due to LV ? dilation.? - There is moderate mitral valve regurgitation.? - There is mild dilatation of the ascending aorta measuring 3.50 cm.? US carotid duplex BI 08/2022 IMPRESSION: 1. RIGHT: Minimal, non-hemodynamically significant stenosis of the proximal right internal carotid artery corresponding to a 0-49% stenosis by velocity criteria. ? 2. LEFT: Minimal, non-hemodynamically significant stenosis of the proximal left internal carotid artery corresponding to a 0-49% stenosis by velocity criteria. ? 3. Disease category is stable in the left proximal internal carotid artery and improved in the right proximal internal carotid artery when compared to the prior study of 08/25/2021. ? 4. Limited visualization of the proximal right external carotid artery cannot exclude short segment occlusion. ? 5. Hemodynamically significant stenosis of the proximal left external carotid artery unchanged from prior. abdominal aortic aneurysm 08/2022 IMPRESSION: Patent aortobifem graft. Assessment and Plan Assessment Anesthesia Assessment: Chart Reviewed Final Anesthetic Review Family History of Problems with Anesthesia: No History of Problems with Anesthesia: No
[2023-02-08 11:57] VITALS: BMI 23.5
--- NOTE | 2023-02-08 12:20 | ECG_ITS ---
Test Reason : ? afib/aflutter Blood Pressure : / mmHG Vent. Rate : 081 BPM Atrial Rate : 081 BPM P-R Int : 170 ms QRS Dur : 142 ms QT Int : 426 ms P-R-T Axes : 070 -28 138 degrees QTc Int : 494 ms Normal sinus rhythm Possible Left atrial enlargement Left ventricular hypertrophy with QRS widening and repolarization abnormality ( R in aVL , Rosendo product , Romhilt-Mckinley ) Abnormal ECG When compared with ECG of 27-JAN-2022 06:48, No significant change was found Referred By: Nathaniel Carter Electronically Signed By:Nathaniel Carter
--- NOTE | 2023-02-08 12:51 | PC.NURSE ---
question of SR. reached out to dr feliz. ekg done and evaluated by . sr found and to be discharged. no cardioversion needed. office will call patient to make medication adjustments, per dr talbot.
== END ==
PROVIDERS: PCP Internal Medicine; Visit Provider Internal Medicine Cardiovascular Disease
DX: I48.92 Unspecified atrial flutter (principal); Z53.8 Procedure and treatment not carried out for other reasons; Z79.01 Long term (current) use of anticoagulants
CPT/HCPCS: 93005

== ENCOUNTER → 2023-02-08 12:20 | Outpatient (BNV) | payer MEDICARE, MEDICAID, SELFPAY | PROVIDERS: PCP Internal Medicine; Visit Provider Internal Medicine Cardiovascular Disease | DX: R94.31 Abnormal electrocardiogram [ECG] [EKG] (principal) | CPT/HCPCS: 93010 ==

== ENCOUNTER 2023-03-03 14:39 | Emergency (ER) | payer MEDICARE, MEDICAID, SELFPAY ==
[2023-03-03] VITALS (26 sets, daily range): BP systolic 52–178; BP diastolic 20–129; PULSE 60–93; RESP 14–20; TEMP 36.4–36.8; O2SAT 92–93; BMI 23.5; BMI 22.2
--- NOTE | ~2023-03-03 | XR_ITS ---
EXAMINATION: XR CHEST CLINICAL INFORMATION: Central line placement COMPARISON: 03/03/2023 TECHNIQUE: Frontal view of the chest was obtained. FINDINGS: Right internal jugular central venous catheter terminates over the mid SVC. Cardiac leads overlie the chest. Median sternotomy wires appear intact. The lungs are well expanded. Hazy opacity of the left midlung is similar to prior peripherally. No pleural effusion or pneumothorax. The cardiomediastinal silhouette is unchanged, with a calcified aorta. XR/XR chest 1V IMPRESSION: 1. Right internal jugular central venous catheter terminates over the mid SVC. No pneumothorax. 2. Hazy opacity of the left midlung is similar to prior.
--- NOTE | ~2023-03-03 | XR_ITS ---
EXAMINATION: XR CHEST CLINICAL INFORMATION: Reason for Exam r/o pulm edema COMPARISON: Chest radiograph 12/28/2021 TECHNIQUE: One view of the chest FINDINGS: Lines and tubes: Median sternotomy wires and mediastinal surgical clips. EKG leads overlie the patient. Interval removal of the right internal jugular central venous catheter. Few streaky left midlung and right basilar opacities suggesting minimal atelectasis improved from prior with resolution of previously seen pulmonary edema. No pleural effusion. No pneumothorax. Unchanged cardiomediastinal silhouette. Atherosclerotic vascular calcification. XR/XR chest 1V IMPRESSION: 1. Few streaky left midlung and right basilar opacities suggesting minimal atelectasis improved from prior with resolution of previously seen pulmonary edema.
--- NOTE | ~2023-03-03 | CT_ITS ---
EXAMINATION: CT CHEST, ABDOMEN AND PELVIS WITH CONTRAST CLINICAL INFORMATION: source of bleed? COMPARISON: Chest x-ray 03/03/2023 TECHNIQUE: Multidetector volumetric CT imaging of the chest, abdomen and pelvis was obtained after the administration of 85 mL of intravenous Omnipaque 350 without immediate adverse reactions. Coronal and sagittal reformatted images are performed at CT scanner [This CT examination was performed using dose optimization techniques as appropriate, variously including the following: *Automated exposure control *Adjustment of mA and/or kV according to patient size (this includes techniques or standardized protocols for targeted exams where dose is matched to indication/reason for exam; i.e. extremities or head) *Use of iterative reconstruction technique] DLP: 1082 mGy-cm. FINDINGS: CT CHEST: Lungs: Linear scarring or linear atelectasis in left upper lobe. Minor dependent atelectasis at both lung bases. No acute airspace disease. Central bronchial airways are open. Mediastinum: Status post median sternotomy. Heart size enlarged. There is no pericardial effusion. No aneurysm of aorta. Vascular calcifications of aorta and origin of great vessels. Central line catheter tip in superior vena cava cavoatrial junction. No mediastinal mass. No hematoma or fluid collection. Pleura: There is no pleural effusion. No pleural mass or thickening. Axilla: No lymphadenopathy. CT ABDOMEN AND PELVIS: Liver, Gallbladder and Biliary Tree: Diffuse low attenuation of liver due to fatty change. No focal liver lesion or intrahepatic bile duct dilatation. The gallbladder is unremarkable with no evidence of radiopaque gallstones, gallbladder wall thickening, or obvious pericholecystic inflammatory changes. Pancreas: No acute change of the pancreas. No mass. No pancreatic duct dilatation. Spleen: Spleen normal in size and contour. No focal lesion. Adrenal Glands: Adrenal glands are normal in size. No focal mass. Kidneys and Ureters: The kidneys are normal in size, shape, and attenuation. No hydronephrosis, hydroureter, or calculi seen. No perinephric stranding. Bladder: Unremarkable. Gastrointestinal Tract: The small and large bowel are unremarkable. The appendix is unremarkable. MESENTERY: No inflammation. No free air or free fluid. Mesentery: No focal inflammation. No free fluid. No free air. Abdominal Wall: No significant hernia is appreciated. Lymph Nodes: Normal. Vascular: Extensive vascular calcifications in the abdomen or pelvis. Aortobifem bypass graft in place which is patent bilaterally. No evidence of leak of the graft. No retroperitoneal hemorrhage. Pelvic Viscera: Unremarkable. Osseous Structures: Multilevel degenerative spondylosis spine. CT/CT abdomen pelvis w IV con IMPRESSION: No acute abnormality of the chest, abdomen or pelvis.
--- NOTE | 2023-03-03 08:26 | ECG_ITS ---
Test Reason : LOW BP Blood Pressure : / mmHG Vent. Rate : 078 BPM Atrial Rate : 078 BPM P-R Int : 220 ms QRS Dur : 170 ms QT Int : 474 ms P-R-T Axes : 062 -27 124 degrees QTc Int : 540 ms Sinus rhythm with 1st degree A-V block Left bundle branch block Abnormal ECG When compared with ECG of 03-MAR-2023 15:01, No significant change was found Referred By: Nilda Ray Electronically Signed By:Nathaniel Carter
--- NOTE | 2023-03-03 14:57 | ECG_ITS ---
Test Reason : CHEST PAIN Blood Pressure : / mmHG Vent. Rate : 065 BPM Atrial Rate : 065 BPM P-R Int : 204 ms QRS Dur : 168 ms QT Int : 496 ms P-R-T Axes : 065 -04 148 degrees QTc Int : 515 ms Normal sinus rhythm Possible Left atrial enlargement Non-specific intra-ventricular conduction block Left ventricular hypertrophy with repolarization abnormality ( [place] product ) Abnormal ECG When compared with ECG of 08-FEB-2023 12:25, QRS duration has increased Referred By: Nilda Ray Electronically Signed By:Nathaniel Carter
--- NOTE | 2023-03-03 15:00 | ED_ITS ---
HPI - General Adult General Chief complaint: Weakness Stated complaint: WEAKNESS DIFFICULTY WALKING Time Seen by Provider: 03/03/23 14:51 Source: patient and EMS Mode of arrival: EMS Limitations: no limitations History of Present Illness HPI narrative: Patient comes to the emergency room complaining of feeling weak. Patient states that this morning, started feeling lightheaded with standing. Patient states that he almost feels that his legs are going to give out. Patient did not pass out, did not fall. Patient denies chest pain, back or abdominal pain, denies shortness of breath. Patient called 911 because he has been feeling weak all day today. When EMS arrived, patient was pale, they stated that they were unable to get a blood pressure and O2 sat read. They gave the patient 400 mL of fluid, recheck the blood pressure, it was in the 130s per EMS. Patient states that this time he feels well, is asymptomatic Related Data Home Medications Medication Instructions Recorded Confirmed cyclobenzaprine 5 mg tablet 5 mg PO TID 04/14/21 03/03/23 levothyroxine 88 mcg tablet 88 mcg PO DAILY 04/14/21 03/03/23 cholecalciferol (vitamin D3) 50 50 mcg PO DAILY 06/10/22 03/03/23 mcg (2,000 unit) tablet amiodarone 200 mg tablet 200 mg PO DAILY 03/03/23 03/03/23 Previous Rx's Medication Instructions Recorded atorvastatin 40 mg tablet 40 mg PO BEDTIME #90 tabs 06/10/22 ezetimibe 10 mg tablet (Zetia) 10 mg PO DAILY #90 tabs 06/10/22 apixaban 5 mg tablet 5 mg PO BID #60 tabs 12/22/22 carvedilol 3.125 mg tablet (Coreg) 3.125 mg PO BID #120 tabs 02/08/23 sacubitril 24 mg-valsartan 26 mg 1 tab PO BID #60 tabs 02/08/23 tablet (Entresto) Allergies Allergy/AdvReac Type Severity Reaction Status Date / Time No Known Allergies Allergy Verified 02/08/23 11:56 [No Known Allergies*] Review of Systems Review of Systems: Constitutional : No Weight loss, No Fever, No Chills, No Night Sweats, complaining of fatigue ENT/Mouth : No Hearing loss, No Ear Pain, No Nasal Congestion, No Sinus Pain, No Hoarseness, No sore throat, No Rhinorrhea, No Swallowing Difficulty Eyes: No Eye Pain, No Swelling, No Redness, No Foreign Body, No Discharge, No Vision Changes Cardiovascular : No Chest Pain, No SOB, No Dyspnea on Exertion, No Orthopnea, No Edema, No Palpitations Respiratory : No Cough, No Sputum, No Wheezing, No Smoke Exposure, No Dyspnea Gastrointestinal : No Nausea, No Vomiting, No Diarrhea, No Constipation, No abdominal Pain, No Hematochezia, No Melena Genitourinary : no irregular bleeding, No Dysuria, No Urinary Frequency, No Hematuria, No Urinary Incontinence, No Urgency, No Flank Pain, No Urinary Flow Changes, No Hesitancy Musculoskeletal : No joint pain, No Myalgias, No Joint Swelling Skin : No Skin Lesions, No rash Neuro : No Weakness, No Numbness, No Paresthesias, No Loss of Consciousness, No Dizziness, No Headache Psych : No Anxiety/Panic, No Depression, No SI/HI/AH/VH, No Social Issues, Heme/Lymph: No Bruising, No Bleeding,No Lymphadenopathy Endocrine : No Polyuria, No Polydipsia, No Temperature Intolerance [facility] Past Medical History Medical History Aortoiliac occlusive disease Bilateral carotid artery stenosis Cancer Coronary artery disease COVID-19 vaccine series completed Decreased glomerular filtration rate (GFR) Hard of hearing HTN (hypertension) Hypercalcemia Hypercholesteremia Hypothyroidism IFG (impaired fasting glucose) PAD (peripheral artery disease) PVD (peripheral vascular disease) S/P arteriogram of extremity Smoker Surgical History History of right-sided carotid endarterectomy History of thumb surgery Hx of heart bypass surgery S/P aortobifemoral bypass surgery (12/28/21) Status post bilateral carotid endarterectomy Status post carotid surgery Status post coronary artery bypass graft Family History Family History Father No problems noted. Mother No problems noted. Social History Social History Household Members: Significant Other Housing: Apartment Are you a primary school child care attendant to a significant other at home: No Do you presently have visiting nurse or other home services: No Alcohol intake: current Alcohol intake frequency: a few times a month Alcohol type: beer Patient Tobacco Use Status: Current everyday Tobacco user Tobacco use type: Cigarette Cigarette Packs Per Day: 0.5 Cigarettes Per Day: 3 Years Smoked: 20 +/- e-Cigarette/Vaping Use: Never Used Second Hand Smoke Exposure: Yes Substance Use Type: Marijuana Advance Directives: Yes Advance Directives on File: Yes Advance Directives Date on File: 01/04/22 service: No Current occupational status: disabled Physical Exam ED Vital Signs: Vital Signs - 24 hr 03/03/23 15:02 03/03/23 16:09 03/03/23 17:19 Temperature 97.9 F 97.5 F 97.7 F Pulse Rate 71 74 67 Respiratory Rate 20 17 14 Blood Pressure 81/47 L 74/54 L 69/33 L Pulse Oximetry 93 Oxygen Delivery Method Nasal Cannula Room Air Room Air 03/03/23 17:38 03/03/23 18:16 03/03/23 19:51 Temperature 98.2 F 97.7 F Pulse Rate 78 85 75 Respiratory Rate 20 20 Blood Pressure 52/20 L 69/36 L 83/35 L Pulse Oximetry 93 Oxygen Delivery Method Room Air Room Air 03/03/23 19:55 03/03/23 20:22 03/03/23 20:56 Temperature 98.2 F 97.9 F Pulse Rate 78 78 75 Respiratory Rate 20 18 18 Blood Pressure 89/50 L 91/45 L 98/58 L Pulse Oximetry Oxygen Delivery Method Room Air 03/03/23 20:39 03/03/23 20:44 03/03/23 20:48 Temperature 97.9 F Pulse Rate 79 Respiratory Rate 14 Blood Pressure 89/47 L 114/46 L 66/36 L Pulse Oximetry 92 Oxygen Delivery Method Room Air 03/03/23 20:49 03/03/23 21:48 03/03/23 21:55 Temperature 98.1 F Pulse Rate 84 Respiratory Rate 20 Blood Pressure 98/54 L 138/89 120/76 Pulse Oximetry 92 Oxygen Delivery Method 03/03/23 22:01 03/03/23 22:07 03/03/23 22:13 Temperature 98.2 F 98.0 F 98.0 F Pulse Rate 85 78 80 Respiratory Rate 14 14 20 Blood Pressure 119/32 L 158/129 H 165/120 H Pulse Oximetry Oxygen Delivery Method 08/10/23 22:15 Temperature 98.0 F Pulse Rate 93 Respiratory Rate 16 Blood Pressure 121/63 Pulse Oximetry Oxygen Delivery Method BMI result Body Mass Index 22.2 Const Other: Appearance: Alert. Oriented X3. No acute distress. Eyes: Pupils equal, round and reactive to light. ENT: Pharynx normal. Neck: Normal inspection. Neck supple. No lymph nodes noted. No crepitus CVS: Normal heart rate and rhythm. Pulses normal. Normal S1 and S2 Respiratory: No respiratory distress. Breath sounds normal. No Wheezing. No rales Abdomen: Soft and nontender. No rigidity. No distention. Bedside FAST exam: Negative Skin: Skin warm and dry. Diffusely pale skin color. Normal skin turgor. Extremities: No lower extremity edema. No Lacerations. No Rash Neuro: Oriented X 3. No motor deficit. No sensory deficit. Moving all extremities. No slurred speech. CN 2 through 12 grossly intact Psych: calm, cooperative, normal affect Course Course Course Narrative: -fast exam negative, guiac negative Medications Administered Generic Name Dose Route Start Last Admin Trade Name Freq PRN Reason Stop Dose Admin Norepinephrine Bitartrate 8 mg in 250 mls @ 0 mls/hr 03/03/23 17:30 03/03/23 17:38 Levophed IV 0.05 mcg/kg/min .Q0M ECHO 6.38 mls/hr Administration Protocol Per Protocol Discontinued Medications Generic Name Dose Route Start Last Admin Trade Name Freq PRN Reason Stop Dose Admin Sodium Chloride 1,000 mls @ 999 mls/hr 03/03/23 14:57 03/03/23 15:45 Ns IVCONT 03/03/23 15:57 999 mls/hr .Q1H1M ONE Administration Iohexol 100 ml 03/03/23 21:43 03/03/23 21:44 Iohexol 350 Mg/Ml 100 Ml Infus..Btl IV 03/03/23 21:44 85 ml ONCE ONE Administration Lorazepam 1 mg 03/03/23 18:28 03/03/23 18:29 Lorazepam 2 Mg/Ml Vial IVPUSH 03/03/23 18:29 1 mg ONCE ONE Administration Procedures Central Line Placement Right IJ: Time Out Performed: Yes Patient Placed on Monitor/Pulse Ox: Yes MD Prep: mask, gown and gloves Central Line Prep: Chlorhexidine scrub Local Anesthetic: lidocaine 1% Amount of anesthesia used (mL): 7 Ultrasound Used for Placement: Yes Central Line Lumen Inserted: triple Post Procedure: sutured in place, good blood return, all ports aspirated, flushed, capped and sterile dressing applied Post Procedure X-Ray: tip of catheter in good position and no pneumothorax seen Patient Tolerated Procedure: well and no complications Complications: none Medical Decision Making Medical Decision Making MDM Narrative: -patient is asymptomatic. However, patient's blood pressure is low, ranging between the mid 50s to mid 70s. Sepsis not suspected. -patient's lactic acid likely secondary to demand ischemia -before we get any of the labs back, patient had gotten 3 L of fluid due to low blood pressure. There is no source of infection, this is not sepsis. -Patient's low blood pressure likely secondary to blood loss, hemoglobin 5.6, hematocrit is 17.6, no obvious source of bleeding. On rectal exam there was no red blood per rectum, guaiac negative. Still, it is likely that the patient has a slow GI bleed, patient on blood thinners. Patient denies any abdominal pain, flank pain or back pain. -patient has been started on albumin and pressors (levophed), patient also receiving blood. I discussed with the patient risks versus benefits of a blood transfusion, patient is agreeable to proceed with a transfusion. Patient will need at least 3 fluids. Patient is ar high risk of fluid overload. -I discussed with the patient that he will need a central line, the procedure was explained to the patient, agreeable to get the central line. -per patient's request, I called his significant other and informed him of the above-mentioned (Hayley Trina [phone]) -patient's central line is functional and in place. -patient's blood pressure has been in the low 70s to low 90s systolic, heart rate 76, no fever, no respiratory distress, O2 94% RA -patient getting albumin, blood and Levophed, currently as 0.12 micrograms/kilogram per minute -patient was also given Kcentra -until now, patient's blood pressure has been unstable and patient has not been able to go to CT scan, BP ranging from high 50s to low 80s systolic. -Blood pressure has been taken with multiple devices to ensure it is an accurate blood pressure, blood pressure reads are consistent -21:30, pt in the low 90s, we'll go ahead and proceed now with a CT scan. -we do not have ICU beds. We tried calling multiple hospitals in the area, none are open to transfers. We were able to get in touch with [facility] -we were able to get in touch with Dr. Morrow from [facility] in [place], [place]. Recommendations: run a unit of blood here in the ED, repeat H&H. CT scan results pending 20:00 patient's 1st unit of blood is still running. After the 1st unit of blood, patient will need an H&H. Levophed still running. Blood pressure 120/76, heart rate 84, respirations 20, temperature 98.1 degrees, oxygen saturation 92% on room air. Patient states that he still feels well and is asymptomatic -once the H&H is repeated, please contact the transfer line for [facility], this can touch with Dr. Morrow from [facility] in [place], [place] who is expecting the H&H results and the CT scan reports of chest abdomen pelvis. -sign-out given to Dr. Thakkar -per patient's request, I called the patient's significant other and informed her about the transfer. -my interpretation of CT scans of chest abdomen pelvis: No obvious source of bleeding -I repeated an occult blood guaiac test, it was negative again Differential Diagnosis Differential Diagnoses: The differential diagnosis associated with the presentation includes (Sepsis, GI bleed, chronic anemia) Admission/Observation Consideration of admission/observation: Escalation of care including admission/observation considered Consult Healthcare Provider Management of the patient was discussed with: [place] [facility] (I discussed the patient with Dr. Carter, recommendations: Start blood, Levophed, all started already. Also discussed the patient with Dr Delacruz from the ICU, we dont' have ICU beds available) Lab Data MDM Lab Attestation statement: I reviewed the patient's lab results. 03/03/23 16:02 03/03/23 16:02 Labs: Lab Results 03/03/23 03/03/23 03/03/23 Range/Units 16:02 16:02 16:02 WBC 6.6 (4.8-10.8) X10*3/uL RBC 1.84 L D (4.60-5.80) X10*6/uL Hgb 5.6 L* D (14.0-18.0) g/dl Hct 17.6 L* D (42.0-52.0) % MCV 95.7 (80.0-98.0) fL MCH 30.4 (27.0-33.0) pg MCHC 31.8 (31.0-36.0) g/dl RDW 17.5 H (11.0-16.0) % Plt Count 275 (160-400) X10*3/uL MPV 10.6 (9.4-12.4) fL Immature Gran % (Auto) 0.3 (0.0-0.4) % Neut % (Auto) 70.3 (45-73) % Lymph % (Auto) 16.1 L (20-40) % [place] % (Auto) 11.9 H (2-11) % Eos % (Auto) 1.1 (0-4) % Baso % (Auto) 0.3 (0-2) % Lymph # (Auto) 1.1 L (1.2-4.9) X10*3/uL [place] # (Auto) 0.8 (0.1-1.2) X10*3/uL Eos # (Auto) 0.1 (0.0-0.4) X10*3/uL Baso # (Auto) 0.0 (0.0-0.2) X10*3/uL Abs Immat Gran (auto) 0.02 (0.00-0.03) X10*3/uL Absolute Neuts (auto) 4.7 (2.0-8.3) x10*3/uL Absolute Nucleated RBC 0.000 (0.0-0.012) X10*3/uL Nucleated RBC % (auto) 0.0 (0.0-0.2) /100WBC PT 28.0 H (11.1-13.3) SEC INR 2.3 H (0.9-1.1) Sodium 133 L (135-145) mmol/L Potassium 4.2 D (3.3-5.1) mmol/L Chloride 103 (96-108) mmol/L Carbon Dioxide 19 L (22-29) mmol/L Anion Gap 15 (12-20) BUN 13 (9-16) mg/dL Creatinine 1.13 (0.5-1.4) mg/dL Estim Creat Clear Calc 64.1 Estimated GFR > 60 Random Glucose 94 (60-115) mg/dL Lactic Acid (0.5-2.0) mmol/L Lactic Acid F/U @ 2Hr (0.5-2.0) mmol/L Calcium 8.5 D (8.4-10.2) mg/dL Magnesium 1.7 (1.6-2.6) mg/dL Total Bilirubin 0.5 (0.0-1.0) mg/dL Direct Bilirubin 0.3 (0.0-0.5) mg/dL AST 62 H (5-37) U/L ALT 26 (0-40) U/L Alkaline Phosphatase 142 H (39-117) U/L Troponin I High Sens (<3.5-35.0) ng/L B-Natriuretic Peptide (<100) pg/mL Total Protein 5.3 L (6.5-8.0) g/dL Albumin 2.4 L (3.5-5.0) g/dL TSH (0.32-4.0) uIU/mL Urine Color Urine Appearance Urine pH (5.0-9.0) Ur Specific [place] [employer] (1.005-1.025) Urine Protein (Neg-Trace) mg/dL Urine Glucose (UA) (Negative) mg/dL Urine Ketones (Negative) mg/dL Urine Blood (Negative) Urine Nitrite (Negative) Ur Leukocyte Esterase (Negative) Stool Occult Blood (NEGATIVE) Urine Opiates Screen (Not Detect) Urine Fentanyl Screen (Not Detect) Ur Barbiturates Screen (Not Detect) Ur Phencyclidine Scrn (Not Detect) Ur Amphetamines Screen (Not Detect) U Benzodiazepines Scrn (Not Detect) Urine Cocaine Screen (Not Detect) U Marijuana (THC) Screen (Not Detect) Ethyl Alcohol mg/dL COVID-19 (MADI) (Negative) COVID-19 Clin Com Blood Type Antibody Screen Crossmatch 03/03/23 03/03/23 03/03/23 Range/Units 16:02 16:02 16:02 WBC (4.8-10.8) X10*3/uL RBC (4.60-5.80) X10*6/uL Hgb (14.0-18.0) g/dl Hct (42.0-52.0) % MCV (80.0-98.0) fL MCH (27.0-33.0) pg MCHC (31.0-36.0) g/dl RDW (11.0-16.0) % Plt Count (160-400) X10*3/uL MPV (9.4-12.4) fL Immature Gran % (Auto) (0.0-0.4) % Neut % (Auto) (45-73) % Lymph % (Auto) (20-40) % [place] % (Auto) (2-11) % Eos % (Auto) (0-4) % Baso % (Auto) (0-2) % Lymph # (Auto) (1.2-4.9) X10*3/uL [place] # (Auto) (0.1-1.2) X10*3/uL Eos # (Auto) (0.0-0.4) X10*3/uL Baso # (Auto) (0.0-0.2) X10*3/uL Abs Immat Gran (auto) (0.00-0.03) X10*3/uL Absolute Neuts (auto) (2.0-8.3) x10*3/uL Absolute Nucleated RBC (0.0-0.012) X10*3/uL Nucleated RBC % (auto) (0.0-0.2) /100WBC PT (11.1-13.3) SEC INR (0.9-1.1) Sodium (135-145) mmol/L Potassium (3.3-5.1) mmol/L Chloride (96-108) mmol/L Carbon Dioxide (22-29) mmol/L Anion Gap (12-20) BUN (9-16) mg/dL Creatinine (0.5-1.4) mg/dL Estim Creat Clear Calc Estimated GFR Random Glucose (60-115) mg/dL Lactic Acid 6.8 H* (0.5-2.0) mmol/L Lactic Acid F/U @ 2Hr (0.5-2.0) mmol/L Calcium (8.4-10.2) mg/dL Magnesium (1.6-2.6) mg/dL Total Bilirubin (0.0-1.0) mg/dL Direct Bilirubin (0.0-0.5) mg/dL AST (5-37) U/L ALT (0-40) U/L Alkaline Phosphatase (39-117) U/L Troponin I High Sens 47.7 H (<3.5-35.0) ng/L B-Natriuretic Peptide 1362 H (<100) pg/mL Total Protein (6.5-8.0) g/dL Albumin (3.5-5.0) g/dL TSH (0.32-4.0) uIU/mL Urine Color Urine Appearance Urine pH (5.0-9.0) Ur Specific [place] [employer] (1.005-1.025) Urine Protein (Neg-Trace) mg/dL Urine Glucose (UA) (Negative) mg/dL Urine Ketones (Negative) mg/dL Urine Blood (Negative) Urine Nitrite (Negative) Ur Leukocyte Esterase (Negative) Stool Occult Blood (NEGATIVE) Urine Opiates Screen (Not Detect) Urine Fentanyl Screen (Not Detect) Ur Barbiturates Screen (Not Detect) Ur Phencyclidine Scrn (Not Detect) Ur Amphetamines Screen (Not Detect) U Benzodiazepines Scrn (Not Detect) Urine Cocaine Screen (Not Detect) U Marijuana (THC) Screen (Not Detect) Ethyl Alcohol mg/dL COVID-19 (MADI) (Negative) COVID-19 Clin Com Blood Type Antibody Screen Crossmatch 03/03/23 03/03/23 03/03/23 Range/Units 16:02 16:46 16:46 WBC (4.8-10.8) X10*3/uL RBC (4.60-5.80) X10*6/uL Hgb (14.0-18.0) g/dl Hct (42.0-52.0) % MCV (80.0-98.0) fL MCH (27.0-33.0) pg MCHC (31.0-36.0) g/dl RDW (11.0-16.0) % Plt Count (160-400) X10*3/uL MPV (9.4-12.4) fL Immature Gran % (Auto) (0.0-0.4) % Neut % (Auto) (45-73) % Lymph % (Auto) (20-40) % [place] % (Auto) (2-11) % Eos % (Auto) (0-4) % Baso % (Auto) (0-2) % Lymph # (Auto) (1.2-4.9) X10*3/uL [place] # (Auto) (0.1-1.2) X10*3/uL Eos # (Auto) (0.0-0.4) X10*3/uL Baso # (Auto) (0.0-0.2) X10*3/uL Abs Immat Gran (auto) (0.00-0.03) X10*3/uL Absolute Neuts (auto) (2.0-8.3) x10*3/uL Absolute Nucleated RBC (0.0-0.012) X10*3/uL Nucleated RBC % (auto) (0.0-0.2) /100WBC PT (11.1-13.3) SEC INR (0.9-1.1) Sodium (135-145) mmol/L Potassium (3.3-5.1) mmol/L Chloride (96-108) mmol/L Carbon Dioxide (22-29) mmol/L Anion Gap (12-20) BUN (9-16) mg/dL Creatinine (0.5-1.4) mg/dL Estim Creat Clear Calc Estimated GFR Random Glucose (60-115) mg/dL Lactic Acid (0.5-2.0) mmol/L Lactic Acid F/U @ 2Hr (0.5-2.0) mmol/L Calcium (8.4-10.2) mg/dL Magnesium (1.6-2.6) mg/dL Total Bilirubin (0.0-1.0) mg/dL Direct Bilirubin (0.0-0.5) mg/dL AST (5-37) U/L ALT (0-40) U/L Alkaline Phosphatase (39-117) U/L Troponin I High Sens (<3.5-35.0) ng/L B-Natriuretic Peptide (<100) pg/mL Total Protein (6.5-8.0) g/dL Albumin (3.5-5.0) g/dL TSH 3.24 (0.32-4.0) uIU/mL Urine Color Yellow Urine Appearance Clear Urine pH 6.0 (5.0-9.0) Ur Specific [place] [employer] <= 1.005 (1.005-1.025) Urine Protein Negative (Neg-Trace) mg/dL Urine Glucose (UA) Negative (Negative) mg/dL Urine Ketones Negative (Negative) mg/dL Urine Blood Negative (Negative) Urine Nitrite Negative (Negative) Ur Leukocyte Esterase Negative (Negative) Stool Occult Blood NEGATIVE (NEGATIVE) Urine Opiates Screen (Not Detect) Urine Fentanyl Screen (Not Detect) Ur Barbiturates Screen (Not Detect) Ur Phencyclidine Scrn (Not Detect) Ur Amphetamines Screen (Not Detect) U Benzodiazepines Scrn (Not Detect) Urine Cocaine Screen (Not Detect) U Marijuana (THC) Screen (Not Detect) Ethyl Alcohol < 10 mg/dL COVID-19 (MADI) (Negative) COVID-19 Clin Com Blood Type Antibody Screen Crossmatch 03/03/23 03/03/23 03/03/23 Range/Units 16:46 17:29 19:07 WBC (4.8-10.8) X10*3/uL RBC (4.60-5.80) X10*6/uL Hgb (14.0-18.0) g/dl Hct (42.0-52.0) % MCV (80.0-98.0) fL MCH (27.0-33.0) pg MCHC (31.0-36.0) g/dl RDW (11.0-16.0) % Plt Count (160-400) X10*3/uL MPV (9.4-12.4) fL Immature Gran % (Auto) (0.0-0.4) % Neut % (Auto) (45-73) % Lymph % (Auto) (20-40) % [place] % (Auto) (2-11) % Eos % (Auto) (0-4) % Baso % (Auto) (0-2) % Lymph # (Auto) (1.2-4.9) X10*3/uL [place] # (Auto) (0.1-1.2) X10*3/uL Eos # (Auto) (0.0-0.4) X10*3/uL Baso # (Auto) (0.0-0.2) X10*3/uL Abs Immat Gran (auto) (0.00-0.03) X10*3/uL Absolute Neuts (auto) (2.0-8.3) x10*3/uL Absolute Nucleated RBC (0.0-0.012) X10*3/uL Nucleated RBC % (auto) (0.0-0.2) /100WBC PT (11.1-13.3) SEC INR (0.9-1.1) Sodium (135-145) mmol/L Potassium (3.3-5.1) mmol/L Chloride (96-108) mmol/L Carbon Dioxide (22-29) mmol/L Anion Gap (12-20) BUN (9-16) mg/dL Creatinine (0.5-1.4) mg/dL Estim Creat Clear Calc Estimated GFR Random Glucose (60-115) mg/dL Lactic Acid (0.5-2.0) mmol/L Lactic Acid F/U @ 2Hr 1.2 (0.5-2.0) mmol/L Calcium (8.4-10.2) mg/dL Magnesium (1.6-2.6) mg/dL Total Bilirubin (0.0-1.0) mg/dL Direct Bilirubin (0.0-0.5) mg/dL AST (5-37) U/L ALT (0-40) U/L Alkaline Phosphatase (39-117) U/L Troponin I High Sens (<3.5-35.0) ng/L B-Natriuretic Peptide (<100) pg/mL Total Protein (6.5-8.0) g/dL Albumin (3.5-5.0) g/dL TSH (0.32-4.0) uIU/mL Urine Color Urine Appearance Urine pH (5.0-9.0) Ur Specific [place] [employer] (1.005-1.025) Urine Protein (Neg-Trace) mg/dL Urine Glucose (UA) (Negative) mg/dL Urine Ketones (Negative) mg/dL Urine Blood (Negative) Urine Nitrite (Negative) Ur Leukocyte Esterase (Negative) Stool Occult Blood (NEGATIVE) Urine Opiates Screen Not Detected (Not Detect) Urine Fentanyl Screen Not Detected (Not Detect) Ur Barbiturates Screen Not Detected (Not Detect) Ur Phencyclidine Scrn Not Detected (Not Detect) Ur Amphetamines Screen Not Detected (Not Detect) U Benzodiazepines Scrn Not Detected (Not Detect) Urine Cocaine Screen Not Detected (Not Detect) U Marijuana (THC) Screen POSITIVE H (Not Detect) Ethyl Alcohol mg/dL COVID-19 (MADI) (Negative) COVID-19 Clin Com Blood Type B Positive Antibody Screen NEGATIVE Crossmatch See Detail 03/03/23 03/03/23 Range/Units 19:59 22:11 WBC (4.8-10.8) X10*3/uL RBC (4.60-5.80) X10*6/uL Hgb (14.0-18.0) g/dl Hct (42.0-52.0) % MCV (80.0-98.0) fL MCH (27.0-33.0) pg MCHC (31.0-36.0) g/dl RDW (11.0-16.0) % Plt Count (160-400) X10*3/uL MPV (9.4-12.4) fL Immature Gran % (Auto) (0.0-0.4) % Neut % (Auto) (45-73) % Lymph % (Auto) (20-40) % [place] % (Auto) (2-11) % Eos % (Auto) (0-4) % Baso % (Auto) (0-2) % Lymph # (Auto) (1.2-4.9) X10*3/uL [place] # (Auto) (0.1-1.2) X10*3/uL Eos # (Auto) (0.0-0.4) X10*3/uL Baso # (Auto) (0.0-0.2) X10*3/uL Abs Immat Gran (auto) (0.00-0.03) X10*3/uL Absolute Neuts (auto) (2.0-8.3) x10*3/uL Absolute Nucleated RBC (0.0-0.012) X10*3/uL Nucleated RBC % (auto) (0.0-0.2) /100WBC PT (11.1-13.3) SEC INR (0.9-1.1) Sodium (135-145) mmol/L Potassium (3.3-5.1) mmol/L Chloride (96-108) mmol/L Carbon Dioxide (22-29) mmol/L Anion Gap (12-20) BUN (9-16) mg/dL Creatinine (0.5-1.4) mg/dL Estim Creat Clear Calc Estimated GFR Random Glucose (60-115) mg/dL Lactic Acid (0.5-2.0) mmol/L Lactic Acid F/U @ 2Hr (0.5-2.0) mmol/L Calcium (8.4-10.2) mg/dL Magnesium (1.6-2.6) mg/dL Total Bilirubin (0.0-1.0) mg/dL Direct Bilirubin (0.0-0.5) mg/dL AST (5-37) U/L ALT (0-40) U/L Alkaline Phosphatase (39-117) U/L Troponin I High Sens (<3.5-35.0) ng/L B-Natriuretic Peptide (<100) pg/mL Total Protein (6.5-8.0) g/dL Albumin (3.5-5.0) g/dL TSH (0.32-4.0) uIU/mL Urine Color Urine Appearance Urine pH (5.0-9.0) Ur Specific [place] [employer] (1.005-1.025) Urine Protein (Neg-Trace) mg/dL Urine Glucose (UA) (Negative) mg/dL Urine Ketones (Negative) mg/dL Urine Blood (Negative) Urine Nitrite (Negative) Ur Leukocyte Esterase (Negative) Stool Occult Blood NEGATIVE (NEGATIVE) Urine Opiates Screen (Not Detect) Urine Fentanyl Screen (Not Detect) Ur Barbiturates Screen (Not Detect) Ur Phencyclidine Scrn (Not Detect) Ur Amphetamines Screen (Not Detect) U Benzodiazepines Scrn (Not Detect) Urine Cocaine Screen (Not Detect) U Marijuana (THC) Screen (Not Detect) Ethyl Alcohol mg/dL COVID-19 ([facility]) Negative (Negative) COVID-19 Clin Com See Note Blood Type Antibody Screen Crossmatch Independent Interpretation I performed an independent interpretation of an: Plain X-Ray (My interpretation of chest x-ray: No edema, central line With good placement) Radiology Impression Discussion of test interpretation with radiology: I have reviewed the radiologist's reading. Radiologist Impression: FINDINGS: Right internal jugular central venous catheter terminates over the mid SVC. Cardiac leads overlie the chest. Median sternotomy wires appear intact. The lungs are well expanded. Hazy opacity of the left midlung is similar to prior peripherally. No pleural effusion or pneumothorax. The cardiomediastinal silhouette is unchanged, with a calcified aorta. XR/XR chest 1V IMPRESSION: 1.? Right internal jugular central venous catheter terminates over the mid SVC. No pneumothorax. 2.? Hazy opacity of the left midlung is similar to prior. CT CHEST: Lungs: Linear scarring or linear atelectasis in left upper lobe. Minor dependent atelectasis at both lung bases. No acute airspace disease. Central bronchial airways are open.? Mediastinum: Status post median sternotomy. Heart size enlarged. There is no pericardial effusion. No aneurysm of aorta. Vascular calcifications of aorta and origin of great vessels. Central line catheter tip in superior vena cava cavoatrial junction. No mediastinal mass. No hematoma or fluid collection.? Pleura: There is no pleural effusion. No pleural mass or thickening.? Axilla: No lymphadenopathy.? CT ABDOMEN AND PELVIS: Liver, Gallbladder and Biliary Tree: Diffuse low attenuation of liver due to fatty change. No focal liver lesion or intrahepatic bile duct dilatation. ?The gallbladder is unremarkable with no evidence of radiopaque gallstones, gallbladder wall thickening, or obvious pericholecystic inflammatory changes.? Pancreas: No acute change of the pancreas. No mass. No pancreatic duct dilatation.? Spleen: Spleen normal in size and contour. No focal lesion.? Adrenal Glands: Adrenal glands are normal in size. No focal mass.? Kidneys and Ureters: The kidneys are normal in size, shape, and attenuation. No hydronephrosis, hydroureter, or calculi seen. No perinephric stranding. ? Bladder: Unremarkable.? Gastrointestinal Tract: The small and large bowel are unremarkable. The appendix is unremarkable. MESENTERY: No inflammation. No free air or free fluid. Mesentery: No focal inflammation. No free fluid. No free air. Abdominal Wall: No significant hernia is appreciated.? Lymph Nodes: Normal. Vascular: Extensive vascular calcifications in the abdomen or pelvis. Aortobifem bypass graft in place which is patent bilaterally. No evidence of leak of the graft. No retroperitoneal hemorrhage. Pelvic Viscera: Unremarkable.? Osseous Structures: Multilevel degenerative spondylosis spine.? CT/CT abdomen pelvis w IV con IMPRESSION: No acute abnormality of the chest, abdomen or pelvis. ? Independent Historian Clinical information obtained from an independent historian. History obtained from or confirmed by: Spouse External Record Review External record reviewed: Office record (From Cardiology) Critical Care Time Critical Care Time Critical Care Time: Yes Total Critical Care Time: 120 Attestation: I have personally provided critical care time. Time includes review of lab data, radiology results, discussion with consultants, and monitoring for potential decompensation. Intervention performed as documented. Discharge Plan Discharge Clinical Impression: Anemia, Hypotension Patient Disposition: [facility] Transfer Details: Accepting Physician: Dr. Morrow from [facility] in [place], [place]. ICU Prescriptions: No Action carvedilol [Coreg] 3.125 mg tablet 3.125 mg PO BID Qty: 120 3RF Rx Instructions: must administer with a meal/food Entresto 24-26 mg tablet 1 tab PO BID Qty: 60 5RF amiodarone 200 mg tablet 200 mg PO DAILY levothyroxine 88 mcg tablet 88 mcg PO DAILY cyclobenzaprine 5 mg tablet 5 mg PO TID cholecalciferol (vitamin D3) 50 mcg (2,000 unit) tablet 50 mcg PO DAILY ezetimibe [Zetia] 10 mg tablet 10 mg PO DAILY Qty: 90 3RF atorvastatin 40 mg tablet 40 mg PO BEDTIME Qty: 90 3RF apixaban 5 mg tablet 5 mg PO BID Qty: 60 4RF
[2023-03-03] MEDS: 0.9 % Sodium Chloride 1,000 ML 999 ML IVCONT (15:45)
[2023-03-03 16:10] LABS: MANUAL DIFF FLAG NO
[2023-03-03 16:19] LABS: Basophils Percent Auto 0.3 % (0-2); Eosinophils Absolute Auto 0.1 X10*3/uL (0.0-0.4); Eosinophils Percent Auto 1.1 % (0-4); Imm Gran Abs Auto 0.02 X10*3/uL (0.00-0.03); Imm Gran Pct Auto 0.3 % (0.0-0.4); Lymphocytes Absolute Auto 1.1 X10*3/uL (1.2-4.9); Lymphocytes Percent Auto 16.1 % (20-40); Mean Corpuscular HGB Conc 31.8 g/dl (31.0-36.0); Mean Corpuscular Hemoglobin 30.4 pg (27.0-33.0); Mean Corpuscular Volume 95.7 fL (80.0-98.0); Mean Platelet Volume 10.6 fL (9.4-12.4); Monocytes Absolute Auto 0.8 X10*3/uL (0.1-1.2); Monocytes Percent Auto 11.9 % (2-11); Neutrophils Absolute Auto 4.7 x10*3/uL (2.0-8.3); Neutrophils Percent Auto 70.3 % (45-73); Platelet Count 275 X10*3/uL (160-400); Red Blood Count 1.84 X10*6/uL (4.60-5.80); Red Cell Distribution Width 17.5 % (11.0-16.0); White Blood Count 6.6 X10*3/uL (4.8-10.8)
[2023-03-03 16:29] LABS: Alanine Aminotransferase 26 U/L (0-40); Albumin Level 2.4 g/dL (3.5-5.0); Alkaline Phosphatase 142 U/L (39-117); Anion Gap 15 (12-20); Aspartate Amino Transferase 62 U/L (5-37); Bilirubin Direct 0.3 mg/dL (0.0-0.5); Bilirubin Total 0.5 mg/dL (0.0-1.0); Blood Urea Nitrogen 13 mg/dL (9-16); Calcium 8.5 mg/dL (8.4-10.2); Carbon Dioxide 19 mmol/L (22-29); Chloride 103 mmol/L (96-108); Creatinine Clr Calc Pharmacy 64.1; Estimated Glomerular Filt Rate > 60; Glucose Random 94 mg/dL (60-115); Hemoglobin 5.6 g/dl (14.0-18.0); Lactic Acid 6.8 mmol/L (0.5-2.0); Magnesium 1.7 mg/dL (1.6-2.6); Potassium 4.2 mmol/L (3.3-5.1); Sodium 133 mmol/L (135-145); Total Protein 5.3 g/dL (6.5-8.0)
[2023-03-03 16:30] LABS: Hematocrit 17.6 % (42.0-52.0)
[2023-03-03 16:33] LABS: Ethanol < 10 mg/dL
[2023-03-03 16:34] LABS: B Type Natriuretic Peptide 1362 pg/mL (<100)
[2023-03-03 16:38] LABS: Troponin-I High Sensitivity 47.7 ng/L (<3.5-35.0)
[2023-03-03 16:41] LABS: INTERNATIONAL NORM RATIO 2.3 (0.9-1.1)
[2023-03-03 16:52] LABS: TSH reflex Free T4 3.24 uIU/mL (0.32-4.0)
[2023-03-03 17:08] LABS: OBS Int Ctl Valid YES; OBS1 NEGATIVE (NEGATIVE)
[2023-03-03 17:09] LABS: Appearance Urine Clear; Color Urine Yellow; Glucose Urine UA Negative (Negative); Leukocyte Esterase Urine Negative (Negative); Nitrite Urine Negative (Negative); Specific Gravity - Urine <= 1.005 (1.005-1.025); Urine Blood Negative (Negative); Urine Ketones Negative (Negative); Urine Protein Negative (Neg-Trace)
[2023-03-03 17:13] LABS: Amphetamine Screen Urine Not Detected (Not Detect); Barbiturates, Urine Not Detected (Not Detect); Benzodiazepines Screen Urine Not Detected (Not Detect); Cannabinoid Screen Urine POSITIVE (Not Detect); Cocaine Screen Urine Not Detected (Not Detect); Fentanyl, urine Not Detected (Not Detect); Opiate Screen Urine Not Detected (Not Detect); Phencyclidine Screen Urine Not Detected (Not Detect)
--- NOTE | 2023-03-03 17:21 | MHC.EDTECH ---
this pct assumed care of patient at 1600 ,type and screen drawn and 2nd sets of blood culture all sent to lab ,provider aware of patient low bp ,provider Flor said not to do orthostatics vitals at this time until patient bp is stable .
[2023-03-03] MEDS: Norepinephrine Bitartrate/D5W 8 MG/250 ML PLAST..BAG 6.38 MG IV (17:38)
[2023-03-03 18:09] LABS: Reflex Lactate? Lactic Acid Added
[2023-03-03] MEDS: LORazepam 2 MG/ML VIAL 1 MG IVPUSH (18:29)
[2023-03-03 19:22] LABS: ~Lactic Acid-LAB USE ONLY 1.2 mmol/L (0.5-2.0)
[2023-03-03] MEDS: Hum Prothrombin Cplx(PCC)4Fact 2,000 UNIT in Container,Empty 0 ML 480 UNIT IV (20:22)
[2023-03-03 20:26] LABS: COVID-19 Test Negative (Negative); IDNOW Serial# 08D9AD1C
--- NOTE | 2023-03-03 20:44 | PHA.MEDREC ---
Pharmacy Consult ? Medication Reconciliation Pharmacy has completed the medication reconciliation. Patient has list from home, claim history show all medications recently filled. Luisa Urbina, AlexyD
--- NOTE | 2023-03-03 21:01 | PC.NURSE ---
RN assumed care of patient upon arrival. Per EMS report, difficult to palpate radial pulse. RN found this to be true, patient's blood pressure remained extremely low throughout the evening, as documented in chard and as low as 52/20 at 1730, Dr. Ray aware, patient started on Norepinephrine, titrated up to 0.14mcg/kg/min as of 1930. Patient required central line for continuing hypotension. Critical labs reported, patient required intensive intervention from multiple providers, 3 units of blood ordered. BLOOD STARTED LATE DUE TO ISSUES WITH CENTRAL LINE AND THE NEED FOR KCENTRA FIRST PER MD Patient arrived back from CT scan at 2142. Albumin also started at 2200 due to multiple interventions necessary.
[2023-03-03] MEDS: iohexoL 350 MG/ML 100 ML INFUS..BTL IV (21:44)
[2023-03-03 22:20] LABS: OBS Int Ctl Valid YES
[2023-03-03 22:21] LABS: OBS1 NEGATIVE (NEGATIVE)
[2023-03-03] MEDS: Albumin Human 25 % 100 ML IV ×2 (22:30→23:30)
[2023-03-03 22:46] LABS: Hematocrit 20.2 % (42.0-52.0); Hemoglobin 6.5 g/dl (14.0-18.0)
[2023-03-03] MEDS: Hydrocortisone Sod Succ/PF 100 MG VIAL IVPUSH (23:09)
--- NOTE | 2023-03-03 23:51 | PC.NURSE ---
Xiomara MATHIS arrived at this time to transfer patient to [place]. Patient's significant other, Hayley, was called and updated regarding patient's status. Patient's last BP 114/65
--- NOTE | 2023-03-03 23:56 | MHC.EDTECH ---
callout to doris at 2321 to book ALS transport to [facility] ICU, estimated eta given was 2340
== END 2023-03-04 00:15 | disposition short-term general hospital (02) ==
PROVIDERS: Emergency Provider Emergency Medicine
DX: R53.1 Weakness (principal); R26.2 Difficulty in walking, not elsewhere classified; I95.9 Hypotension, unspecified; D64.9 Anemia, unspecified; R06.02 Shortness of breath; R10.13 Epigastric pain; R42 Dizziness and giddiness; F17.210 Nicotine dependence, cigarettes, uncomplicated; Z20.822 Contact with and (suspected) exposure to COVID-19; Z20.828 Contact with and (suspected) exposure to other viral communicable diseases; Z79.899 Other long term (current) drug therapy; Z71.6 Tobacco abuse counseling
CPT/HCPCS: 36415; 36430; 36556; 71045; 71260; 74177; 80048; 80076; 80307; 81003; 82272; 83605; 83735; 83880; 84443; 84484; 85014; 85018; 85025; 85610; 86850; 86900; 86901; 86923; 87040; 87635; 93005; 96365; 96366; 96367; 96368; 96375; 99285; J2060; J7168; P9016; P9047; Q9967

== ENCOUNTER → 2023-03-03 14:57 | Outpatient (BNV) | payer MEDICARE, MEDICAID, SELFPAY | PROVIDERS: Emergency Provider Emergency Medicine; Visit Provider Internal Medicine Cardiovascular Disease | DX: R94.31 Abnormal electrocardiogram [ECG] [EKG] (principal) | CPT/HCPCS: 93010 ==